=== PATIENT | female | born 1975 ===

== ENCOUNTER 2017-09-13 21:45 | Inpatient (IN) | payer MEDICAID, OTHER ==
[2017-09-13] MEDS ORDERED: Sodium Chloride 0.9% 1,000 ML IV STA (21:56)
[2017-09-13 21:58] VITALS: BMI 41.1
--- NOTE | 2017-09-13 22:08 | ED PDOC ---
Arrival/HPI - General Time Seen by Provider: 09/13/17 21:47 Historian: Patient - History of Present Illness Narrative History of Present Illness (Text): 09/13/17 22:00 42 y/o female, pmh including dm/anemia, nkda,seen in the [facility] about couple days ago as per patient, biba for nausea/vomiting/fatigue and tired with loose stool x 2 days with BP 84/43 on the ambulance but resolved in the ER. Pt. has not been ablt to tolerate any fluid/solid down for the past 2 days, very fatigue and unable to get up from the bed, admits vomiting and couple episodes of watery stool today, no recent traveling, stated that she has no chills or night sweat, no palpitation, no flank pain, no other medical or psychological complaints. Past Medical History - Provider Review Nursing Documentation Reviewed: Yes Family/Social History - Physician Review Nursing Documentation Reviewed: Yes Family/Social History: Unknown Family HX Allergies/Home Meds Allergies/Adverse Reactions: Allergies apple Allergy (Verified 09/13/17 23:09) REDNESS strawberries Allergy (Uncoded 09/13/17 21:53) RASH Home Medications: Home Meds Medication Instructions Recorded Confirmed Glipizide [Glucotrol] 10 mg PO BID 09/13/17 09/13/17 MetFORMIN [glucoPHAGE] 1,000 mg PO BID 09/13/17 09/13/17 Review of Systems - Review of Systems Systems not reviewed;Unavailable: Acuity of Condition Constitutional: Fatigue. absent: Fevers Eyes: absent: Vision Changes ENT: absent: Hearing Changes Respiratory: absent: SOB, Cough Cardiovascular: absent: Chest Pain Gastrointestinal: Abdominal Pain, Diarrhea, Nausea, Vomiting Musculoskeletal: absent: Arthralgias Skin: absent: Rash, Pruritis Psychiatric: absent: Anxiety, Depression Physical Exam Vital Signs Reviewed: Yes Vital Signs Temp Pulse Resp BP Pulse Ox 09/14/17 01:29 98 F 100 H 18 101/54 L 98 09/13/17 22:41 99.5 F 110 H 18 180/113 H 99 Temperature: Afebrile Blood Pressure: Hypertensive Pulse: Tachycardic Respiratory Rate: Normal Appearance: Positive for: Ill-Appearing, Unkept Pain Distress: None Mental Status: Positive for: Alert and Oriented X 3 - Systems Exam Head: Present: Atraumatic, Normocephalic Pupils: Present: PERRL Extroacular Muscles: Present: EOMI Conjunctiva: Present: Normal Mouth: Present: Moist Mucous Membranes Nose (Internal): Present: Normal Inspection, No Active Bleeding. No: Rhinorrhea Neck: Present: Normal Range of Motion Respiratory/Chest: Present: Clear to Auscultation, Good Air Exchange. No: Respiratory Distress, Accessory Muscle Use Cardiovascular: Present: Regular Rate and Rhythm, Normal S1, S2. No: Murmurs Abdomen: No: Tenderness, Distention, Peritoneal Signs, Rebound, Guarding Back: Present: Normal Inspection Upper Extremity: Present: Normal Inspection. No: Cyanosis, Edema Lower Extremity: Present: Normal Inspection. No: Edema Neurological: Present: GCS=15, CN II-XII Intact, Motor Func Grossly Intact, Memory Normal Skin: Present: Warm, Dry, Normal Color. No: Rashes Psychiatric: Present: Alert, Oriented x 3, Normal Insight, Normal Concentration Medical Decision Making ED Course and Treatment: 09/13/17 22:09 -labs/ua/vbg -ekg -chest xray -CT abdomen and pelvis -IVF/pepcid/zofran -observe and reassess -EKG: Sinus tachycardia @ 117 BPM, no ST elevation or depression, no T wave inversion, no previous comparison. -Chest xray -CT abdomen and pelvis -Labs show WBC 20 (IV vancomycin/zosyn/flagyl), BUN 49 (fluid ordered), Creatine 4.4, Mg 1.2 (MgSu 2gm IV ordered) -VBG PH 7.14, Bicarb 15.7, Lactate 10.4 09/13/17 22:43 -Code sepsis activated, 30cc/kg fluid, IV vancomcyin/zosyn/flagyl ordered. -DKA vs. Sepsis 09/13/17 23:55 -EKG: Sinus tachycardia @ 117 BPM, no ST elevation or depression, no T wave inversion, no previous comparison. -Chest xray -CT abdomen and pelvis -Labs show WBC 20 (IV vancomycin/zosyn/flagyl, 30ml/kg fluid), BUN 49 (fluid ordered), Creatine 4.4, Mg 1.2 (MgSu 2gm IV ordered) -VBG PH 7.14, Bicarb 15.7, Lactate 10.4 -IV drip ordered as well as this can be DKA from poor controlled DM with Serum glucose 400s without eating for 2 days. -I spoke to Dr. Mcduffie and vice president of software engineering Dr. Xie, discussed about the labs/ radiology results and treatments, agreed on the admission, and will come to see the patient now. They will follow up the pending CT and chest xray. -I discussed the case with dr. Elizabeth and he agreed on the labs/order/ radiology and treatment plan including admission. He will placed in the admission. - Critical Care Critical Care Minutes: 45 minutes Critical Care Time: Unstable Narrative Critical Care (Text): 09/14/17 00:30 IV fluid, IV insulin and IV Insulin drip, IV vancomycin/zosyn/flagyl, ICU consult and admission - Lab Interpretations Lab Results: 09/13/17 22:15 09/13/17 22:15 Lab Results 09/13/17 22:15: Procalcitonin > 200.00 H 09/13/17 22:15: pO2 48, VBG pH 7.14 L*, VBG pCO2 46.0, VBG HCO3 15.7 L, VBG Total CO2 17.1 L, VBG O2 Sat (Calc) 78.1 H, VBG Base Excess -13.1 L, VBG Potassium 3.4 L, Sodium 132.0, Chloride 95.0 L, Glucose 438 H*, Lactate 10.4 H* , FiO2 21.0, Venous Blood Potassium 3.4 L 09/13/17 22:15: WBC 20.1 H, RBC 4.18, Hgb 11.1 L, Hct 33.2 L, MCV 79.4 L, MCH 26.6, MCHC 33.4, RDW 16.4 H, Plt Count 165, MPV 12.1 H, Gran % 89.8 H, Lymph % ( Auto) 7.9 L, [place] % (Auto) 2.3, Eos % (Auto) 0.0 L, Baso % (Auto) 0.0, Gran # 18.05 H, Lymph # (Auto) 1.6, [place] # (Auto) 0.5, Eos # (Auto) 0.0, Baso # (Auto) 0.01, Neutrophils % (Manual) 80 H, Band Neutrophils % 9 H, Lymphocytes % (Manual ) 6 L, Monocytes % (Manual) 5, Large Platelets Present 09/13/17 22:15: Beta HCG, Quant < 2.39 09/13/17 22:15: Sodium 135, Chloride 93 L, Potassium 3.3 L, Carbon Dioxide 16 L , Anion Gap 29 H, BUN 49 H, Creatinine 4.4 H, Est GFR ( Amer) 13, Est GFR (Non-Af Amer) 11, Random Glucose 430 H*, Calcium 9.4, Magnesium 1.2 L, Total Bilirubin 0.7, AST 25, ALT 11, Alkaline Phosphatase 130 H, Total Protein 7.6, Albumin 3.8, Globulin 3.8, Albumin/Globulin Ratio 1.0 L, Lipase 26 09/13/17 22:00: Blood Type A POSITIVE, Antibody Screen Negative, BBK History Checked No verified bt - RAD Interpretation Radiology Orders: 09/13/17 21:56 CHEST PORTABLE [RAD] Stat 09/13/17 23:00 ABDOMEN & PELVIS [ABD & PELVIS W/O PO OR IV CONT] [CT] Stat Chest xray: ------ CT abdomen and pelvis: Compliance Professional: Radiologist - EKG Interpretation EKG Interpretation (Text): 09/13/17 22:10 -EKG: Sinus tachycardia @ 117 BPM, no ST elevation or depression, no T wave inversion, no previous comparison. Interpreted by ED Physician: Yes Type: 12 lead EKG Comparison: No previous EKG avail. - Medication Orders Current Medication Orders: Heparin Sodium (Porcine) (Heparin) 5,[address] [facility] PRN Reason: Protocol Last Admin: 09/14/17 09:24 Dose: 5,000 units Subcutaneous Administrations Document 09/14/17 09:24 HERBERT (Rec: 09/14/17 09:24 RAMOM [id number]) Injection Site MAR Injection Site Left Abdomen Charges for Administration # of Subcutaneous Administrations 1 Hydrocortisone Sodium Succinate (Solu-Cortef) [address] [facility] Last Admin: 09/14/17 11:10 Dose: 100 mg IVP Administration Document 09/14/17 11:10 RAMOM (Rec: 09/14/17 13:23 RAMOM [id number]) Charges for Administration # of IVP Administrations 1 Insulin Human Regular 100 (units/ Sodium Chloride) 100 mls @ 6 mls/hr IV .[id number] PRN; Protocol; 6 UNITS/HR PRN Reason: TITRATE PER MD ORDER Last Titration: 09/14/17 08:40 Dose: 2 units/hr, 2 mls/hr Titration Intervention Document 09/14/17 08:40 RAMOM (Rec: 09/14/17 08:40 RAMOM [id number]) Titration Intake Titration Intake 4 Cumulative Intake 14 Cumulative Intake (Rx) 14 Waste Amount 0 Container Volume 46 Titration Dosing Titration Dose 2 IV Rate 2 Intake/Decrease Increased Cumulative Dose 14 Metronidazole (Flagyl) 500 mg in 100 mls @ 100 mls/hr IVPB Q8 BOB PRN Reason: Protocol Last Admin: 09/14/17 13:19 Dose: 100 mls/hr eMAR Start Stop Document 09/14/17 13:19 RAMOM (Rec: 09/14/17 13:19 RAMOM [id number]) Intravenous Solution Start Date 09/14/17 Start Time 13:20 End Date 09/14/17 End time 14:20 Total Infusion Time 60 Acetaminophen (Ofirmev) 1,000 mg in 100 mls @ 400 mls/hr IVPB Q6H PRN PRN Reason: Fever Stop: 09/16/17 05:43 Last Admin: 09/14/17 14:37 Dose: 400 mls/hr eMAR Start Stop Document 09/14/17 14:37 RAMOM (Rec: 09/14/17 14:37 RAMOM [id number]) Intravenous Solution Start Date 09/14/17 Start Time 14:35 End Date 09/14/17 End time 14:50 Total Infusion Time 15 MAR Pain Assessment Document 09/14/17 14:37 RAMOM (Rec: 09/14/17 14:37 RAMOM [id number]) Pain Reassessment Is this a pain reassessment? No Sleep Is patient sleeping during reassessment? No Presence of Pain Presence of Pain No Potassium Chloride/Dextrose/Sod Cl (Potassium Chl 20 Meq In D5-1/2ns) 1,000 mls @ 150 mls/hr IV .Q6H40M BOB Last Admin: 09/14/17 07:07 Dose: 150 mls/hr eMAR Start Stop Document 09/14/17 07:07 B.P (Rec: 09/14/17 07:07 B.P TRAINPC-FIX) Intravenous Solution Start Date 09/14/17 Start Time 07:07 Vasopressin 20 units/ Sodium (Chloride) 101 mls @ 9.09 mls/hr IV .Q11H7M BOB; 0.03 U/MIN PRN Reason: Protocol Last Admin: 09/14/17 11:20 Dose: 9.09 mls/hr eMAR Start Stop Document 09/14/17 11:20 RAMOM (Rec: 09/14/17 11:21 RAMOM [id number]) Intravenous Solution Start Date 09/14/17 Start Time 11:20 End Date 09/14/17 End time 12:20 Total Infusion Time 60 MAR Blood Pressure Document 09/14/17 11:20 RAMOM (Rec: 09/14/17 11:21 RAMOM [id number]) Blood Pressure Blood Pressure (100/60-150/90) 72/0 NOREPINEPHRINE BIT/0.9 % NACL (Levophed 4 Mg/ 250 Ml Ns Premixed) 4 mg in 250 mls @ 15 mls/hr IV .[id number] PRN; Protocol; 4 MCG/MIN PRN Reason: TITRATE PER MD ORDER Last Admin: 09/14/17 13:55 Dose: 12 mcg/min, 45 mls/hr eMAR Start Stop Document 09/14/17 13:55 RAMOM (Rec: 09/14/17 13:59 RAMOM [id number]) Intravenous Solution Start Date 09/14/17 Start Time 13:50 Titration Intervention Document 09/14/17 13:55 RAMOM (Rec: 09/14/17 13:59 RAMOM [id number]) Titration Intake Cumulative Intake (Rx) 250 Waste Amount 0 Container Volume 250 Titration Dosing Titration Dose 12 IV Rate 45 Intake/Decrease Started/Running Cumulative Dose 4 Meropenem 500 mg/ Sodium (Chloride) 50 mls @ 100 mls/hr IVPB Q12 BOB PRN Reason: Protocol Stop: 09/23/17 22:01 Ondansetron HCl (Zofran Inj) 4 mg IVP Q4H PRN PRN Reason: Nausea/Vomiting Last Admin: 09/14/17 04:49 Dose: 4 mg IVP Administration Document 09/14/17 04:49 B.P (Rec: 09/14/17 04:49 B.P TRAINPC-FIX) Charges for Administration # of IVP Administrations 1 Pantoprazole Sodium (Protonix Inj) [address] [facility] Last Admin: 09/14/17 09:24 Dose: 40 mg IVP Administration Document 09/14/17 09:24 RAMOM (Rec: 09/14/17 09:24 RAMOM [id number]) Charges for Administration # of IVP Administrations 1 Vitamin A (Vitamin A & D Oint Ud Foilpak) 1 ea TOP Q2 PRN PRN Reason: Dry mouth Discontinued Medications Acetaminophen (Tylenol 325mg Tab) 650 mg PO ONCE ONE Stop: 09/14/17 03:22 Last Admin: 09/14/17 03:33 Dose: 650 mg [facility] Pain/Vitals Document 09/14/17 03:33 B.P (Rec: 09/14/17 03:33 B.P TRAINPC-FIX) Pain Reassessment Is This A Pain ReAssessment? No Vitals Temperature (97.6 F-99.6 F) 99.6 F Temperature Source Oral Re-Assess: MAR Pain/Vitals Document 09/14/17 04:33 B.P (Rec: 09/14/17 05:02 B.P TRAINPC-FIX) Pain Reassessment Is This A Pain ReAssessment? Yes Sleep Is patient sleeping during reassessment? Yes Famotidine (Pepcid) 20 mg IVP STAT STA Stop: 09/13/17 21:57 Last Admin: 09/13/17 22:51 Dose: 20 mg IVP Administration Document 09/13/17 22:51 LA (Rec: 09/13/17 22:51 [id number][facility] Charges for Administration # of IVP Administrations 1 Hydrocortisone Sodium Succinate (Solu-Cortef) 100 mg IVP Q8 BOB Sodium Chloride (Sodium Chloride 0.9%) 1,000 mls @ 999 mls/hr IV .Q1H1M STA Stop: 09/13/17 22:56 Last Admin: 09/13/17 22:52 Dose: 999 mls/hr eMAR Start Stop Document 09/13/17 22:52 LA (Rec: 09/13/17 22:52 [id number]) Intravenous Solution Start Date 09/13/17 Start Time 22:52 End Date 09/13/17 End time 23:53 Total Infusion Time 61 Lactated Ringer's 3,000 ml/ IV (SUPPLIES) 3,000 mls @ 6,531.72 mls/hr IV ONCE ONE PRN Reason: 60 ML/KG/HR Stop: 09/13/17 22:41 Last Admin: 09/14/17 00:06 Dose: 6,531.72 mls/hr eMAR Start Stop Document 09/14/17 00:06 LA (Rec: 09/14/17 00:07 [id number]) Intravenous Solution Start Date 09/14/17 Start Time 00:06 End Date 09/14/17 End time 00:34 Total Infusion Time 28 Metronidazole (Flagyl) 500 mg in 100 mls @ 100 mls/hr IVPB STAT STA PRN Reason: Protocol Stop: 09/13/17 23:42 Vancomycin HCl (Vancomycin 1gm) 1 gm in 250 mls @ 167 mls/hr IVPB STAT STA PRN Reason: Protocol Stop: 09/14/17 00:09 Piperacillin Sod/Tazobactam Sod (Zosyn 3.375 In Ns 100ml) 100 mls @ 200 mls/hr IVPB STAT STA PRN Reason: Protocol Stop: 09/13/17 23:09 Last Admin: 09/13/17 22:57 Dose: 200 mls/hr eMAR Start Stop Document 09/13/17 22:57 LA (Rec: 09/13/17 22:58 [place] [facility] [id number]) Intravenous Solution Start Date 09/13/17 Start Time 22:57 End Date 09/13/17 End time 23:27 Total Infusion Time 30 Magnesium Sulfate 2 gm/ Sodium (Chloride) 104 mls @ 102 mls/hr IVPB ONCE ONE Stop: 09/13/17 23:59 Last Admin: 09/14/17 00:09 Dose: 102 mls/hr eMAR Start Stop Document 09/14/17 00:09 LA (Rec: 09/14/17 00:10 [id number]) Intravenous Solution Start Date 09/14/17 Start Time 00:09 End Date 09/14/17 End time 01:10 Total Infusion Time 61 Potassium Chloride (Potassium Chloride 20 Meq/100 Ml) 20 meq in 100 mls @ 50 mls/hr IVPB ONCE ONE Stop: 09/14/17 01:58 Last Admin: 09/14/17 00:20 Dose: 50 mls/hr eMAR Start Stop Document 09/14/17 00:20 LA (Rec: 09/14/17 00:20 [id number]) Intravenous Solution Start Date 09/14/17 Start Time 00:20 End Date 09/14/17 End time 02:20 Total Infusion Time 120 Potassium Chloride 20 meq/ (Sodium Chloride) 1,010 mls @ 150 mls/hr IV .Q6H44M BOB Last Admin: 09/14/17 03:42 Dose: 150 mls/hr eMAR Start Stop Document 09/14/17 03:42 B.P (Rec: 09/14/17 03:43 B.P TRAINPC-FIX) Intravenous Solution Start Date 09/14/17 Start Time 03:43 Piperacillin Sod/Tazobactam Sod (Zosyn 3.375 In Ns 100ml) 100 mls @ 200 mls/hr IVPB Q6 BOB PRN Reason: Protocol Stop: 09/14/17 12:29 Last Admin: 09/14/17 05:33 Dose: 200 mls/hr eMAR Start Stop Document 09/14/17 05:33 B.P (Rec: 09/14/17 05:33 B.P TRAINPC-FIX) Intravenous Solution Start Date 09/14/17 Start Time 05:33 Vancomycin HCl (Vancomycin 1gm) 1 gm in 250 mls @ 167 mls/hr IVPB STAT STA PRN Reason: Protocol Stop: 09/14/17 04:17 Last Admin: 09/14/17 02:57 Dose: 167 mls/hr eMAR Start Stop Document 09/14/17 02:57 B.P (Rec: 09/14/17 02:57 B.P TRAINPC-FIX) Intravenous Solution Start Date 09/14/17 Start Time 02:57 Meropenem (Merrem Iv 1 Gm Premix) 50 mls @ 100 mls/hr IVPB Q12 BOB PRN Reason: Protocol Last Admin: 09/14/17 09:24 Dose: 100 mls/hr eMAR Start Stop Document 09/14/17 09:24 RAMOM (Rec: 09/14/17 09:25 RAMOM [id number]) Intravenous Solution Start Date 09/14/17 Start Time 09:25 End Date 09/14/17 End time 09:55 Total Infusion Time 30 Sodium Chloride (Sodium Chloride 0.9%) 1,000 mls @ 999 mls/hr IV .Q1H1M STA Stop: 09/14/17 09:36 Last Admin: 09/14/17 08:15 Dose: 999 mls/hr eMAR Start Stop Document 09/14/17 08:15 RAMOM (Rec: 09/14/17 08:47 RAMOM [id number]) Intravenous Solution Start Date 09/14/17 Start Time 08:15 End Date 09/14/17 End time 09:15 Total Infusion Time 60 Sodium Chloride (Sodium Chloride 0.9%) 1,000 mls @ 999 mls/hr IV .Q1H1M STA Stop: 09/14/17 09:38 Last Admin: 09/14/17 08:20 Dose: 999 mls/hr eMAR Start Stop Document 09/14/17 08:20 RAMOM (Rec: 09/14/17 08:48 RAMOM [id number]) Intravenous Solution Start Date 09/14/17 Start Time 08:20 End Date 09/14/17 End time 09:20 Total Infusion Time 60 Sodium Chloride (Sodium Chloride 0.9%) 1,000 mls @ 999 mls/hr IV .Q1H1M STA Stop: 09/14/17 09:38 Last Admin: 09/14/17 09:09 Dose: 999 mls/hr eMAR Start Stop Document 09/14/17 09:09 RAMOM (Rec: 09/14/17 09:10 RAMOM [id number]) Intravenous Solution Start Date 09/14/17 Start Time 09:15 End Date 09/14/17 End time 10:15 Total Infusion Time 60 Sodium Chloride (Sodium Chloride 0.9%) 1,000 mls @ 999 mls/hr IV .Q1H1M STA Stop: 09/14/17 09:39 Last Admin: 09/14/17 09:26 Dose: 999 mls/hr eMAR Start Stop Document 09/14/17 09:26 RAMOM (Rec: 09/14/17 09:26 RAMOM [id number]) Intravenous Solution Start Date 09/14/17 Start Time 09:15 End Date 09/14/17 End time 10:15 Total Infusion Time 60 Potassium Chloride (Potassium Chloride 10 Meq/100 Ml) 10 meq in 100 mls @ 50 mls/hr IVPB Q2H BOB Stop: 09/14/17 14:59 Last Admin: 09/14/17 13:21 Dose: 50 mls/hr eMAR Start Stop Document 09/14/17 13:21 RAMOM (Rec: 09/14/17 13:22 RAMOM [id number]) Intravenous Solution Start Date 09/14/17 Start Time 11:20 End Date 09/14/17 End time 12:20 Total Infusion Time 60 Lactated Ringer's (Lactated Ringer's) 1,000 mls @ 999 mls/hr IV .Q1H1M STA Stop: 09/14/17 11:13 Last Admin: 09/14/17 10:47 Dose: 999 mls/hr eMAR Start Stop Document 09/14/17 10:47 RAMOM (Rec: 09/14/17 10:48 RAMOM [id number]) Intravenous Solution Start Date 09/14/17 Start Time 10:15 End Date 09/14/17 End time 11:15 Total Infusion Time 60 Magnesium Sulfate 2 gm/ Sodium (Chloride) 104 mls @ 102 mls/hr IVPB ONCE ONE Stop: 09/14/17 11:30 Last Admin: 09/14/17 11:12 Dose: 102 mls/hr eMAR Start Stop Document 09/14/17 11:12 RAMOM (Rec: 09/14/17 11:13 RAMOM [id number]) Intravenous Solution Start Date 09/14/17 Start Time 11:15 End Date 09/14/17 End time 12:15 Total Infusion Time 60 Insulin Human Regular (Humulin R) 10 units IV STAT STA Stop: 09/13/17 22:41 Last Admin: 09/13/17 22:56 Dose: 10 units eMAR Start Stop Document 09/13/17 22:56 LA (Rec: 09/13/17 22:57 [place] [facility] [id number]) Intravenous Solution Start Date 09/13/17 Start Time 22:56 End Date 09/13/17 End time 22:56 Total Infusion Time 0 MAR Blood Glucose Document 09/13/17 22:56 AILEEN (Rec: 09/13/17 22:57 [id number]) Blood Glucose Finger Stick Blood Glucose (70-120) 430 Ondansetron HCl (Zofran Inj) 4 mg IVP STAT STA Stop: 09/13/17 21:57 Last Admin: 09/13/17 22:51 Dose: 4 mg IVP Administration Document 09/13/17 22:51 LA (Rec: 09/13/17 22:51 [id number]) Charges for Administration # of IVP Administrations 1 Potassium Chloride (Potassium Chloride Oral Soln) 40 meq PO STAT STA Stop: 09/14/17 08:51 Last Admin: 09/14/17 11:17 Dose: - PA / COMPUTER SUPPORT ANALYST / Resident Statement / has reviewed & agrees with the documentation as recorded. Disposition/Present on Arrival - Present on Arrival Any Indicators Present on Arrival: No History of DVT/PE: No History of Uncontrolled Diabetes: No Urinary Catheter: No History of Decub. Ulcer: No - Disposition Have Diagnosis and Disposition been Completed?: Yes Diagnosis: Fatigue, Renal failure, Dehydration, Sepsis, Hypomagnesemia, DKA (diabetic ketoacidoses), Transient hypotension Disposition: HOSPITALIZED Disposition Time: 22:10 Patient Plan: Admission, ICU Patient Problems: Current Active Problems Problem Status Onset Fatigue Acute Sepsis Acute Renal failure Acute Dehydration Acute Hypomagnesemia Acute DKA (diabetic ketoacidoses) Acute Condition: STABLE
[2017-09-13 22:28] LABS: WHITE BLOOD COUNT 20.1 10^3/ul (4.5-11.0)
[2017-09-13 22:29] LABS: BASO # 0.01 K/mm3 (0.0-2.0); GRAN # 18.05 (1.4-6.5); GRAN % 89.8 % (50.0-68.0); HEMOGLOBIN 11.1 g/dL (12.0-16.0); LYMPH # 1.6 (1.2-3.4); LYMPH % 7.9 % (22.0-35.0); MEAN CELL VOLUME 79.4 fl (80.0-105.0); MEAN CORPUSCULAR HEMOGLOBIN 26.6 pg (25.0-35.0); MEAN CORPUSCULAR HGB CONC 33.4 g/dl (31.0-37.0); MEAN PLATELET VOLUME 12.1 fl (7.0-11.0); MONO # 0.5 (0.1-0.6); MONO % 2.3 % (1.0-6.0); PLATELET COUNT 165 10^3/uL (120.0-450.0); RBC 4.18 10^6/uL (3.5-6.1); RED CELL DISTRIBUTION WIDTH 16.4 % (11.5-14.5)
[2017-09-13 22:33] LABS: VENOUS BLOOD GAS BASE EXCESS -13.1 mmol/L (0.0-2.0); VENOUS BLOOD GAS PO2 48 mm/Hg (30-55)
[2017-09-13 22:37] LABS: VENOUS BLOOD PH 7.14 (7.32-7.43)
[2017-09-13] MEDS ORDERED: Vancomycin 1gm in NS 250ml 1 GM/250 ML BAG IVPB STA (22:40)
[2017-09-13] MEDS ORDERED: Piperacillin/Tazobact 3.375 gm 100 ML IVPB STA (22:40)
[2017-09-13] MEDS ORDERED: Insulin Regular 1 UNITS/0.01 ML ML IV STA (22:40)
[2017-09-13] MEDS ORDERED: metroNIDAZOLE IV 500 mg/100 ml 500 MG/100 ML BAG IVPB STA (22:43)
[2017-09-13 22:51] LABS: ALBUMIN 3.8 g/dL (3.0-4.8); CALCIUM 9.4 mg/dL (8.4-10.5)
[2017-09-13] MEDS ORDERED: Magnesium Sulfate 2 GM in Sodium Chloride 0.9% 100 ML IVPB ONE (22:58)
[2017-09-13 23:05] LABS: BAND 9 % (0-2); LARGE PLATELETS PRESENT; LYMPHOCYTE 6 % (22.0-35.0); MONOCYTE 5 % (1.0-6.0); NEUTROPHIL 80 % (50.0-70.0)
[2017-09-13] MEDS ORDERED: Insulin Regular 100 UNITS in Sodium Chloride 0.9% 99 ML IV PRN (23:11)
--- NOTE | 2017-09-14 00:44 | CP.PCM.CON ---
Addendum entered and electronically signed by Nixon Garcia DO 09/14/17 09:17 : When referring to the CBC results from the morning of 09/14/17 at times 0450 and 0550 should be disregarded as lab error. Please refer to the CBC that resulted at 0610. Addendum entered and electronically signed by Nixon Garcia DO 09/14/17 01:18 : Patient with elevated creatinine to 4.4 with no reported history of CKD and no baseline for comparison. IVF are being administered and Nephrology was consulted. Original Note: <Nixon Garcia - Last Filed: 09/14/17 00:29> History of Present Illness - History of Present Illness History of Present Illness: ICU Consult Note: CC: DKA/Sepsis HPI: Ms. Cordero is 42 year old female with a past medical history significant for NIDDM2 presents with two days of nausea, vomiting, abdominal pain, fever and fatigue. Patient reports that two days ago she began to experience nausea and vomiting after eating at a local restaurant. Since that time she has been feeling significant fatigue and has been unable to tolerate PO intake. She endorses epigastric abdominal pain, 6/10, that is associated with the N/V. Patients mother took her blood pressure and BG today and these were, 75/40 and 350, respectively. She endorses that she was seen at [facility] for similar symptoms two weeks ago for similar symptoms and these resolved with supportive interventions. She reports that she sees Dr. Willis on [facility] for her primary care needs but that she sees him less frequently than is required for routine health maintenance. She also reports that she has seen an Report Analyst for her NIDDM2, which was diagnosed at age 30. She reports that she was on insulin at one time but is currently only taking PO medications for glycemic control. She denies headache, rhinorrhea, changes in her vision, chest pain, palpitations, leg swelling, SOB, cough, hemoptysis, diarrhea, constipation , dysuria, hematuria, skin changes, or any numbness/tingling/weakness of any extremity. PMH: NIDDM2 PSH: Denies Family History: Denies Social History: Denies any tobacco, alcohol, or illicit drug use; Lives with her father in [place]; Currently unemployed Allergies: Apples and strawberry's Home Medications: As per MAR Review of Systems - Review of Systems Review of Systems: As stated in HPI, otherwise negative Past Patient History - Infectious Disease Hx of Infectious Diseases: None - Tetanus Immunizations Tetanus Immunization: Unknown - Past Social History Smoking Status: Unknown If Ever Smoked - PSYCHIATRIC Hx Substance Use: (unk) - ANESTHESIA Hx Anesthesia: No Hx Anesthesia Reactions: No Hx Malignant Hyperthermia: No Meds Allergies/Adverse Reactions: Allergies Allergy/AdvReac Type Severity Reaction Status Date / Time apple Allergy REDNESS Verified 09/13/17 23:09 strawberries Allergy RASH Uncoded 09/13/17 21:53 - Medications Medications: Current Medications Heparin Sodium (Porcine) (Heparin) 5,000 units SC Q12 BOB PRN Reason: Protocol Insulin Human Regular 100 (units/ Sodium Chloride) 100 mls @ 6 mls/hr IV .[id number] PRN; Protocol; 6 UNITS/HR PRN Reason: TITRATE PER MD ORDER Last Admin: 09/14/17 00:07 Dose: 6 mls/hr Metronidazole (Flagyl) 500 mg in 100 mls @ 100 mls/hr IVPB Q8 BOB PRN Reason: Protocol Potassium Chloride (Potassium Chloride 20 Meq/100 Ml) 20 meq in 100 mls @ 50 mls/hr IVPB ONCE ONE Stop: 09/14/17 01:58 Last Admin: 09/14/17 00:20 Dose: 50 mls/hr Potassium Chloride 20 meq/ (Sodium Chloride) 1,010 mls @ 150 mls/hr IV .[id number] BOB Vancomycin HCl (Vancomycin 1gm) 1 gm in 250 mls @ 167 mls/hr IVPB DAILY BOB PRN Reason: Protocol Piperacillin Sod/Tazobactam Sod (Zosyn 3.375 In Ns 100ml) 100 mls @ 200 mls/hr IVPB Q6 BOB PRN Reason: Protocol Stop: 09/14/17 12:29 Ondansetron HCl (Zofran Inj) 4 mg IVP Q4H PRN PRN Reason: Nausea/Vomiting Physical Exam - Constitutional Appears: Toxic, In Acute Distress - Head Exam Head Exam: ATRAUMATIC, NORMOCEPHALIC - Eye Exam Eye Exam: EOMI, Normal appearance, PERRL Pupil Exam: NORMAL ACCOMODATION - ENT Exam ENT Exam: Mucous Membranes Dry - Neck Exam Neck exam: Positive for: Full Rom, Normal Inspection. Negative for: Lymphadenopathy, Meningismus, Tenderness, Thyromegaly - Respiratory Exam Respiratory Exam: Clear to Auscultation Bilateral, NORMAL BREATHING PATTERN. absent: Accessory Muscle Use, Chest Wall Tenderness, Decreased Breath Sounds, Prolonged Expiratory Phase, Rales, Rhonchi, Wheezes, Respiratory Distress, Stridor - Cardiovascular Exam Cardiovascular Exam: Tachycardia, REGULAR RHYTHM, +S1, +S2. absent: Bradycardia , Clicks, Diastolic murmur, Gallop, Irregular Rhythm, JVD, RRR, Rubs, +S4, Systolic Murmur - GI/Abdominal Exam GI & Abdominal Exam: Normal Bowel Sounds, Soft, Tenderness (Diffuse; More localized in epigastic region). absent: Bruit, Diminished Bowel Sounds, Distended, Firm, Guarding, Hernia, Hyperactive Bowel Sounds, Hypoactive Bowel Sounds, Mass, Organomegaly, Pulsatile Mass, Rebound, Rigid - Extremities Exam Extremities exam: Positive for: full ROM, normal capillary refill, normal inspection, pedal pulses present. Negative for: calf tenderness, joint swelling , pedal edema, tenderness - Back Exam Back exam: FULL ROM, NORMAL INSPECTION. absent: CVA tenderness (L), CVA tenderness (R), paraspinal tenderness, vertebral tenderness - Neurological Exam Neurological exam: Alert, Oriented x3 - Psychiatric Exam Psychiatric exam: Normal Affect, Normal Mood - Skin Skin Exam: Dry, Intact, Normal Color, Warm Results - Vital Signs Recent Vital Signs: Last Vital Signs Temp 99.5 F 09/13/17 22:41 Pulse 110 H 09/13/17 22:41 Resp 18 09/13/17 22:41 BP 180/113 H 09/13/17 22:41 Pulse Ox 99 09/13/17 22:41 - Labs Result Diagrams: 09/13/17 22:15 09/13/17 22:15 Labs: Laboratory Results - last 24 hr 09/14/17 00:02 POC Glucose (mg/dL) 376 H - EKG Data EKG Interpreted by: Other EKG shows normal: Sinus rhythm Rate: Tachycardia Assessment & Plan - Assessment and Plan (Free Text) Assessment: 42 year old female with a past medical history significant for NIDDM2 presents with two days of nausea, vomiting, abdominal pain, fever and fatigue. Patient had hyperglycemia to 430 and an anion gap of 26. She was also found to have a leukocytosis to 20.1, lactic acidosis of 10.4, and hypokalemia to 3.3. She will be admitted to the ICU for treatment and further evaluation of DKA and sepsis of unconfirmed etiology. Plan: 1. DKA -Serum glucose of 430 on arrival and anion gap acidosis with an anion gap of 26 -Insulin drip started at 6units/hr -Normal saline with 20meq of potassium at 150mls/hr -Q4H Serial BMP's -Zofran PRN for N/V -Home PO medications held -Strict I/O's, fall and aspiration precautions -Diabetes Education referral 2. Sepsis -Leukocytosis to 20.1 with lactic acidosis of 10.4 and tachycardia to 110 -CT Abdomen/Pelvis and Chest X-Ray pending -Started on IV Flagyl, Vancomycin (Renally dosed), and Zosyn -Sepsis protocol fluid bolus administered in ED -Procal, blood cultures, stool cultures and C. Diff serology pending -ID consulted, all recommendations appreciated GI Prophylaxis: Protonix DVT Prophylaxis: Heparin Diet: NPO Patient seen and assessed with attending, Dr. Mcduffie. Elisha PGY1 - Date & Time Date: 09/14/17 Time: 00:46 <Reta DENSON,Kings - Last Filed: 09/25/17 11:14> Results - Vital Signs Recent Vital Signs: Last Vital Signs Temp 98.6 F 09/22/17 06:00 Pulse 103 H 09/22/17 09:21 Resp 20 09/22/17 06:00 BP 138/78 09/22/17 09:21 Pulse Ox 97 09/22/17 06:00 - Labs Result Diagrams: 09/22/17 05:15 09/22/17 05:15 Attending/Attestation - Attestation I have personally seen and examined this patient.: Yes I have fully participated in the care of the patient.: Yes I have reviewed all pertinent clinical information: Yes
[2017-09-14] MEDS ORDERED: Vitamins A & D Oint UD Foilpak TOP PRN (01:37)
[2017-09-14 02:00] LABS: VENOUS BLOOD GAS BASE EXCESS -12.2 mmol/L (0.0-2.0); VENOUS BLOOD GAS PO2 55 mm/Hg (30-55)
[2017-09-14] MEDS ORDERED: Vancomycin 1gm in NS 250ml 1 GM/250 ML BAG IVPB STA (02:48)
--- NOTE | 2017-09-14 03:07 | CT ---
EXAM: CT Abdomen and Pelvis Without Intravenous Contrast EXAM DATE/TIME: 09/13/2017 11:00 PM CLINICAL HISTORY: The patient age is 42 years old and is female; Pain; Abdominal pain; Additional info: Abdominal pain/vomiting/diarrhea Facility exam id and description: Ct abdpelscon abd pelvis w/o po or iv cont TECHNIQUE: Axial computed tomography images of the abdomen and pelvis without intravenous contrast. All CT scans at this facility use one or more dose reduction techniques, viz.: automated exposure control; ma/kV adjustment per patient size (including targeted exams where dose is matched to indication; i.e. head); or iterative reconstruction technique. Coronal and sagittal reformatted images were created and reviewed. COMPARISON: No relevant prior studies available. FINDINGS: Lung bases: Interstitial and air space disease is identified at the bilateral lung bases. This may be infectious in etiology. ABDOMEN: Liver: There is hypodense fatty infiltration of the liver. Hepatomegaly. Gallbladder and bile ducts: Tiny gallstones are visualized. Pancreas: Normal contour. No ductal dilation. Spleen: There is a wedge-shaped area of hypodensity within the periphery of the spleen. Differential considerations include splenic infarct or laceration. A splenic mass cannot be excluded. There is mild splenomegaly. Adrenals: No mass. Kidneys and ureters: Gas is visualized within the left ureter and left renal collecting system. This may be iatrogenically although infectious etiology/emphysematous pyelonephritis is considered. There is mild left perinephric stranding. No obstructing stones. No hydronephrosis. Stomach and bowel: Additional stranding is seen within the retroperitoneum which extends into the left side of the pelvis. This is likely infectious or inflammatory. Some of the stranding is seen in the left pericolonic region of the descending colon, which can be associated with colitis. PELVIS: Appendix: No findings to suggest acute appendicitis. Bladder: No stones. Reproductive: Within the left ovary, there is a 1.8 x 1.6 cm hypodense probable cyst. ABDOMEN and PELVIS: Intraperitoneal space: No free air. Bones/joints: Hypertrophic degenerative changes are noted within the spine. Vasculature: No abdominal aortic aneurysm. Lymph nodes: There is retroperitoneal lymphadenopathy. One of the enlarged left periaortic lymph nodes measures 1.7 x 1.4 cm. IMPRESSION: 1. Gas is visualized within the left ureter and left renal collecting system. This may be iatrogenically, although infectious etiology/emphysematous pyelonephritis is considered. There is mild left perinephric stranding. 2. Additional stranding is seen within the retroperitoneum which extends into the left side of the pelvis. This is likely infectious or inflammatory. Some of the stranding is seen in the left pericolonic region of the descending colon, which can be associated with colitis. 3. There is hypodense fatty infiltration of the liver. Hepatomegaly. 4. There is a wedge-shaped area of hypodensity within the periphery of the spleen. Differential considerations include splenic infarct or laceration. A splenic mass cannot be excluded. There is mild splenomegaly. This can be further evaluated with a contrast CT abdomen/pelvis. 5. Within the left ovary, there is a 1.8 x 1.6 cm hypodense probable cyst. 6. There is retroperitoneal lymphadenopathy. 7. Cholelithiasis. 8. Interstitial and air space disease is identified at the bilateral lung bases. This may be infectious in etiology. 9. Additional CT findings described above.
[2017-09-14] MEDS: metroNIDAZOLE IV 500 mg/100 ml 500 MG/100 ML BAG IVPB SCH ×4 (04:19→21:44)
[2017-09-14 05:16] LABS: BASO # 0.01 K/mm3 (0.0-2.0); BASO % 0.8 % (0.0-3.0); GRAN # 0.99 (1.4-6.5); GRAN % 75.5 % (50.0-68.0); HEMOGLOBIN 9.7 g/dL (12.0-16.0); LYMPH # 0.3 (1.2-3.4); LYMPH % 22.9 % (22.0-35.0); MEAN CELL VOLUME 78.8 fl (80.0-105.0); MEAN CORPUSCULAR HEMOGLOBIN 26.4 pg (25.0-35.0); MEAN CORPUSCULAR HGB CONC 33.4 g/dl (31.0-37.0); MEAN PLATELET VOLUME 10.9 fl (7.0-11.0); MONO % 0.8 % (1.0-6.0); RBC 3.68 10^6/uL (3.5-6.1); RED CELL DISTRIBUTION WIDTH 16.6 % (11.5-14.5)
[2017-09-14 05:19] LABS: VENOUS BLOOD GAS BASE EXCESS -7.1 mmol/L (0.0-2.0); VENOUS BLOOD GAS PO2 35 mm/Hg (30-55); VENOUS BLOOD PH 7.28 (7.32-7.43)
[2017-09-14 05:33] LABS: WHITE BLOOD COUNT 1.3 10^3/ul (4.5-11.0)
[2017-09-14 05:41] LABS: URINE BILIRUBIN NEGATIVE (NEGATIVE); URINE BLOOD MODERATE (NEGATIVE); URINE GLUCOSE (UA) 100 mg/dL (NEGATIVE); URINE LEUKOCYTE ESTERASE NEGATIVE Leu/uL (NEGATIVE); URINE PROTEIN 100 mg/dL (<30 mg/dL); URINE UROBILINOGEN 0.2 E.U./dL (<1 E.U./dL)
[2017-09-14 05:43] LABS: CALCIUM 8.4 mg/dL (8.4-10.5)
[2017-09-14 05:52] LABS: URINE APPEARANCE SL CLOUDY (CLEAR); URINE COLOR YELLOW (YELLOW)
[2017-09-14] MEDS ORDERED: Piperacillin/Tazobact 3.375 gm 100 ML IVPB SCH (06:00)
[2017-09-14 06:02] LABS: GRAN # 1.65 (1.4-6.5); GRAN % 81.3 % (50.0-68.0); LYMPH # 0.3 (1.2-3.4); LYMPH % 14.8 % (22.0-35.0); MEAN CELL VOLUME 79.7 fl (80.0-105.0); MEAN CORPUSCULAR HEMOGLOBIN 26.2 pg (25.0-35.0); MEAN CORPUSCULAR HGB CONC 32.8 g/dl (31.0-37.0); MEAN PLATELET VOLUME 9.2 fl (7.0-11.0); MONO # 0.1 (0.1-0.6); MONO % 3.9 % (1.0-6.0); RBC 1.72 10^6/uL (3.5-6.1); RED CELL DISTRIBUTION WIDTH 16.8 % (11.5-14.5)
[2017-09-14 06:05] LABS: HEMOGLOBIN 4.5 g/dL (12.0-16.0)
[2017-09-14 06:06] LABS: PLATELET COUNT 31 10^3/uL (120.0-450.0)
[2017-09-14 06:20] LABS: BASO # 0.01 K/mm3 (0.0-2.0); BASO % 0.2 % (0.0-3.0); GRAN # 4.09 (1.4-6.5); GRAN % 89.1 % (50.0-68.0); LYMPH # 0.5 (1.2-3.4); LYMPH % 9.8 % (22.0-35.0); MEAN CELL VOLUME 78.8 fl (80.0-105.0); MEAN CORPUSCULAR HEMOGLOBIN 26.6 pg (25.0-35.0); MEAN CORPUSCULAR HGB CONC 33.8 g/dl (31.0-37.0); MEAN PLATELET VOLUME 11.1 fl (7.0-11.0); MONO % 0.9 % (1.0-6.0); RBC 3.87 10^6/uL (3.5-6.1); RED CELL DISTRIBUTION WIDTH 16.6 % (11.5-14.5); WHITE BLOOD COUNT 4.6 10^3/ul (4.5-11.0)
[2017-09-14 06:29] LABS: HEMOGLOBIN 10.3 g/dL (12.0-16.0)
[2017-09-14 06:34] LABS: IRON < 10 ug/dL (45-180); TOTAL IRON BINDING CAPACITY 217 ug/dL (265-497)
[2017-09-14 06:38] LABS: URINE EPITHELIAL CELLS 0 - 2 /hpf (0-5); URINE WBC 0 - 2 /hpf (0-6)
[2017-09-14 06:39] LABS: URINE AMORPHOUS SEDIMENT FEW
[2017-09-14] MEDS ORDERED: Potassium Ch 20mEq in D5-1/2NS 1,000 ML IV SCH (06:45)
--- NOTE | 2017-09-14 07:13 | CP.PCM.CON ---
<FidencioJacquelinePorsha - Last Filed: 09/14/17 12:53> History of Present Illness - History of Present Illness History of Present Illness: Nephrology Consult Note for Leonila Oglesby PGY2 Reason for consult: acute renal failure This is a 42yo female who came to ED for nausea/vomiting with abdominal pain and fever for 2 days. Patient is lethargic on examination. History was limited and obtained through chart review and speaking with hospital staff. Patient has not been feeling well for past 2 days. She was unable to tolerate PO intake. Her pain is epigastric and does not radiate. When she was at home her mom took her blood pressure and noted that she was hypotensive. Of note, patient was [place] [facility] [place] for similar symptoms. She reports having pain in her back when she lies flat and complains of nausea and fatigue with shortness of breath. She denies chest pain, numbness/tingling, dysuria, hematuria, fever or chills. In ED, patient was noted to have sepsis with dehydration and anion gap metabolic acidosis with acute kidney failure. Patient was place on Insulin drip , IV fluids, and empiric antibiotics. As per nursing staff, patient was also noted to have copious yellow/white vaginal discharge. Patient reports she has been with the same partner for 12yrs and they are monogamous. She did not notice the discharge before. Overnight patient also found to be retaining urine with 250cc in her bladder. Colón was placed. Past medical history: NIDDM Past surgical history: None Home meds: As per MAR Allergies: Apples and strawberries Social history: Denies EtOH, drug or tobacco use. Lives with . Family history: Mom: HTN, HLD, DM (alive) Dad: HTN, Cirrhosis, HLD () Patient also under Outpatient Nutrition Worker: Dr Peres PMD: Dr. Willis Review of Systems - Review of Systems All systems: reviewed and no additional remarkable complaints except Review of Systems: 12 point ROS reviewed as per HPI and is otherwise negative. Past Patient History - Infectious Disease Hx of Infectious Diseases: None - Tetanus Immunizations Tetanus Immunization: Unknown - Past Social History Smoking Status: Never Smoked - CARDIAC Hx Cardiac Disorders: No - PULMONARY Hx Respiratory Disorders: No - NEUROLOGICAL Hx Neurological Disorder: No - HEENT Hx HEENT Problems: No - RENAL Hx Chronic Kidney Disease: No - ENDOCRINE/METABOLIC Hx Endocrine Disorders: No - HEMATOLOGICAL/ONCOLOGICAL Hx Blood Disorders: Yes Hx Anemia: Yes - INTEGUMENTARY Hx Dermatological Problems: No - MUSCULOSKELETAL/RHEUMATOLOGICAL Hx Musculoskeletal Disorders: No Hx Falls: No - GASTROINTESTINAL Hx Gastrointestinal Disorders: No - GENITOURINARY/GYNECOLOGICAL Hx Genitourinary Disorders: No - PSYCHIATRIC Hx Psychophysiologic Disorder: No - SURGICAL HISTORY Hx Surgeries: No - ANESTHESIA Hx Anesthesia: No Hx Anesthesia Reactions: No Hx Malignant Hyperthermia: No Meds Allergies/Adverse Reactions: Allergies Allergy/AdvReac Type Severity Reaction Status Date / Time apple Allergy REDNESS Verified 09/13/17 23:09 strawberries Allergy RASH Uncoded 09/13/17 21:53 - Medications Medications: Current Medications Heparin Sodium (Porcine) (Heparin) 5,000 units SC Q12 BOB PRN Reason: Protocol Insulin Human Regular 100 (units/ Sodium Chloride) 100 mls @ 6 mls/hr IV .[id number] PRN; Protocol; 6 UNITS/HR PRN Reason: TITRATE PER MD ORDER Last Titration: 09/14/17 02:31 Dose: 3 units/hr, 3 mls/hr Metronidazole (Flagyl) 500 mg in 100 mls @ 100 mls/hr IVPB Q8 BOB PRN Reason: Protocol Last Admin: 09/14/17 05:35 Dose: Not Given Vancomycin HCl (Vancomycin 1gm) 1 gm in 250 mls @ 167 mls/hr IVPB 0600 BOB PRN Reason: Protocol Meropenem (Merrem Iv 1 Gm Premix) 50 mls @ 100 mls/hr IVPB Q12 BOB PRN Reason: Protocol Acetaminophen (Ofirmev) 1,000 mg in 100 mls @ 400 mls/hr IVPB Q6H PRN PRN Reason: Fever Stop: 09/16/17 05:43 Last Admin: 09/14/17 06:06 Dose: 400 mls/hr Potassium Chloride/Dextrose/Sod Cl (Potassium Chl 20 Meq In D5-1/2ns) 1,000 mls @ 150 mls/hr IV .[id number] BOB Last Admin: 09/14/17 07:07 Dose: 150 mls/hr Ondansetron HCl (Zofran Inj) 4 mg IVP Q4H PRN PRN Reason: Nausea/Vomiting Last Admin: 09/14/17 04:49 Dose: 4 mg Pantoprazole Sodium (Protonix Inj) 40 mg IVP DAILY BOB Vitamin A (Vitamin A & D Oint Ud Foilpak) 1 ea TOP Q2 PRN PRN Reason: Dry mouth Physical Exam - Constitutional Appears: Confused - Head Exam Head Exam: ATRAUMATIC, NORMAL INSPECTION, NORMOCEPHALIC - Eye Exam Eye Exam: Normal appearance, PERRL Pupil Exam: NORMAL ACCOMODATION - ENT Exam ENT Exam: Mucous Membranes Dry - Respiratory Exam Respiratory Exam: Clear to Auscultation Bilateral, NORMAL BREATHING PATTERN. absent: Rales, Rhonchi, Wheezes - Cardiovascular Exam Cardiovascular Exam: Tachycardia, REGULAR RHYTHM, +S1, +S2. absent: Gallop, Rubs, Systolic Murmur - GI/Abdominal Exam GI & Abdominal Exam: Normal Bowel Sounds, Soft, Tenderness (diffuse ). absent: Guarding, Mass, Rebound, Rigid - Extremities Exam Extremities exam: Positive for: normal inspection. Negative for: pedal edema - Back Exam Back exam: CVA tenderness (R) - Neurological Exam Neurological exam: CN II-XII Intact - Skin Skin Exam: Dry, Warm Results - Vital Signs Recent Vital Signs: Last Vital Signs Temp 101.1 F H 09/14/17 05:00 Pulse 126 H 09/14/17 06:39 Resp 34 H 09/14/17 06:39 BP 134/62 09/14/17 06:14 Pulse Ox 95 09/14/17 06:30 - Labs Result Diagrams: 09/14/17 10:04 09/14/17 12:10 Labs: Laboratory Results - last 24 hr 09/14/17 09/14/17 09/14/17 00:02 01:25 01:35 WBC RBC Hgb Hct MCV MCH MCHC RDW Plt Count MPV Gran % Lymph % (Auto) [place] % (Auto) Eos % (Auto) Baso % (Auto) Gran # Lymph # (Auto) [place] # (Auto) Eos # (Auto) Baso # (Auto) APTT pO2 55 VBG pH 7.20 L VBG pCO2 39.0 L VBG HCO3 15.2 L VBG Total CO2 16.4 L VBG O2 Sat (Calc) 91.9 H VBG Base Excess -12.2 L VBG Potassium 4.4 Sodium 130.0 L Chloride 101.0 Glucose 303 H Lactate 6.6 H* FiO2 21.0 Potassium Carbon Dioxide Anion Gap BUN Creatinine Est GFR ( Amer) Est GFR (Non-Af Amer) POC Glucose (mg/dL) 376 H Random Glucose Calcium Phosphorus Magnesium Iron TIBC % Saturation Venous Blood Potassium 4.4 Urine Color Urine Appearance Urine pH Ur Specific [place] Urine Protein Urine Glucose (UA) Urine Ketones Urine Blood Urine Nitrate Urine Bilirubin Urine Urobilinogen Ur Leukocyte Esterase Urine RBC Urine WBC Ur Epithelial Cells Amorphous Sediment Blood Type Confirm A POSITIVE 09/14/17 09/14/17 09/14/17 02:28 03:01 04:03 WBC RBC Hgb Hct MCV MCH MCHC RDW Plt Count MPV Gran % Lymph % (Auto) [place] % (Auto) Eos % (Auto) Baso % (Auto) Gran # Lymph # (Auto) [place] # (Auto) Eos # (Auto) Baso # (Auto) APTT pO2 VBG pH VBG pCO2 VBG HCO3 VBG Total CO2 VBG O2 Sat (Calc) VBG Base Excess VBG Potassium Sodium Chloride Glucose Lactate FiO2 Potassium Carbon Dioxide Anion Gap BUN Creatinine Est GFR ( Amer) Est GFR (Non-Af Amer) POC Glucose (mg/dL) 293 H 281 H 269 H Random Glucose Calcium Phosphorus Magnesium Iron TIBC % Saturation Venous Blood Potassium Urine Color Urine Appearance Urine pH Ur Specific [place] Urine Protein Urine Glucose (UA) Urine Ketones Urine Blood Urine Nitrate Urine Bilirubin Urine Urobilinogen Ur Leukocyte Esterase Urine RBC Urine WBC Ur Epithelial Cells Amorphous Sediment Blood Type Confirm 09/14/17 09/14/17 09/14/17 04:50 04:50 04:50 WBC 1.3 L* D RBC 3.68 Hgb 9.7 L Hct 29.0 L MCV 78.8 L MCH 26.4 MCHC 33.4 RDW 16.6 H Plt Count 84 L MPV 10.9 Gran % 75.5 H Lymph % (Auto) 22.9 [place] % (Auto) 0.8 L Eos % (Auto) 0.0 L Baso % (Auto) 0.8 Gran # 0.99 L Lymph # (Auto) 0.3 L [place] # (Auto) 0.0 L Eos # (Auto) 0.0 Baso # (Auto) 0.01 APTT 28.0 pO2 VBG pH VBG pCO2 VBG HCO3 VBG Total CO2 VBG O2 Sat (Calc) VBG Base Excess VBG Potassium Sodium 136 Chloride 100 Glucose Lactate FiO2 Potassium 4.2 Carbon Dioxide 18 L Anion Gap 22 H BUN 50 H Creatinine 3.4 H Est GFR ( Amer) 18 Est GFR (Non-Af Amer) 15 POC Glucose (mg/dL) Random Glucose 214 H Calcium 8.4 Phosphorus 4.5 Magnesium 1.7 Iron TIBC % Saturation Venous Blood Potassium Urine Color Urine Appearance Urine pH Ur Specific [place] Urine Protein Urine Glucose (UA) Urine Ketones Urine Blood Urine Nitrate Urine Bilirubin Urine Urobilinogen Ur Leukocyte Esterase Urine RBC Urine WBC Ur Epithelial Cells Amorphous Sediment Blood Type Confirm 09/14/17 09/14/17 09/14/17 04:50 04:50 05:00 WBC RBC Hgb Hct MCV MCH MCHC RDW Plt Count MPV Gran % Lymph % (Auto) [place] % (Auto) Eos % (Auto) Baso % (Auto) Gran # Lymph # (Auto) [place] # (Auto) Eos # (Auto) Baso # (Auto) APTT pO2 35 VBG pH 7.28 L VBG pCO2 41.0 VBG HCO3 19.3 L VBG Total CO2 20.6 L VBG O2 Sat (Calc) 67.2 H VBG Base Excess -7.1 L VBG Potassium 4.2 Sodium 133.0 Chloride 101.0 Glucose 225 H Lactate 5.4 H* FiO2 21.0 Potassium Carbon Dioxide Anion Gap BUN Creatinine Est GFR ( Amer) Est GFR (Non-Af Amer) POC Glucose (mg/dL) 211 H Random Glucose Calcium Phosphorus Magnesium Iron < 10 L TIBC 217 L % Saturation TNP Venous Blood Potassium 4.2 Urine Color Urine Appearance Urine pH Ur Specific [place] Urine Protein Urine Glucose (UA) Urine Ketones Urine Blood Urine Nitrate Urine Bilirubin Urine Urobilinogen Ur Leukocyte Esterase Urine RBC Urine WBC Ur Epithelial Cells Amorphous Sediment Blood Type Confirm 09/14/17 09/14/17 09/14/17 05:22 05:50 06:10 WBC 2.0 L* D 4.6 D RBC 1.72 L 3.87 Hgb 4.5 L* D 10.3 L D Hct 13.7 L* 30.5 L MCV 79.7 L 78.8 L MCH 26.2 26.6 MCHC 32.8 33.8 RDW 16.8 H 16.6 H Plt Count 31 L* 73 L MPV 9.2 11.1 H Gran % 81.3 H 89.1 H Lymph % (Auto) 14.8 L 9.8 L [place] % (Auto) 3.9 0.9 L Eos % (Auto) 0.0 L 0.0 L Baso % (Auto) 0.0 0.2 Gran # 1.65 4.09 Lymph # (Auto) 0.3 L 0.5 L [place] # (Auto) 0.1 0.0 L Eos # (Auto) 0.0 0.0 Baso # (Auto) 0.00 0.01 APTT pO2 VBG pH VBG pCO2 VBG HCO3 VBG Total CO2 VBG O2 Sat (Calc) VBG Base Excess VBG Potassium Sodium Chloride Glucose Lactate FiO2 Potassium Carbon Dioxide Anion Gap BUN Creatinine Est GFR ( Amer) Est GFR (Non-Af Amer) POC Glucose (mg/dL) Random Glucose Calcium Phosphorus Magnesium Iron TIBC % Saturation Venous Blood Potassium Urine Color Yellow Urine Appearance Sl cloudy Urine pH 6.0 Ur Specific [place] 1.025 Urine Protein 100 H Urine Glucose (UA) 100 H Urine Ketones Trace H Urine Blood Moderate H Urine Nitrate Negative Urine Bilirubin Negative Urine Urobilinogen 0.2 Ur Leukocyte Esterase Negative Urine RBC 1 - 3 Urine WBC 0 - 2 Ur Epithelial Cells 0 - 2 Amorphous Sediment Few Blood Type Confirm 09/14/17 06:29 WBC RBC Hgb Hct MCV MCH MCHC RDW Plt Count MPV Gran % Lymph % (Auto) [place] % (Auto) Eos % (Auto) Baso % (Auto) Gran # Lymph # (Auto) [place] # (Auto) Eos # (Auto) Baso # (Auto) APTT pO2 VBG pH VBG pCO2 VBG HCO3 VBG Total CO2 VBG O2 Sat (Calc) VBG Base Excess VBG Potassium Sodium Chloride Glucose Lactate FiO2 Potassium Carbon Dioxide Anion Gap BUN Creatinine Est GFR ( Amer) Est GFR (Non-Af Amer) POC Glucose (mg/dL) 167 H Random Glucose Calcium Phosphorus Magnesium Iron TIBC % Saturation Venous Blood Potassium Urine Color Urine Appearance Urine pH Ur Specific [place] Urine Protein Urine Glucose (UA) Urine Ketones Urine Blood Urine Nitrate Urine Bilirubin Urine Urobilinogen Ur Leukocyte Esterase Urine RBC Urine WBC Ur Epithelial Cells Amorphous Sediment Blood Type Confirm Assessment & Plan - Assessment and Plan (Free Text) Assessment: This is a 42yo female with past medical history of NIDDM who is admitted for 1. 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 Acute renal failure (multi-factorial cause) 3. DKA 4. Anion gap metabolic acidosis (secondary to DKA v. lactic acidosis) 5. Dehydration 6. Anemia 7. Thrombocytopenia Plan: Acute renal failure is multi-factorial. It can be secondary to dehydration, septic shock, acute emphysematous pyelonephritis as well as urinary retention. CT A/P seen and reviewed which showed R emphysematous pyelo. Continue antibiotic therapy and aggressive IV hydration. Continue colón catheter and monitor I&Os. We will check urine drug screen as well as urine studies. Creatinine is improving from 4.4 to 3.1. Reviewed old records and baseline is about 0.6. Do not recommend acute dialysis at this time. Patient may need hematology consult for anemia, thrombocytopenia and splenomegaly seen on CT. We will continue to monitor this patient closely. Case seen, discussed and reviewed with Dr. Marie. Leonila Nicolas PGY2 - Date & Time Date: 09/14/17 Time: 13:24 <Leo Marie S - Last Filed: 09/14/17 15:58> Meds - Medications Medications: Current Medications Heparin Sodium (Porcine) (Heparin) 5,000 units SC Q12 BOB PRN Reason: Protocol Last Admin: 09/14/17 09:24 Dose: 5,000 units Hydrocortisone Sodium Succinate (Solu-Cortef) 100 mg IVP Q8 [facility] Last Admin: 09/14/17 11:10 Dose: 100 mg Insulin Human Regular 100 (units/ Sodium Chloride) 100 mls @ 6 mls/hr IV .[id number] PRN; Protocol; 6 UNITS/HR PRN Reason: TITRATE PER MD ORDER Last Titration: 09/14/17 08:40 Dose: 2 units/hr, 2 mls/hr Metronidazole (Flagyl) 500 mg in 100 mls @ 100 mls/hr IVPB Q8 BOB PRN Reason: Protocol Last Admin: 09/14/17 13:19 Dose: 100 mls/hr Acetaminophen (Ofirmev) 1,000 mg in 100 mls @ 400 mls/hr IVPB Q6H PRN PRN Reason: Fever Stop: 09/16/17 05:43 Last Admin: 09/14/17 14:37 Dose: 400 mls/hr Potassium Chloride/Dextrose/Sod Cl (Potassium Chl 20 Meq In D5-1/2ns) 1,000 mls @ 150 mls/hr IV .Q6H40M BOB Last Admin: 09/14/17 07:07 Dose: 150 mls/hr Vasopressin 20 units/ Sodium (Chloride) 101 mls @ 9.09 mls/hr IV .[id number] BOB; 0.03 U/MIN PRN Reason: Protocol Last Admin: 09/14/17 11:20 Dose: 9.09 mls/hr NOREPINEPHRINE BIT/0.9 % NACL (Levophed 4 Mg/ 250 Ml Ns Premixed) 4 mg in 250 mls @ 15 mls/hr IV .[id number] PRN; Protocol; 4 MCG/MIN PRN Reason: TITRATE PER MD ORDER Last Admin: 09/14/17 13:55 Dose: 12 mcg/min, 45 mls/hr Meropenem 500 mg/ Sodium (Chloride) 50 mls @ 100 mls/hr IVPB Q12 BOB PRN Reason: Protocol Stop: 09/23/17 22:01 Ondansetron HCl (Zofran Inj) 4 mg IVP Q4H PRN PRN Reason: Nausea/Vomiting Last Admin: 09/14/17 04:49 Dose: 4 mg Pantoprazole Sodium (Protonix Inj) 40 mg IVP DAILY [facility] Last Admin: 09/14/17 09:24 Dose: 40 mg Vitamin A (Vitamin A & D Oint Ud Foilpak) 1 ea TOP Q2 PRN PRN Reason: Dry mouth Results - Vital Signs Recent Vital Signs: Last Vital Signs Temp 98.9 F 09/14/17 06:00 Pulse 126 H 09/14/17 06:39 Resp 34 H 09/14/17 06:39 BP 72/0 L 09/14/17 11:20 Pulse Ox 95 09/14/17 06:30 - Labs Result Diagrams: 09/14/17 10:04 09/14/17 12:10 Labs: Laboratory Results - last 24 hr 09/14/17 09/14/17 09/14/17 00:02 01:25 01:35 WBC RBC Hgb Hct MCV MCH MCHC RDW Plt Count MPV Gran % Lymph % (Auto) [place] % (Auto) Eos % (Auto) Baso % (Auto) Gran # Lymph # (Auto) [place] # (Auto) Eos # (Auto) Baso # (Auto) Differential Comment PT INR APTT pCO2 pO2 55 HCO3 ABG pH ABG Total CO2 ABG O2 Saturation ABG Base Excess ABG Potassium VBG pH 7.20 L VBG pCO2 39.0 L VBG HCO3 15.2 L VBG Total CO2 16.4 L VBG O2 Sat (Calc) 91.9 H VBG Base Excess -12.2 L VBG Potassium 4.4 Sodium 130.0 L Chloride 101.0 Glucose 303 H Lactate 6.6 H* FiO2 21.0 Potassium Carbon Dioxide Anion Gap BUN Creatinine Est GFR ( Amer) Est GFR (Non-Af Amer) POC Glucose (mg/dL) 376 H Random Glucose Hemoglobin A1c Calcium Phosphorus Magnesium Iron TIBC % Saturation Transferrin Ferritin Total Bilirubin AST ALT Alkaline Phosphatase Total Protein Albumin Globulin Albumin/Globulin Ratio Triglycerides Cholesterol LDL Cholesterol Direct HDL Cholesterol TSH 3rd Generation Arterial Blood Potassium Venous Blood Potassium 4.4 Urine Color Urine Appearance Urine pH Ur Specific [place] Urine Protein Urine Glucose (UA) Urine Ketones Urine Blood Urine Nitrate Urine Bilirubin Urine Urobilinogen Ur Leukocyte Esterase Urine RBC Urine WBC Ur Epithelial Cells Amorphous Sediment Urine Eosinophils Ur Random Creatinine U Random Total Protein Ur Random Sodium Urine HCG, Qual Salicylates Urine Opiates Screen Urine Methadone Screen Acetaminophen Ur Barbiturates Screen Ur Phencyclidine Scrn Ur Amphetamines Screen U Benzodiazepines Scrn U Oth Cocaine Metabols U Cannabinoids Screen Blood Type Confirm A POSITIVE 09/14/17 09/14/17 09/14/17 02:28 03:01 04:03 WBC RBC Hgb Hct MCV MCH MCHC RDW Plt Count MPV Gran % Lymph % (Auto) [place] % (Auto) Eos % (Auto) Baso % (Auto) Gran # Lymph # (Auto) [place] # (Auto) Eos # (Auto) Baso # (Auto) Differential Comment PT INR APTT pCO2 pO2 HCO3 ABG pH ABG Total CO2 ABG O2 Saturation ABG Base Excess ABG Potassium VBG pH VBG pCO2 VBG HCO3 VBG Total CO2 VBG O2 Sat (Calc) VBG Base Excess VBG Potassium Sodium Chloride Glucose Lactate FiO2 Potassium Carbon Dioxide Anion Gap BUN Creatinine Est GFR ( Amer) Est GFR (Non-Af Amer) POC Glucose (mg/dL) 293 H 281 H 269 H Random Glucose Hemoglobin A1c Calcium Phosphorus Magnesium Iron TIBC % Saturation Transferrin Ferritin Total Bilirubin AST ALT Alkaline Phosphatase Total Protein Albumin Globulin Albumin/Globulin Ratio Triglycerides Cholesterol LDL Cholesterol Direct HDL Cholesterol TSH 3rd Generation Arterial Blood Potassium Venous Blood Potassium Urine Color Urine Appearance Urine pH Ur Specific [place] Urine Protein Urine Glucose (UA) Urine Ketones Urine Blood Urine Nitrate Urine Bilirubin Urine Urobilinogen Ur Leukocyte Esterase Urine RBC Urine WBC Ur Epithelial Cells Amorphous Sediment Urine Eosinophils Ur Random Creatinine U Random Total Protein Ur Random Sodium Urine HCG, Qual Salicylates Urine Opiates Screen Urine Methadone Screen Acetaminophen Ur Barbiturates Screen Ur Phencyclidine Scrn Ur Amphetamines Screen U Benzodiazepines Scrn U Oth Cocaine Metabols U Cannabinoids Screen Blood Type Confirm 09/14/17 09/14/17 09/14/17 04:50 04:50 04:50 WBC 1.3 L* D RBC 3.68 Hgb 9.7 L Hct 29.0 L MCV 78.8 L MCH 26.4 MCHC 33.4 RDW 16.6 H Plt Count 84 L MPV 10.9 Gran % 75.5 H Lymph % (Auto) 22.9 [place] % (Auto) 0.8 L Eos % (Auto) 0.0 L Baso % (Auto) 0.8 Gran # 0.99 L Lymph # (Auto) 0.3 L [place] # (Auto) 0.0 L Eos # (Auto) 0.0 Baso # (Auto) 0.01 Differential Comment PT INR APTT 28.0 pCO2 pO2 HCO3 ABG pH ABG Total CO2 ABG O2 Saturation ABG Base Excess ABG Potassium VBG pH VBG pCO2 VBG HCO3 VBG Total CO2 VBG O2 Sat (Calc) VBG Base Excess VBG Potassium Sodium 136 Chloride 100 Glucose Lactate FiO2 Potassium 4.2 Carbon Dioxide 18 L Anion Gap 22 H BUN 50 H Creatinine 3.4 H Est GFR ( Amer) 18 Est GFR (Non-Af Amer) 15 POC Glucose (mg/dL) Random Glucose 214 H Hemoglobin A1c Calcium 8.4 Phosphorus 4.5 Magnesium 1.7 Iron TIBC % Saturation Transferrin Ferritin 239.0 Total Bilirubin AST ALT Alkaline Phosphatase Total Protein Albumin Globulin Albumin/Globulin Ratio Triglycerides Cholesterol LDL Cholesterol Direct HDL Cholesterol TSH 3rd Generation Arterial Blood Potassium Venous Blood Potassium Urine Color Urine Appearance Urine pH Ur Specific [place] Urine Protein Urine Glucose (UA) Urine Ketones Urine Blood Urine Nitrate Urine Bilirubin Urine Urobilinogen Ur Leukocyte Esterase Urine RBC Urine WBC Ur Epithelial Cells Amorphous Sediment Urine Eosinophils Ur Random Creatinine U Random Total Protein Ur Random Sodium Urine HCG, Qual Salicylates Urine Opiates Screen Urine Methadone Screen Acetaminophen Ur Barbiturates Screen Ur Phencyclidine Scrn Ur Amphetamines Screen U Benzodiazepines Scrn U Oth Cocaine Metabols U Cannabinoids Screen Blood Type Confirm 09/14/17 09/14/17 09/14/17 04:50 04:50 04:50 WBC RBC Hgb Hct MCV MCH MCHC RDW Plt Count MPV Gran % Lymph % (Auto) [place] % (Auto) Eos % (Auto) Baso % (Auto) Gran # Lymph # (Auto) [place] # (Auto) Eos # (Auto) Baso # (Auto) Differential Comment See pathology report PT INR APTT pCO2 pO2 35 HCO3 ABG pH ABG Total CO2 ABG O2 Saturation ABG Base Excess ABG Potassium VBG pH 7.28 L VBG pCO2 41.0 VBG HCO3 19.3 L VBG Total CO2 20.6 L VBG O2 Sat (Calc) 67.2 H VBG Base Excess -7.1 L VBG Potassium 4.2 Sodium 133.0 Chloride 101.0 Glucose 225 H Lactate 5.4 H* FiO2 21.0 Potassium Carbon Dioxide Anion Gap BUN Creatinine Est GFR ( Amer) Est GFR (Non-Af Amer) POC Glucose (mg/dL) Random Glucose Hemoglobin A1c Calcium Phosphorus Magnesium Iron < 10 L TIBC 217 L % Saturation TNP Transferrin Ferritin Total Bilirubin AST ALT Alkaline Phosphatase Total Protein Albumin Globulin Albumin/Globulin Ratio Triglycerides Cholesterol LDL Cholesterol Direct HDL Cholesterol TSH 3rd Generation Arterial Blood Potassium Venous Blood Potassium 4.2 Urine Color Urine Appearance Urine pH Ur Specific [place] Urine Protein Urine Glucose (UA) Urine Ketones Urine Blood Urine Nitrate Urine Bilirubin Urine Urobilinogen Ur Leukocyte Esterase Urine RBC Urine WBC Ur Epithelial Cells Amorphous Sediment Urine Eosinophils Ur Random Creatinine U Random Total Protein Ur Random Sodium Urine HCG, Qual Salicylates Urine Opiates Screen Urine Methadone Screen Acetaminophen Ur Barbiturates Screen Ur Phencyclidine Scrn Ur Amphetamines Screen U Benzodiazepines Scrn U Oth Cocaine Metabols U Cannabinoids Screen Blood Type Confirm 09/14/17 09/14/17 09/14/17 05:00 05:22 05:22 WBC RBC Hgb Hct MCV MCH MCHC RDW Plt Count MPV Gran % Lymph % (Auto) [place] % (Auto) Eos % (Auto) Baso % (Auto) Gran # Lymph # (Auto) [place] # (Auto) Eos # (Auto) Baso # (Auto) Differential Comment PT INR APTT pCO2 pO2 HCO3 ABG pH ABG Total CO2 ABG O2 Saturation ABG Base Excess ABG Potassium VBG pH VBG pCO2 VBG HCO3 VBG Total CO2 VBG O2 Sat (Calc) VBG Base Excess VBG Potassium Sodium Chloride Glucose Lactate FiO2 Potassium Carbon Dioxide Anion Gap BUN Creatinine Est GFR ( Amer) Est GFR (Non-Af Amer) POC Glucose (mg/dL) 211 H Random Glucose Hemoglobin A1c Calcium Phosphorus Magnesium Iron TIBC % Saturation Transferrin Ferritin Total Bilirubin AST ALT Alkaline Phosphatase Total Protein Albumin Globulin Albumin/Globulin Ratio Triglycerides Cholesterol LDL Cholesterol Direct HDL Cholesterol TSH 3rd Generation Arterial Blood Potassium Venous Blood Potassium Urine Color Yellow Urine Appearance Sl cloudy Urine pH 6.0 Ur Specific [place] 1.025 Urine Protein 100 H Urine Glucose (UA) 100 H Urine Ketones Trace H Urine Blood Moderate H Urine Nitrate Negative Urine Bilirubin Negative Urine Urobilinogen 0.2 Ur Leukocyte Esterase Negative Urine RBC 1 - 3 Urine WBC 0 - 2 Ur Epithelial Cells 0 - 2 Amorphous Sediment Few Urine Eosinophils Negative Ur Random Creatinine U Random Total Protein Ur Random Sodium Urine HCG, Qual Negative Salicylates Urine Opiates Screen Urine Methadone Screen Acetaminophen Ur Barbiturates Screen Ur Phencyclidine Scrn Ur Amphetamines Screen U Benzodiazepines Scrn U Oth Cocaine Metabols U Cannabinoids Screen Blood Type Confirm 09/14/17 09/14/17 09/14/17 05:50 06:10 06:29 WBC 2.0 L* D 4.6 D RBC 1.72 L 3.87 Hgb 4.5 L* D 10.3 L D Hct 13.7 L* 30.5 L MCV 79.7 L 78.8 L MCH 26.2 26.6 MCHC 32.8 33.8 RDW 16.8 H 16.6 H Plt Count 31 L* 73 L MPV 9.2 11.1 H Gran % 81.3 H 89.1 H Lymph % (Auto) 14.8 L 9.8 L [place] % (Auto) 3.9 0.9 L Eos % (Auto) 0.0 L 0.0 L Baso % (Auto) 0.0 0.2 Gran # 1.65 4.09 Lymph # (Auto) 0.3 L 0.5 L [place] # (Auto) 0.1 0.0 L Eos # (Auto) 0.0 0.0 Baso # (Auto) 0.00 0.01 Differential Comment PT INR APTT pCO2 pO2 HCO3 ABG pH ABG Total CO2 ABG O2 Saturation ABG Base Excess ABG Potassium VBG pH VBG pCO2 VBG HCO3 VBG Total CO2 VBG O2 Sat (Calc) VBG Base Excess VBG Potassium Sodium Chloride Glucose Lactate FiO2 Potassium Carbon Dioxide Anion Gap BUN Creatinine Est GFR ( Amer) Est GFR (Non-Af Amer) POC Glucose (mg/dL) 167 H Random Glucose Hemoglobin A1c Calcium Phosphorus Magnesium Iron TIBC % Saturation Transferrin Ferritin Total Bilirubin AST ALT Alkaline Phosphatase Total Protein Albumin Globulin Albumin/Globulin Ratio Triglycerides Cholesterol LDL Cholesterol Direct HDL Cholesterol TSH 3rd Generation Arterial Blood Potassium Venous Blood Potassium Urine Color Urine Appearance Urine pH Ur Specific [place] Urine Protein Urine Glucose (UA) Urine Ketones Urine Blood Urine Nitrate Urine Bilirubin Urine Urobilinogen Ur Leukocyte Esterase Urine RBC Urine WBC Ur Epithelial Cells Amorphous Sediment Urine Eosinophils Ur Random Creatinine U Random Total Protein Ur Random Sodium Urine HCG, Qual Salicylates Urine Opiates Screen Urine Methadone Screen Acetaminophen Ur Barbiturates Screen Ur Phencyclidine Scrn Ur Amphetamines Screen U Benzodiazepines Scrn U Oth Cocaine Metabols U Cannabinoids Screen Blood Type Confirm 09/14/17 09/14/17 09/14/17 07:00 07:00 07:00 WBC RBC Hgb Hct MCV MCH MCHC RDW Plt Count MPV Gran % Lymph % (Auto) [place] % (Auto) Eos % (Auto) Baso % (Auto) Gran # Lymph # (Auto) [place] # (Auto) Eos # (Auto) Baso # (Auto) Differential Comment PT INR APTT pCO2 pO2 HCO3 ABG pH ABG Total CO2 ABG O2 Saturation ABG Base Excess ABG Potassium VBG pH VBG pCO2 VBG HCO3 VBG Total CO2 VBG O2 Sat (Calc) VBG Base Excess VBG Potassium Sodium Chloride Glucose Lactate FiO2 Potassium Carbon Dioxide Anion Gap BUN Creatinine Est GFR ( Amer) Est GFR (Non-Af Amer) POC Glucose (mg/dL) Random Glucose Hemoglobin A1c 8.9 H Calcium Phosphorus Magnesium Iron TIBC % Saturation Transferrin 141.74 L Ferritin Total Bilirubin AST ALT Alkaline Phosphatase Total Protein Albumin Globulin Albumin/Globulin Ratio Triglycerides Cholesterol LDL Cholesterol Direct HDL Cholesterol TSH 3rd Generation Arterial Blood Potassium Venous Blood Potassium Urine Color Urine Appearance Urine pH Ur Specific [place] Urine Protein Urine Glucose (UA) Urine Ketones Urine Blood Urine Nitrate Urine Bilirubin Urine Urobilinogen Ur Leukocyte Esterase Urine RBC Urine WBC Ur Epithelial Cells Amorphous Sediment Urine Eosinophils Ur Random Creatinine U Random Total Protein Ur Random Sodium Urine HCG, Qual Salicylates < 1 L Urine Opiates Screen Urine Methadone Screen Acetaminophen < 10.0 L Ur Barbiturates Screen Ur Phencyclidine Scrn Ur Amphetamines Screen U Benzodiazepines Scrn U Oth Cocaine Metabols U Cannabinoids Screen Blood Type Confirm 09/14/17 09/14/17 09/14/17 07:00 07:00 07:09 WBC RBC Hgb Hct MCV MCH MCHC RDW Plt Count MPV Gran % Lymph % (Auto) [place] % (Auto) Eos % (Auto) Baso % (Auto) Gran # Lymph # (Auto) [place] # (Auto) Eos # (Auto) Baso # (Auto) Differential Comment PT INR APTT pCO2 pO2 HCO3 ABG pH ABG Total CO2 ABG O2 Saturation ABG Base Excess ABG Potassium VBG pH VBG pCO2 VBG HCO3 VBG Total CO2 VBG O2 Sat (Calc) VBG Base Excess VBG Potassium Sodium Chloride Glucose Lactate FiO2 Potassium Carbon Dioxide Anion Gap BUN Creatinine Est GFR ( Amer) Est GFR (Non-Af Amer) POC Glucose (mg/dL) 160 H Random Glucose Hemoglobin A1c Calcium Phosphorus Magnesium Iron TIBC % Saturation Transferrin Ferritin Total Bilirubin AST ALT Alkaline Phosphatase Total Protein Albumin Globulin Albumin/Globulin Ratio Triglycerides 166 H Cholesterol 99 L LDL Cholesterol Direct < 30 HDL Cholesterol 28 L TSH 3rd Generation 2.85 Arterial Blood Potassium Venous Blood Potassium Urine Color Urine Appearance Urine pH Ur Specific [place] Urine Protein Urine Glucose (UA) Urine Ketones Urine Blood Urine Nitrate Urine Bilirubin Urine Urobilinogen Ur Leukocyte Esterase Urine RBC Urine WBC Ur Epithelial Cells Amorphous Sediment Urine Eosinophils Ur Random Creatinine U Random Total Protein Ur Random Sodium Urine HCG, Qual Salicylates Urine Opiates Screen Urine Methadone Screen Acetaminophen Ur Barbiturates Screen Ur Phencyclidine Scrn Ur Amphetamines Screen U Benzodiazepines Scrn U Oth Cocaine Metabols U Cannabinoids Screen Blood Type Confirm 09/14/17 09/14/17 09/14/17 07:49 07:49 08:46 WBC RBC Hgb Hct MCV MCH MCHC RDW Plt Count MPV Gran % Lymph % (Auto) [place] % (Auto) Eos % (Auto) Baso % (Auto) Gran # Lymph # (Auto) [place] # (Auto) Eos # (Auto) Baso # (Auto) Differential Comment PT 16.4 H INR 1.42 H APTT pCO2 28 L pO2 70.0 L HCO3 15.5 L ABG pH 7.35 ABG Total CO2 16.4 L ABG O2 Saturation 96.4 ABG Base Excess -8.6 L ABG Potassium 2.8 L VBG pH VBG pCO2 VBG HCO3 VBG Total CO2 VBG O2 Sat (Calc) VBG Base Excess VBG Potassium Sodium 137 136.0 Chloride 103 108.0 H Glucose 171 H Lactate 4.0 H* FiO2 36.0 Potassium 3.5 L Carbon Dioxide 17 L Anion Gap 21 H BUN 52 H Creatinine 3.2 H Est GFR ( Amer) 19 Est GFR (Non-Af Amer) 16 POC Glucose (mg/dL) Random Glucose 168 H Hemoglobin A1c Calcium 7.9 L Phosphorus Magnesium Iron TIBC % Saturation Transferrin Ferritin Total Bilirubin AST ALT Alkaline Phosphatase Total Protein Albumin Globulin Albumin/Globulin Ratio Triglycerides Cholesterol LDL Cholesterol Direct HDL Cholesterol TSH 3rd Generation Arterial Blood Potassium 2.8 L Venous Blood Potassium Urine Color Urine Appearance Urine pH Ur Specific [place] Urine Protein Urine Glucose (UA) Urine Ketones Urine Blood Urine Nitrate Urine Bilirubin Urine Urobilinogen Ur Leukocyte Esterase Urine RBC Urine WBC Ur Epithelial Cells Amorphous Sediment Urine Eosinophils Ur Random Creatinine U Random Total Protein Ur Random Sodium Urine HCG, Qual Salicylates Urine Opiates Screen Urine Methadone Screen Acetaminophen Ur Barbiturates Screen Ur Phencyclidine Scrn Ur Amphetamines Screen U Benzodiazepines Scrn U Oth Cocaine Metabols U Cannabinoids Screen Blood Type Confirm 09/14/17 09/14/17 09/14/17 10:04 10:05 12:00 WBC 8.8 D RBC 3.06 L Hgb 8.1 L D Hct 24.0 L MCV 78.4 L MCH 26.5 MCHC 33.8 RDW 16.7 H Plt Count 66 L MPV 10.9 Gran % 90.8 H Lymph % (Auto) 7.9 L [place] % (Auto) 1.2 Eos % (Auto) 0.1 L Baso % (Auto) 0.0 Gran # 8.02 H Lymph # (Auto) 0.7 L [place] # (Auto) 0.1 Eos # (Auto) 0.0 Baso # (Auto) 0.00 Differential Comment PT INR APTT pCO2 pO2 HCO3 ABG pH ABG Total CO2 ABG O2 Saturation ABG Base Excess ABG Potassium VBG pH VBG pCO2 VBG HCO3 VBG Total CO2 VBG O2 Sat (Calc) VBG Base Excess VBG Potassium Sodium 136 Chloride 107 Glucose Lactate FiO2 Potassium 3.4 L Carbon Dioxide 17 L Anion Gap 15 BUN 46 H Creatinine 3.2 H Est GFR ( Amer) 19 Est GFR (Non-Af Amer) 16 POC Glucose (mg/dL) Random Glucose 163 H Hemoglobin A1c Calcium 6.8 L* Phosphorus 2.7 Magnesium 1.5 L Iron TIBC % Saturation Transferrin Ferritin Total Bilirubin 0.8 AST 49 H D ALT 34 Alkaline Phosphatase 133 H Total Protein 5.2 L Albumin 2.3 L Globulin 2.9 Albumin/Globulin Ratio 0.8 L Triglycerides Cholesterol LDL Cholesterol Direct HDL Cholesterol TSH 3rd Generation Arterial Blood Potassium Venous Blood Potassium Urine Color Urine Appearance Urine pH Ur Specific [place] Urine Protein Urine Glucose (UA) Urine Ketones Urine Blood Urine Nitrate Urine Bilirubin Urine Urobilinogen Ur Leukocyte Esterase Urine RBC Urine WBC Ur Epithelial Cells Amorphous Sediment Urine Eosinophils Ur Random Creatinine U Random Total Protein Ur Random Sodium 31 Urine HCG, Qual Salicylates Urine Opiates Screen Urine Methadone Screen Acetaminophen Ur Barbiturates Screen Ur Phencyclidine Scrn Ur Amphetamines Screen U Benzodiazepines Scrn U Oth Cocaine Metabols U Cannabinoids Screen Blood Type Confirm 09/14/17 09/14/17 09/14/17 12:00 12:00 12:10 WBC RBC Hgb Hct MCV MCH MCHC RDW Plt Count MPV Gran % Lymph % (Auto) [place] % (Auto) Eos % (Auto) Baso % (Auto) Gran # Lymph # (Auto) [place] # (Auto) Eos # (Auto) Baso # (Auto) Differential Comment PT INR APTT pCO2 pO2 HCO3 ABG pH ABG Total CO2 ABG O2 Saturation ABG Base Excess ABG Potassium VBG pH VBG pCO2 VBG HCO3 VBG Total CO2 VBG O2 Sat (Calc) VBG Base Excess VBG Potassium Sodium 137 Chloride 107 Glucose Lactate FiO2 Potassium 4.5 Carbon Dioxide 15 L Anion Gap 20 BUN 44 H Creatinine 3.1 H Est GFR ( Amer) 20 Est GFR (Non-Af Amer) 17 POC Glucose (mg/dL) Random Glucose 215 H Hemoglobin A1c Calcium 7.2 L Phosphorus Magnesium Iron TIBC % Saturation Transferrin Ferritin Total Bilirubin AST ALT Alkaline Phosphatase Total Protein Albumin Globulin Albumin/Globulin Ratio Triglycerides Cholesterol LDL Cholesterol Direct HDL Cholesterol TSH 3rd Generation Arterial Blood Potassium Venous Blood Potassium Urine Color Urine Appearance Urine pH Ur Specific [place] Urine Protein Urine Glucose (UA) Urine Ketones Urine Blood Urine Nitrate Urine Bilirubin Urine Urobilinogen Ur Leukocyte Esterase Urine RBC Urine WBC Ur Epithelial Cells Amorphous Sediment Urine Eosinophils Ur Random Creatinine 87 U Random Total Protein 152 Ur Random Sodium Urine HCG, Qual Salicylates Urine Opiates Screen Negative Urine Methadone Screen Negative Acetaminophen Ur Barbiturates Screen Negative Ur Phencyclidine Scrn Negative Ur Amphetamines Screen Negative U Benzodiazepines Scrn Negative U Oth Cocaine Metabols Negative U Cannabinoids Screen Negative Blood Type Confirm 09/14/17 09/14/17 12:10 13:55 WBC RBC Hgb Hct MCV MCH MCHC RDW Plt Count MPV Gran % Lymph % (Auto) [place] % (Auto) Eos % (Auto) Baso % (Auto) Gran # Lymph # (Auto) [place] # (Auto) Eos # (Auto) Baso # (Auto) Differential Comment PT INR APTT pCO2 24 L pO2 37 71.0 L HCO3 12.4 L ABG pH 7.32 L ABG Total CO2 13.1 L ABG O2 Saturation 96.5 ABG Base Excess -11.8 L ABG Potassium 4.4 VBG pH 7.19 L* VBG pCO2 38.0 L VBG HCO3 14.5 L VBG Total CO2 15.7 L VBG O2 Sat (Calc) 74.2 H VBG Base Excess -13.0 L VBG Potassium 4.4 Sodium 134.0 135.0 Chloride 109.0 H 110.0 H Glucose 242 H 231 H Lactate 4.9 H* 3.8 H FiO2 21.0 32.0 Potassium Carbon Dioxide Anion Gap BUN Creatinine Est GFR ( Amer) Est GFR (Non-Af Amer) POC Glucose (mg/dL) Random Glucose Hemoglobin A1c Calcium Phosphorus Magnesium Iron TIBC % Saturation Transferrin Ferritin Total Bilirubin AST ALT Alkaline Phosphatase Total Protein Albumin Globulin Albumin/Globulin Ratio Triglycerides Cholesterol LDL Cholesterol Direct HDL Cholesterol TSH 3rd Generation Arterial Blood Potassium 4.4 Venous Blood Potassium 4.4 Urine Color Urine Appearance Urine pH Ur Specific [place] Urine Protein Urine Glucose (UA) Urine Ketones Urine Blood Urine Nitrate Urine Bilirubin Urine Urobilinogen Ur Leukocyte Esterase Urine RBC Urine WBC Ur Epithelial Cells Amorphous Sediment Urine Eosinophils Ur Random Creatinine U Random Total Protein Ur Random Sodium Urine HCG, Qual Salicylates Urine Opiates Screen Urine Methadone Screen Acetaminophen Ur Barbiturates Screen Ur Phencyclidine Scrn Ur Amphetamines Screen U Benzodiazepines Scrn U Oth Cocaine Metabols U Cannabinoids Screen Blood Type Confirm Assessment & Plan - Assessment and Plan (Free Text) Plan: Pt seen and examined. I have reviewed the note of the medical educator and agree with it. I have discussed the assessment and plan with the resident. I have reviewed the patient's labs and medications. The pt's JOSE D is multifactorial. She is in DKA and is septic. Thrombocytopenia is most likely due to enlarged spleen but sepsis may also be a cause. Cr is improving and should continue to improve. Urine studies have been ordered. CT of abd has been reviewed. She is on IVF with K. Will follow K closely so as not to overcorrect.
[2017-09-14 07:22] LABS: HCG,QUALITATIVE URINE NEGATIVE (NEGATIVE)
[2017-09-14 08:04] LABS: INR 1.42 (0.93-1.08); PROTHROMBIN TIME 16.4 SECONDS (9.4-12.5)
[2017-09-14 08:15] LABS: CALCIUM 7.9 mg/dL (8.4-10.5)
--- NOTE | 2017-09-14 08:15 | RAD ---
HISTORY: medical clearance COMPARISON: No prior. FINDINGS: LUNGS: No active pulmonary disease. PLEURA: No significant pleural effusion identified, no pneumothorax apparent. CARDIOVASCULAR: Normal. OSSEOUS STRUCTURES: No significant abnormalities. VISUALIZED UPPER ABDOMEN: Normal. OTHER FINDINGS: None. IMPRESSION: No active disease.
[2017-09-14] MEDS ORDERED: Sodium Chloride 0.9% 1,000 ML IV STA ×4 (08:36→08:39)
[2017-09-14 08:49] LABS: ARTERIAL BLOOD GAS HCO3 15.5 mmol/L (21-28); ARTERIAL BLOOD GAS O2 SAT 96.4 % (95-98); ARTERIAL BLOOD GAS PCO2 28 mm/Hg (35-45); ARTERIAL BLOOD GAS PH 7.35 (7.35-7.45); ARTERIAL BLOOD GAS TCO2 16.4 mmol.L (22-28)
[2017-09-14] MEDS ORDERED: Potassium Chloride 20 mEq/15 ml LIQ UD PO STA (08:50)
--- NOTE | 2017-09-14 08:58 | CARD ---
APPROVED REPORT EKG Measurement Heart [id number] <Conclusion> Sinus tachycardia Otherwise normal ECG
[2017-09-14 09:16] LABS: HDL CHOLESTEROL 28 mg/dL (29-60)
--- NOTE | 2017-09-14 09:17 | CP.PCM.HP ---
<Nixon Garcia - Last Filed: 09/14/17 09:14> History of Present Illness - History of Present Illness History of Present Illness: CC: DKA/Sepsis HPI: Ms. Cordero is 42 year old female with a past medical history significant for NIDDM2 presents with two days of nausea, vomiting, abdominal pain, fever and fatigue. Patient reports that two days ago she began to experience nausea and vomiting after eating at a local restaurant. Since that time she has been feeling significant fatigue and has been unable to tolerate PO intake. She endorses epigastric abdominal pain, 6/10, that is associated with the N/V. Patients mother took her blood pressure and BG today and these were, 75/40 and 350, respectively. She endorses that she was seen at [facility] for similar symptoms two weeks ago for similar symptoms and these resolved with supportive interventions. She reports that she sees Dr. Willis on [facility] for her primary care needs but that she sees him less frequently than is required for routine health maintenance. She also reports that she has seen an [facility] for her NIDDM2, which was diagnosed at age 30. She reports that she was on insulin at one time but is currently only taking PO medications for glycemic control. She denies headache, rhinorrhea, changes in her vision, chest pain, palpitations, leg swelling, SOB, cough, hemoptysis, diarrhea, constipation , dysuria, hematuria, skin changes, or any numbness/tingling/weakness of any extremity. PMH: NIDDM2 PSH: Denies Family History: Denies Social History: Denies any tobacco, alcohol, or illicit drug use; Lives with her father in [place]; Currently unemployed Allergies: Apples and strawberry's Home Medications: As per MAR Present on Admission - Present on Admission Any Indicators Present on Admission: No Review of Systems - Review of Systems Review of Systems: As stated in HPI, otherwise negative Past Patient History - Infectious Disease Hx of Infectious Diseases: None - Tetanus Immunizations Tetanus Immunization: Unknown - Past Social History Smoking Status: Never Smoked - CARDIAC Hx Cardiac Disorders: No - PULMONARY Hx Respiratory Disorders: No - NEUROLOGICAL Hx Neurological Disorder: No - HEENT Hx HEENT Problems: No - RENAL Hx Chronic Kidney Disease: No - ENDOCRINE/METABOLIC Hx Endocrine Disorders: No - HEMATOLOGICAL/ONCOLOGICAL Hx Blood Disorders: Yes Hx Anemia: Yes - INTEGUMENTARY Hx Dermatological Problems: No - MUSCULOSKELETAL/RHEUMATOLOGICAL Hx Musculoskeletal Disorders: No Hx Falls: No - GASTROINTESTINAL Hx Gastrointestinal Disorders: No - GENITOURINARY/GYNECOLOGICAL Hx Genitourinary Disorders: No - PSYCHIATRIC Hx Psychophysiologic Disorder: No - SURGICAL HISTORY Hx Surgeries: No - ANESTHESIA Hx Anesthesia: No Hx Anesthesia Reactions: No Hx Malignant Hyperthermia: No Meds Allergies/Adverse Reactions: Allergies Allergy/AdvReac Type Severity Reaction Status Date / Time apple Allergy REDNESS Verified 09/13/17 23:09 strawberries Allergy RASH Uncoded 09/13/17 21:53 Physical Exam - Additional Findings Additional findings: - Constitutional Appears: Toxic, In Acute Distress - Head Exam Head Exam: ATRAUMATIC, NORMOCEPHALIC - Eye Exam Eye Exam: EOMI, Normal appearance, PERRL Pupil Exam: NORMAL ACCOMODATION - ENT Exam ENT Exam: Mucous Membranes Dry - Neck Exam Neck exam: Positive for: Full Rom, Normal Inspection. Negative for: Lymphadenopathy, Meningismus, Tenderness, Thyromegaly - Respiratory Exam Respiratory Exam: Clear to Auscultation Bilateral, NORMAL BREATHING PATTERN. absent: Accessory Muscle Use, Chest Wall Tenderness, Decreased Breath Sounds, Prolonged Expiratory Phase, Rales, Rhonchi, Wheezes, Respiratory Distress, Stridor - Cardiovascular Exam Cardiovascular Exam: Tachycardia, REGULAR RHYTHM, +S1, +S2. absent: Bradycardia , Clicks, Diastolic murmur, Gallop, Irregular Rhythm, JVD, RRR, Rubs, +S4, Systolic Murmur - GI/Abdominal Exam GI & Abdominal Exam: Normal Bowel Sounds, Soft, Tenderness (Diffuse; More localized in epigastic region). absent: Bruit, Diminished Bowel Sounds, Distended, Firm, Guarding, Hernia, Hyperactive Bowel Sounds, Hypoactive Bowel Sounds, Mass, Organomegaly, Pulsatile Mass, Rebound, Rigid - Extremities Exam Extremities exam: Positive for: full ROM, normal capillary refill, normal inspection, pedal pulses present. Negative for: calf tenderness, joint swelling , pedal edema, tenderness - Back Exam Back exam: FULL ROM, NORMAL INSPECTION. absent: CVA tenderness (L), CVA tenderness (R), paraspinal tenderness, vertebral tenderness - Neurological Exam Neurological exam: Alert, Oriented x3 - Psychiatric Exam Psychiatric exam: Normal Affect, Normal Mood - Skin Skin Exam: Dry, Intact, Normal Color, Warm Results - Vital Signs Recent Vital Signs: Last Vital Signs Temp 98.9 F 09/14/17 06:00 Pulse 126 H 09/14/17 06:39 Resp 34 H 09/14/17 06:39 BP 134/62 09/14/17 06:14 Pulse Ox 95 09/14/17 06:30 - Labs Result Diagrams: 09/14/17 06:10 09/14/17 07:49 Labs: Laboratory Results - last 24 hr 09/14/17 09/14/17 09/14/17 00:02 01:25 01:35 WBC RBC Hgb Hct MCV MCH MCHC RDW Plt Count MPV Gran % Lymph % (Auto) Shannon % (Auto) Eos % (Auto) Baso % (Auto) Gran # Lymph # (Auto) Shannon # (Auto) Eos # (Auto) Baso # (Auto) Differential Comment PT INR APTT pCO2 pO2 55 HCO3 ABG pH ABG Total CO2 ABG O2 Saturation ABG Base Excess ABG Potassium VBG pH 7.20 L VBG pCO2 39.0 L VBG HCO3 15.2 L VBG Total CO2 16.4 L VBG O2 Sat (Calc) 91.9 H VBG Base Excess -12.2 L VBG Potassium 4.4 Sodium 130.0 L Chloride 101.0 Glucose 303 H Lactate 6.6 H* FiO2 21.0 Potassium Carbon Dioxide Anion Gap BUN Creatinine Est GFR ( Amer) Est GFR (Non-Af Amer) POC Glucose (mg/dL) 376 H Random Glucose Calcium Phosphorus Magnesium Iron TIBC % Saturation Arterial Blood Potassium Venous Blood Potassium 4.4 Urine Color Urine Appearance Urine pH Ur Specific [place] [employer] Urine Protein Urine Glucose (UA) Urine Ketones Urine Blood Urine Nitrate Urine Bilirubin Urine Urobilinogen Ur Leukocyte Esterase Urine RBC Urine WBC Ur Epithelial Cells Amorphous Sediment Urine Eosinophils Urine HCG, Qual Blood Type Confirm A POSITIVE 09/14/17 09/14/17 09/14/17 02:28 03:01 04:03 WBC RBC Hgb Hct MCV MCH MCHC RDW Plt Count MPV Gran % Lymph % (Auto) Shannon % (Auto) Eos % (Auto) Baso % (Auto) Gran # Lymph # (Auto) Shannon # (Auto) Eos # (Auto) Baso # (Auto) Differential Comment PT INR APTT pCO2 pO2 HCO3 ABG pH ABG Total CO2 ABG O2 Saturation ABG Base Excess ABG Potassium VBG pH VBG pCO2 VBG HCO3 VBG Total CO2 VBG O2 Sat (Calc) VBG Base Excess VBG Potassium Sodium Chloride Glucose Lactate FiO2 Potassium Carbon Dioxide Anion Gap BUN Creatinine Est GFR ( Amer) Est GFR (Non-Af Amer) POC Glucose (mg/dL) 293 H 281 H 269 H Random Glucose Calcium Phosphorus Magnesium Iron TIBC % Saturation Arterial Blood Potassium Venous Blood Potassium Urine Color Urine Appearance Urine pH Ur Specific [place] [employer] Urine Protein Urine Glucose (UA) Urine Ketones Urine Blood Urine Nitrate Urine Bilirubin Urine Urobilinogen Ur Leukocyte Esterase Urine RBC Urine WBC Ur Epithelial Cells Amorphous Sediment Urine Eosinophils Urine HCG, Qual Blood Type Confirm 09/14/17 09/14/17 09/14/17 04:50 04:50 04:50 WBC 1.3 L* D RBC 3.68 Hgb 9.7 L Hct 29.0 L MCV 78.8 L MCH 26.4 MCHC 33.4 RDW 16.6 H Plt Count 84 L MPV 10.9 Gran % 75.5 H Lymph % (Auto) 22.9 Shannon % (Auto) 0.8 L Eos % (Auto) 0.0 L Baso % (Auto) 0.8 Gran # 0.99 L Lymph # (Auto) 0.3 L Shannon # (Auto) 0.0 L Eos # (Auto) 0.0 Baso # (Auto) 0.01 Differential Comment PT INR APTT 28.0 pCO2 pO2 HCO3 ABG pH ABG Total CO2 ABG O2 Saturation ABG Base Excess ABG Potassium VBG pH VBG pCO2 VBG HCO3 VBG Total CO2 VBG O2 Sat (Calc) VBG Base Excess VBG Potassium Sodium 136 Chloride 100 Glucose Lactate FiO2 Potassium 4.2 Carbon Dioxide 18 L Anion Gap 22 H BUN 50 H Creatinine 3.4 H Est GFR ( Amer) 18 Est GFR (Non-Af Amer) 15 POC Glucose (mg/dL) Random Glucose 214 H Calcium 8.4 Phosphorus 4.5 Magnesium 1.7 Iron TIBC % Saturation Arterial Blood Potassium Venous Blood Potassium Urine Color Urine Appearance Urine pH Ur Specific [place] [employer] Urine Protein Urine Glucose (UA) Urine Ketones Urine Blood Urine Nitrate Urine Bilirubin Urine Urobilinogen Ur Leukocyte Esterase Urine RBC Urine WBC Ur Epithelial Cells Amorphous Sediment Urine Eosinophils Urine HCG, Qual Blood Type Confirm 09/14/17 09/14/17 09/14/17 04:50 04:50 04:50 WBC RBC Hgb Hct MCV MCH MCHC RDW Plt Count MPV Gran % Lymph % (Auto) Shannon % (Auto) Eos % (Auto) Baso % (Auto) Gran # Lymph # (Auto) Shannon # (Auto) Eos # (Auto) Baso # (Auto) Differential Comment See pathology report PT INR APTT pCO2 pO2 35 HCO3 ABG pH ABG Total CO2 ABG O2 Saturation ABG Base Excess ABG Potassium VBG pH 7.28 L VBG pCO2 41.0 VBG HCO3 19.3 L VBG Total CO2 20.6 L VBG O2 Sat (Calc) 67.2 H VBG Base Excess -7.1 L VBG Potassium 4.2 Sodium 133.0 Chloride 101.0 Glucose 225 H Lactate 5.4 H* FiO2 21.0 Potassium Carbon Dioxide Anion Gap BUN Creatinine Est GFR ( Amer) Est GFR (Non-Af Amer) POC Glucose (mg/dL) Random Glucose Calcium Phosphorus Magnesium Iron < 10 L TIBC 217 L % Saturation TNP Arterial Blood Potassium Venous Blood Potassium 4.2 Urine Color Urine Appearance Urine pH Ur Specific [place] [employer] Urine Protein Urine Glucose (UA) Urine Ketones Urine Blood Urine Nitrate Urine Bilirubin Urine Urobilinogen Ur Leukocyte Esterase Urine RBC Urine WBC Ur Epithelial Cells Amorphous Sediment Urine Eosinophils Urine HCG, Qual Blood Type Confirm 09/14/17 09/14/17 09/14/17 05:00 05:22 05:22 WBC RBC Hgb Hct MCV MCH MCHC RDW Plt Count MPV Gran % Lymph % (Auto) Shannon % (Auto) Eos % (Auto) Baso % (Auto) Gran # Lymph # (Auto) Shannon # (Auto) Eos # (Auto) Baso # (Auto) Differential Comment PT INR APTT pCO2 pO2 HCO3 ABG pH ABG Total CO2 ABG O2 Saturation ABG Base Excess ABG Potassium VBG pH VBG pCO2 VBG HCO3 VBG Total CO2 VBG O2 Sat (Calc) VBG Base Excess VBG Potassium Sodium Chloride Glucose Lactate FiO2 Potassium Carbon Dioxide Anion Gap BUN Creatinine Est GFR ( Amer) Est GFR (Non-Af Amer) POC Glucose (mg/dL) 211 H Random Glucose Calcium Phosphorus Magnesium Iron TIBC % Saturation Arterial Blood Potassium Venous Blood Potassium Urine Color Yellow Urine Appearance Sl cloudy Urine pH 6.0 Ur Specific [place] [employer] 1.025 Urine Protein 100 H Urine Glucose (UA) 100 H Urine Ketones Trace H Urine Blood Moderate H Urine Nitrate Negative Urine Bilirubin Negative Urine Urobilinogen 0.2 Ur Leukocyte Esterase Negative Urine RBC 1 - 3 Urine WBC 0 - 2 Ur Epithelial Cells 0 - 2 Amorphous Sediment Few Urine Eosinophils Negative Urine HCG, Qual Negative Blood Type Confirm 09/14/17 09/14/17 09/14/17 05:50 06:10 06:29 WBC 2.0 L* D 4.6 D RBC 1.72 L 3.87 Hgb 4.5 L* D 10.3 L D Hct 13.7 L* 30.5 L MCV 79.7 L 78.8 L MCH 26.2 26.6 MCHC 32.8 33.8 RDW 16.8 H 16.6 H Plt Count 31 L* 73 L MPV 9.2 11.1 H Gran % 81.3 H 89.1 H Lymph % (Auto) 14.8 L 9.8 L Shannon % (Auto) 3.9 0.9 L Eos % (Auto) 0.0 L 0.0 L Baso % (Auto) 0.0 0.2 Gran # 1.65 4.09 Lymph # (Auto) 0.3 L 0.5 L Shannon # (Auto) 0.1 0.0 L Eos # (Auto) 0.0 0.0 Baso # (Auto) 0.00 0.01 Differential Comment PT INR APTT pCO2 pO2 HCO3 ABG pH ABG Total CO2 ABG O2 Saturation ABG Base Excess ABG Potassium VBG pH VBG pCO2 VBG HCO3 VBG Total CO2 VBG O2 Sat (Calc) VBG Base Excess VBG Potassium Sodium Chloride Glucose Lactate FiO2 Potassium Carbon Dioxide Anion Gap BUN Creatinine Est GFR ( Amer) Est GFR (Non-Af Amer) POC Glucose (mg/dL) 167 H Random Glucose Calcium Phosphorus Magnesium Iron TIBC % Saturation Arterial Blood Potassium Venous Blood Potassium Urine Color Urine Appearance Urine pH Ur Specific [place] [employer] Urine Protein Urine Glucose (UA) Urine Ketones Urine Blood Urine Nitrate Urine Bilirubin Urine Urobilinogen Ur Leukocyte Esterase Urine RBC Urine WBC Ur Epithelial Cells Amorphous Sediment Urine Eosinophils Urine HCG, Qual Blood Type Confirm 09/14/17 09/14/17 09/14/17 07:09 07:49 07:49 WBC RBC Hgb Hct MCV MCH MCHC RDW Plt Count MPV Gran % Lymph % (Auto) Shannon % (Auto) Eos % (Auto) Baso % (Auto) Gran # Lymph # (Auto) Shannon # (Auto) Eos # (Auto) Baso # (Auto) Differential Comment PT 16.4 H INR 1.42 H APTT pCO2 pO2 HCO3 ABG pH ABG Total CO2 ABG O2 Saturation ABG Base Excess ABG Potassium VBG pH VBG pCO2 VBG HCO3 VBG Total CO2 VBG O2 Sat (Calc) VBG Base Excess VBG Potassium Sodium 137 Chloride 103 Glucose Lactate FiO2 Potassium 3.5 L Carbon Dioxide 17 L Anion Gap 21 H BUN 52 H Creatinine 3.2 H Est GFR ( Amer) 19 Est GFR (Non-Af Amer) 16 POC Glucose (mg/dL) 160 H Random Glucose 168 H Calcium 7.9 L Phosphorus Magnesium Iron TIBC % Saturation Arterial Blood Potassium Venous Blood Potassium Urine Color Urine Appearance Urine pH Ur Specific [place] [employer] Urine Protein Urine Glucose (UA) Urine Ketones Urine Blood Urine Nitrate Urine Bilirubin Urine Urobilinogen Ur Leukocyte Esterase Urine RBC Urine WBC Ur Epithelial Cells Amorphous Sediment Urine Eosinophils Urine HCG, Qual Blood Type Confirm 09/14/17 08:46 WBC RBC Hgb Hct MCV MCH MCHC RDW Plt Count MPV Gran % Lymph % (Auto) Shannon % (Auto) Eos % (Auto) Baso % (Auto) Gran # Lymph # (Auto) Shannon # (Auto) Eos # (Auto) Baso # (Auto) Differential Comment PT INR APTT pCO2 28 L pO2 70.0 L HCO3 15.5 L ABG pH 7.35 ABG Total CO2 16.4 L ABG O2 Saturation 96.4 ABG Base Excess -8.6 L ABG Potassium 2.8 L VBG pH VBG pCO2 VBG HCO3 VBG Total CO2 VBG O2 Sat (Calc) VBG Base Excess VBG Potassium Sodium 136.0 Chloride 108.0 H Glucose 171 H Lactate 4.0 H* FiO2 36.0 Potassium Carbon Dioxide Anion Gap BUN Creatinine Est GFR ( Amer) Est GFR (Non-Af Amer) POC Glucose (mg/dL) Random Glucose Calcium Phosphorus Magnesium Iron TIBC % Saturation Arterial Blood Potassium 2.8 L Venous Blood Potassium Urine Color Urine Appearance Urine pH Ur Specific [place] [employer] Urine Protein Urine Glucose (UA) Urine Ketones Urine Blood Urine Nitrate Urine Bilirubin Urine Urobilinogen Ur Leukocyte Esterase Urine RBC Urine WBC Ur Epithelial Cells Amorphous Sediment Urine Eosinophils Urine HCG, Qual Blood Type Confirm Assessment & Plan - Assessment and Plan (Free Text) Assessment: 42 year old female with a past medical history significant for NIDDM2 presents with two days of nausea, vomiting, abdominal pain, fever and fatigue. Patient had hyperglycemia to 430 and an anion gap of 26. She was also found to have a leukocytosis to 20.1, lactic acidosis of 10.4, and hypokalemia to 3.3. She will be admitted to the ICU for treatment and further evaluation of DKA and sepsis of unconfirmed etiology. Plan: 1. DKA -Serum glucose of 430 on arrival and anion gap acidosis with an anion gap of 26 -Insulin drip started at 6units/hr -Normal saline with 20meq of potassium at 150mls/hr -Q4H Serial BMP's -Zofran PRN for N/V -Home PO medications held -Strict I/O's, fall and aspiration precautions -Diabetes Education referral 2. Sepsis -Leukocytosis to 20.1 with lactic acidosis of 10.4 and tachycardia to 110 -CT Abdomen/Pelvis and Chest X-Ray pending -Started on IV Flagyl, Vancomycin (Renally dosed), and Zosyn -Sepsis protocol fluid bolus administered in ED -Procal, blood cultures, stool cultures and C. Diff serology pending -ID consulted, all recommendations appreciated 3. Elevated Creatinine -Nephrology and Urology consulted, all recommendations appreciated -Workup for FeNA pending GI Prophylaxis: Protonix DVT Prophylaxis: Heparin Diet: NPO Patient seen and assessed with attending, Dr. Mcduffie. Elisha PGY1 - Date & Time Date: 09/14/17 Time: 09:16 <Reta DENSON,Kings - Last Filed: 09/25/17 11:14> Results - Vital Signs Recent Vital Signs: Last Vital Signs Temp 98.6 F 09/22/17 06:00 Pulse 103 H 09/22/17 09:21 Resp 20 09/22/17 06:00 BP 138/78 09/22/17 09:21 Pulse Ox 97 09/22/17 06:00 - Labs Result Diagrams: 09/22/17 05:15 09/22/17 05:15 Attending/Attestation - Attestation I have personally seen and examined this patient.: Yes I have fully participated in the care of the patient.: Yes I have reviewed all pertinent clinical information: Yes Notes (Text): -I agree with the above H&P completed by the resident physician with the following additions and/or changes: -The patient is a 42 year old woman with a history of NIDDM, who is being admitted to the ICU with, JOSE D, SIRS and DKA. She will be kept NPO and started on Insulin drip, aggressive IVFs and empiric IV antibiotics. Pacheco-cultures and procalcitonin as well as an ID consult have been placed.
[2017-09-14 09:20] LABS: ACETAMINOPHEN < 10.0 ug/ml (10.0-20.0); SALICYLATE < 1 mg/dL (2.0-20.0)
[2017-09-14] MEDS ORDERED: NOREPINEPHRINE BIT/0.9 % NACL 4 MG/250 ML BAG IV ONE (09:25)
[2017-09-14 09:30] LABS: LDL CHOLESTEROL < 30 mg/dL (0-129)
[2017-09-14] MEDS: NOREPINEPHRINE BIT/0.9 % NACL 4 MG/250 ML BAG IV PRN ×2 (09:30→13:55)
[2017-09-14] MEDS ORDERED: Meropenem IV 1 gm in NS 50 ML IVPB SCH (10:00)
--- NOTE | 2017-09-14 10:05 | CP.PCM.PN ---
Subjective - Date & Time of Evaluation Date of Evaluation: 09/14/17 Time of Evaluation: 08:00 - Subjective Subjective: Patienty hypotensive SBP 50-80s, this morning. Patiens IVC on ultrasound, 1.6cm, heart poorly visualized Given 4L NS bolus Started on vasopressor, levophed Femoral TLC placed ECHO ordered Stress dose steroids started On broad spectrum abx, Vanco, Merrem ID, Urology, Nephrology on consults Patient critical Full daily progress note to follow. Objective - Vital Signs/Intake and Output Vital Signs (last 24 hours): Temp Pulse Resp BP Pulse Ox 98.9 F 126 H 34 H 134/62 95 09/14/17 06:00 09/14/17 06:39 09/14/17 06:39 09/14/17 06:14 09/14/17 06:30 Intake and Output: 09/14/17 09/14/17 06:59 18:59 Intake Total 4510 4 Output Total 420 Balance 4090 4 - Medications Medications: Current Medications Heparin Sodium (Porcine) (Heparin) 5,000 units SC Q12 BOB PRN Reason: Protocol Last Admin: 09/14/17 09:24 Dose: 5,000 units Insulin Human Regular 100 (units/ Sodium Chloride) 100 mls @ 6 mls/hr IV .[id number] PRN; Protocol; 6 UNITS/HR PRN Reason: TITRATE PER MD ORDER Last Titration: 09/14/17 08:40 Dose: 2 units/hr, 2 mls/hr Metronidazole (Flagyl) 500 mg in 100 mls @ 100 mls/hr IVPB Q8 BOB PRN Reason: Protocol Last Admin: 09/14/17 05:35 Dose: Not Given Meropenem (Merrem Iv 1 Gm Premix) 50 mls @ 100 mls/hr IVPB Q12 BOB PRN Reason: Protocol Last Admin: 09/14/17 09:24 Dose: 100 mls/hr Acetaminophen (Ofirmev) 1,000 mg in 100 mls @ 400 mls/hr IVPB Q6H PRN PRN Reason: Fever Stop: 09/16/17 05:43 Last Admin: 09/14/17 06:06 Dose: 400 mls/hr Potassium Chloride/Dextrose/Sod Cl (Potassium Chl 20 Meq In D5-1/2ns) 1,000 mls @ 150 mls/hr IV .Q6H40M [facility] Last Admin: 09/14/17 07:07 Dose: 150 mls/hr Potassium Chloride (Potassium Chloride 10 Meq/100 Ml) 10 meq in 100 mls @ 50 mls/hr IVPB Q2H BOB Stop: 09/14/17 14:59 Last Admin: 09/14/17 09:12 Dose: 50 mls/hr Ondansetron HCl (Zofran Inj) 4 mg IVP Q4H PRN PRN Reason: Nausea/Vomiting Last Admin: 09/14/17 04:49 Dose: 4 mg Pantoprazole Sodium (Protonix Inj) 40 mg IVP DAILY [facility] Last Admin: 09/14/17 09:24 Dose: 40 mg Vitamin A (Vitamin A & D Oint Ud Foilpak) 1 ea TOP Q2 PRN PRN Reason: Dry mouth - Labs Labs: 09/14/17 06:10 09/14/17 07:49 PT 16.4 SECONDS (9.4-12.5) H 09/14/17 07:49 INR 1.42 (0.93-1.08) H 09/14/17 07:49 APTT 28.0 Seconds (25.1-36.5) 09/14/17 04:50
[2017-09-14 10:09] LABS: EOS % 0.1 % (1.5-5.0); GRAN # 8.02 (1.4-6.5); GRAN % 90.8 % (50.0-68.0); LYMPH # 0.7 (1.2-3.4); LYMPH % 7.9 % (22.0-35.0); MEAN CELL VOLUME 78.4 fl (80.0-105.0); MEAN CORPUSCULAR HEMOGLOBIN 26.5 pg (25.0-35.0); MEAN CORPUSCULAR HGB CONC 33.8 g/dl (31.0-37.0); MEAN PLATELET VOLUME 10.9 fl (7.0-11.0); MONO # 0.1 (0.1-0.6); MONO % 1.2 % (1.0-6.0); RBC 3.06 10^6/uL (3.5-6.1); RED CELL DISTRIBUTION WIDTH 16.7 % (11.5-14.5); WHITE BLOOD COUNT 8.8 10^3/ul (4.5-11.0)
[2017-09-14 10:12] LABS: HEMOGLOBIN 8.1 g/dL (12.0-16.0)
[2017-09-14] MEDS ORDERED: Lactated Ringer's 1,000 ML IV STA (10:13)
--- NOTE | 2017-09-14 10:16 | CP.CCUPN ---
<Indra Gilbert - Last Filed: 09/14/17 10:12> CCU Subjective - Physician Review Subjective (Free Text): ICU Progress Note Pt seen and examined at bedside. Pt reports feeling short of breath, nauseous, dizzy, and diaphoretic. Pt SBP 44 manually this AM. 2L NS bolus given, SBP improved to 92. However, shortly thereafter SBP decreased to 54. Patient was started on Levophed and given another 2L NS bolus. Central line was placed in left femoral vein (please see procedure note for more details). Repeat SBP was 66 after 4L of NS, while on levophed. Patient was started on phenylephrine and stress dose of solu-cortef. Subsequent vitals: BP was 80/40, HR 120's, RR 20-26 , O2 sat 97%. 1 L bolus of lactated ringers given. Patient reports feeling better. CCU Objective - Vital Signs / Intake & Output Vital Signs (Last 4 hours): Vital Signs Pulse Resp BP Pulse Ox 09/14/17 06:39 126 H 34 H 09/14/17 06:38 128 H 36 H 09/14/17 06:37 127 H 33 H 09/14/17 06:36 128 H 4 L 09/14/17 06:35 130 H 09/14/17 06:34 132 H 35 H 09/14/17 06:33 136 H 09/14/17 06:30 143 H 47 H 95 09/14/17 06:20 128 H 36 H 98 09/14/17 06:14 131 H 38 H 134/62 99 Intake and Output (Last 8hrs): Intake & Output 09/13/17 09/14/17 09/14/17 22:59 06:59 14:59 Intake Total 4510 4 Output Total 420 Balance 4090 4 Intake: IV 4510 4 0.9 KCL(20meq) 750 LR 3000 flagy 100 k rider 100 mag sul 100 vanco 250 zosyn 200 Output: Urine 420 Urethral (Kumar) 420 Other: Voiding Method Bedpan - Physical Exam Head: Positive for: Atraumatic, Normocephalic Pupils: Positive for: PERRL Extroacular Muscles: Positive for: EOMI Conjunctiva: Positive for: Normal Mouth: Positive for: Dry Nose (Internal): Positive for: Normal Inspection, No Active Bleeding. Negative for: Rhinorrhea Neck: Positive for: Normal Range of Motion Respiratory/Chest: Positive for: Clear to Auscultation. Negative for: Accessory Muscle Use, Wheezes, Rales, Rhonchi Cardiovascular: Positive for: Regular Rate and Rhythm, Normal S1, S2. Negative for: Murmurs, Rub, Gallop Abdomen: Negative for: Tenderness, Distention, Peritoneal Signs, Rebound, Guarding Back: Positive for: Normal Inspection Upper Extremity: Positive for: Normal Inspection. Negative for: Cyanosis, Edema Lower Extremity: Positive for: Normal Inspection. Negative for: Edema Neurological: Positive for: GCS=15, CN II-XII Intact, Motor Func Grossly Intact , Memory Normal Skin: Positive for: Diaphoretic, Cold, Pale, Other (poor skin turgor). Negative for: Rashes Psychiatric: Positive for: Alert, Oriented x 3, Normal Insight, Normal Concentration - Medications Active Medications: Active Medications Generic Name Dose Route Start Last Admin Trade Name Freq PRN Reason Stop Dose Admin Heparin Sodium (Porcine) 5,000 units 09/14/17 10:00 09/14/17 09:24 Heparin SC 5,000 units Q12 BOB Administration Protocol Hydrocortisone Sodium Succinate 100 mg 09/14/17 14:00 Solu-Cortef IVP Q8 BOB Insulin Human Regular 100 100 mls @ 6 mls/hr 09/13/17 23:11 09/14/17 08:40 units/ Sodium Chloride IV 2 units/hr .[id number] PRN 2 mls/hr TITRATE PER MD ORDER Titration Protocol 6 UNITS/HR Metronidazole 500 mg in 100 mls @ 100 mls/hr 09/14/17 03:00 09/14/17 05:35 Flagyl IVPB Not Given Q8 BOB Protocol Meropenem 50 mls @ 100 mls/hr 09/14/17 10:00 09/14/17 09:24 Merrem Iv 1 Gm Premix IVPB 100 mls/hr Q12 BOB Administration Protocol Acetaminophen 1,000 mg in 100 mls @ 400 mls/hr 09/14/17 05:42 09/14/17 06:06 Ofirmev IVPB 09/16/17 05:43 400 mls/hr Q6H PRN Administration Fever Potassium Chloride/Dextrose/Sod Cl 1,000 mls @ 150 mls/hr 09/14/17 06:45 07:07 Potassium Chl 20 Meq In D5-1/2ns IV 150 mls/hr .[id number] BOB Administration Potassium Chloride 10 meq in 100 mls @ 50 mls/hr 09/14/17 09:00 09/14/17 09: 12 Potassium Chloride 10 Meq/100 Ml IVPB 09/14/17 14:59 50 mls/hr Q2H BOB Administration Vasopressin 20 units/ Sodium 101 mls @ 9.09 mls/hr 09/14/17 10:15 Chloride IV .[id number] BOB Protocol 0.03 U/MIN Ondansetron HCl 4 mg 09/13/17 23:59 09/14/17 04:49 Zofran Inj IVP 4 mg Q4H PRN Administration Nausea/Vomiting Pantoprazole Sodium 40 mg 09/14/17 10:00 09/14/17 09:24 Protonix Inj IVP 40 mg DAILY BOB Administration Vitamin A 1 ea 09/14/17 01:37 Vitamin A & D Oint Ud Foilpak TOP Q2 PRN Dry mouth - Patient Studies Lab Studies: Lab Studies 09/14/17 09/14/17 09/14/17 Range/Units 10:04 08:46 07:49 WBC 8.8 D (4.5-11.0) 10^3/ul RBC 3.06 L (3.5-6.1) 10^6/uL Hgb 8.1 L D (12.0-16.0) g/dL Hct 24.0 L (36.0-48.0) % MCV 78.4 L (80.0-105.0) fl MCH 26.5 (25.0-35.0) pg MCHC 33.8 (31.0-37.0) g/dl RDW 16.7 H (11.5-14.5) % Plt Count 66 L (120.0-450.0) 10^3/uL MPV 10.9 (7.0-11.0) fl Gran % 90.8 H (50.0-68.0) % Lymph % (Auto) 7.9 L (22.0-35.0) % [place] % (Auto) 1.2 (1.0-6.0) % Eos % (Auto) 0.1 L (1.5-5.0) % Baso % (Auto) 0.0 (0.0-3.0) % Gran # 8.02 H (1.4-6.5) Lymph # (Auto) 0.7 L (1.2-3.4) [place] # (Auto) 0.1 (0.1-0.6) Eos # (Auto) 0.0 (0.0-0.7) Baso # (Auto) 0.00 (0.0-2.0) K/mm3 Differential Comment PT 16.4 H (9.4-12.5) SECONDS INR 1.42 H (0.93-1.08) APTT (25.1-36.5) Seconds pCO2 28 L (35-45) mm/Hg pO2 70.0 L (30-55) mm/Hg HCO3 15.5 L (21-28) mmol/L ABG pH 7.35 (7.35-7.45) ABG Total CO2 16.4 L (22-28) mmol.L ABG O2 Saturation 96.4 (95-98) % ABG Base Excess -8.6 L (-2.0-3.0) mmol/L ABG Potassium 2.8 L (3.6-5.2) mmol/L VBG pH (7.32-7.43) VBG pCO2 (40-60) VBG HCO3 (21-28) mmol/l VBG Total CO2 (22-28) mmol.L VBG O2 Sat (Calc) (40-65) % VBG Base Excess (0.0-2.0) mmol/L VBG Potassium (3.6-5.2) mmol/L Sodium 136.0 (132-148) mmol/L Chloride 108.0 H (98-107) mmol/L Glucose 171 H (65-105) mg/dl Lactate 4.0 H* (0.7-2.1) mmol/L FiO2 36.0 % Potassium (3.6-5.0) mmol/L Carbon Dioxide (21-33) mmol/L Anion Gap (10-20) BUN (7-21) mg/dL Creatinine (0.7-1.2) mg/dl Est GFR ( Amer) Est GFR (Non-Af Amer) POC Glucose (mg/dL) (65-110) mg/dL Random Glucose (70-110) mg/dL Calcium (8.4-10.5) mg/dL Phosphorus (2.5-4.5) mg/dL Magnesium (1.7-2.2) mg/dL Iron (45-180) ug/dL TIBC (265-497) ug/dL % Saturation Triglycerides (35-160) mg/dL Cholesterol (130-200) mg/dL LDL Cholesterol Direct (0-129) mg/dL HDL Cholesterol (29-60) mg/dL TSH 3rd Generation (0.46-4.68) mIU/mL Arterial Blood Potassium 2.8 L (3.6-5.2) mmol/L Venous Blood Potassium (3.6-5.2) mmol/L Urine Color (YELLOW) Urine Appearance (CLEAR) Urine pH (4.7-8.0) Ur Specific [place] (1.005-1.035) Urine Protein (<30 mg/dL) mg/dL Urine Glucose (UA) (NEGATIVE) mg/dL Urine Ketones (NEGATIVE) mg/dL Urine Blood (NEGATIVE) Urine Nitrate (NEGATIVE) Urine Bilirubin (NEGATIVE) Urine Urobilinogen (<1 E.U./dL) E.U./dL Ur Leukocyte Esterase (NEGATIVE) Juan/uL Urine RBC (0-2) /hpf Urine WBC (0-6) /hpf Ur Epithelial Cells (0-5) /hpf Amorphous Sediment Urine Eosinophils Urine HCG, Qual (NEGATIVE) Salicylates (2.0-20.0) mg/dL Acetaminophen (10.0-20.0) ug/ml Blood Type Confirm 09/14/17 09/14/17 09/14/17 Range/Units 07:49 07:09 07:00 WBC (4.5-11.0) 10^3/ul RBC (3.5-6.1) 10^6/uL Hgb (12.0-16.0) g/dL Hct (36.0-48.0) % MCV (80.0-105.0) fl MCH (25.0-35.0) pg MCHC (31.0-37.0) g/dl RDW (11.5-14.5) % Plt Count (120.0-450.0) 10^3/uL MPV (7.0-11.0) fl Gran % (50.0-68.0) % Lymph % (Auto) (22.0-35.0) % [place] % (Auto) (1.0-6.0) % Eos % (Auto) (1.5-5.0) % Baso % (Auto) (0.0-3.0) % Gran # (1.4-6.5) Lymph # (Auto) (1.2-3.4) [place] # (Auto) (0.1-0.6) Eos # (Auto) (0.0-0.7) Baso # (Auto) (0.0-2.0) K/mm3 Differential Comment PT (9.4-12.5) SECONDS INR (0.93-1.08) APTT (25.1-36.5) Seconds pCO2 (35-45) mm/Hg pO2 (30-55) mm/Hg HCO3 (21-28) mmol/L ABG pH (7.35-7.45) ABG Total CO2 (22-28) mmol.L ABG O2 Saturation (95-98) % ABG Base Excess (-2.0-3.0) mmol/L ABG Potassium (3.6-5.2) mmol/L VBG pH (7.32-7.43) VBG pCO2 (40-60) VBG HCO3 (21-28) mmol/l VBG Total CO2 (22-28) mmol.L VBG O2 Sat (Calc) (40-65) % VBG Base Excess (0.0-2.0) mmol/L VBG Potassium (3.6-5.2) mmol/L Sodium 137 (132-148) mmol/L Chloride 103 (98-107) mmol/L Glucose (65-105) mg/dl Lactate (0.7-2.1) mmol/L FiO2 % Potassium 3.5 L (3.6-5.0) mmol/L Carbon Dioxide 17 L (21-33) mmol/L Anion Gap 21 H (10-20) BUN 52 H (7-21) mg/dL Creatinine 3.2 H (0.7-1.2) mg/dl Est GFR ( Amer) 19 Est GFR (Non-Af Amer) 16 POC Glucose (mg/dL) 160 H (65-110) mg/dL Random Glucose 168 H (70-110) mg/dL Calcium 7.9 L (8.4-10.5) mg/dL Phosphorus (2.5-4.5) mg/dL Magnesium (1.7-2.2) mg/dL Iron (45-180) ug/dL TIBC (265-497) ug/dL % Saturation Triglycerides (35-160) mg/dL Cholesterol (130-200) mg/dL LDL Cholesterol Direct (0-129) mg/dL HDL Cholesterol (29-60) mg/dL TSH 3rd Generation 2.85 (0.46-4.68) mIU/mL Arterial Blood Potassium (3.6-5.2) mmol/L Venous Blood Potassium (3.6-5.2) mmol/L Urine Color (YELLOW) Urine Appearance (CLEAR) Urine pH (4.7-8.0) Ur Specific [place] (1.005-1.035) Urine Protein (<30 mg/dL) mg/dL Urine Glucose (UA) (NEGATIVE) mg/dL Urine Ketones (NEGATIVE) mg/dL Urine Blood (NEGATIVE) Urine Nitrate (NEGATIVE) Urine Bilirubin (NEGATIVE) Urine Urobilinogen (<1 E.U./dL) E.U./dL Ur Leukocyte Esterase (NEGATIVE) Juan/uL Urine RBC (0-2) /hpf Urine WBC (0-6) /hpf Ur Epithelial Cells (0-5) /hpf Amorphous Sediment Urine Eosinophils Urine HCG, Qual (NEGATIVE) Salicylates (2.0-20.0) mg/dL Acetaminophen (10.0-20.0) ug/ml Blood Type Confirm 09/14/17 09/14/17 09/14/17 Range/Units 07:00 07:00 06:29 WBC (4.5-11.0) 10^3/ul RBC (3.5-6.1) 10^6/uL Hgb (12.0-16.0) g/dL Hct (36.0-48.0) % MCV (80.0-105.0) fl MCH (25.0-35.0) pg MCHC (31.0-37.0) g/dl RDW (11.5-14.5) % Plt Count (120.0-450.0) 10^3/uL MPV (7.0-11.0) fl Gran % (50.0-68.0) % Lymph % (Auto) (22.0-35.0) % [place] % (Auto) (1.0-6.0) % Eos % (Auto) (1.5-5.0) % Baso % (Auto) (0.0-3.0) % Gran # (1.4-6.5) Lymph # (Auto) (1.2-3.4) [place] # (Auto) (0.1-0.6) Eos # (Auto) (0.0-0.7) Baso # (Auto) (0.0-2.0) K/mm3 Differential Comment PT (9.4-12.5) SECONDS INR (0.93-1.08) APTT (25.1-36.5) Seconds pCO2 (35-45) mm/Hg pO2 (30-55) mm/Hg HCO3 (21-28) mmol/L ABG pH (7.35-7.45) ABG Total CO2 (22-28) mmol.L ABG O2 Saturation (95-98) % ABG Base Excess (-2.0-3.0) mmol/L ABG Potassium (3.6-5.2) mmol/L VBG pH (7.32-7.43) VBG pCO2 (40-60) VBG HCO3 (21-28) mmol/l VBG Total CO2 (22-28) mmol.L VBG O2 Sat (Calc) (40-65) % VBG Base Excess (0.0-2.0) mmol/L VBG Potassium (3.6-5.2) mmol/L Sodium (132-148) mmol/L Chloride (98-107) mmol/L Glucose (65-105) mg/dl Lactate (0.7-2.1) mmol/L FiO2 % Potassium (3.6-5.0) mmol/L Carbon Dioxide (21-33) mmol/L Anion Gap (10-20) BUN (7-21) mg/dL Creatinine (0.7-1.2) mg/dl Est GFR ( Amer) Est GFR (Non-Af Amer) POC Glucose (mg/dL) 167 H (65-110) mg/dL Random Glucose (70-110) mg/dL Calcium (8.4-10.5) mg/dL Phosphorus (2.5-4.5) mg/dL Magnesium (1.7-2.2) mg/dL Iron (45-180) ug/dL TIBC (265-497) ug/dL % Saturation Triglycerides 166 H (35-160) mg/dL Cholesterol 99 L (130-200) mg/dL LDL Cholesterol Direct < 30 (0-129) mg/dL HDL Cholesterol 28 L (29-60) mg/dL TSH 3rd Generation (0.46-4.68) mIU/mL Arterial Blood Potassium (3.6-5.2) mmol/L Venous Blood Potassium (3.6-5.2) mmol/L Urine Color (YELLOW) Urine Appearance (CLEAR) Urine pH (4.7-8.0) Ur Specific [place] (1.005-1.035) Urine Protein (<30 mg/dL) mg/dL Urine Glucose (UA) (NEGATIVE) mg/dL Urine Ketones (NEGATIVE) mg/dL Urine Blood (NEGATIVE) Urine Nitrate (NEGATIVE) Urine Bilirubin (NEGATIVE) Urine Urobilinogen (<1 E.U./dL) E.U./dL Ur Leukocyte Esterase (NEGATIVE) Juan/uL Urine RBC (0-2) /hpf Urine WBC (0-6) /hpf Ur Epithelial Cells (0-5) /hpf Amorphous Sediment Urine Eosinophils Urine HCG, Qual (NEGATIVE) Salicylates < 1 L (2.0-20.0) mg/dL Acetaminophen < 10.0 L (10.0-20.0) ug/ml Blood Type Confirm 09/14/17 09/14/17 09/14/17 Range/Units 06:10 05:50 05:22 WBC 4.6 D 2.0 L* D (4.5-11.0) 10^3/ul RBC 3.87 1.72 L (3.5-6.1) 10^6/uL Hgb 10.3 L D 4.5 L* D (12.0-16.0) g/dL Hct 30.5 L 13.7 L* (36.0-48.0) % MCV 78.8 L 79.7 L (80.0-105.0) fl MCH 26.6 26.2 (25.0-35.0) pg MCHC 33.8 32.8 (31.0-37.0) g/dl RDW 16.6 H 16.8 H (11.5-14.5) % Plt Count 73 L 31 L* (120.0-450.0) 10^3/uL MPV 11.1 H 9.2 (7.0-11.0) fl Gran % 89.1 H 81.3 H (50.0-68.0) % Lymph % (Auto) 9.8 L 14.8 L (22.0-35.0) % [place] % (Auto) 0.9 L 3.9 (1.0-6.0) % Eos % (Auto) 0.0 L 0.0 L (1.5-5.0) % Baso % (Auto) 0.2 0.0 (0.0-3.0) % Gran # 4.09 1.65 (1.4-6.5) Lymph # (Auto) 0.5 L 0.3 L (1.2-3.4) [place] # (Auto) 0.0 L 0.1 (0.1-0.6) Eos # (Auto) 0.0 0.0 (0.0-0.7) Baso # (Auto) 0.01 0.00 (0.0-2.0) K/mm3 Differential Comment PT (9.4-12.5) SECONDS INR (0.93-1.08) APTT (25.1-36.5) Seconds pCO2 (35-45) mm/Hg pO2 (30-55) mm/Hg HCO3 (21-28) mmol/L ABG pH (7.35-7.45) ABG Total CO2 (22-28) mmol.L ABG O2 Saturation (95-98) % ABG Base Excess (-2.0-3.0) mmol/L ABG Potassium (3.6-5.2) mmol/L VBG pH (7.32-7.43) VBG pCO2 (40-60) VBG HCO3 (21-28) mmol/l VBG Total CO2 (22-28) mmol.L VBG O2 Sat (Calc) (40-65) % VBG Base Excess (0.0-2.0) mmol/L VBG Potassium (3.6-5.2) mmol/L Sodium (132-148) mmol/L Chloride (98-107) mmol/L Glucose (65-105) mg/dl Lactate (0.7-2.1) mmol/L FiO2 % Potassium (3.6-5.0) mmol/L Carbon Dioxide (21-33) mmol/L Anion Gap (10-20) BUN (7-21) mg/dL Creatinine (0.7-1.2) mg/dl Est GFR ( Amer) Est GFR (Non-Af Amer) POC Glucose (mg/dL) (65-110) mg/dL Random Glucose (70-110) mg/dL Calcium (8.4-10.5) mg/dL Phosphorus (2.5-4.5) mg/dL Magnesium (1.7-2.2) mg/dL Iron (45-180) ug/dL TIBC (265-497) ug/dL % Saturation Triglycerides (35-160) mg/dL Cholesterol (130-200) mg/dL LDL Cholesterol Direct (0-129) mg/dL HDL Cholesterol (29-60) mg/dL TSH 3rd Generation (0.46-4.68) mIU/mL Arterial Blood Potassium (3.6-5.2) mmol/L Venous Blood Potassium (3.6-5.2) mmol/L Urine Color (YELLOW) Urine Appearance (CLEAR) Urine pH (4.7-8.0) Ur Specific [place] (1.005-1.035) Urine Protein (<30 mg/dL) mg/dL Urine Glucose (UA) (NEGATIVE) mg/dL Urine Ketones (NEGATIVE) mg/dL Urine Blood (NEGATIVE) Urine Nitrate (NEGATIVE) Urine Bilirubin (NEGATIVE) Urine Urobilinogen (<1 E.U./dL) E.U./dL Ur Leukocyte Esterase (NEGATIVE) Juan/uL Urine RBC (0-2) /hpf Urine WBC (0-6) /hpf Ur Epithelial Cells (0-5) /hpf Amorphous Sediment Urine Eosinophils Negative Urine HCG, Qual (NEGATIVE) Salicylates (2.0-20.0) mg/dL Acetaminophen (10.0-20.0) ug/ml Blood Type Confirm 09/14/17 09/14/17 09/14/17 Range/Units 05:22 05:00 04:50 WBC (4.5-11.0) 10^3/ul RBC (3.5-6.1) 10^6/uL Hgb (12.0-16.0) g/dL Hct (36.0-48.0) % MCV (80.0-105.0) fl MCH (25.0-35.0) pg MCHC (31.0-37.0) g/dl RDW (11.5-14.5) % Plt Count (120.0-450.0) 10^3/uL MPV (7.0-11.0) fl Gran % (50.0-68.0) % Lymph % (Auto) (22.0-35.0) % [place] % (Auto) (1.0-6.0) % Eos % (Auto) (1.5-5.0) % Baso % (Auto) (0.0-3.0) % Gran # (1.4-6.5) Lymph # (Auto) (1.2-3.4) [place] # (Auto) (0.1-0.6) Eos # (Auto) (0.0-0.7) Baso # (Auto) (0.0-2.0) K/mm3 Differential Comment PT (9.4-12.5) SECONDS INR (0.93-1.08) APTT (25.1-36.5) Seconds pCO2 (35-45) mm/Hg pO2 (30-55) mm/Hg HCO3 (21-28) mmol/L ABG pH (7.35-7.45) ABG Total CO2 (22-28) mmol.L ABG O2 Saturation (95-98) % ABG Base Excess (-2.0-3.0) mmol/L ABG Potassium (3.6-5.2) mmol/L VBG pH (7.32-7.43) VBG pCO2 (40-60) VBG HCO3 (21-28) mmol/l VBG Total CO2 (22-28) mmol.L VBG O2 Sat (Calc) (40-65) % VBG Base Excess (0.0-2.0) mmol/L VBG Potassium (3.6-5.2) mmol/L Sodium (132-148) mmol/L Chloride (98-107) mmol/L Glucose (65-105) mg/dl Lactate (0.7-2.1) mmol/L FiO2 % Potassium (3.6-5.0) mmol/L Carbon Dioxide (21-33) mmol/L Anion Gap (10-20) BUN (7-21) mg/dL Creatinine (0.7-1.2) mg/dl Est GFR ( Amer) Est GFR (Non-Af Amer) POC Glucose (mg/dL) 211 H (65-110) mg/dL Random Glucose (70-110) mg/dL Calcium (8.4-10.5) mg/dL Phosphorus (2.5-4.5) mg/dL Magnesium (1.7-2.2) mg/dL Iron < 10 L (45-180) ug/dL TIBC 217 L (265-497) ug/dL % Saturation TNP Triglycerides (35-160) mg/dL Cholesterol (130-200) mg/dL LDL Cholesterol Direct (0-129) mg/dL HDL Cholesterol (29-60) mg/dL TSH 3rd Generation (0.46-4.68) mIU/mL Arterial Blood Potassium (3.6-5.2) mmol/L Venous Blood Potassium (3.6-5.2) mmol/L Urine Color Yellow (YELLOW) Urine Appearance Sl cloudy (CLEAR) Urine pH 6.0 (4.7-8.0) Ur Specific [place] 1.025 (1.005-1.035) Urine Protein 100 H (<30 mg/dL) mg/dL Urine Glucose (UA) 100 H (NEGATIVE) mg/dL Urine Ketones Trace H (NEGATIVE) mg/dL Urine Blood Moderate H (NEGATIVE) Urine Nitrate Negative (NEGATIVE) Urine Bilirubin Negative (NEGATIVE) Urine Urobilinogen 0.2 (<1 E.U./dL) E.U./dL Ur Leukocyte Esterase Negative (NEGATIVE) Juan/uL Urine RBC 1 - 3 (0-2) /hpf Urine WBC 0 - 2 (0-6) /hpf Ur Epithelial Cells 0 - 2 (0-5) /hpf Amorphous Sediment Few Urine Eosinophils Urine HCG, Qual Negative (NEGATIVE) Salicylates (2.0-20.0) mg/dL Acetaminophen (10.0-20.0) ug/ml Blood Type Confirm 09/14/17 09/14/17 09/14/17 Range/Units 04:50 04:50 04:50 WBC (4.5-11.0) 10^3/ul RBC (3.5-6.1) 10^6/uL Hgb (12.0-16.0) g/dL Hct (36.0-48.0) % MCV (80.0-105.0) fl MCH (25.0-35.0) pg MCHC (31.0-37.0) g/dl RDW (11.5-14.5) % Plt Count (120.0-450.0) 10^3/uL MPV (7.0-11.0) fl Gran % (50.0-68.0) % Lymph % (Auto) (22.0-35.0) % [place] % (Auto) (1.0-6.0) % Eos % (Auto) (1.5-5.0) % Baso % (Auto) (0.0-3.0) % Gran # (1.4-6.5) Lymph # (Auto) (1.2-3.4) [place] # (Auto) (0.1-0.6) Eos # (Auto) (0.0-0.7) Baso # (Auto) (0.0-2.0) K/mm3 Differential Comment See pathology report PT (9.4-12.5) SECONDS INR (0.93-1.08) APTT 28.0 (25.1-36.5) Seconds pCO2 (35-45) mm/Hg pO2 35 (30-55) mm/Hg HCO3 (21-28) mmol/L ABG pH (7.35-7.45) ABG Total CO2 (22-28) mmol.L ABG O2 Saturation (95-98) % ABG Base Excess (-2.0-3.0) mmol/L ABG Potassium (3.6-5.2) mmol/L VBG pH 7.28 L (7.32-7.43) VBG pCO2 41.0 (40-60) VBG HCO3 19.3 L (21-28) mmol/l VBG Total CO2 20.6 L (22-28) mmol.L VBG O2 Sat (Calc) 67.2 H (40-65) % VBG Base Excess -7.1 L (0.0-2.0) mmol/L VBG Potassium 4.2 (3.6-5.2) mmol/L Sodium 133.0 (132-148) mmol/L Chloride 101.0 (98-107) mmol/L Glucose 225 H (65-105) mg/dl Lactate 5.4 H* (0.7-2.1) mmol/L FiO2 21.0 % Potassium (3.6-5.0) mmol/L Carbon Dioxide (21-33) mmol/L Anion Gap (10-20) BUN (7-21) mg/dL Creatinine (0.7-1.2) mg/dl Est GFR ( Amer) Est GFR (Non-Af Amer) POC Glucose (mg/dL) (65-110) mg/dL Random Glucose (70-110) mg/dL Calcium (8.4-10.5) mg/dL Phosphorus (2.5-4.5) mg/dL Magnesium (1.7-2.2) mg/dL Iron (45-180) ug/dL TIBC (265-497) ug/dL % Saturation Triglycerides (35-160) mg/dL Cholesterol (130-200) mg/dL LDL Cholesterol Direct (0-129) mg/dL HDL Cholesterol (29-60) mg/dL TSH 3rd Generation (0.46-4.68) mIU/mL Arterial Blood Potassium (3.6-5.2) mmol/L Venous Blood Potassium 4.2 (3.6-5.2) mmol/L Urine Color (YELLOW) Urine Appearance (CLEAR) Urine pH (4.7-8.0) Ur Specific [place] (1.005-1.035) Urine Protein (<30 mg/dL) mg/dL Urine Glucose (UA) (NEGATIVE) mg/dL Urine Ketones (NEGATIVE) mg/dL Urine Blood (NEGATIVE) Urine Nitrate (NEGATIVE) Urine Bilirubin (NEGATIVE) Urine Urobilinogen (<1 E.U./dL) E.U./dL Ur Leukocyte Esterase (NEGATIVE) Juan/uL Urine RBC (0-2) /hpf Urine WBC (0-6) /hpf Ur Epithelial Cells (0-5) /hpf Amorphous Sediment Urine Eosinophils Urine HCG, Qual (NEGATIVE) Salicylates (2.0-20.0) mg/dL Acetaminophen (10.0-20.0) ug/ml Blood Type Confirm 09/14/17 09/14/17 09/14/17 Range/Units 04:50 04:50 04:03 WBC 1.3 L* D (4.5-11.0) 10^3/ul RBC 3.68 (3.5-6.1) 10^6/uL Hgb 9.7 L (12.0-16.0) g/dL Hct 29.0 L (36.0-48.0) % MCV 78.8 L (80.0-105.0) fl MCH 26.4 (25.0-35.0) pg MCHC 33.4 (31.0-37.0) g/dl RDW 16.6 H (11.5-14.5) % Plt Count 84 L (120.0-450.0) 10^3/uL MPV 10.9 (7.0-11.0) fl Gran % 75.5 H (50.0-68.0) % Lymph % (Auto) 22.9 (22.0-35.0) % [place] % (Auto) 0.8 L (1.0-6.0) % Eos % (Auto) 0.0 L (1.5-5.0) % Baso % (Auto) 0.8 (0.0-3.0) % Gran # 0.99 L (1.4-6.5) Lymph # (Auto) 0.3 L (1.2-3.4) [place] # (Auto) 0.0 L (0.1-0.6) Eos # (Auto) 0.0 (0.0-0.7) Baso # (Auto) 0.01 (0.0-2.0) K/mm3 Differential Comment PT (9.4-12.5) SECONDS INR (0.93-1.08) APTT (25.1-36.5) Seconds pCO2 (35-45) mm/Hg pO2 (30-55) mm/Hg HCO3 (21-28) mmol/L ABG pH (7.35-7.45) ABG Total CO2 (22-28) mmol.L ABG O2 Saturation (95-98) % ABG Base Excess (-2.0-3.0) mmol/L ABG Potassium (3.6-5.2) mmol/L VBG pH (7.32-7.43) VBG pCO2 (40-60) VBG HCO3 (21-28) mmol/l VBG Total CO2 (22-28) mmol.L VBG O2 Sat (Calc) (40-65) % VBG Base Excess (0.0-2.0) mmol/L VBG Potassium (3.6-5.2) mmol/L Sodium 136 (132-148) mmol/L Chloride 100 (98-107) mmol/L Glucose (65-105) mg/dl Lactate (0.7-2.1) mmol/L FiO2 % Potassium 4.2 (3.6-5.0) mmol/L Carbon Dioxide 18 L (21-33) mmol/L Anion Gap 22 H (10-20) BUN 50 H (7-21) mg/dL Creatinine 3.4 H (0.7-1.2) mg/dl Est GFR ( Amer) 18 Est GFR (Non-Af Amer) 15 POC Glucose (mg/dL) 269 H (65-110) mg/dL Random Glucose 214 H (70-110) mg/dL Calcium 8.4 (8.4-10.5) mg/dL Phosphorus 4.5 (2.5-4.5) mg/dL Magnesium 1.7 (1.7-2.2) mg/dL Iron (45-180) ug/dL TIBC (265-497) ug/dL % Saturation Triglycerides (35-160) mg/dL Cholesterol (130-200) mg/dL LDL Cholesterol Direct (0-129) mg/dL HDL Cholesterol (29-60) mg/dL TSH 3rd Generation (0.46-4.68) mIU/mL Arterial Blood Potassium (3.6-5.2) mmol/L Venous Blood Potassium (3.6-5.2) mmol/L Urine Color (YELLOW) Urine Appearance (CLEAR) Urine pH (4.7-8.0) Ur Specific [place] (1.005-1.035) Urine Protein (<30 mg/dL) mg/dL Urine Glucose (UA) (NEGATIVE) mg/dL Urine Ketones (NEGATIVE) mg/dL Urine Blood (NEGATIVE) Urine Nitrate (NEGATIVE) Urine Bilirubin (NEGATIVE) Urine Urobilinogen (<1 E.U./dL) E.U./dL Ur Leukocyte Esterase (NEGATIVE) Juan/uL Urine RBC (0-2) /hpf Urine WBC (0-6) /hpf Ur Epithelial Cells (0-5) /hpf Amorphous Sediment Urine Eosinophils Urine HCG, Qual (NEGATIVE) Salicylates (2.0-20.0) mg/dL Acetaminophen (10.0-20.0) ug/ml Blood Type Confirm 09/14/17 09/14/17 09/14/17 Range/Units 03:01 02:28 01:35 WBC (4.5-11.0) 10^3/ul RBC (3.5-6.1) 10^6/uL Hgb (12.0-16.0) g/dL Hct (36.0-48.0) % MCV (80.0-105.0) fl MCH (25.0-35.0) pg MCHC (31.0-37.0) g/dl RDW (11.5-14.5) % Plt Count (120.0-450.0) 10^3/uL MPV (7.0-11.0) fl Gran % (50.0-68.0) % Lymph % (Auto) (22.0-35.0) % [place] % (Auto) (1.0-6.0) % Eos % (Auto) (1.5-5.0) % Baso % (Auto) (0.0-3.0) % Gran # (1.4-6.5) Lymph # (Auto) (1.2-3.4) [place] # (Auto) (0.1-0.6) Eos # (Auto) (0.0-0.7) Baso # (Auto) (0.0-2.0) K/mm3 Differential Comment PT (9.4-12.5) SECONDS INR (0.93-1.08) APTT (25.1-36.5) Seconds pCO2 (35-45) mm/Hg pO2 (30-55) mm/Hg HCO3 (21-28) mmol/L ABG pH (7.35-7.45) ABG Total CO2 (22-28) mmol.L ABG O2 Saturation (95-98) % ABG Base Excess (-2.0-3.0) mmol/L ABG Potassium (3.6-5.2) mmol/L VBG pH (7.32-7.43) VBG pCO2 (40-60) VBG HCO3 (21-28) mmol/l VBG Total CO2 (22-28) mmol.L VBG O2 Sat (Calc) (40-65) % VBG Base Excess (0.0-2.0) mmol/L VBG Potassium (3.6-5.2) mmol/L Sodium (132-148) mmol/L Chloride (98-107) mmol/L Glucose (65-105) mg/dl Lactate (0.7-2.1) mmol/L FiO2 % Potassium (3.6-5.0) mmol/L Carbon Dioxide (21-33) mmol/L Anion Gap (10-20) BUN (7-21) mg/dL Creatinine (0.7-1.2) mg/dl Est GFR ( Amer) Est GFR (Non-Af Amer) POC Glucose (mg/dL) 281 H 293 H (65-110) mg/dL Random Glucose (70-110) mg/dL Calcium (8.4-10.5) mg/dL Phosphorus (2.5-4.5) mg/dL Magnesium (1.7-2.2) mg/dL Iron (45-180) ug/dL TIBC (265-497) ug/dL % Saturation Triglycerides (35-160) mg/dL Cholesterol (130-200) mg/dL LDL Cholesterol Direct (0-129) mg/dL HDL Cholesterol (29-60) mg/dL TSH 3rd Generation (0.46-4.68) mIU/mL Arterial Blood Potassium (3.6-5.2) mmol/L Venous Blood Potassium (3.6-5.2) mmol/L Urine Color (YELLOW) Urine Appearance (CLEAR) Urine pH (4.7-8.0) Ur Specific [place] (1.005-1.035) Urine Protein (<30 mg/dL) mg/dL Urine Glucose (UA) (NEGATIVE) mg/dL Urine Ketones (NEGATIVE) mg/dL Urine Blood (NEGATIVE) Urine Nitrate (NEGATIVE) Urine Bilirubin (NEGATIVE) Urine Urobilinogen (<1 E.U./dL) E.U./dL Ur Leukocyte Esterase (NEGATIVE) Juan/uL Urine RBC (0-2) /hpf Urine WBC (0-6) /hpf Ur Epithelial Cells (0-5) /hpf Amorphous Sediment Urine Eosinophils Urine HCG, Qual (NEGATIVE) Salicylates (2.0-20.0) mg/dL Acetaminophen (10.0-20.0) ug/ml Blood Type Confirm A POSITIVE 09/14/17 09/14/17 Range/Units 01:25 00:02 WBC (4.5-11.0) 10^3/ul RBC (3.5-6.1) 10^6/uL Hgb (12.0-16.0) g/dL Hct (36.0-48.0) % MCV (80.0-105.0) fl MCH (25.0-35.0) pg MCHC (31.0-37.0) g/dl RDW (11.5-14.5) % Plt Count (120.0-450.0) 10^3/uL MPV (7.0-11.0) fl Gran % (50.0-68.0) % Lymph % (Auto) (22.0-35.0) % [place] % (Auto) (1.0-6.0) % Eos % (Auto) (1.5-5.0) % Baso % (Auto) (0.0-3.0) % Gran # (1.4-6.5) Lymph # (Auto) (1.2-3.4) [place] # (Auto) (0.1-0.6) Eos # (Auto) (0.0-0.7) Baso # (Auto) (0.0-2.0) K/mm3 Differential Comment PT (9.4-12.5) SECONDS INR (0.93-1.08) APTT (25.1-36.5) Seconds pCO2 (35-45) mm/Hg pO2 55 (30-55) mm/Hg HCO3 (21-28) mmol/L ABG pH (7.35-7.45) ABG Total CO2 (22-28) mmol.L ABG O2 Saturation (95-98) % ABG Base Excess (-2.0-3.0) mmol/L ABG Potassium (3.6-5.2) mmol/L VBG pH 7.20 L (7.32-7.43) VBG pCO2 39.0 L (40-60) VBG HCO3 15.2 L (21-28) mmol/l VBG Total CO2 16.4 L (22-28) mmol.L VBG O2 Sat (Calc) 91.9 H (40-65) % VBG Base Excess -12.2 L (0.0-2.0) mmol/L VBG Potassium 4.4 (3.6-5.2) mmol/L Sodium 130.0 L (132-148) mmol/L Chloride 101.0 (98-107) mmol/L Glucose 303 H (65-105) mg/dl Lactate 6.6 H* (0.7-2.1) mmol/L FiO2 21.0 % Potassium (3.6-5.0) mmol/L Carbon Dioxide (21-33) mmol/L Anion Gap (10-20) BUN (7-21) mg/dL Creatinine (0.7-1.2) mg/dl Est GFR ( Amer) Est GFR (Non-Af Amer) POC Glucose (mg/dL) 376 H (65-110) mg/dL Random Glucose (70-110) mg/dL Calcium (8.4-10.5) mg/dL Phosphorus (2.5-4.5) mg/dL Magnesium (1.7-2.2) mg/dL Iron (45-180) ug/dL TIBC (265-497) ug/dL % Saturation Triglycerides (35-160) mg/dL Cholesterol (130-200) mg/dL LDL Cholesterol Direct (0-129) mg/dL HDL Cholesterol (29-60) mg/dL TSH 3rd Generation (0.46-4.68) mIU/mL Arterial Blood Potassium (3.6-5.2) mmol/L Venous Blood Potassium 4.4 (3.6-5.2) mmol/L Urine Color (YELLOW) Urine Appearance (CLEAR) Urine pH (4.7-8.0) Ur Specific [place] (1.005-1.035) Urine Protein (<30 mg/dL) mg/dL Urine Glucose (UA) (NEGATIVE) mg/dL Urine Ketones (NEGATIVE) mg/dL Urine Blood (NEGATIVE) Urine Nitrate (NEGATIVE) Urine Bilirubin (NEGATIVE) Urine Urobilinogen (<1 E.U./dL) E.U./dL Ur Leukocyte Esterase (NEGATIVE) Juan/uL Urine RBC (0-2) /hpf Urine WBC (0-6) /hpf Ur Epithelial Cells (0-5) /hpf Amorphous Sediment Urine Eosinophils Urine HCG, Qual (NEGATIVE) Salicylates (2.0-20.0) mg/dL Acetaminophen (10.0-20.0) ug/ml Blood Type Confirm Laboratory Results - last 24 hr 09/14/17 09/14/17 09/14/17 00:02 01:25 01:35 WBC RBC Hgb Hct MCV MCH MCHC RDW Plt Count MPV Gran % Lymph % (Auto) [place] % (Auto) Eos % (Auto) Baso % (Auto) Gran # Lymph # (Auto) [place] # (Auto) Eos # (Auto) Baso # (Auto) Differential Comment PT INR APTT pCO2 pO2 55 HCO3 ABG pH ABG Total CO2 ABG O2 Saturation ABG Base Excess ABG Potassium VBG pH 7.20 L VBG pCO2 39.0 L VBG HCO3 15.2 L VBG Total CO2 16.4 L VBG O2 Sat (Calc) 91.9 H VBG Base Excess -12.2 L VBG Potassium 4.4 Sodium 130.0 L Chloride 101.0 Glucose 303 H Lactate 6.6 H* FiO2 21.0 Potassium Carbon Dioxide Anion Gap BUN Creatinine Est GFR ( Amer) Est GFR (Non-Af Amer) POC Glucose (mg/dL) 376 H Random Glucose Calcium Phosphorus Magnesium Iron TIBC % Saturation Triglycerides Cholesterol LDL Cholesterol Direct HDL Cholesterol TSH 3rd Generation Arterial Blood Potassium Venous Blood Potassium 4.4 Urine Color Urine Appearance Urine pH Ur Specific [place] Urine Protein Urine Glucose (UA) Urine Ketones Urine Blood Urine Nitrate Urine Bilirubin Urine Urobilinogen Ur Leukocyte Esterase Urine RBC Urine WBC Ur Epithelial Cells Amorphous Sediment Urine Eosinophils Urine HCG, Qual Salicylates Acetaminophen Blood Type Confirm A POSITIVE 09/14/17 09/14/17 09/14/17 02:28 03:01 04:03 WBC RBC Hgb Hct MCV MCH MCHC RDW Plt Count MPV Gran % Lymph % (Auto) [place] % (Auto) Eos % (Auto) Baso % (Auto) Gran # Lymph # (Auto) [place] # (Auto) Eos # (Auto) Baso # (Auto) Differential Comment PT INR APTT pCO2 pO2 HCO3 ABG pH ABG Total CO2 ABG O2 Saturation ABG Base Excess ABG Potassium VBG pH VBG pCO2 VBG HCO3 VBG Total CO2 VBG O2 Sat (Calc) VBG Base Excess VBG Potassium Sodium Chloride Glucose Lactate FiO2 Potassium Carbon Dioxide Anion Gap BUN Creatinine Est GFR ( Amer) Est GFR (Non-Af Amer) POC Glucose (mg/dL) 293 H 281 H 269 H Random Glucose Calcium Phosphorus Magnesium Iron TIBC % Saturation Triglycerides Cholesterol LDL Cholesterol Direct HDL Cholesterol TSH 3rd Generation Arterial Blood Potassium Venous Blood Potassium Urine Color Urine Appearance Urine pH Ur Specific [place] Urine Protein Urine Glucose (UA) Urine Ketones Urine Blood Urine Nitrate Urine Bilirubin Urine Urobilinogen Ur Leukocyte Esterase Urine RBC Urine WBC Ur Epithelial Cells Amorphous Sediment Urine Eosinophils Urine HCG, Qual Salicylates Acetaminophen Blood Type Confirm 09/14/17 09/14/17 09/14/17 04:50 04:50 04:50 WBC 1.3 L* D RBC 3.68 Hgb 9.7 L Hct 29.0 L MCV 78.8 L MCH 26.4 MCHC 33.4 RDW 16.6 H Plt Count 84 L MPV 10.9 Gran % 75.5 H Lymph % (Auto) 22.9 [place] % (Auto) 0.8 L Eos % (Auto) 0.0 L Baso % (Auto) 0.8 Gran # 0.99 L Lymph # (Auto) 0.3 L [place] # (Auto) 0.0 L Eos # (Auto) 0.0 Baso # (Auto) 0.01 Differential Comment PT INR APTT 28.0 pCO2 pO2 HCO3 ABG pH ABG Total CO2 ABG O2 Saturation ABG Base Excess ABG Potassium VBG pH VBG pCO2 VBG HCO3 VBG Total CO2 VBG O2 Sat (Calc) VBG Base Excess VBG Potassium Sodium 136 Chloride 100 Glucose Lactate FiO2 Potassium 4.2 Carbon Dioxide 18 L Anion Gap 22 H BUN 50 H Creatinine 3.4 H Est GFR ( Amer) 18 Est GFR (Non-Af Amer) 15 POC Glucose (mg/dL) Random Glucose 214 H Calcium 8.4 Phosphorus 4.5 Magnesium 1.7 Iron TIBC % Saturation Triglycerides Cholesterol LDL Cholesterol Direct HDL Cholesterol TSH 3rd Generation Arterial Blood Potassium Venous Blood Potassium Urine Color Urine Appearance Urine pH Ur Specific [place] Urine Protein Urine Glucose (UA) Urine Ketones Urine Blood Urine Nitrate Urine Bilirubin Urine Urobilinogen Ur Leukocyte Esterase Urine RBC Urine WBC Ur Epithelial Cells Amorphous Sediment Urine Eosinophils Urine HCG, Qual Salicylates Acetaminophen Blood Type Confirm 09/14/17 09/14/17 09/14/17 04:50 04:50 04:50 WBC RBC Hgb Hct MCV MCH MCHC RDW Plt Count MPV Gran % Lymph % (Auto) [place] % (Auto) Eos % (Auto) Baso % (Auto) Gran # Lymph # (Auto) [place] # (Auto) Eos # (Auto) Baso # (Auto) Differential Comment See pathology report PT INR APTT pCO2 pO2 35 HCO3 ABG pH ABG Total CO2 ABG O2 Saturation ABG Base Excess ABG Potassium VBG pH 7.28 L VBG pCO2 41.0 VBG HCO3 19.3 L VBG Total CO2 20.6 L VBG O2 Sat (Calc) 67.2 H VBG Base Excess -7.1 L VBG Potassium 4.2 Sodium 133.0 Chloride 101.0 Glucose 225 H Lactate 5.4 H* FiO2 21.0 Potassium Carbon Dioxide Anion Gap BUN Creatinine Est GFR ( Amer) Est GFR (Non-Af Amer) POC Glucose (mg/dL) Random Glucose Calcium Phosphorus Magnesium Iron < 10 L TIBC 217 L % Saturation TNP Triglycerides Cholesterol LDL Cholesterol Direct HDL Cholesterol TSH 3rd Generation Arterial Blood Potassium Venous Blood Potassium 4.2 Urine Color Urine Appearance Urine pH Ur Specific [place] Urine Protein Urine Glucose (UA) Urine Ketones Urine Blood Urine Nitrate Urine Bilirubin Urine Urobilinogen Ur Leukocyte Esterase Urine RBC Urine WBC Ur Epithelial Cells Amorphous Sediment Urine Eosinophils Urine HCG, Qual Salicylates Acetaminophen Blood Type Confirm 09/14/17 09/14/17 09/14/17 05:00 05:22 05:22 WBC RBC Hgb Hct MCV MCH MCHC RDW Plt Count MPV Gran % Lymph % (Auto) [place] % (Auto) Eos % (Auto) Baso % (Auto) Gran # Lymph # (Auto) [place] # (Auto) Eos # (Auto) Baso # (Auto) Differential Comment PT INR APTT pCO2 pO2 HCO3 ABG pH ABG Total CO2 ABG O2 Saturation ABG Base Excess ABG Potassium VBG pH VBG pCO2 VBG HCO3 VBG Total CO2 VBG O2 Sat (Calc) VBG Base Excess VBG Potassium Sodium Chloride Glucose Lactate FiO2 Potassium Carbon Dioxide Anion Gap BUN Creatinine Est GFR ( Amer) Est GFR (Non-Af Amer) POC Glucose (mg/dL) 211 H Random Glucose Calcium Phosphorus Magnesium Iron TIBC % Saturation Triglycerides Cholesterol LDL Cholesterol Direct HDL Cholesterol TSH 3rd Generation Arterial Blood Potassium Venous Blood Potassium Urine Color Yellow Urine Appearance Sl cloudy Urine pH 6.0 Ur Specific [place] 1.025 Urine Protein 100 H Urine Glucose (UA) 100 H Urine Ketones Trace H Urine Blood Moderate H Urine Nitrate Negative Urine Bilirubin Negative Urine Urobilinogen 0.2 Ur Leukocyte Esterase Negative Urine RBC 1 - 3 Urine WBC 0 - 2 Ur Epithelial Cells 0 - 2 Amorphous Sediment Few Urine Eosinophils Negative Urine HCG, Qual Negative Salicylates Acetaminophen Blood Type Confirm 09/14/17 09/14/17 09/14/17 05:50 06:10 06:29 WBC 2.0 L* D 4.6 D RBC 1.72 L 3.87 Hgb 4.5 L* D 10.3 L D Hct 13.7 L* 30.5 L MCV 79.7 L 78.8 L MCH 26.2 26.6 MCHC 32.8 33.8 RDW 16.8 H 16.6 H Plt Count 31 L* 73 L MPV 9.2 11.1 H Gran % 81.3 H 89.1 H Lymph % (Auto) 14.8 L 9.8 L [place] % (Auto) 3.9 0.9 L Eos % (Auto) 0.0 L 0.0 L Baso % (Auto) 0.0 0.2 Gran # 1.65 4.09 Lymph # (Auto) 0.3 L 0.5 L [place] # (Auto) 0.1 0.0 L Eos # (Auto) 0.0 0.0 Baso # (Auto) 0.00 0.01 Differential Comment PT INR APTT pCO2 pO2 HCO3 ABG pH ABG Total CO2 ABG O2 Saturation ABG Base Excess ABG Potassium VBG pH VBG pCO2 VBG HCO3 VBG Total CO2 VBG O2 Sat (Calc) VBG Base Excess VBG Potassium Sodium Chloride Glucose Lactate FiO2 Potassium Carbon Dioxide Anion Gap BUN Creatinine Est GFR ( Amer) Est GFR (Non-Af Amer) POC Glucose (mg/dL) 167 H Random Glucose Calcium Phosphorus Magnesium Iron TIBC % Saturation Triglycerides Cholesterol LDL Cholesterol Direct HDL Cholesterol TSH 3rd Generation Arterial Blood Potassium Venous Blood Potassium Urine Color Urine Appearance Urine pH Ur Specific [place] Urine Protein Urine Glucose (UA) Urine Ketones Urine Blood Urine Nitrate Urine Bilirubin Urine Urobilinogen Ur Leukocyte Esterase Urine RBC Urine WBC Ur Epithelial Cells Amorphous Sediment Urine Eosinophils Urine HCG, Qual Salicylates Acetaminophen Blood Type Confirm 09/14/17 09/14/17 09/14/17 07:00 07:00 07:00 WBC RBC Hgb Hct MCV MCH MCHC RDW Plt Count MPV Gran % Lymph % (Auto) [place] % (Auto) Eos % (Auto) Baso % (Auto) Gran # Lymph # (Auto) [place] # (Auto) Eos # (Auto) Baso # (Auto) Differential Comment PT INR APTT pCO2 pO2 HCO3 ABG pH ABG Total CO2 ABG O2 Saturation ABG Base Excess ABG Potassium VBG pH VBG pCO2 VBG HCO3 VBG Total CO2 VBG O2 Sat (Calc) VBG Base Excess VBG Potassium Sodium Chloride Glucose Lactate FiO2 Potassium Carbon Dioxide Anion Gap BUN Creatinine Est GFR ( Amer) Est GFR (Non-Af Amer) POC Glucose (mg/dL) Random Glucose Calcium Phosphorus Magnesium Iron TIBC % Saturation Triglycerides 166 H Cholesterol 99 L LDL Cholesterol Direct < 30 HDL Cholesterol 28 L TSH 3rd Generation 2.85 Arterial Blood Potassium Venous Blood Potassium Urine Color Urine Appearance Urine pH Ur Specific [place] Urine Protein Urine Glucose (UA) Urine Ketones Urine Blood Urine Nitrate Urine Bilirubin Urine Urobilinogen Ur Leukocyte Esterase Urine RBC Urine WBC Ur Epithelial Cells Amorphous Sediment Urine Eosinophils Urine HCG, Qual Salicylates < 1 L Acetaminophen < 10.0 L Blood Type Confirm 09/14/17 09/14/17 09/14/17 07:09 07:49 07:49 WBC RBC Hgb Hct MCV MCH MCHC RDW Plt Count MPV Gran % Lymph % (Auto) [place] % (Auto) Eos % (Auto) Baso % (Auto) Gran # Lymph # (Auto) [place] # (Auto) Eos # (Auto) Baso # (Auto) Differential Comment PT 16.4 H INR 1.42 H APTT pCO2 pO2 HCO3 ABG pH ABG Total CO2 ABG O2 Saturation ABG Base Excess ABG Potassium VBG pH VBG pCO2 VBG HCO3 VBG Total CO2 VBG O2 Sat (Calc) VBG Base Excess VBG Potassium Sodium 137 Chloride 103 Glucose Lactate FiO2 Potassium 3.5 L Carbon Dioxide 17 L Anion Gap 21 H BUN 52 H Creatinine 3.2 H Est GFR ( Amer) 19 Est GFR (Non-Af Amer) 16 POC Glucose (mg/dL) 160 H Random Glucose 168 H Calcium 7.9 L Phosphorus Magnesium Iron TIBC % Saturation Triglycerides Cholesterol LDL Cholesterol Direct HDL Cholesterol TSH 3rd Generation Arterial Blood Potassium Venous Blood Potassium Urine Color Urine Appearance Urine pH Ur Specific [place] Urine Protein Urine Glucose (UA) Urine Ketones Urine Blood Urine Nitrate Urine Bilirubin Urine Urobilinogen Ur Leukocyte Esterase Urine RBC Urine WBC Ur Epithelial Cells Amorphous Sediment Urine Eosinophils Urine HCG, Qual Salicylates Acetaminophen Blood Type Confirm 09/14/17 09/14/17 08:46 10:04 WBC 8.8 D RBC 3.06 L Hgb 8.1 L D Hct 24.0 L MCV 78.4 L MCH 26.5 MCHC 33.8 RDW 16.7 H Plt Count 66 L MPV 10.9 Gran % 90.8 H Lymph % (Auto) 7.9 L [place] % (Auto) 1.2 Eos % (Auto) 0.1 L Baso % (Auto) 0.0 Gran # 8.02 H Lymph # (Auto) 0.7 L [place] # (Auto) 0.1 Eos # (Auto) 0.0 Baso # (Auto) 0.00 Differential Comment PT INR APTT pCO2 28 L pO2 70.0 L HCO3 15.5 L ABG pH 7.35 ABG Total CO2 16.4 L ABG O2 Saturation 96.4 ABG Base Excess -8.6 L ABG Potassium 2.8 L VBG pH VBG pCO2 VBG HCO3 VBG Total CO2 VBG O2 Sat (Calc) VBG Base Excess VBG Potassium Sodium 136.0 Chloride 108.0 H Glucose 171 H Lactate 4.0 H* FiO2 36.0 Potassium Carbon Dioxide Anion Gap BUN Creatinine Est GFR ( Amer) Est GFR (Non-Af Amer) POC Glucose (mg/dL) Random Glucose Calcium Phosphorus Magnesium Iron TIBC % Saturation Triglycerides Cholesterol LDL Cholesterol Direct HDL Cholesterol TSH 3rd Generation Arterial Blood Potassium 2.8 L Venous Blood Potassium Urine Color Urine Appearance Urine pH Ur Specific [place] Urine Protein Urine Glucose (UA) Urine Ketones Urine Blood Urine Nitrate Urine Bilirubin Urine Urobilinogen Ur Leukocyte Esterase Urine RBC Urine WBC Ur Epithelial Cells Amorphous Sediment Urine Eosinophils Urine HCG, Qual Salicylates Acetaminophen Blood Type Confirm Fingerstick Blood Sugar Results: 379 Critical Care Progress Note - Nutrition Nutrition: Nutrition Category Date Time Status NPO Diet [DIET] Diets 09/13/17 Dinner Ordered Assessment/Plan - Assessment and Plan (Free Text) Assessment: 42 year old female with a past medical history significant for NIDDM2 presents with two days of nausea, vomiting, abdominal pain, fever and fatigue. Patient was found to be hyperglycemic and high anion gap 2/2 lactic acidosis. Patient was started on insulin drip due to concerns for DKA and admitted to the ICU. However, patient was more likely to be in septic shock . Patient became hypotensive this AM and was not responsive to fluids. Central line was placed in the left femoral vein and patient was started on pressors. Plan: Neuro: - AAOx3 - Maintain normothermia - Aspiration and Fall precautions CV: - EKG showed sinus tachycardia - 3L LR given in ED, 4L NS and 1L LR bolus given today - TLC placed in left femoral vein - Cont Levophed, Vasopressin, and Phenylephrine - Echo and lipid panel ordered - Maintain MAP > 65 Pulm: - CXR showed probable small left pleural effusion, no infiltrate - Maintain O2 > 90% - O2 via NC prn GI: - NPO - Protonix for GI PPx Renal: - CT abd/pelv showed gas in left ureter and left collecting system possibly due emphasematous pyelonephritis, splenic infarct vs laceration, colitis, lymphadenopathy, and ovarian cyst - Hypokalemic, repleted with KCl riders and D5W1/2NS with KCl - Hypomagnesmic, repleted - Corrected calcium 8.2 - Strict I's and O's - Monitor electrolytes - Maintain normovolemia - Nephro consulted - Urology consulted Endo: - Solu-cortef 100 mg Q8H - Anion gap closed - Insulin gtt - Accuchecks - BMP Q4H - Cont D5W 1/2NS - HgbA1c and TSH ordered - Maintain euglycemia Heme: - Microcytic anemia - Iron studies pending - Heparin for DVT PPx ID: - Leukocytosis on admission, WNL now - Lactate on admission 10.4, most recent 4 - UA negative for UTI, follow up culture - PM ABG shock panel ordered - Panculture and c. diff ordered - Heterophile Ab ordered - Cont Flagyl and Merrem, one dose of vanco given in ED - Procal ordered - ID consulted Pt seen and discussed in detail with Dr. Gay. David Gilbert, PGY1 <Kameron Gay - Last Filed: 09/14/17 12:34> CCU Objective - Vital Signs / Intake & Output Vital Signs (Last 4 hours): Vital Signs BP 09/14/17 11:20 72/0 L Intake and Output (Last 8hrs): Intake & Output 09/13/17 09/14/17 09/14/17 22:59 06:59 14:59 Intake Total 4510 176 Output Total 420 Balance 4090 176 Intake: IV 4510 176 0.9 KCL(20meq) 750 LR 3000 flagy 100 k rider 100 mag sul 100 vanco 250 zosyn 200 Output: Urine 420 Urethral (Kumar) 420 Other: Voiding Method Bedpan - Medications Active Medications: Active Medications Generic Name Dose Route Start Last Admin Trade Name Freq PRN Reason Stop Dose Admin Heparin Sodium (Porcine) 5,000 units 09/14/17 10:00 09/14/17 09:24 Heparin SC 5,000 units Q12 BOB Administration Protocol Hydrocortisone Sodium Succinate 100 mg 09/14/17 10:14 Solu-Cortef IVP Q8 BOB Insulin Human Regular 100 100 mls @ 6 mls/hr 09/13/17 23:11 09/14/17 08:40 units/ Sodium Chloride IV 2 units/hr .[id number] PRN 2 mls/hr TITRATE PER MD ORDER Titration Protocol 6 UNITS/HR Metronidazole 500 mg in 100 mls @ 100 mls/hr 09/14/17 03:00 09/14/17 05:35 Flagyl IVPB Not Given Q8 BOB Protocol Meropenem 50 mls @ 100 mls/hr 09/14/17 10:00 09/14/17 09:24 Merrem Iv 1 Gm Premix IVPB 100 mls/hr Q12 BOB Administration Protocol Acetaminophen 1,000 mg in 100 mls @ 400 mls/hr 09/14/17 05:42 09/14/17 06:06 Ofirmev IVPB 09/16/17 05:43 400 mls/hr Q6H PRN Administration Fever Potassium Chloride/Dextrose/Sod Cl 1,000 mls @ 150 mls/hr 09/14/17 06:45 07:07 Potassium Chl 20 Meq In D5-1/2ns IV 150 mls/hr .[id number] BOB Administration Potassium Chloride 10 meq in 100 mls @ 50 mls/hr 09/14/17 09:00 09/14/17 10: 57 Potassium Chloride 10 Meq/100 Ml IVPB 09/14/17 14:59 50 mls/hr Q2H BOB Administration Vasopressin 20 units/ Sodium 101 mls @ 9.09 mls/hr 09/14/17 10:15 09/14/17 11 :20 Chloride IV 9.09 mls/hr .[id number] BOB Administration Protocol 0.03 U/MIN NOREPINEPHRINE BIT/0.9 % NACL 4 mg in 250 mls @ 15 mls/hr 09/14/17 10:22 12:04 Levophed 4 Mg/ 250 Ml Ns Premixed IV 15 mcg/min .[id number] PRN 56.25 mls/hr TITRATE PER MD ORDER Titration Protocol 4 MCG/MIN Ondansetron HCl 4 mg 09/13/17 23:59 09/14/17 04:49 Zofran Inj IVP 4 mg Q4H PRN Administration Nausea/Vomiting Pantoprazole Sodium 40 mg 09/14/17 10:00 09/14/17 09:24 Protonix Inj IVP 40 mg DAILY BOB Administration Vitamin A 1 ea 09/14/17 01:37 Vitamin A & D Oint Ud Foilpak TOP Q2 PRN Dry mouth - Patient Studies Lab Studies: Lab Studies 09/14/17 09/14/17 09/14/17 Range/Units 12:10 10:05 10:04 WBC 8.8 D (4.5-11.0) 10^3/ul RBC 3.06 L (3.5-6.1) 10^6/uL Hgb 8.1 L D (12.0-16.0) g/dL Hct 24.0 L (36.0-48.0) % MCV 78.4 L (80.0-105.0) fl MCH 26.5 (25.0-35.0) pg MCHC 33.8 (31.0-37.0) g/dl RDW 16.7 H (11.5-14.5) % Plt Count 66 L (120.0-450.0) 10^3/uL MPV 10.9 (7.0-11.0) fl Gran % 90.8 H (50.0-68.0) % Lymph % (Auto) 7.9 L (22.0-35.0) % [place] % (Auto) 1.2 (1.0-6.0) % Eos % (Auto) 0.1 L (1.5-5.0) % Baso % (Auto) 0.0 (0.0-3.0) % Gran # 8.02 H (1.4-6.5) Lymph # (Auto) 0.7 L (1.2-3.4) [place] # (Auto) 0.1 (0.1-0.6) Eos # (Auto) 0.0 (0.0-0.7) Baso # (Auto) 0.00 (0.0-2.0) K/mm3 Differential Comment PT (9.4-12.5) SECONDS INR (0.93-1.08) APTT (25.1-36.5) Seconds pCO2 (35-45) mm/Hg pO2 37 (30-55) mm/Hg HCO3 (21-28) mmol/L ABG pH (7.35-7.45) ABG Total CO2 (22-28) mmol.L ABG O2 Saturation (95-98) % ABG Base Excess (-2.0-3.0) mmol/L ABG Potassium (3.6-5.2) mmol/L VBG pH 7.19 L* (7.32-7.43) VBG pCO2 38.0 L (40-60) VBG HCO3 14.5 L (21-28) mmol/l VBG Total CO2 15.7 L (22-28) mmol.L VBG O2 Sat (Calc) 74.2 H (40-65) % VBG Base Excess -13.0 L (0.0-2.0) mmol/L VBG Potassium 4.4 (3.6-5.2) mmol/L Sodium 134.0 136 (132-148) mmol/L Chloride 109.0 H 107 (98-107) mmol/L Glucose 242 H (65-105) mg/dl Lactate 4.9 H* (0.7-2.1) mmol/L FiO2 21.0 % Potassium 3.4 L (3.6-5.0) mmol/L Carbon Dioxide 17 L (21-33) mmol/L Anion Gap 15 (10-20) BUN 46 H (7-21) mg/dL Creatinine 3.2 H (0.7-1.2) mg/dl Est GFR ( Amer) 19 Est GFR (Non-Af Amer) 16 POC Glucose (mg/dL) (65-110) mg/dL Random Glucose 163 H (70-110) mg/dL Calcium 6.8 L* (8.4-10.5) mg/dL Phosphorus 2.7 (2.5-4.5) mg/dL Magnesium 1.5 L (1.7-2.2) mg/dL Iron (45-180) ug/dL TIBC (265-497) ug/dL % Saturation Transferrin (206-381) mg/dL Total Bilirubin 0.8 (0.2-1.3) mg/dL AST 49 H D (14-36) U/L ALT 34 (7-56) U/L Alkaline Phosphatase 133 H (38-126) U/L Total Protein 5.2 L (5.8-8.3) g/dL Albumin 2.3 L (3.0-4.8) g/dL Globulin 2.9 gm/dL Albumin/Globulin Ratio 0.8 L (1.1-1.8) Triglycerides (35-160) mg/dL Cholesterol (130-200) mg/dL LDL Cholesterol Direct (0-129) mg/dL HDL Cholesterol (29-60) mg/dL TSH 3rd Generation (0.46-4.68) mIU/mL Arterial Blood Potassium (3.6-5.2) mmol/L Venous Blood Potassium 4.4 (3.6-5.2) mmol/L Urine Color (YELLOW) Urine Appearance (CLEAR) Urine pH (4.7-8.0) Ur Specific [place] (1.005-1.035) Urine Protein (<30 mg/dL) mg/dL Urine Glucose (UA) (NEGATIVE) mg/dL Urine Ketones (NEGATIVE) mg/dL Urine Blood (NEGATIVE) Urine Nitrate (NEGATIVE) Urine Bilirubin (NEGATIVE) Urine Urobilinogen (<1 E.U./dL) E.U./dL Ur Leukocyte Esterase (NEGATIVE) Juan/uL Urine RBC (0-2) /hpf Urine WBC (0-6) /hpf Ur Epithelial Cells (0-5) /hpf Amorphous Sediment Urine Eosinophils Urine HCG, Qual (NEGATIVE) Salicylates (2.0-20.0) mg/dL Acetaminophen (10.0-20.0) ug/ml Blood Type Confirm 09/14/17 09/14/17 09/14/17 Range/Units 08:46 07:49 07:49 WBC (4.5-11.0) 10^3/ul RBC (3.5-6.1) 10^6/uL Hgb (12.0-16.0) g/dL Hct (36.0-48.0) % MCV (80.0-105.0) fl MCH (25.0-35.0) pg MCHC (31.0-37.0) g/dl RDW (11.5-14.5) % Plt Count (120.0-450.0) 10^3/uL MPV (7.0-11.0) fl Gran % (50.0-68.0) % Lymph % (Auto) (22.0-35.0) % [place] % (Auto) (1.0-6.0) % Eos % (Auto) (1.5-5.0) % Baso % (Auto) (0.0-3.0) % Gran # (1.4-6.5) Lymph # (Auto) (1.2-3.4) [place] # (Auto) (0.1-0.6) Eos # (Auto) (0.0-0.7) Baso # (Auto) (0.0-2.0) K/mm3 Differential Comment PT 16.4 H (9.4-12.5) SECONDS INR 1.42 H (0.93-1.08) APTT (25.1-36.5) Seconds pCO2 28 L (35-45) mm/Hg pO2 70.0 L (30-55) mm/Hg HCO3 15.5 L (21-28) mmol/L ABG pH 7.35 (7.35-7.45) ABG Total CO2 16.4 L (22-28) mmol.L ABG O2 Saturation 96.4 (95-98) % ABG Base Excess -8.6 L (-2.0-3.0) mmol/L ABG Potassium 2.8 L (3.6-5.2) mmol/L VBG pH (7.32-7.43) VBG pCO2 (40-60) VBG HCO3 (21-28) mmol/l VBG Total CO2 (22-28) mmol.L VBG O2 Sat (Calc) (40-65) % VBG Base Excess (0.0-2.0) mmol/L VBG Potassium (3.6-5.2) mmol/L Sodium 136.0 137 (132-148) mmol/L Chloride 108.0 H 103 (98-107) mmol/L Glucose 171 H (65-105) mg/dl Lactate 4.0 H* (0.7-2.1) mmol/L FiO2 36.0 % Potassium 3.5 L (3.6-5.0) mmol/L Carbon Dioxide 17 L (21-33) mmol/L Anion Gap 21 H (10-20) BUN 52 H (7-21) mg/dL Creatinine 3.2 H (0.7-1.2) mg/dl Est GFR ( Amer) 19 Est GFR (Non-Af Amer) 16 POC Glucose (mg/dL) (65-110) mg/dL Random Glucose 168 H (70-110) mg/dL Calcium 7.9 L (8.4-10.5) mg/dL Phosphorus (2.5-4.5) mg/dL Magnesium (1.7-2.2) mg/dL Iron (45-180) ug/dL TIBC (265-497) ug/dL % Saturation Transferrin (206-381) mg/dL Total Bilirubin (0.2-1.3) mg/dL AST (14-36) U/L ALT (7-56) U/L Alkaline Phosphatase (38-126) U/L Total Protein (5.8-8.3) g/dL Albumin (3.0-4.8) g/dL Globulin gm/dL Albumin/Globulin Ratio (1.1-1.8) Triglycerides (35-160) mg/dL Cholesterol (130-200) mg/dL LDL Cholesterol Direct (0-129) mg/dL HDL Cholesterol (29-60) mg/dL TSH 3rd Generation (0.46-4.68) mIU/mL Arterial Blood Potassium 2.8 L (3.6-5.2) mmol/L Venous Blood Potassium (3.6-5.2) mmol/L Urine Color (YELLOW) Urine Appearance (CLEAR) Urine pH (4.7-8.0) Ur Specific [place] (1.005-1.035) Urine Protein (<30 mg/dL) mg/dL Urine Glucose (UA) (NEGATIVE) mg/dL Urine Ketones (NEGATIVE) mg/dL Urine Blood (NEGATIVE) Urine Nitrate (NEGATIVE) Urine Bilirubin (NEGATIVE) Urine Urobilinogen (<1 E.U./dL) E.U./dL Ur Leukocyte Esterase (NEGATIVE) Juan/uL Urine RBC (0-2) /hpf Urine WBC (0-6) /hpf Ur Epithelial Cells (0-5) /hpf Amorphous Sediment Urine Eosinophils Urine HCG, Qual (NEGATIVE) Salicylates (2.0-20.0) mg/dL Acetaminophen (10.0-20.0) ug/ml Blood Type Confirm 09/14/17 09/14/17 09/14/17 Range/Units 07:09 07:00 07:00 WBC (4.5-11.0) 10^3/ul RBC (3.5-6.1) 10^6/uL Hgb (12.0-16.0) g/dL Hct (36.0-48.0) % MCV (80.0-105.0) fl MCH (25.0-35.0) pg MCHC (31.0-37.0) g/dl RDW (11.5-14.5) % Plt Count (120.0-450.0) 10^3/uL MPV (7.0-11.0) fl Gran % (50.0-68.0) % Lymph % (Auto) (22.0-35.0) % [place] % (Auto) (1.0-6.0) % Eos % (Auto) (1.5-5.0) % Baso % (Auto) (0.0-3.0) % Gran # (1.4-6.5) Lymph # (Auto) (1.2-3.4) [place] # (Auto) (0.1-0.6) Eos # (Auto) (0.0-0.7) Baso # (Auto) (0.0-2.0) K/mm3 Differential Comment PT (9.4-12.5) SECONDS INR (0.93-1.08) APTT (25.1-36.5) Seconds pCO2 (35-45) mm/Hg pO2 (30-55) mm/Hg HCO3 (21-28) mmol/L ABG pH (7.35-7.45) ABG Total CO2 (22-28) mmol.L ABG O2 Saturation (95-98) % ABG Base Excess (-2.0-3.0) mmol/L ABG Potassium (3.6-5.2) mmol/L VBG pH (7.32-7.43) VBG pCO2 (40-60) VBG HCO3 (21-28) mmol/l VBG Total CO2 (22-28) mmol.L VBG O2 Sat (Calc) (40-65) % VBG Base Excess (0.0-2.0) mmol/L VBG Potassium (3.6-5.2) mmol/L Sodium (132-148) mmol/L Chloride (98-107) mmol/L Glucose (65-105) mg/dl Lactate (0.7-2.1) mmol/L FiO2 % Potassium (3.6-5.0) mmol/L Carbon Dioxide (21-33) mmol/L Anion Gap (10-20) BUN (7-21) mg/dL Creatinine (0.7-1.2) mg/dl Est GFR ( Amer) Est GFR (Non-Af Amer) POC Glucose (mg/dL) 160 H (65-110) mg/dL Random Glucose (70-110) mg/dL Calcium (8.4-10.5) mg/dL Phosphorus (2.5-4.5) mg/dL Magnesium (1.7-2.2) mg/dL Iron (45-180) ug/dL TIBC (265-497) ug/dL % Saturation Transferrin (206-381) mg/dL Total Bilirubin (0.2-1.3) mg/dL AST (14-36) U/L ALT (7-56) U/L Alkaline Phosphatase (38-126) U/L Total Protein (5.8-8.3) g/dL Albumin (3.0-4.8) g/dL Globulin gm/dL Albumin/Globulin Ratio (1.1-1.8) Triglycerides 166 H (35-160) mg/dL Cholesterol 99 L (130-200) mg/dL LDL Cholesterol Direct < 30 (0-129) mg/dL HDL Cholesterol 28 L (29-60) mg/dL TSH 3rd Generation 2.85 (0.46-4.68) mIU/mL Arterial Blood Potassium (3.6-5.2) mmol/L Venous Blood Potassium (3.6-5.2) mmol/L Urine Color (YELLOW) Urine Appearance (CLEAR) Urine pH (4.7-8.0) Ur Specific [place] (1.005-1.035) Urine Protein (<30 mg/dL) mg/dL Urine Glucose (UA) (NEGATIVE) mg/dL Urine Ketones (NEGATIVE) mg/dL Urine Blood (NEGATIVE) Urine Nitrate (NEGATIVE) Urine Bilirubin (NEGATIVE) Urine Urobilinogen (<1 E.U./dL) E.U./dL Ur Leukocyte Esterase (NEGATIVE) Juan/uL Urine RBC (0-2) /hpf Urine WBC (0-6) /hpf Ur Epithelial Cells (0-5) /hpf Amorphous Sediment Urine Eosinophils Urine HCG, Qual (NEGATIVE) Salicylates (2.0-20.0) mg/dL Acetaminophen (10.0-20.0) ug/ml Blood Type Confirm 09/14/17 09/14/17 09/14/17 Range/Units 07:00 07:00 06:29 WBC (4.5-11.0) 10^3/ul RBC (3.5-6.1) 10^6/uL Hgb (12.0-16.0) g/dL Hct (36.0-48.0) % MCV (80.0-105.0) fl MCH (25.0-35.0) pg MCHC (31.0-37.0) g/dl RDW (11.5-14.5) % Plt Count (120.0-450.0) 10^3/uL MPV (7.0-11.0) fl Gran % (50.0-68.0) % Lymph % (Auto) (22.0-35.0) % [place] % (Auto) (1.0-6.0) % Eos % (Auto) (1.5-5.0) % Baso % (Auto) (0.0-3.0) % Gran # (1.4-6.5) Lymph # (Auto) (1.2-3.4) [place] # (Auto) (0.1-0.6) Eos # (Auto) (0.0-0.7) Baso # (Auto) (0.0-2.0) K/mm3 Differential Comment PT (9.4-12.5) SECONDS INR (0.93-1.08) APTT (25.1-36.5) Seconds pCO2 (35-45) mm/Hg pO2 (30-55) mm/Hg HCO3 (21-28) mmol/L ABG pH (7.35-7.45) ABG Total CO2 (22-28) mmol.L ABG O2 Saturation (95-98) % ABG Base Excess (-2.0-3.0) mmol/L ABG Potassium (3.6-5.2) mmol/L VBG pH (7.32-7.43) VBG pCO2 (40-60) VBG HCO3 (21-28) mmol/l VBG Total CO2 (22-28) mmol.L VBG O2 Sat (Calc) (40-65) % VBG Base Excess (0.0-2.0) mmol/L VBG Potassium (3.6-5.2) mmol/L Sodium (132-148) mmol/L Chloride (98-107) mmol/L Glucose (65-105) mg/dl Lactate (0.7-2.1) mmol/L FiO2 % Potassium (3.6-5.0) mmol/L Carbon Dioxide (21-33) mmol/L Anion Gap (10-20) BUN (7-21) mg/dL Creatinine (0.7-1.2) mg/dl Est GFR ( Amer) Est GFR (Non-Af Amer) POC Glucose (mg/dL) 167 H (65-110) mg/dL Random Glucose (70-110) mg/dL Calcium (8.4-10.5) mg/dL Phosphorus (2.5-4.5) mg/dL Magnesium (1.7-2.2) mg/dL Iron (45-180) ug/dL TIBC (265-497) ug/dL % Saturation Transferrin 141.74 L (206-381) mg/dL Total Bilirubin (0.2-1.3) mg/dL AST (14-36) U/L ALT (7-56) U/L Alkaline Phosphatase (38-126) U/L Total Protein (5.8-8.3) g/dL Albumin (3.0-4.8) g/dL Globulin gm/dL Albumin/Globulin Ratio (1.1-1.8) Triglycerides (35-160) mg/dL Cholesterol (130-200) mg/dL LDL Cholesterol Direct (0-129) mg/dL HDL Cholesterol (29-60) mg/dL TSH 3rd Generation (0.46-4.68) mIU/mL Arterial Blood Potassium (3.6-5.2) mmol/L Venous Blood Potassium (3.6-5.2) mmol/L Urine Color (YELLOW) Urine Appearance (CLEAR) Urine pH (4.7-8.0) Ur Specific [place] (1.005-1.035) Urine Protein (<30 mg/dL) mg/dL Urine Glucose (UA) (NEGATIVE) mg/dL Urine Ketones (NEGATIVE) mg/dL Urine Blood (NEGATIVE) Urine Nitrate (NEGATIVE) Urine Bilirubin (NEGATIVE) Urine Urobilinogen (<1 E.U./dL) E.U./dL Ur Leukocyte Esterase (NEGATIVE) Juan/uL Urine RBC (0-2) /hpf Urine WBC (0-6) /hpf Ur Epithelial Cells (0-5) /hpf Amorphous Sediment Urine Eosinophils Urine HCG, Qual (NEGATIVE) Salicylates < 1 L (2.0-20.0) mg/dL Acetaminophen < 10.0 L (10.0-20.0) ug/ml Blood Type Confirm 09/14/17 09/14/17 09/14/17 Range/Units 06:10 05:50 05:22 WBC 4.6 D 2.0 L* D (4.5-11.0) 10^3/ul RBC 3.87 1.72 L (3.5-6.1) 10^6/uL Hgb 10.3 L D 4.5 L* D (12.0-16.0) g/dL Hct 30.5 L 13.7 L* (36.0-48.0) % MCV 78.8 L 79.7 L (80.0-105.0) fl MCH 26.6 26.2 (25.0-35.0) pg MCHC 33.8 32.8 (31.0-37.0) g/dl RDW 16.6 H 16.8 H (11.5-14.5) % Plt Count 73 L 31 L* (120.0-450.0) 10^3/uL MPV 11.1 H 9.2 (7.0-11.0) fl Gran % 89.1 H 81.3 H (50.0-68.0) % Lymph % (Auto) 9.8 L 14.8 L (22.0-35.0) % [place] % (Auto) 0.9 L 3.9 (1.0-6.0) % Eos % (Auto) 0.0 L 0.0 L (1.5-5.0) % Baso % (Auto) 0.2 0.0 (0.0-3.0) % Gran # 4.09 1.65 (1.4-6.5) Lymph # (Auto) 0.5 L 0.3 L (1.2-3.4) [place] # (Auto) 0.0 L 0.1 (0.1-0.6) Eos # (Auto) 0.0 0.0 (0.0-0.7) Baso # (Auto) 0.01 0.00 (0.0-2.0) K/mm3 Differential Comment PT (9.4-12.5) SECONDS INR (0.93-1.08) APTT (25.1-36.5) Seconds pCO2 (35-45) mm/Hg pO2 (30-55) mm/Hg HCO3 (21-28) mmol/L ABG pH (7.35-7.45) ABG Total CO2 (22-28) mmol.L ABG O2 Saturation (95-98) % ABG Base Excess (-2.0-3.0) mmol/L ABG Potassium (3.6-5.2) mmol/L VBG pH (7.32-7.43) VBG pCO2 (40-60) VBG HCO3 (21-28) mmol/l VBG Total CO2 (22-28) mmol.L VBG O2 Sat (Calc) (40-65) % VBG Base Excess (0.0-2.0) mmol/L VBG Potassium (3.6-5.2) mmol/L Sodium (132-148) mmol/L Chloride (98-107) mmol/L Glucose (65-105) mg/dl Lactate (0.7-2.1) mmol/L FiO2 % Potassium (3.6-5.0) mmol/L Carbon Dioxide (21-33) mmol/L Anion Gap (10-20) BUN (7-21) mg/dL Creatinine (0.7-1.2) mg/dl Est GFR ( Amer) Est GFR (Non-Af Amer) POC Glucose (mg/dL) (65-110) mg/dL Random Glucose (70-110) mg/dL Calcium (8.4-10.5) mg/dL Phosphorus (2.5-4.5) mg/dL Magnesium (1.7-2.2) mg/dL Iron (45-180) ug/dL TIBC (265-497) ug/dL % Saturation Transferrin (206-381) mg/dL Total Bilirubin (0.2-1.3) mg/dL AST (14-36) U/L ALT (7-56) U/L Alkaline Phosphatase (38-126) U/L Total Protein (5.8-8.3) g/dL Albumin (3.0-4.8) g/dL Globulin gm/dL Albumin/Globulin Ratio (1.1-1.8) Triglycerides (35-160) mg/dL Cholesterol (130-200) mg/dL LDL Cholesterol Direct (0-129) mg/dL HDL Cholesterol (29-60) mg/dL TSH 3rd Generation (0.46-4.68) mIU/mL Arterial Blood Potassium (3.6-5.2) mmol/L Venous Blood Potassium (3.6-5.2) mmol/L Urine Color (YELLOW) Urine Appearance (CLEAR) Urine pH (4.7-8.0) Ur Specific [place] (1.005-1.035) Urine Protein (<30 mg/dL) mg/dL Urine Glucose (UA) (NEGATIVE) mg/dL Urine Ketones (NEGATIVE) mg/dL Urine Blood (NEGATIVE) Urine Nitrate (NEGATIVE) Urine Bilirubin (NEGATIVE) Urine Urobilinogen (<1 E.U./dL) E.U./dL Ur Leukocyte Esterase (NEGATIVE) Juan/uL Urine RBC (0-2) /hpf Urine WBC (0-6) /hpf Ur Epithelial Cells (0-5) /hpf Amorphous Sediment Urine Eosinophils Negative Urine HCG, Qual (NEGATIVE) Salicylates (2.0-20.0) mg/dL Acetaminophen (10.0-20.0) ug/ml Blood Type Confirm 09/14/17 09/14/17 09/14/17 Range/Units 05:22 05:00 04:50 WBC (4.5-11.0) 10^3/ul RBC (3.5-6.1) 10^6/uL Hgb (12.0-16.0) g/dL Hct (36.0-48.0) % MCV (80.0-105.0) fl MCH (25.0-35.0) pg MCHC (31.0-37.0) g/dl RDW (11.5-14.5) % Plt Count (120.0-450.0) 10^3/uL MPV (7.0-11.0) fl Gran % (50.0-68.0) % Lymph % (Auto) (22.0-35.0) % [place] % (Auto) (1.0-6.0) % Eos % (Auto) (1.5-5.0) % Baso % (Auto) (0.0-3.0) % Gran # (1.4-6.5) Lymph # (Auto) (1.2-3.4) [place] # (Auto) (0.1-0.6) Eos # (Auto) (0.0-0.7) Baso # (Auto) (0.0-2.0) K/mm3 Differential Comment PT (9.4-12.5) SECONDS INR (0.93-1.08) APTT (25.1-36.5) Seconds pCO2 (35-45) mm/Hg pO2 (30-55) mm/Hg HCO3 (21-28) mmol/L ABG pH (7.35-7.45) ABG Total CO2 (22-28) mmol.L ABG O2 Saturation (95-98) % ABG Base Excess (-2.0-3.0) mmol/L ABG Potassium (3.6-5.2) mmol/L VBG pH (7.32-7.43) VBG pCO2 (40-60) VBG HCO3 (21-28) mmol/l VBG Total CO2 (22-28) mmol.L VBG O2 Sat (Calc) (40-65) % VBG Base Excess (0.0-2.0) mmol/L VBG Potassium (3.6-5.2) mmol/L Sodium (132-148) mmol/L Chloride (98-107) mmol/L Glucose (65-105) mg/dl Lactate (0.7-2.1) mmol/L FiO2 % Potassium (3.6-5.0) mmol/L Carbon Dioxide (21-33) mmol/L Anion Gap (10-20) BUN (7-21) mg/dL Creatinine (0.7-1.2) mg/dl Est GFR ( Amer) Est GFR (Non-Af Amer) POC Glucose (mg/dL) 211 H (65-110) mg/dL Random Glucose (70-110) mg/dL Calcium (8.4-10.5) mg/dL Phosphorus (2.5-4.5) mg/dL Magnesium (1.7-2.2) mg/dL Iron < 10 L (45-180) ug/dL TIBC 217 L (265-497) ug/dL % Saturation TNP Transferrin (206-381) mg/dL Total Bilirubin (0.2-1.3) mg/dL AST (14-36) U/L ALT (7-56) U/L Alkaline Phosphatase (38-126) U/L Total Protein (5.8-8.3) g/dL Albumin (3.0-4.8) g/dL Globulin gm/dL Albumin/Globulin Ratio (1.1-1.8) Triglycerides (35-160) mg/dL Cholesterol (130-200) mg/dL LDL Cholesterol Direct (0-129) mg/dL HDL Cholesterol (29-60) mg/dL TSH 3rd Generation (0.46-4.68) mIU/mL Arterial Blood Potassium (3.6-5.2) mmol/L Venous Blood Potassium (3.6-5.2) mmol/L Urine Color Yellow (YELLOW) Urine Appearance Sl cloudy (CLEAR) Urine pH 6.0 (4.7-8.0) Ur Specific [place] 1.025 (1.005-1.035) Urine Protein 100 H (<30 mg/dL) mg/dL Urine Glucose (UA) 100 H (NEGATIVE) mg/dL Urine Ketones Trace H (NEGATIVE) mg/dL Urine Blood Moderate H (NEGATIVE) Urine Nitrate Negative (NEGATIVE) Urine Bilirubin Negative (NEGATIVE) Urine Urobilinogen 0.2 (<1 E.U./dL) E.U./dL Ur Leukocyte Esterase Negative (NEGATIVE) Juan/uL Urine RBC 1 - 3 (0-2) /hpf Urine WBC 0 - 2 (0-6) /hpf Ur Epithelial Cells 0 - 2 (0-5) /hpf Amorphous Sediment Few Urine Eosinophils Urine HCG, Qual Negative (NEGATIVE) Salicylates (2.0-20.0) mg/dL Acetaminophen (10.0-20.0) ug/ml Blood Type Confirm 09/14/17 09/14/17 09/14/17 Range/Units 04:50 04:50 04:50 WBC (4.5-11.0) 10^3/ul RBC (3.5-6.1) 10^6/uL Hgb (12.0-16.0) g/dL Hct (36.0-48.0) % MCV (80.0-105.0) fl MCH (25.0-35.0) pg MCHC (31.0-37.0) g/dl RDW (11.5-14.5) % Plt Count (120.0-450.0) 10^3/uL MPV (7.0-11.0) fl Gran % (50.0-68.0) % Lymph % (Auto) (22.0-35.0) % [place] % (Auto) (1.0-6.0) % Eos % (Auto) (1.5-5.0) % Baso % (Auto) (0.0-3.0) % Gran # (1.4-6.5) Lymph # (Auto) (1.2-3.4) [place] # (Auto) (0.1-0.6) Eos # (Auto) (0.0-0.7) Baso # (Auto) (0.0-2.0) K/mm3 Differential Comment See pathology report PT (9.4-12.5) SECONDS INR (0.93-1.08) APTT 28.0 (25.1-36.5) Seconds pCO2 (35-45) mm/Hg pO2 35 (30-55) mm/Hg HCO3 (21-28) mmol/L ABG pH (7.35-7.45) ABG Total CO2 (22-28) mmol.L ABG O2 Saturation (95-98) % ABG Base Excess (-2.0-3.0) mmol/L ABG Potassium (3.6-5.2) mmol/L VBG pH 7.28 L (7.32-7.43) VBG pCO2 41.0 (40-60) VBG HCO3 19.3 L (21-28) mmol/l VBG Total CO2 20.6 L (22-28) mmol.L VBG O2 Sat (Calc) 67.2 H (40-65) % VBG Base Excess -7.1 L (0.0-2.0) mmol/L VBG Potassium 4.2 (3.6-5.2) mmol/L Sodium 133.0 (132-148) mmol/L Chloride 101.0 (98-107) mmol/L Glucose 225 H (65-105) mg/dl Lactate 5.4 H* (0.7-2.1) mmol/L FiO2 21.0 % Potassium (3.6-5.0) mmol/L Carbon Dioxide (21-33) mmol/L Anion Gap (10-20) BUN (7-21) mg/dL Creatinine (0.7-1.2) mg/dl Est GFR ( Amer) Est GFR (Non-Af Amer) POC Glucose (mg/dL) (65-110) mg/dL Random Glucose (70-110) mg/dL Calcium (8.4-10.5) mg/dL Phosphorus (2.5-4.5) mg/dL Magnesium (1.7-2.2) mg/dL Iron (45-180) ug/dL TIBC (265-497) ug/dL % Saturation Transferrin (206-381) mg/dL Total Bilirubin (0.2-1.3) mg/dL AST (14-36) U/L ALT (7-56) U/L Alkaline Phosphatase (38-126) U/L Total Protein (5.8-8.3) g/dL Albumin (3.0-4.8) g/dL Globulin gm/dL Albumin/Globulin Ratio (1.1-1.8) Triglycerides (35-160) mg/dL Cholesterol (130-200) mg/dL LDL Cholesterol Direct (0-129) mg/dL HDL Cholesterol (29-60) mg/dL TSH 3rd Generation (0.46-4.68) mIU/mL Arterial Blood Potassium (3.6-5.2) mmol/L Venous Blood Potassium 4.2 (3.6-5.2) mmol/L Urine Color (YELLOW) Urine Appearance (CLEAR) Urine pH (4.7-8.0) Ur Specific [place] (1.005-1.035) Urine Protein (<30 mg/dL) mg/dL Urine Glucose (UA) (NEGATIVE) mg/dL Urine Ketones (NEGATIVE) mg/dL Urine Blood (NEGATIVE) Urine Nitrate (NEGATIVE) Urine Bilirubin (NEGATIVE) Urine Urobilinogen (<1 E.U./dL) E.U./dL Ur Leukocyte Esterase (NEGATIVE) Juan/uL Urine RBC (0-2) /hpf Urine WBC (0-6) /hpf Ur Epithelial Cells (0-5) /hpf Amorphous Sediment Urine Eosinophils Urine HCG, Qual (NEGATIVE) Salicylates (2.0-20.0) mg/dL Acetaminophen (10.0-20.0) ug/ml Blood Type Confirm 09/14/17 09/14/17 09/14/17 Range/Units 04:50 04:50 04:03 WBC 1.3 L* D (4.5-11.0) 10^3/ul RBC 3.68 (3.5-6.1) 10^6/uL Hgb 9.7 L (12.0-16.0) g/dL Hct 29.0 L (36.0-48.0) % MCV 78.8 L (80.0-105.0) fl MCH 26.4 (25.0-35.0) pg MCHC 33.4 (31.0-37.0) g/dl RDW 16.6 H (11.5-14.5) % Plt Count 84 L (120.0-450.0) 10^3/uL MPV 10.9 (7.0-11.0) fl Gran % 75.5 H (50.0-68.0) % Lymph % (Auto) 22.9 (22.0-35.0) % [place] % (Auto) 0.8 L (1.0-6.0) % Eos % (Auto) 0.0 L (1.5-5.0) % Baso % (Auto) 0.8 (0.0-3.0) % Gran # 0.99 L (1.4-6.5) Lymph # (Auto) 0.3 L (1.2-3.4) [place] # (Auto) 0.0 L (0.1-0.6) Eos # (Auto) 0.0 (0.0-0.7) Baso # (Auto) 0.01 (0.0-2.0) K/mm3 Differential Comment PT (9.4-12.5) SECONDS INR (0.93-1.08) APTT (25.1-36.5) Seconds pCO2 (35-45) mm/Hg pO2 (30-55) mm/Hg HCO3 (21-28) mmol/L ABG pH (7.35-7.45) ABG Total CO2 (22-28) mmol.L ABG O2 Saturation (95-98) % ABG Base Excess (-2.0-3.0) mmol/L ABG Potassium (3.6-5.2) mmol/L VBG pH (7.32-7.43) VBG pCO2 (40-60) VBG HCO3 (21-28) mmol/l VBG Total CO2 (22-28) mmol.L VBG O2 Sat (Calc) (40-65) % VBG Base Excess (0.0-2.0) mmol/L VBG Potassium (3.6-5.2) mmol/L Sodium 136 (132-148) mmol/L Chloride 100 (98-107) mmol/L Glucose (65-105) mg/dl Lactate (0.7-2.1) mmol/L FiO2 % Potassium 4.2 (3.6-5.0) mmol/L Carbon Dioxide 18 L (21-33) mmol/L Anion Gap 22 H (10-20) BUN 50 H (7-21) mg/dL Creatinine 3.4 H (0.7-1.2) mg/dl Est GFR ( Amer) 18 Est GFR (Non-Af Amer) 15 POC Glucose (mg/dL) 269 H (65-110) mg/dL Random Glucose 214 H (70-110) mg/dL Calcium 8.4 (8.4-10.5) mg/dL Phosphorus 4.5 (2.5-4.5) mg/dL Magnesium 1.7 (1.7-2.2) mg/dL Iron (45-180) ug/dL TIBC (265-497) ug/dL % Saturation Transferrin (206-381) mg/dL Total Bilirubin (0.2-1.3) mg/dL AST (14-36) U/L ALT (7-56) U/L Alkaline Phosphatase (38-126) U/L Total Protein (5.8-8.3) g/dL Albumin (3.0-4.8) g/dL Globulin gm/dL Albumin/Globulin Ratio (1.1-1.8) Triglycerides (35-160) mg/dL Cholesterol (130-200) mg/dL LDL Cholesterol Direct (0-129) mg/dL HDL Cholesterol (29-60) mg/dL TSH 3rd Generation (0.46-4.68) mIU/mL Arterial Blood Potassium (3.6-5.2) mmol/L Venous Blood Potassium (3.6-5.2) mmol/L Urine Color (YELLOW) Urine Appearance (CLEAR) Urine pH (4.7-8.0) Ur Specific [place] (1.005-1.035) Urine Protein (<30 mg/dL) mg/dL Urine Glucose (UA) (NEGATIVE) mg/dL Urine Ketones (NEGATIVE) mg/dL Urine Blood (NEGATIVE) Urine Nitrate (NEGATIVE) Urine Bilirubin (NEGATIVE) Urine Urobilinogen (<1 E.U./dL) E.U./dL Ur Leukocyte Esterase (NEGATIVE) Juan/uL Urine RBC (0-2) /hpf Urine WBC (0-6) /hpf Ur Epithelial Cells (0-5) /hpf Amorphous Sediment Urine Eosinophils Urine HCG, Qual (NEGATIVE) Salicylates (2.0-20.0) mg/dL Acetaminophen (10.0-20.0) ug/ml Blood Type Confirm 05/24/18 05/24/18 05/24/18 Range/Units 03:01 02:28 01:35 WBC (4.5-11.0) 10^3/ul RBC (3.5-6.1) 10^6/uL Hgb (12.0-16.0) g/dL Hct (36.0-48.0) % MCV (80.0-105.0) fl MCH (25.0-35.0) pg MCHC (31.0-37.0) g/dl RDW (11.5-14.5) % Plt Count (120.0-450.0) 10^3/uL MPV (7.0-11.0) fl Gran % (50.0-68.0) % Lymph % (Auto) (22.0-35.0) % [place] % (Auto) (1.0-6.0) % Eos % (Auto) (1.5-5.0) % Baso % (Auto) (0.0-3.0) % Gran # (1.4-6.5) Lymph # (Auto) (1.2-3.4) [place] # (Auto) (0.1-0.6) Eos # (Auto) (0.0-0.7) Baso # (Auto) (0.0-2.0) K/mm3 Differential Comment PT (9.4-12.5) SECONDS INR (0.93-1.08) APTT (25.1-36.5) Seconds pCO2 (35-45) mm/Hg pO2 (30-55) mm/Hg HCO3 (21-28) mmol/L ABG pH (7.35-7.45) ABG Total CO2 (22-28) mmol.L ABG O2 Saturation (95-98) % ABG Base Excess (-2.0-3.0) mmol/L ABG Potassium (3.6-5.2) mmol/L VBG pH (7.32-7.43) VBG pCO2 (40-60) VBG HCO3 (21-28) mmol/l VBG Total CO2 (22-28) mmol.L VBG O2 Sat (Calc) (40-65) % VBG Base Excess (0.0-2.0) mmol/L VBG Potassium (3.6-5.2) mmol/L Sodium (132-148) mmol/L Chloride (98-107) mmol/L Glucose (65-105) mg/dl Lactate (0.7-2.1) mmol/L FiO2 % Potassium (3.6-5.0) mmol/L Carbon Dioxide (21-33) mmol/L Anion Gap (10-20) BUN (7-21) mg/dL Creatinine (0.7-1.2) mg/dl Est GFR ( Amer) Est GFR (Non-Af Amer) POC Glucose (mg/dL) 281 H 293 H (65-110) mg/dL Random Glucose (70-110) mg/dL Calcium (8.4-10.5) mg/dL Phosphorus (2.5-4.5) mg/dL Magnesium (1.7-2.2) mg/dL Iron (45-180) ug/dL TIBC (265-497) ug/dL % Saturation Transferrin (206-381) mg/dL Total Bilirubin (0.2-1.3) mg/dL AST (14-36) U/L ALT (7-56) U/L Alkaline Phosphatase (38-126) U/L Total Protein (5.8-8.3) g/dL Albumin (3.0-4.8) g/dL Globulin gm/dL Albumin/Globulin Ratio (1.1-1.8) Triglycerides (35-160) mg/dL Cholesterol (130-200) mg/dL LDL Cholesterol Direct (0-129) mg/dL HDL Cholesterol (29-60) mg/dL TSH 3rd Generation (0.46-4.68) mIU/mL Arterial Blood Potassium (3.6-5.2) mmol/L Venous Blood Potassium (3.6-5.2) mmol/L Urine Color (YELLOW) Urine Appearance (CLEAR) Urine pH (4.7-8.0) Ur Specific [place] (1.005-1.035) Urine Protein (<30 mg/dL) mg/dL Urine Glucose (UA) (NEGATIVE) mg/dL Urine Ketones (NEGATIVE) mg/dL Urine Blood (NEGATIVE) Urine Nitrate (NEGATIVE) Urine Bilirubin (NEGATIVE) Urine Urobilinogen (<1 E.U./dL) E.U./dL Ur Leukocyte Esterase (NEGATIVE) Juan/uL Urine RBC (0-2) /hpf Urine WBC (0-6) /hpf Ur Epithelial Cells (0-5) /hpf Amorphous Sediment Urine Eosinophils Urine HCG, Qual (NEGATIVE) Salicylates (2.0-20.0) mg/dL Acetaminophen (10.0-20.0) ug/ml Blood Type Confirm A POSITIVE 09/14/17 09/14/17 Range/Units 01:25 00:02 WBC (4.5-11.0) 10^3/ul RBC (3.5-6.1) 10^6/uL Hgb (12.0-16.0) g/dL Hct (36.0-48.0) % MCV (80.0-105.0) fl MCH (25.0-35.0) pg MCHC (31.0-37.0) g/dl RDW (11.5-14.5) % Plt Count (120.0-450.0) 10^3/uL MPV (7.0-11.0) fl Gran % (50.0-68.0) % Lymph % (Auto) (22.0-35.0) % [place] % (Auto) (1.0-6.0) % Eos % (Auto) (1.5-5.0) % Baso % (Auto) (0.0-3.0) % Gran # (1.4-6.5) Lymph # (Auto) (1.2-3.4) [place] # (Auto) (0.1-0.6) Eos # (Auto) (0.0-0.7) Baso # (Auto) (0.0-2.0) K/mm3 Differential Comment PT (9.4-12.5) SECONDS INR (0.93-1.08) APTT (25.1-36.5) Seconds pCO2 (35-45) mm/Hg pO2 55 (30-55) mm/Hg HCO3 (21-28) mmol/L ABG pH (7.35-7.45) ABG Total CO2 (22-28) mmol.L ABG O2 Saturation (95-98) % ABG Base Excess (-2.0-3.0) mmol/L ABG Potassium (3.6-5.2) mmol/L VBG pH 7.20 L (7.32-7.43) VBG pCO2 39.0 L (40-60) VBG HCO3 15.2 L (21-28) mmol/l VBG Total CO2 16.4 L (22-28) mmol.L VBG O2 Sat (Calc) 91.9 H (40-65) % VBG Base Excess -12.2 L (0.0-2.0) mmol/L VBG Potassium 4.4 (3.6-5.2) mmol/L Sodium 130.0 L (132-148) mmol/L Chloride 101.0 (98-107) mmol/L Glucose 303 H (65-105) mg/dl Lactate 6.6 H* (0.7-2.1) mmol/L FiO2 21.0 % Potassium (3.6-5.0) mmol/L Carbon Dioxide (21-33) mmol/L Anion Gap (10-20) BUN (7-21) mg/dL Creatinine (0.7-1.2) mg/dl Est GFR ( Amer) Est GFR (Non-Af Amer) POC Glucose (mg/dL) 376 H (65-110) mg/dL Random Glucose (70-110) mg/dL Calcium (8.4-10.5) mg/dL Phosphorus (2.5-4.5) mg/dL Magnesium (1.7-2.2) mg/dL Iron (45-180) ug/dL TIBC (265-497) ug/dL % Saturation Transferrin (206-381) mg/dL Total Bilirubin (0.2-1.3) mg/dL AST (14-36) U/L ALT (7-56) U/L Alkaline Phosphatase (38-126) U/L Total Protein (5.8-8.3) g/dL Albumin (3.0-4.8) g/dL Globulin gm/dL Albumin/Globulin Ratio (1.1-1.8) Triglycerides (35-160) mg/dL Cholesterol (130-200) mg/dL LDL Cholesterol Direct (0-129) mg/dL HDL Cholesterol (29-60) mg/dL TSH 3rd Generation (0.46-4.68) mIU/mL Arterial Blood Potassium (3.6-5.2) mmol/L Venous Blood Potassium 4.4 (3.6-5.2) mmol/L Urine Color (YELLOW) Urine Appearance (CLEAR) Urine pH (4.7-8.0) Ur Specific [place] (1.005-1.035) Urine Protein (<30 mg/dL) mg/dL Urine Glucose (UA) (NEGATIVE) mg/dL Urine Ketones (NEGATIVE) mg/dL Urine Blood (NEGATIVE) Urine Nitrate (NEGATIVE) Urine Bilirubin (NEGATIVE) Urine Urobilinogen (<1 E.U./dL) E.U./dL Ur Leukocyte Esterase (NEGATIVE) Juan/uL Urine RBC (0-2) /hpf Urine WBC (0-6) /hpf Ur Epithelial Cells (0-5) /hpf Amorphous Sediment Urine Eosinophils Urine HCG, Qual (NEGATIVE) Salicylates (2.0-20.0) mg/dL Acetaminophen (10.0-20.0) ug/ml Blood Type Confirm Laboratory Results - last 24 hr 09/14/17 09/14/17 09/14/17 00:02 01:25 01:35 WBC RBC Hgb Hct MCV MCH MCHC RDW Plt Count MPV Gran % Lymph % (Auto) [place] % (Auto) Eos % (Auto) Baso % (Auto) Gran # Lymph # (Auto) [place] # (Auto) Eos # (Auto) Baso # (Auto) Differential Comment PT INR APTT pCO2 pO2 55 HCO3 ABG pH ABG Total CO2 ABG O2 Saturation ABG Base Excess ABG Potassium VBG pH 7.20 L VBG pCO2 39.0 L VBG HCO3 15.2 L VBG Total CO2 16.4 L VBG O2 Sat (Calc) 91.9 H VBG Base Excess -12.2 L VBG Potassium 4.4 Sodium 130.0 L Chloride 101.0 Glucose 303 H Lactate 6.6 H* FiO2 21.0 Potassium Carbon Dioxide Anion Gap BUN Creatinine Est GFR ( Amer) Est GFR (Non-Af Amer) POC Glucose (mg/dL) 376 H Random Glucose Calcium Phosphorus Magnesium Iron TIBC % Saturation Transferrin Total Bilirubin AST ALT Alkaline Phosphatase Total Protein Albumin Globulin Albumin/Globulin Ratio Triglycerides Cholesterol LDL Cholesterol Direct HDL Cholesterol TSH 3rd Generation Arterial Blood Potassium Venous Blood Potassium 4.4 Urine Color Urine Appearance Urine pH Ur Specific [place] Urine Protein Urine Glucose (UA) Urine Ketones Urine Blood Urine Nitrate Urine Bilirubin Urine Urobilinogen Ur Leukocyte Esterase Urine RBC Urine WBC Ur Epithelial Cells Amorphous Sediment Urine Eosinophils Urine HCG, Qual Salicylates Acetaminophen Blood Type Confirm A POSITIVE 09/14/17 09/14/17 09/14/17 02:28 03:01 04:03 WBC RBC Hgb Hct MCV MCH MCHC RDW Plt Count MPV Gran % Lymph % (Auto) [place] % (Auto) Eos % (Auto) Baso % (Auto) Gran # Lymph # (Auto) [place] # (Auto) Eos # (Auto) Baso # (Auto) Differential Comment PT INR APTT pCO2 pO2 HCO3 ABG pH ABG Total CO2 ABG O2 Saturation ABG Base Excess ABG Potassium VBG pH VBG pCO2 VBG HCO3 VBG Total CO2 VBG O2 Sat (Calc) VBG Base Excess VBG Potassium Sodium Chloride Glucose Lactate FiO2 Potassium Carbon Dioxide Anion Gap BUN Creatinine Est GFR ( Amer) Est GFR (Non-Af Amer) POC Glucose (mg/dL) 293 H 281 H 269 H Random Glucose Calcium Phosphorus Magnesium Iron TIBC % Saturation Transferrin Total Bilirubin AST ALT Alkaline Phosphatase Total Protein Albumin Globulin Albumin/Globulin Ratio Triglycerides Cholesterol LDL Cholesterol Direct HDL Cholesterol TSH 3rd Generation Arterial Blood Potassium Venous Blood Potassium Urine Color Urine Appearance Urine pH Ur Specific [place] Urine Protein Urine Glucose (UA) Urine Ketones Urine Blood Urine Nitrate Urine Bilirubin Urine Urobilinogen Ur Leukocyte Esterase Urine RBC Urine WBC Ur Epithelial Cells Amorphous Sediment Urine Eosinophils Urine HCG, Qual Salicylates Acetaminophen Blood Type Confirm 09/14/17 09/14/17 09/14/17 04:50 04:50 04:50 WBC 1.3 L* D RBC 3.68 Hgb 9.7 L Hct 29.0 L MCV 78.8 L MCH 26.4 MCHC 33.4 RDW 16.6 H Plt Count 84 L MPV 10.9 Gran % 75.5 H Lymph % (Auto) 22.9 [place] % (Auto) 0.8 L Eos % (Auto) 0.0 L Baso % (Auto) 0.8 Gran # 0.99 L Lymph # (Auto) 0.3 L [place] # (Auto) 0.0 L Eos # (Auto) 0.0 Baso # (Auto) 0.01 Differential Comment PT INR APTT 28.0 pCO2 pO2 HCO3 ABG pH ABG Total CO2 ABG O2 Saturation ABG Base Excess ABG Potassium VBG pH VBG pCO2 VBG HCO3 VBG Total CO2 VBG O2 Sat (Calc) VBG Base Excess VBG Potassium Sodium 136 Chloride 100 Glucose Lactate FiO2 Potassium 4.2 Carbon Dioxide 18 L Anion Gap 22 H BUN 50 H Creatinine 3.4 H Est GFR ( Amer) 18 Est GFR (Non-Af Amer) 15 POC Glucose (mg/dL) Random Glucose 214 H Calcium 8.4 Phosphorus 4.5 Magnesium 1.7 Iron TIBC % Saturation Transferrin Total Bilirubin AST ALT Alkaline Phosphatase Total Protein Albumin Globulin Albumin/Globulin Ratio Triglycerides Cholesterol LDL Cholesterol Direct HDL Cholesterol TSH 3rd Generation Arterial Blood Potassium Venous Blood Potassium Urine Color Urine Appearance Urine pH Ur Specific [place] Urine Protein Urine Glucose (UA) Urine Ketones Urine Blood Urine Nitrate Urine Bilirubin Urine Urobilinogen Ur Leukocyte Esterase Urine RBC Urine WBC Ur Epithelial Cells Amorphous Sediment Urine Eosinophils Urine HCG, Qual Salicylates Acetaminophen Blood Type Confirm 09/14/17 09/14/17 09/14/17 04:50 04:50 04:50 WBC RBC Hgb Hct MCV MCH MCHC RDW Plt Count MPV Gran % Lymph % (Auto) [place] % (Auto) Eos % (Auto) Baso % (Auto) Gran # Lymph # (Auto) [place] # (Auto) Eos # (Auto) Baso # (Auto) Differential Comment See pathology report PT INR APTT pCO2 pO2 35 HCO3 ABG pH ABG Total CO2 ABG O2 Saturation ABG Base Excess ABG Potassium VBG pH 7.28 L VBG pCO2 41.0 VBG HCO3 19.3 L VBG Total CO2 20.6 L VBG O2 Sat (Calc) 67.2 H VBG Base Excess -7.1 L VBG Potassium 4.2 Sodium 133.0 Chloride 101.0 Glucose 225 H Lactate 5.4 H* FiO2 21.0 Potassium Carbon Dioxide Anion Gap BUN Creatinine Est GFR ( Amer) Est GFR (Non-Af Amer) POC Glucose (mg/dL) Random Glucose Calcium Phosphorus Magnesium Iron < 10 L TIBC 217 L % Saturation TNP Transferrin Total Bilirubin AST ALT Alkaline Phosphatase Total Protein Albumin Globulin Albumin/Globulin Ratio Triglycerides Cholesterol LDL Cholesterol Direct HDL Cholesterol TSH 3rd Generation Arterial Blood Potassium Venous Blood Potassium 4.2 Urine Color Urine Appearance Urine pH Ur Specific [place] Urine Protein Urine Glucose (UA) Urine Ketones Urine Blood Urine Nitrate Urine Bilirubin Urine Urobilinogen Ur Leukocyte Esterase Urine RBC Urine WBC Ur Epithelial Cells Amorphous Sediment Urine Eosinophils Urine HCG, Qual Salicylates Acetaminophen Blood Type Confirm 09/14/17 09/14/17 09/14/17 05:00 05:22 05:22 WBC RBC Hgb Hct MCV MCH MCHC RDW Plt Count MPV Gran % Lymph % (Auto) [place] % (Auto) Eos % (Auto) Baso % (Auto) Gran # Lymph # (Auto) [place] # (Auto) Eos # (Auto) Baso # (Auto) Differential Comment PT INR APTT pCO2 pO2 HCO3 ABG pH ABG Total CO2 ABG O2 Saturation ABG Base Excess ABG Potassium VBG pH VBG pCO2 VBG HCO3 VBG Total CO2 VBG O2 Sat (Calc) VBG Base Excess VBG Potassium Sodium Chloride Glucose Lactate FiO2 Potassium Carbon Dioxide Anion Gap BUN Creatinine Est GFR ( Amer) Est GFR (Non-Af Amer) POC Glucose (mg/dL) 211 H Random Glucose Calcium Phosphorus Magnesium Iron TIBC % Saturation Transferrin Total Bilirubin AST ALT Alkaline Phosphatase Total Protein Albumin Globulin Albumin/Globulin Ratio Triglycerides Cholesterol LDL Cholesterol Direct HDL Cholesterol TSH 3rd Generation Arterial Blood Potassium Venous Blood Potassium Urine Color Yellow Urine Appearance Sl cloudy Urine pH 6.0 Ur Specific [place] 1.025 Urine Protein 100 H Urine Glucose (UA) 100 H Urine Ketones Trace H Urine Blood Moderate H Urine Nitrate Negative Urine Bilirubin Negative Urine Urobilinogen 0.2 Ur Leukocyte Esterase Negative Urine RBC 1 - 3 Urine WBC 0 - 2 Ur Epithelial Cells 0 - 2 Amorphous Sediment Few Urine Eosinophils Negative Urine HCG, Qual Negative Salicylates Acetaminophen Blood Type Confirm 09/14/17 09/14/17 09/14/17 05:50 06:10 06:29 WBC 2.0 L* D 4.6 D RBC 1.72 L 3.87 Hgb 4.5 L* D 10.3 L D Hct 13.7 L* 30.5 L MCV 79.7 L 78.8 L MCH 26.2 26.6 MCHC 32.8 33.8 RDW 16.8 H 16.6 H Plt Count 31 L* 73 L MPV 9.2 11.1 H Gran % 81.3 H 89.1 H Lymph % (Auto) 14.8 L 9.8 L [place] % (Auto) 3.9 0.9 L Eos % (Auto) 0.0 L 0.0 L Baso % (Auto) 0.0 0.2 Gran # 1.65 4.09 Lymph # (Auto) 0.3 L 0.5 L [place] # (Auto) 0.1 0.0 L Eos # (Auto) 0.0 0.0 Baso # (Auto) 0.00 0.01 Differential Comment PT INR APTT pCO2 pO2 HCO3 ABG pH ABG Total CO2 ABG O2 Saturation ABG Base Excess ABG Potassium VBG pH VBG pCO2 VBG HCO3 VBG Total CO2 VBG O2 Sat (Calc) VBG Base Excess VBG Potassium Sodium Chloride Glucose Lactate FiO2 Potassium Carbon Dioxide Anion Gap BUN Creatinine Est GFR ( Amer) Est GFR (Non-Af Amer) POC Glucose (mg/dL) 167 H Random Glucose Calcium Phosphorus Magnesium Iron TIBC % Saturation Transferrin Total Bilirubin AST ALT Alkaline Phosphatase Total Protein Albumin Globulin Albumin/Globulin Ratio Triglycerides Cholesterol LDL Cholesterol Direct HDL Cholesterol TSH 3rd Generation Arterial Blood Potassium Venous Blood Potassium Urine Color Urine Appearance Urine pH Ur Specific [place] Urine Protein Urine Glucose (UA) Urine Ketones Urine Blood Urine Nitrate Urine Bilirubin Urine Urobilinogen Ur Leukocyte Esterase Urine RBC Urine WBC Ur Epithelial Cells Amorphous Sediment Urine Eosinophils Urine HCG, Qual Salicylates Acetaminophen Blood Type Confirm 09/14/17 09/14/17 09/14/17 07:00 07:00 07:00 WBC RBC Hgb Hct MCV MCH MCHC RDW Plt Count MPV Gran % Lymph % (Auto) [place] % (Auto) Eos % (Auto) Baso % (Auto) Gran # Lymph # (Auto) [place] # (Auto) Eos # (Auto) Baso # (Auto) Differential Comment PT INR APTT pCO2 pO2 HCO3 ABG pH ABG Total CO2 ABG O2 Saturation ABG Base Excess ABG Potassium VBG pH VBG pCO2 VBG HCO3 VBG Total CO2 VBG O2 Sat (Calc) VBG Base Excess VBG Potassium Sodium Chloride Glucose Lactate FiO2 Potassium Carbon Dioxide Anion Gap BUN Creatinine Est GFR ( Amer) Est GFR (Non-Af Amer) POC Glucose (mg/dL) Random Glucose Calcium Phosphorus Magnesium Iron TIBC % Saturation Transferrin 141.74 L Total Bilirubin AST ALT Alkaline Phosphatase Total Protein Albumin Globulin Albumin/Globulin Ratio Triglycerides 166 H Cholesterol 99 L LDL Cholesterol Direct < 30 HDL Cholesterol 28 L TSH 3rd Generation Arterial Blood Potassium Venous Blood Potassium Urine Color Urine Appearance Urine pH Ur Specific [place] Urine Protein Urine Glucose (UA) Urine Ketones Urine Blood Urine Nitrate Urine Bilirubin Urine Urobilinogen Ur Leukocyte Esterase Urine RBC Urine WBC Ur Epithelial Cells Amorphous Sediment Urine Eosinophils Urine HCG, Qual Salicylates < 1 L Acetaminophen < 10.0 L Blood Type Confirm 09/14/17 09/14/17 09/14/17 07:00 07:09 07:49 WBC RBC Hgb Hct MCV MCH MCHC RDW Plt Count MPV Gran % Lymph % (Auto) [place] % (Auto) Eos % (Auto) Baso % (Auto) Gran # Lymph # (Auto) [place] # (Auto) Eos # (Auto) Baso # (Auto) Differential Comment PT INR APTT pCO2 pO2 HCO3 ABG pH ABG Total CO2 ABG O2 Saturation ABG Base Excess ABG Potassium VBG pH VBG pCO2 VBG HCO3 VBG Total CO2 VBG O2 Sat (Calc) VBG Base Excess VBG Potassium Sodium 137 Chloride 103 Glucose Lactate FiO2 Potassium 3.5 L Carbon Dioxide 17 L Anion Gap 21 H BUN 52 H Creatinine 3.2 H Est GFR ( Amer) 19 Est GFR (Non-Af Amer) 16 POC Glucose (mg/dL) 160 H Random Glucose 168 H Calcium 7.9 L Phosphorus Magnesium Iron TIBC % Saturation Transferrin Total Bilirubin AST ALT Alkaline Phosphatase Total Protein Albumin Globulin Albumin/Globulin Ratio Triglycerides Cholesterol LDL Cholesterol Direct HDL Cholesterol TSH 3rd Generation 2.85 Arterial Blood Potassium Venous Blood Potassium Urine Color Urine Appearance Urine pH Ur Specific [place] Urine Protein Urine Glucose (UA) Urine Ketones Urine Blood Urine Nitrate Urine Bilirubin Urine Urobilinogen Ur Leukocyte Esterase Urine RBC Urine WBC Ur Epithelial Cells Amorphous Sediment Urine Eosinophils Urine HCG, Qual Salicylates Acetaminophen Blood Type Confirm 09/14/17 09/14/17 09/14/17 07:49 08:46 10:04 WBC 8.8 D RBC 3.06 L Hgb 8.1 L D Hct 24.0 L MCV 78.4 L MCH 26.5 MCHC 33.8 RDW 16.7 H Plt Count 66 L MPV 10.9 Gran % 90.8 H Lymph % (Auto) 7.9 L [place] % (Auto) 1.2 Eos % (Auto) 0.1 L Baso % (Auto) 0.0 Gran # 8.02 H Lymph # (Auto) 0.7 L [place] # (Auto) 0.1 Eos # (Auto) 0.0 Baso # (Auto) 0.00 Differential Comment PT 16.4 H INR 1.42 H APTT pCO2 28 L pO2 70.0 L HCO3 15.5 L ABG pH 7.35 ABG Total CO2 16.4 L ABG O2 Saturation 96.4 ABG Base Excess -8.6 L ABG Potassium 2.8 L VBG pH VBG pCO2 VBG HCO3 VBG Total CO2 VBG O2 Sat (Calc) VBG Base Excess VBG Potassium Sodium 136.0 Chloride 108.0 H Glucose 171 H Lactate 4.0 H* FiO2 36.0 Potassium Carbon Dioxide Anion Gap BUN Creatinine Est GFR ( Amer) Est GFR (Non-Af Amer) POC Glucose (mg/dL) Random Glucose Calcium Phosphorus Magnesium Iron TIBC % Saturation Transferrin Total Bilirubin AST ALT Alkaline Phosphatase Total Protein Albumin Globulin Albumin/Globulin Ratio Triglycerides Cholesterol LDL Cholesterol Direct HDL Cholesterol TSH 3rd Generation Arterial Blood Potassium 2.8 L Venous Blood Potassium Urine Color Urine Appearance Urine pH Ur Specific [place] Urine Protein Urine Glucose (UA) Urine Ketones Urine Blood Urine Nitrate Urine Bilirubin Urine Urobilinogen Ur Leukocyte Esterase Urine RBC Urine WBC Ur Epithelial Cells Amorphous Sediment Urine Eosinophils Urine HCG, Qual Salicylates Acetaminophen Blood Type Confirm 09/14/17 09/14/17 10:05 12:10 WBC RBC Hgb Hct MCV MCH MCHC RDW Plt Count MPV Gran % Lymph % (Auto) [place] % (Auto) Eos % (Auto) Baso % (Auto) Gran # Lymph # (Auto) [place] # (Auto) Eos # (Auto) Baso # (Auto) Differential Comment PT INR APTT pCO2 pO2 37 HCO3 ABG pH ABG Total CO2 ABG O2 Saturation ABG Base Excess ABG Potassium VBG pH 7.19 L* VBG pCO2 38.0 L VBG HCO3 14.5 L VBG Total CO2 15.7 L VBG O2 Sat (Calc) 74.2 H VBG Base Excess -13.0 L VBG Potassium 4.4 Sodium 136 134.0 Chloride 107 109.0 H Glucose 242 H Lactate 4.9 H* FiO2 21.0 Potassium 3.4 L Carbon Dioxide 17 L Anion Gap 15 BUN 46 H Creatinine 3.2 H Est GFR ( Amer) 19 Est GFR (Non-Af Amer) 16 POC Glucose (mg/dL) Random Glucose 163 H Calcium 6.8 L* Phosphorus 2.7 Magnesium 1.5 L Iron TIBC % Saturation Transferrin Total Bilirubin 0.8 AST 49 H D ALT 34 Alkaline Phosphatase 133 H Total Protein 5.2 L Albumin 2.3 L Globulin 2.9 Albumin/Globulin Ratio 0.8 L Triglycerides Cholesterol LDL Cholesterol Direct HDL Cholesterol TSH 3rd Generation Arterial Blood Potassium Venous Blood Potassium 4.4 Urine Color Urine Appearance Urine pH Ur Specific [place] Urine Protein Urine Glucose (UA) Urine Ketones Urine Blood Urine Nitrate Urine Bilirubin Urine Urobilinogen Ur Leukocyte Esterase Urine RBC Urine WBC Ur Epithelial Cells Amorphous Sediment Urine Eosinophils Urine HCG, Qual Salicylates Acetaminophen Blood Type Confirm Critical Care Progress Note - Nutrition Nutrition: Nutrition Category Date Time Status NPO Diet [DIET] Diets 09/13/17 Dinner Ordered Assessment/Plan - Assessment and Plan (Free Text) Plan: Patient seen and examined on rounds agree with note with following additions/ exceptions: Patient is 42yo female with PMHX of morbid obesity, DM, presented with mild DKA , septic shock likely 2/2 pyelonephritis. THis morning patient had hypotensive episode, SBP 50-60s, bolused 4L NS, subsequent SBP imrpoved to 80-90s. Bedside ECHO IVC 1.6cm prior to IVF, normal EF. Patent had TLC placed, and was started on pressers, stress dose steroids given, on broad spectrum antibiotics, ID, Renal, Urology consulted. Currently on Levo, Vaso, Stress dose steroids SBP 150-160, will titrate press accordingly to goal MAP of 65. CT Abd Pelvis reviewed. On Insulin drip. Septic Shock Pyelonephritis Dehydration Acute Renal Failure Lactic Acidosis DKA DM Obesity Recommend: - supp o2 as needed - duonebs PRN - panculture, UCx, BCx follow up, Procal - broad spectrum abx, renally dosed, Vanco, Merrem, Flagyl - follow up ID - Vasopressor support, Levo, Vasopressin, Solucortef 100mg TID - check Lipid Panel, TSH, HgbA1C - ECHO read - ID, nephro, Urology follow up - monitor HH - Q6hr BMP - insulin drip - NPO - IVF - GI ppx - DVT ppx, HSQ - Monitor in MICU Critical care time 60 minutes
--- NOTE | 2017-09-14 10:26 | RAD ---
HISTORY: shortness of breath, hypotensive COMPARISON: 09/14/2017 at 1:56 a.m. FINDINGS: LUNGS: No active pulmonary disease. PLEURA: Probable small left pleural effusion. Hazy opacity of left fernanda thorax with blunting of costophrenic angle. Possibly artifactual. No right pleural effusion. No pneumothorax. CARDIOVASCULAR: Normal. OSSEOUS STRUCTURES: No significant abnormalities. VISUALIZED UPPER ABDOMEN: Normal. OTHER FINDINGS: None. IMPRESSION: Probable small left pleural effusion. No infiltrate.
--- NOTE | 2017-09-14 10:26 | PCM.PROC ---
Procedures Attestation:: I certify that I have explained the specified Operation(s) or Procedure(s), risks, benefits and reasonable alternatives to the Patient and/or other person responsible. The opportunity was given to ask questions and all questions answered - Central Line Placement Left Femoral Triple Lumen Catheter Aseptic technique was employed throughout the procedure: Hand Hygiene done prior to procedure, Full sterile barriers (mask, hair cover, sterile gown, sterile gloves), Full body sterile drape, Chloraprep Antiseptic: 2 minute prep for Femoral CVP Time Out Performed: Yes Pt. Placed on Pulse Ox Monitor: Yes Central Line Prep: Chlorhexidine-Alcohol Combination Local Anesthesia Used: Lidocaine 1% Amount of Anesthesia Used (mls): 5 Ultrasound Used for Placement: Yes Central Line Lumen Inserted: triple Central Line Length: 20 cm Post Procedure: Sutured in Place, Good Blood Return, All Ports Aspirated, Flushed, Capped, Sterile Dressing Applied Secured by: Suture Post procedure dressing: Chlorhexidine disc (Biopatch) Post Procedure X-Ray: No Patient Tolerated Procedure: Well, No Complications Immediate Complications: None Additional Comments: Ultrasound guided TLC placed in left femoral vein. Supervised by attending physician, Dr. Deidra MD and senior resident, Dr. Rouse, PGY2.
[2017-09-14 10:27] LABS: ALB/GLOB RATIO 0.8 (1.1-1.8); ALBUMIN 2.3 g/dL (3.0-4.8); CALCIUM 6.8 mg/dL (8.4-10.5)
[2017-09-14] MEDS ORDERED: Magnesium Sulfate 2 GM in Sodium Chloride 0.9% 100 ML IVPB ONE (10:29)
[2017-09-14 12:21] LABS: VENOUS BLOOD GAS PO2 37 mm/Hg (30-55); VENOUS BLOOD PH 7.19 (7.32-7.43)
[2017-09-14 12:48] LABS: CALCIUM 7.2 mg/dL (8.4-10.5)
[2017-09-14 13:09] LABS: TOTAL PROTEIN,RANDOM URINE 152 mg/L
[2017-09-14 13:14] LABS: BARBITURATES, UR NEGATIVE (NEGATIVE); BENZODIAZEPINES, UR NEGATIVE (NEGATIVE); OPIATES, UR NEGATIVE (NEGATIVE)
[2017-09-14 13:23] LABS: PHENCYCLIDINE, UR NEGATIVE (NEGATIVE)
[2017-09-14 14:05] LABS: ARTERIAL BLOOD GAS HCO3 12.4 mmol/L (21-28); ARTERIAL BLOOD GAS O2 SAT 96.5 % (95-98); ARTERIAL BLOOD GAS PCO2 24 mm/Hg (35-45); ARTERIAL BLOOD GAS PH 7.32 (7.35-7.45); ARTERIAL BLOOD GAS TCO2 13.1 mmol.L (22-28)
--- NOTE | 2017-09-14 15:33 | CARD ---
APPROVED REPORT EXAM: Two-dimensional and M-mode echocardiogram with Doppler and color Doppler. INDICATION SOB/SEPSIS/HYPOTENSION 2D DIMENSIONS Left Atrium (2D)3.9 (1.6-4.0cm)IVSd1.1 (0.7-1.1cm) LVDd3.7 (3.9-5.9cm)PWd1.1 (0.7-1.1cm) LVDs2.4 (2.5-4.0cm)FS (%) 34.4 % LVEF (%)64.3 (>50%) M-Mode DIMENSIONS Aortic Root3.40 (2.2-3.7cm)Aortic Cusp Exc.2.00 (1.5-2.0cm) Aortic Valve AoV Peak Tujxpnfp442.0cm/Fiona Peak GR.22mmHg Mitral Valve MV E Dagpoqqj82.7cm/sMV A Bwbpoepw65.6cm/sE/A ratio1.4 TDI Lateral E' Peak V17.30cm/sMedial E' Peak V11.40cm/sE/Lateral E'5.6 E/Medial E'8.6 Pulmonary Valve PV Peak Vdszdzhw54.9cm/sPV Peak Grad.3mmHg Tricuspid Valve TR Peak Oxocafvy940hw/sRAP [id number] Peak Gr.32mmHg [id number] LEFT VENTRICLE The left ventricle is normal size. There is normal left ventricular wall thickness. The left ventricular function is normal.EF-65% There is normal LV segmental wall motion. The left ventricular diastolic function is normal. No left ventricle thrombus noted on this study. There is no ventricular septal defect visualized. There is no left ventricular aneurysm. There is no mass noted in the left ventricle. RIGHT VENTRICLE The right ventricle is normal size. There is normal right ventricular wall thickness. The right ventricular systolic function is normal. ATRIA The left atrium size is normal. The right atrium size is normal. The interatrial septum is intact with no evidence for an atrial septal defect. AORTIC VALVE The aortic valve is thickened but opens well. No aortic regurgitation is present. There is no aortic valvular stenosis. There is no aortic valvular vegetation. MITRAL VALVE The mitral valve is thickened but opens well. Mitral regurgitation is trace. There is no mitral valve stenosis. There is no evidence of mitral valve prolapse. TRICUSPID VALVE The tricuspid valve leaflets are thickened , but open well. There is mild tricuspid regurgitation.RVSP-42 mmof hg. There is no tricuspid valve stenosis. There is no tricuspid valve prolapse or vegetation. PULMONIC VALVE The pulmonic valve is not well visualized. GREAT VESSELS The aortic root is normal in size. The ascending aorta is normal in size. The pulmonary artery is normal. The IVC is normal in size and collapses >50% with inspiration. PERICARDIAL EFFUSION There is no pleural effusion. There is no pericardial effusion. <Conclusion> Normal chamber Size. EF-65% Mitral regurgitation is trace. There is mild tricuspid regurgitation.RVSP-42 mmof hg. The IVC is normal in size and collapses >50% with inspiration. There is no pericardial effusion.
[2017-09-14 16:01] LABS: CALCIUM 7.2 mg/dL (8.4-10.5)
[2017-09-14] MEDS ORDERED: Insulin Lispro (humaLOG) MEDIUM Coverage SC SCH (16:30)
[2017-09-14] MEDS: Lactated Ringer's 1,000 ML IV SCH (16:33)
[2017-09-14] MEDS: Pantoprazole 40mg/100mL NS 40 MG/100 ML BAG IVPB SCH ×2 (17:05→22:00)
[2017-09-14 17:11] LABS: HEMOGLOBIN 8.9 g/dL (12.0-16.0); MEAN CELL VOLUME 78.9 fl (80.0-105.0); MEAN CORPUSCULAR HEMOGLOBIN 26.4 pg (25.0-35.0); MEAN CORPUSCULAR HGB CONC 33.5 g/dl (31.0-37.0); MEAN PLATELET VOLUME 11.3 fl (7.0-11.0); RBC 3.37 10^6/uL (3.5-6.1); WHITE BLOOD COUNT 10.7 10^3/ul (4.5-11.0)
[2017-09-14] MEDS: Insulin Lispro (humaLOG) MEDIUM Coverage SC SCH (18:05)
[2017-09-14 21:07] LABS: BASO # 0.02 K/mm3 (0.0-2.0); BASO % 0.1 % (0.0-3.0); EOS % 0.1 % (1.5-5.0); GRAN # 12.76 (1.4-6.5); GRAN % 89.6 % (50.0-68.0); HEMOGLOBIN 8.7 g/dL (12.0-16.0); LYMPH # 1.2 (1.2-3.4); LYMPH % 8.4 % (22.0-35.0); MEAN CORPUSCULAR HEMOGLOBIN 26.5 pg (25.0-35.0); MEAN CORPUSCULAR HGB CONC 33.6 g/dl (31.0-37.0); MEAN PLATELET VOLUME 11.7 fl (7.0-11.0); MONO # 0.3 (0.1-0.6); MONO % 1.8 % (1.0-6.0); RBC 3.28 10^6/uL (3.5-6.1); RED CELL DISTRIBUTION WIDTH 17.1 % (11.5-14.5); WHITE BLOOD COUNT 14.2 10^3/ul (4.5-11.0)
[2017-09-14 21:17] LABS: CALCIUM 7.3 mg/dL (8.4-10.5)
[2017-09-14] MEDS: Meropenem 500 MG in Sodium Chloride 0.9% 50 ML IVPB SCH (21:58)
--- NOTE | 2017-09-14 22:44 | CON ---
DATE: 09/14/2017 LOCATION: The patient is seen in the ICU in bed 124. CHIEF COMPLAINT: Fever x1 day duration. HISTORY OF PRESENT ILLNESS: This is a 42-year-old female with morbid obesity, BMI of 41, alcohol abuse, substance abuse, anemia, diabetes mellitus who is also admitted. The patient was seen in [facility] few days ago for nausea and admitted for vomiting and loose bowel movements and was found to have low blood pressure pressed on pressors, had a CAT scan, which shows gangrenous pyelonephritis and infectious disease consultation requested. REVIEW OF SYSTEMS: Reveals the patient has fevers and chills and hypertensive and weakness, nausea and vomiting. PAST MEDICAL HISTORY: Significant for diabetes mellitus, morbid obesity, BMI of 41 and alcohol and substance abuse, anemia. PAST SURGICAL HISTORY: Noncontributory. MEDICATIONS: The patient's medications at home include Glucotrol and Glucophage. PHYSICAL EXAMINATION: VITAL SIGNS: The patient has temperature of 101, pulse rate of 110, respiratory rate of 23, blood pressure was down to 80 systolic. HEENT: Examination of HEENT is unremarkable. NECK: Supple. LUNGS: Have decreased breath sounds. HEART: Normal S1, S2. ABDOMEN: Examination is soft, nontender. The patient does have a femoral line that was displaced today. LABORATORY DATA: Laboratory examination reveals the patient has white count of 20,000, hemoglobin 11, platelets of 165 and coagulation is noted and the chemistries reveals a BUN of 52, creatinine of 3.2. Urinalysis is noted and microbiology is pending. CAT scan report of the abdomen and pelvis shows gas in the left ureter and left renal collecting system and emphysematous pyelonephritis. 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 We will check on the blood cultures, urine cultures, Methicillin-resistant Staphylococcus aureus screen and procalcitonin has been ordered and the patient started on Flagyl and meropenem. We will adjust the meropenem due to renal failure x 500 mg IV every 12 pending initial workup results. The patient already received a dose of vancomycin and we will order an HIV test because of her age. I will make further recommendations upon the availability of gonzalez cultures for this patient whose septic shock has a femoral line due to excess in her obesity. We will encourage to discontinue the femoral line as early as 24-hours once the patient is stabilized. Brandan Morejon MD
[2017-09-14 23:42] LABS: ARTERIAL BLOOD GAS HCO3 11.9 mmol/L (21-28); ARTERIAL BLOOD GAS O2 SAT 80.6 % (95-98); ARTERIAL BLOOD GAS PCO2 23 mm/Hg (35-45); ARTERIAL BLOOD GAS PH 7.32 (7.35-7.45); ARTERIAL BLOOD GAS TCO2 12.6 mmol.L (22-28)
[2017-09-15] MEDS: Lactated Ringer's 1,000 ML IV SCH (00:30)
[2017-09-15 01:37] LABS: ARTERIAL BLOOD GAS HCO3 12.4 mmol/L (21-28); ARTERIAL BLOOD GAS O2 SAT 99.7 % (95-98); ARTERIAL BLOOD GAS PCO2 27 mm/Hg (35-45); ARTERIAL BLOOD GAS PH 7.27 (7.35-7.45); ARTERIAL BLOOD GAS TCO2 13.2 mmol.L (22-28)
[2017-09-15] MEDS ORDERED: Sodium Bicarbonate (8.4%) 50 Meq Syringe IVP ONE (01:49)
[2017-09-15] MEDS: Pantoprazole 40mg/100mL NS 40 MG/100 ML BAG IVPB SCH ×4 (03:00→23:52)
[2017-09-15 05:50] LABS: BASO # 0.01 K/mm3 (0.0-2.0); BASO % 0.1 % (0.0-3.0); GRAN # 11.28 (1.4-6.5); GRAN % 88.1 % (50.0-68.0); HEMOGLOBIN 8.4 g/dL (12.0-16.0); LYMPH # 1.4 (1.2-3.4); LYMPH % 10.5 % (22.0-35.0); MEAN CELL VOLUME 79.1 fl (80.0-105.0); MEAN CORPUSCULAR HEMOGLOBIN 26.6 pg (25.0-35.0); MEAN CORPUSCULAR HGB CONC 33.6 g/dl (31.0-37.0); MONO # 0.2 (0.1-0.6); MONO % 1.3 % (1.0-6.0); PLATELET COUNT 63 10^3/uL (120.0-450.0); RBC 3.16 10^6/uL (3.5-6.1); RED CELL DISTRIBUTION WIDTH 17.4 % (11.5-14.5); WHITE BLOOD COUNT 12.8 10^3/ul (4.5-11.0)
[2017-09-15] MEDS ORDERED: Vancomycin 1gm in NS 250ml 1 GM/250 ML BAG IVPB SCH (06:00)
--- NOTE | 2017-09-15 06:07 | CP.PCM.PN ---
<Porsha Nicolas - Last Filed: 09/15/17 08:00> Subjective - Date & Time of Evaluation Date of Evaluation: 09/15/17 Time of Evaluation: 07:11 - Subjective Subjective: Nephrology Progress Note for Leonila Oglesby PGY2 Patient seen and examined at bedside. Overnight patient became hypoxic and was placed on venti-mask. This morning she is off of pressors, but lethargic on examination. She reports having shortness of breath, but keeps falling asleep during interview. ROS could not be obtained. Patient was found to have melena yesterday. Objective - Vital Signs/Intake and Output Vital Signs (last 24 hours): Temp Pulse Resp BP Pulse Ox 98.2 F 119 H 29 H 105/84 98 09/15/17 00:00 09/15/17 04:00 09/15/17 04:00 09/15/17 04:00 09/15/17 04:00 Intake and Output: 09/14/17 09/15/17 18:59 06:59 Intake Total 366 38 Balance 366 38 - Medications Medications: Current Medications Heparin Sodium (Porcine) (Heparin) 5,000 units SC Q12 BOB PRN Reason: Protocol Last Admin: 09/14/17 21:44 Dose: 5,000 units Hydrocortisone Sodium Succinate (Solu-Cortef) 100 mg IVP Q8 BOB Last Admin: 09/15/17 05:10 Dose: 100 mg Acetaminophen (Ofirmev) 1,000 mg in 100 mls @ 400 mls/hr IVPB Q6H PRN PRN Reason: Fever Stop: 09/16/17 05:43 Last Admin: 09/14/17 14:37 Dose: 400 mls/hr Vasopressin 20 units/ Sodium (Chloride) 101 mls @ 9.09 mls/hr IV .Q11H7M BOB; 0.03 U/MIN PRN Reason: Protocol Last Admin: 09/14/17 21:20 Dose: 9.09 mls/hr NOREPINEPHRINE BIT/0.9 % NACL (Levophed 4 Mg/ 250 Ml Ns Premixed) 4 mg in 250 mls @ 15 mls/hr IV .[id number] PRN; Protocol; 4 MCG/MIN PRN Reason: TITRATE PER MD ORDER Last Titration: 09/15/17 00:00 Dose: 2 mcg/min, 7.5 mls/hr Meropenem 500 mg/ Sodium (Chloride) 50 mls @ 100 mls/hr IVPB Q12 BOB PRN Reason: Protocol Stop: 09/23/17 22:01 Last Admin: 09/14/17 21:58 Dose: 100 mls/hr Lactated Ringer's (Lactated Ringer's) 1,000 mls @ 125 mls/hr IV .Q8H [facility] Last Admin: 09/15/17 00:30 Dose: 125 mls/hr Pantoprazole Sodium (Protonix 40mg Ivpb) 40 mg in 100 mls @ 20 mls/hr IVPB .Q5H [facility] Last Admin: 09/15/17 03:00 Dose: 20 mls/hr Insulin Human Lispro (Humalog Med) 0 units SC Q6H BOB PRN Reason: Protocol Last Admin: 09/15/17 00:00 Dose: Not Given Ondansetron HCl (Zofran Inj) 4 mg IVP Q4H PRN PRN Reason: Nausea/Vomiting Last Admin: 09/14/17 16:13 Dose: 4 mg Vitamin A (Vitamin A & D Oint Ud Foilpak) 1 ea TOP Q2 PRN PRN Reason: Dry mouth - Labs Labs: 09/15/17 05:30 09/14/17 21:00 PT 16.4 SECONDS (9.4-12.5) H 09/14/17 07:49 INR 1.42 (0.93-1.08) H 09/14/17 07:49 APTT 28.0 Seconds (25.1-36.5) 09/14/17 04:50 - Constitutional Appears: Confused - Head Exam Head Exam: ATRAUMATIC, NORMAL INSPECTION, NORMOCEPHALIC - Eye Exam Eye Exam: Normal appearance, PERRL Pupil Exam: NORMAL ACCOMODATION, PERRL - Neck Exam Neck Exam: Full ROM, Normal Inspection - Respiratory Exam Respiratory Exam: Clear to Ausculation Bilateral, NORMAL BREATHING PATTERN. absent: Rales, Rhonchi, Wheezes - Cardiovascular Exam Cardiovascular Exam: Tachycardia, REGULAR RHYTHM, +S1, +S2. absent: Gallop, Rubs, Murmur - GI/Abdominal Exam GI & Abdominal Exam: Soft, Normal Bowel Sounds. absent: Tenderness, Mass, Rebound - Extremities Exam Extremities Exam: Normal Inspection. absent: Calf Tenderness, Pedal Edema - Neurological Exam Neurological Exam: Altered, CN II-XII Intact - Skin Skin Exam: Dry, Warm Assessment and Plan - Assessment and Plan (Free Text) Assessment: This is a 42yo female with past medical history of NIDDM who is admitted for 1. 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 Acute renal failure (multi-factorial cause) 3. GI bleed 4. DKA (improved) 5. Anion gap metabolic acidosis (secondary to DKA v. lactic acidosis) 6. Dehydration 7. Anemia 8. Thrombocytopenia Plan: Patient is on IV antibiotics. Cr is stable at this time. Urine studies showed pre-renal etiology, but renal failure multi-factorial due to septic shock with bacteremia and R granulomatous pyelonephritis. IR and Urology did not recommend drainage at this time. Continue to monitor I&O as well as BMP closely. Anion gap is improving. Do not recommend acute dialysis. Continue aggressive IV hydration with sodium bicarb. Patient is on protonix drip. Recommend to d/c heparin due to active GI bleed as well as anemia and thrombocytopenia. We will monitor this patient closely. Case seen, discussed and reviewed with Dr. Marie. Leonila Nicolas PGY2 <Leo Marie S - Last Filed: 09/15/17 08:34> Objective - Vital Signs/Intake and Output Vital Signs (last 24 hours): Temp Pulse Resp BP Pulse Ox 98.2 F 116 H 32 H 112/74 94 L 09/15/17 00:00 09/15/17 06:02 09/15/17 06:02 09/15/17 06:02 09/15/17 06:02 Intake and Output: 09/15/17 09/15/17 06:59 18:59 Intake Total 2073 Output Total 350 Balance 1723 - Medications Medications: Current Medications Hydrocortisone Sodium Succinate (Solu-Cortef) 100 mg IVP Q8 BOB Last Admin: 09/15/17 05:10 Dose: 100 mg Acetaminophen (Ofirmev) 1,000 mg in 100 mls @ 400 mls/hr IVPB Q6H PRN PRN Reason: Fever Stop: 09/16/17 05:43 Last Admin: 09/14/17 14:37 Dose: 400 mls/hr Vasopressin 20 units/ Sodium (Chloride) 101 mls @ 9.09 mls/hr IV .Q11H7M BOB; 0.03 U/MIN PRN Reason: Protocol Last Admin: 09/14/17 21:20 Dose: 9.09 mls/hr NOREPINEPHRINE BIT/0.9 % NACL (Levophed 4 Mg/ 250 Ml Ns Premixed) 4 mg in 250 mls @ 15 mls/hr IV .[id number] PRN; Protocol; 4 MCG/MIN PRN Reason: TITRATE PER MD ORDER Last Titration: 09/15/17 00:00 Dose: 2 mcg/min, 7.5 mls/hr Meropenem 500 mg/ Sodium (Chloride) 50 mls @ 100 mls/hr IVPB Q12 BOB PRN Reason: Protocol Stop: 09/23/17 22:01 Last Admin: 09/14/17 21:58 Dose: 100 mls/hr Lactated Ringer's (Lactated Ringer's) 1,000 mls @ 125 mls/hr IV .Q8H BOB Last Admin: 09/15/17 00:30 Dose: 125 mls/hr Pantoprazole Sodium (Protonix 40mg Ivpb) 40 mg in 100 mls @ 20 mls/hr IVPB .Q5H BOB Last Admin: 09/15/17 03:00 Dose: 20 mls/hr Insulin Human Regular 100 (units/ Sodium Chloride) 100 mls @ 2 mls/hr IV .Q24H PRN; Protocol; 2 UNITS/HR PRN Reason: TITRATE PER MD ORDER Sodium Bicarbonate 150 meq/ (Dextrose) 1,150 mls @ 125 mls/hr IV .Q9H12M BOB Insulin Human Lispro (Humalog Med) 0 units SC Q6H BOB PRN Reason: Protocol Last Admin: 09/15/17 06:32 Dose: 7 units Ondansetron HCl (Zofran Inj) 4 mg IVP Q4H PRN PRN Reason: Nausea/Vomiting Last Admin: 09/14/17 16:13 Dose: 4 mg Vitamin A (Vitamin A & D Oint Ud Foilpak) 1 ea TOP Q2 PRN PRN Reason: Dry mouth - Labs Labs: 09/15/17 05:30 09/15/17 06:56 PT 16.4 SECONDS (9.4-12.5) H 09/14/17 07:49 INR 1.42 (0.93-1.08) H 09/14/17 07:49 APTT 29.0 Seconds (25.1-36.5) 09/15/17 05:30 Assessment and Plan - Assessment and Plan (Free Text) Plan: Pt seen and examined. Agree with above note of chief medical physicist. Labs and medications reviewed. Will add HCO3 drip. JOSE D is improving with improving urine output. BCx positive with gram neg rods. Spoke to Dr Major, no intervention planned. ABG reviewed. Unlikely that this is TTP-HUS. Will need to continue with hydration. Correction: The pyelonephritis is on the left side.
[2017-09-15 06:15] LABS: ARTERIAL BLOOD GAS HCO3 15.3 mmol/L (21-28); ARTERIAL BLOOD GAS O2 SAT 99.3 % (95-98); ARTERIAL BLOOD GAS PCO2 27 mm/Hg (35-45); ARTERIAL BLOOD GAS PH 7.36 (7.35-7.45); ARTERIAL BLOOD GAS TCO2 16.1 mmol.L (22-28)
[2017-09-15] MEDS: Insulin Lispro (humaLOG) MEDIUM Coverage SC SCH ×2 (06:32)
[2017-09-15 07:22] LABS: ALB/GLOB RATIO 0.8 (1.1-1.8); ALBUMIN 2.7 g/dL (3.0-4.8); CALCIUM 7.3 mg/dL (8.4-10.5)
--- NOTE | 2017-09-15 07:49 | PCM.URO ---
Urology Progress Note - Objective Lab Studies: Reviewed (gu plans : antibiotics, icu management , \ no gu procedures at this time full note to be dictated thanks for gu consult) Lab Results Last 24 Hours: Laboratory Results - last 24 hr 09/14/17 09/14/17 09/14/17 04:50 05:22 07:00 WBC RBC Hgb Hct MCV MCH MCHC RDW Plt Count MPV Gran % Lymph % (Auto) Rice % (Auto) Eos % (Auto) Baso % (Auto) Gran # Lymph # (Auto) Rice # (Auto) Eos # (Auto) Baso # (Auto) PT INR APTT pCO2 pO2 HCO3 ABG pH ABG Total CO2 ABG O2 Saturation ABG Base Excess ABG Potassium VBG pH VBG pCO2 VBG HCO3 VBG Total CO2 VBG O2 Sat (Calc) VBG Base Excess VBG Potassium Glucose Lactate FiO2 Sodium Potassium Chloride Carbon Dioxide Anion Gap BUN Creatinine Est GFR ( Amer) Est GFR (Non-Af Amer) POC Glucose (mg/dL) Random Glucose Hemoglobin A1c Lactic Acid Calcium Phosphorus Magnesium Transferrin 141.74 L Ferritin 239.0 Total Bilirubin AST ALT Alkaline Phosphatase Total Protein Albumin Globulin Albumin/Globulin Ratio Triglycerides Cholesterol LDL Cholesterol Direct HDL Cholesterol TSH 3rd Generation Arterial Blood Potassium Venous Blood Potassium Urine Eosinophils Negative Ur Random Creatinine U Random Total Protein Ur Random Sodium Stool Occult Blood Salicylates Urine Opiates Screen Urine Methadone Screen Acetaminophen Ur Barbiturates Screen Ur Phencyclidine Scrn Ur Amphetamines Screen U Benzodiazepines Scrn U Oth Cocaine Metabols U Cannabinoids Screen 09/14/17 09/14/17 09/14/17 07:00 07:00 07:00 WBC RBC Hgb Hct MCV MCH MCHC RDW Plt Count MPV Gran % Lymph % (Auto) Rice % (Auto) Eos % (Auto) Baso % (Auto) Gran # Lymph # (Auto) Rice # (Auto) Eos # (Auto) Baso # (Auto) PT INR APTT pCO2 pO2 HCO3 ABG pH ABG Total CO2 ABG O2 Saturation ABG Base Excess ABG Potassium VBG pH VBG pCO2 VBG HCO3 VBG Total CO2 VBG O2 Sat (Calc) VBG Base Excess VBG Potassium Glucose Lactate FiO2 Sodium Potassium Chloride Carbon Dioxide Anion Gap BUN Creatinine Est GFR ( Amer) Est GFR (Non-Af Amer) POC Glucose (mg/dL) Random Glucose Hemoglobin A1c 8.9 H Lactic Acid Calcium Phosphorus Magnesium Transferrin Ferritin Total Bilirubin AST ALT Alkaline Phosphatase Total Protein Albumin Globulin Albumin/Globulin Ratio Triglycerides 166 H Cholesterol 99 L LDL Cholesterol Direct < 30 HDL Cholesterol 28 L TSH 3rd Generation Arterial Blood Potassium Venous Blood Potassium Urine Eosinophils Ur Random Creatinine U Random Total Protein Ur Random Sodium Stool Occult Blood Salicylates < 1 L Urine Opiates Screen Urine Methadone Screen Acetaminophen < 10.0 L Ur Barbiturates Screen Ur Phencyclidine Scrn Ur Amphetamines Screen U Benzodiazepines Scrn U Oth Cocaine Metabols U Cannabinoids Screen 09/14/17 09/14/17 09/14/17 07:00 07:49 07:49 WBC RBC Hgb Hct MCV MCH MCHC RDW Plt Count MPV Gran % Lymph % (Auto) Rice % (Auto) Eos % (Auto) Baso % (Auto) Gran # Lymph # (Auto) Rice # (Auto) Eos # (Auto) Baso # (Auto) PT 16.4 H INR 1.42 H APTT pCO2 pO2 HCO3 ABG pH ABG Total CO2 ABG O2 Saturation ABG Base Excess ABG Potassium VBG pH VBG pCO2 VBG HCO3 VBG Total CO2 VBG O2 Sat (Calc) VBG Base Excess VBG Potassium Glucose Lactate FiO2 Sodium 137 Potassium 3.5 L Chloride 103 Carbon Dioxide 17 L Anion Gap 21 H BUN 52 H Creatinine 3.2 H Est GFR ( Amer) 19 Est GFR (Non-Af Amer) 16 POC Glucose (mg/dL) Random Glucose 168 H Hemoglobin A1c Lactic Acid Calcium 7.9 L Phosphorus Magnesium Transferrin Ferritin Total Bilirubin AST ALT Alkaline Phosphatase Total Protein Albumin Globulin Albumin/Globulin Ratio Triglycerides Cholesterol LDL Cholesterol Direct HDL Cholesterol TSH 3rd Generation 2.85 Arterial Blood Potassium Venous Blood Potassium Urine Eosinophils Ur Random Creatinine U Random Total Protein Ur Random Sodium Stool Occult Blood Salicylates Urine Opiates Screen Urine Methadone Screen Acetaminophen Ur Barbiturates Screen Ur Phencyclidine Scrn Ur Amphetamines Screen U Benzodiazepines Scrn U Oth Cocaine Metabols U Cannabinoids Screen 09/14/17 09/14/17 09/14/17 08:02 08:46 08:53 WBC RBC Hgb Hct MCV MCH MCHC RDW Plt Count MPV Gran % Lymph % (Auto) Rice % (Auto) Eos % (Auto) Baso % (Auto) Gran # Lymph # (Auto) Rice # (Auto) Eos # (Auto) Baso # (Auto) PT INR APTT pCO2 28 L pO2 70.0 L HCO3 15.5 L ABG pH 7.35 ABG Total CO2 16.4 L ABG O2 Saturation 96.4 ABG Base Excess -8.6 L ABG Potassium 2.8 L VBG pH VBG pCO2 VBG HCO3 VBG Total CO2 VBG O2 Sat (Calc) VBG Base Excess VBG Potassium Glucose 171 H Lactate 4.0 H* FiO2 36.0 Sodium 136.0 Potassium Chloride 108.0 H Carbon Dioxide Anion Gap BUN Creatinine Est GFR ( Amer) Est GFR (Non-Af Amer) POC Glucose (mg/dL) 190 H 185 H Random Glucose Hemoglobin A1c Lactic Acid Calcium Phosphorus Magnesium Transferrin Ferritin Total Bilirubin AST ALT Alkaline Phosphatase Total Protein Albumin Globulin Albumin/Globulin Ratio Triglycerides Cholesterol LDL Cholesterol Direct HDL Cholesterol TSH 3rd Generation Arterial Blood Potassium 2.8 L Venous Blood Potassium Urine Eosinophils Ur Random Creatinine U Random Total Protein Ur Random Sodium Stool Occult Blood Salicylates Urine Opiates Screen Urine Methadone Screen Acetaminophen Ur Barbiturates Screen Ur Phencyclidine Scrn Ur Amphetamines Screen U Benzodiazepines Scrn U Oth Cocaine Metabols U Cannabinoids Screen 09/14/17 09/14/17 09/14/17 09:58 10:04 10:05 WBC 8.8 D RBC 3.06 L Hgb 8.1 L D Hct 24.0 L MCV 78.4 L MCH 26.5 MCHC 33.8 RDW 16.7 H Plt Count 66 L MPV 10.9 Gran % 90.8 H Lymph % (Auto) 7.9 L Rice % (Auto) 1.2 Eos % (Auto) 0.1 L Baso % (Auto) 0.0 Gran # 8.02 H Lymph # (Auto) 0.7 L Rice # (Auto) 0.1 Eos # (Auto) 0.0 Baso # (Auto) 0.00 PT INR APTT pCO2 pO2 HCO3 ABG pH ABG Total CO2 ABG O2 Saturation ABG Base Excess ABG Potassium VBG pH VBG pCO2 VBG HCO3 VBG Total CO2 VBG O2 Sat (Calc) VBG Base Excess VBG Potassium Glucose Lactate FiO2 Sodium 136 Potassium 3.4 L Chloride 107 Carbon Dioxide 17 L Anion Gap 15 BUN 46 H Creatinine 3.2 H Est GFR ( Amer) 19 Est GFR (Non-Af Amer) 16 POC Glucose (mg/dL) 185 H Random Glucose 163 H Hemoglobin A1c Lactic Acid Calcium 6.8 L* Phosphorus 2.7 Magnesium 1.5 L Transferrin Ferritin Total Bilirubin 0.8 AST 49 H D ALT 34 Alkaline Phosphatase 133 H Total Protein 5.2 L Albumin 2.3 L Globulin 2.9 Albumin/Globulin Ratio 0.8 L Triglycerides Cholesterol LDL Cholesterol Direct HDL Cholesterol TSH 3rd Generation Arterial Blood Potassium Venous Blood Potassium Urine Eosinophils Ur Random Creatinine U Random Total Protein Ur Random Sodium Stool Occult Blood Salicylates Urine Opiates Screen Urine Methadone Screen Acetaminophen Ur Barbiturates Screen Ur Phencyclidine Scrn Ur Amphetamines Screen U Benzodiazepines Scrn U Oth Cocaine Metabols U Cannabinoids Screen 09/14/17 09/14/17 09/14/17 10:55 12:00 12:00 WBC RBC Hgb Hct MCV MCH MCHC RDW Plt Count MPV Gran % Lymph % (Auto) Rice % (Auto) Eos % (Auto) Baso % (Auto) Gran # Lymph # (Auto) Rice # (Auto) Eos # (Auto) Baso # (Auto) PT INR APTT pCO2 pO2 HCO3 ABG pH ABG Total CO2 ABG O2 Saturation ABG Base Excess ABG Potassium VBG pH VBG pCO2 VBG HCO3 VBG Total CO2 VBG O2 Sat (Calc) VBG Base Excess VBG Potassium Glucose Lactate FiO2 Sodium Potassium Chloride Carbon Dioxide Anion Gap BUN Creatinine Est GFR ( Amer) Est GFR (Non-Af Amer) POC Glucose (mg/dL) 194 H Random Glucose Hemoglobin A1c Lactic Acid Calcium Phosphorus Magnesium Transferrin Ferritin Total Bilirubin AST ALT Alkaline Phosphatase Total Protein Albumin Globulin Albumin/Globulin Ratio Triglycerides Cholesterol LDL Cholesterol Direct HDL Cholesterol TSH 3rd Generation Arterial Blood Potassium Venous Blood Potassium Urine Eosinophils Ur Random Creatinine U Random Total Protein 152 Ur Random Sodium 31 Stool Occult Blood Salicylates Urine Opiates Screen Negative Urine Methadone Screen Negative Acetaminophen Ur Barbiturates Screen Negative Ur Phencyclidine Scrn Negative Ur Amphetamines Screen Negative U Benzodiazepines Scrn Negative U Oth Cocaine Metabols Negative U Cannabinoids Screen Negative 09/14/17 09/14/17 09/14/17 12:00 12:05 12:10 WBC RBC Hgb Hct MCV MCH MCHC RDW Plt Count MPV Gran % Lymph % (Auto) Rice % (Auto) Eos % (Auto) Baso % (Auto) Gran # Lymph # (Auto) Rice # (Auto) Eos # (Auto) Baso # (Auto) PT INR APTT pCO2 pO2 HCO3 ABG pH ABG Total CO2 ABG O2 Saturation ABG Base Excess ABG Potassium VBG pH VBG pCO2 VBG HCO3 VBG Total CO2 VBG O2 Sat (Calc) VBG Base Excess VBG Potassium Glucose Lactate FiO2 Sodium 137 Potassium 4.5 Chloride 107 Carbon Dioxide 15 L Anion Gap 20 BUN 44 H Creatinine 3.1 H Est GFR ( Amer) 20 Est GFR (Non-Af Amer) 17 POC Glucose (mg/dL) 195 H Random Glucose 215 H Hemoglobin A1c Lactic Acid Calcium 7.2 L Phosphorus Magnesium Transferrin Ferritin Total Bilirubin AST ALT Alkaline Phosphatase Total Protein Albumin Globulin Albumin/Globulin Ratio Triglycerides Cholesterol LDL Cholesterol Direct HDL Cholesterol TSH 3rd Generation Arterial Blood Potassium Venous Blood Potassium Urine Eosinophils Ur Random Creatinine 87 U Random Total Protein Ur Random Sodium Stool Occult Blood Salicylates Urine Opiates Screen Urine Methadone Screen Acetaminophen Ur Barbiturates Screen Ur Phencyclidine Scrn Ur Amphetamines Screen U Benzodiazepines Scrn U Oth Cocaine Metabols U Cannabinoids Screen 09/14/17 09/14/17 09/14/17 12:10 12:51 13:48 WBC RBC Hgb Hct MCV MCH MCHC RDW Plt Count MPV Gran % Lymph % (Auto) Rice % (Auto) Eos % (Auto) Baso % (Auto) Gran # Lymph # (Auto) Rice # (Auto) Eos # (Auto) Baso # (Auto) PT INR APTT pCO2 pO2 37 HCO3 ABG pH ABG Total CO2 ABG O2 Saturation ABG Base Excess ABG Potassium VBG pH 7.19 L* VBG pCO2 38.0 L VBG HCO3 14.5 L VBG Total CO2 15.7 L VBG O2 Sat (Calc) 74.2 H VBG Base Excess -13.0 L VBG Potassium 4.4 Glucose 242 H Lactate 4.9 H* FiO2 21.0 Sodium 134.0 Potassium Chloride 109.0 H Carbon Dioxide Anion Gap BUN Creatinine Est GFR ( Amer) Est GFR (Non-Af Amer) POC Glucose (mg/dL) 203 H 224 H Random Glucose Hemoglobin A1c Lactic Acid Calcium Phosphorus Magnesium Transferrin Ferritin Total Bilirubin AST ALT Alkaline Phosphatase Total Protein Albumin Globulin Albumin/Globulin Ratio Triglycerides Cholesterol LDL Cholesterol Direct HDL Cholesterol TSH 3rd Generation Arterial Blood Potassium Venous Blood Potassium 4.4 Urine Eosinophils Ur Random Creatinine U Random Total Protein Ur Random Sodium Stool Occult Blood Salicylates Urine Opiates Screen Urine Methadone Screen Acetaminophen Ur Barbiturates Screen Ur Phencyclidine Scrn Ur Amphetamines Screen U Benzodiazepines Scrn U Oth Cocaine Metabols U Cannabinoids Screen 09/14/17 09/14/17 09/14/17 13:55 14:54 15:36 WBC RBC Hgb Hct MCV MCH MCHC RDW Plt Count MPV Gran % Lymph % (Auto) Rice % (Auto) Eos % (Auto) Baso % (Auto) Gran # Lymph # (Auto) Rice # (Auto) Eos # (Auto) Baso # (Auto) PT INR APTT pCO2 24 L pO2 71.0 L HCO3 12.4 L ABG pH 7.32 L ABG Total CO2 13.1 L ABG O2 Saturation 96.5 ABG Base Excess -11.8 L ABG Potassium 4.4 VBG pH VBG pCO2 VBG HCO3 VBG Total CO2 VBG O2 Sat (Calc) VBG Base Excess VBG Potassium Glucose 231 H Lactate 3.8 H FiO2 32.0 Sodium 135.0 138 Potassium 5.0 Chloride 110.0 H 108 H Carbon Dioxide 15 L Anion Gap 20 BUN 47 H Creatinine 2.9 H Est GFR ( Amer) 22 Est GFR (Non-Af Amer) 18 POC Glucose (mg/dL) 231 H Random Glucose 232 H Hemoglobin A1c Lactic Acid Calcium 7.2 L Phosphorus Magnesium Transferrin Ferritin Total Bilirubin AST ALT Alkaline Phosphatase Total Protein Albumin Globulin Albumin/Globulin Ratio Triglycerides Cholesterol LDL Cholesterol Direct HDL Cholesterol TSH 3rd Generation Arterial Blood Potassium 4.4 Venous Blood Potassium Urine Eosinophils Ur Random Creatinine U Random Total Protein Ur Random Sodium Stool Occult Blood Salicylates Urine Opiates Screen Urine Methadone Screen Acetaminophen Ur Barbiturates Screen Ur Phencyclidine Scrn Ur Amphetamines Screen U Benzodiazepines Scrn U Oth Cocaine Metabols U Cannabinoids Screen 09/14/17 09/14/17 09/14/17 15:54 16:27 17:00 WBC 10.7 D RBC 3.37 L Hgb 8.9 L Hct 26.6 L MCV 78.9 L MCH 26.4 MCHC 33.5 RDW 17.0 H Plt Count 75 L MPV 11.3 H Gran % Lymph % (Auto) Rice % (Auto) Eos % (Auto) Baso % (Auto) Gran # Lymph # (Auto) Rice # (Auto) Eos # (Auto) Baso # (Auto) PT INR APTT pCO2 pO2 HCO3 ABG pH ABG Total CO2 ABG O2 Saturation ABG Base Excess ABG Potassium VBG pH VBG pCO2 VBG HCO3 VBG Total CO2 VBG O2 Sat (Calc) VBG Base Excess VBG Potassium Glucose Lactate FiO2 Sodium Potassium Chloride Carbon Dioxide Anion Gap BUN Creatinine Est GFR ( Amer) Est GFR (Non-Af Amer) POC Glucose (mg/dL) 231 H Random Glucose Hemoglobin A1c Lactic Acid Calcium Phosphorus Magnesium Transferrin Ferritin Total Bilirubin AST ALT Alkaline Phosphatase Total Protein Albumin Globulin Albumin/Globulin Ratio Triglycerides Cholesterol LDL Cholesterol Direct HDL Cholesterol TSH 3rd Generation Arterial Blood Potassium Venous Blood Potassium Urine Eosinophils Ur Random Creatinine U Random Total Protein Ur Random Sodium Stool Occult Blood Positive H Salicylates Urine Opiates Screen Urine Methadone Screen Acetaminophen Ur Barbiturates Screen Ur Phencyclidine Scrn Ur Amphetamines Screen U Benzodiazepines Scrn U Oth Cocaine Metabols U Cannabinoids Screen 09/14/17 09/14/17 09/14/17 17:46 21:00 21:00 WBC 14.2 H D RBC 3.28 L Hgb 8.7 L Hct 25.9 L MCV 79.0 L MCH 26.5 MCHC 33.6 RDW 17.1 H Plt Count 75 L MPV 11.7 H Gran % 89.6 H Lymph % (Auto) 8.4 L Rice % (Auto) 1.8 Eos % (Auto) 0.1 L Baso % (Auto) 0.1 Gran # 12.76 H Lymph # (Auto) 1.2 Rice # (Auto) 0.3 Eos # (Auto) 0.0 Baso # (Auto) 0.02 PT INR APTT pCO2 pO2 HCO3 ABG pH ABG Total CO2 ABG O2 Saturation ABG Base Excess ABG Potassium VBG pH VBG pCO2 VBG HCO3 VBG Total CO2 VBG O2 Sat (Calc) VBG Base Excess VBG Potassium Glucose Lactate FiO2 Sodium 138 Potassium 4.9 Chloride 107 Carbon Dioxide 14 L Anion Gap 22 H BUN 47 H Creatinine 3.0 H Est GFR ( Amer) 21 Est GFR (Non-Af Amer) 17 POC Glucose (mg/dL) 251 H Random Glucose 235 H Hemoglobin A1c Lactic Acid Calcium 7.3 L Phosphorus Magnesium Transferrin Ferritin Total Bilirubin AST ALT Alkaline Phosphatase Total Protein Albumin Globulin Albumin/Globulin Ratio Triglycerides Cholesterol LDL Cholesterol Direct HDL Cholesterol TSH 3rd Generation Arterial Blood Potassium Venous Blood Potassium Urine Eosinophils Ur Random Creatinine U Random Total Protein Ur Random Sodium Stool Occult Blood Salicylates Urine Opiates Screen Urine Methadone Screen Acetaminophen Ur Barbiturates Screen Ur Phencyclidine Scrn Ur Amphetamines Screen U Benzodiazepines Scrn U Oth Cocaine Metabols U Cannabinoids Screen 09/14/17 09/15/17 09/15/17 23:28 01:30 05:30 WBC 12.8 H RBC 3.16 L Hgb 8.4 L Hct 25.0 L MCV 79.1 L MCH 26.6 MCHC 33.6 RDW 17.4 H Plt Count 63 L MPV Gran % 88.1 H Lymph % (Auto) 10.5 L Rice % (Auto) 1.3 Eos % (Auto) 0.0 L Baso % (Auto) 0.1 Gran # 11.28 H Lymph # (Auto) 1.4 Rice # (Auto) 0.2 Eos # (Auto) 0.0 Baso # (Auto) 0.01 PT INR APTT pCO2 23 L 27 L pO2 37.0 L* 121.0 H HCO3 11.9 L 12.4 L ABG pH 7.32 L 7.27 L ABG Total CO2 12.6 L 13.2 L ABG O2 Saturation 80.6 L 99.7 H ABG Base Excess -12.2 L -12.9 L ABG Potassium 4.9 4.5 VBG pH VBG pCO2 VBG HCO3 VBG Total CO2 VBG O2 Sat (Calc) VBG Base Excess VBG Potassium Glucose 279 H 276 H Lactate 4.4 H* 2.8 H FiO2 21.0 50.0 Sodium 135.0 139.0 Potassium Chloride 113.0 H 115.0 H Carbon Dioxide Anion Gap BUN Creatinine Est GFR ( Amer) Est GFR (Non-Af Amer) POC Glucose (mg/dL) Random Glucose Hemoglobin A1c Lactic Acid Calcium Phosphorus Magnesium Transferrin Ferritin Total Bilirubin AST ALT Alkaline Phosphatase Total Protein Albumin Globulin Albumin/Globulin Ratio Triglycerides Cholesterol LDL Cholesterol Direct HDL Cholesterol TSH 3rd Generation Arterial Blood Potassium 4.9 4.5 Venous Blood Potassium Urine Eosinophils Ur Random Creatinine U Random Total Protein Ur Random Sodium Stool Occult Blood Salicylates Urine Opiates Screen Urine Methadone Screen Acetaminophen Ur Barbiturates Screen Ur Phencyclidine Scrn Ur Amphetamines Screen U Benzodiazepines Scrn U Oth Cocaine Metabols U Cannabinoids Screen 09/15/17 09/15/17 09/15/17 05:30 05:30 05:30 WBC RBC Hgb Hct MCV MCH MCHC RDW Plt Count MPV Gran % Lymph % (Auto) Rice % (Auto) Eos % (Auto) Baso % (Auto) Gran # Lymph # (Auto) Rice # (Auto) Eos # (Auto) Baso # (Auto) PT INR APTT 29.0 pCO2 pO2 HCO3 ABG pH ABG Total CO2 ABG O2 Saturation ABG Base Excess ABG Potassium VBG pH VBG pCO2 VBG HCO3 VBG Total CO2 VBG O2 Sat (Calc) VBG Base Excess VBG Potassium Glucose Lactate FiO2 Sodium Potassium Chloride Carbon Dioxide Anion Gap BUN Creatinine Est GFR ( Amer) Est GFR (Non-Af Amer) POC Glucose (mg/dL) Random Glucose Hemoglobin A1c Lactic Acid 3.3 H Calcium Phosphorus 4.9 H Magnesium 2.3 H Transferrin Ferritin Total Bilirubin AST ALT Alkaline Phosphatase Total Protein Albumin Globulin Albumin/Globulin Ratio Triglycerides Cholesterol LDL Cholesterol Direct HDL Cholesterol TSH 3rd Generation Arterial Blood Potassium Venous Blood Potassium Urine Eosinophils Ur Random Creatinine U Random Total Protein Ur Random Sodium Stool Occult Blood Salicylates Urine Opiates Screen Urine Methadone Screen Acetaminophen Ur Barbiturates Screen Ur Phencyclidine Scrn Ur Amphetamines Screen U Benzodiazepines Scrn U Oth Cocaine Metabols U Cannabinoids Screen 09/15/17 09/15/17 09/15/17 06:00 06:29 06:56 WBC RBC Hgb Hct MCV MCH MCHC RDW Plt Count MPV Gran % Lymph % (Auto) Rice % (Auto) Eos % (Auto) Baso % (Auto) Gran # Lymph # (Auto) Rice # (Auto) Eos # (Auto) Baso # (Auto) PT INR APTT pCO2 27 L pO2 131.0 H HCO3 15.3 L ABG pH 7.36 ABG Total CO2 16.1 L ABG O2 Saturation 99.3 H ABG Base Excess -8.6 L ABG Potassium 4.6 VBG pH VBG pCO2 VBG HCO3 VBG Total CO2 VBG O2 Sat (Calc) VBG Base Excess VBG Potassium Glucose 323 H Lactate 2.2 H FiO2 50.0 Sodium 137.0 141 Potassium 5.0 Chloride 112.0 H 108 H Carbon Dioxide 16 L Anion Gap 21 H BUN 52 H Creatinine 3.0 H Est GFR ( Amer) 21 Est GFR (Non-Af Amer) 17 POC Glucose (mg/dL) 306 H Random Glucose 296 H Hemoglobin A1c Lactic Acid Calcium 7.3 L Phosphorus Magnesium Transferrin Ferritin Total Bilirubin 1.0 AST 44 H ALT 41 Alkaline Phosphatase 133 H Total Protein 6.0 Albumin 2.7 L Globulin 3.3 Albumin/Globulin Ratio 0.8 L Triglycerides Cholesterol LDL Cholesterol Direct HDL Cholesterol TSH 3rd Generation Arterial Blood Potassium 4.6 Venous Blood Potassium Urine Eosinophils Ur Random Creatinine U Random Total Protein Ur Random Sodium Stool Occult Blood Salicylates Urine Opiates Screen Urine Methadone Screen Acetaminophen Ur Barbiturates Screen Ur Phencyclidine Scrn Ur Amphetamines Screen U Benzodiazepines Scrn U Oth Cocaine Metabols U Cannabinoids Screen Intake & Output: Intake & Output 09/14/17 09/15/17 09/15/17 18:59 06:59 18:59 Intake Total 366 2072 Output Total 350 Balance 366 1723 Weight 240 lb Intake: IV 366 3 Left Femoral 2034 Output: Urine 350 Urethral (Kumar) 350 Other: Voiding Method Indwelling Catheter Vital Signs: Vital Signs - 24 hr 09/14/17 09/14/17 09/14/17 10:00 11:20 11:49 Temperature Pulse Rate 122 H 130 H Respiratory 40 H Rate Blood Pressure 72/0 L O2 Sat by Pulse 95 Oximetry 09/14/17 09/14/17 09/14/17 12:00 12:01 12:30 Temperature Pulse Rate 129 H 124 H 131 H Respiratory 40 H 28 H 35 H Rate Blood Pressure 161/108 H O2 Sat by Pulse 95 95 Oximetry 09/14/17 09/14/17 09/14/17 12:44 13:00 13:01 Temperature Pulse Rate 126 H 126 H 127 H Respiratory 41 H 41 H Rate Blood Pressure 139/89 69/27 L O2 Sat by Pulse 96 97 Oximetry 09/14/17 09/14/17 09/14/17 13:17 13:30 13:51 Temperature Pulse Rate 129 H 126 H 125 H Respiratory 43 H 39 H 44 H Rate Blood Pressure 128/91 H 145/78 O2 Sat by Pulse 96 96 96 Oximetry 09/14/17 09/14/17 09/14/17 14:00 14:02 14:16 Temperature Pulse Rate 123 H 127 H 124 H Respiratory 32 H 24 45 H Rate Blood Pressure 176/85 H 141/104 H O2 Sat by Pulse 97 96 97 Oximetry 09/14/17 09/14/17 09/14/17 14:30 14:38 14:45 Temperature Pulse Rate 128 H 126 H 128 H Respiratory 33 H 43 H 28 H Rate Blood Pressure 171/93 H 161/109 H O2 Sat by Pulse 97 97 80 L Oximetry 09/14/17 09/14/17 09/14/17 15:00 15:01 15:16 Temperature Pulse Rate 130 H 131 H 133 H Respiratory 39 H 49 H Rate Blood Pressure 170/95 H 176/102 H O2 Sat by Pulse 80 L 98 96 Oximetry 09/14/17 09/14/17 09/14/17 15:30 15:31 16:00 Temperature Pulse Rate 135 H 134 H 139 H Respiratory 45 H 33 H Rate Blood Pressure 134/82 O2 Sat by Pulse 99 99 96 Oximetry 09/14/17 09/14/17 09/14/17 16:23 16:30 16:46 Temperature 102.9 F H 102.9 F H Pulse Rate 138 H 140 H 142 H Respiratory 44 H 42 H 44 H Rate Blood Pressure 156/77 H 150/87 O2 Sat by Pulse 95 88 L 96 Oximetry 09/14/17 09/14/17 09/14/17 17:00 17:30 17:59 Temperature 102.7 F H Pulse Rate 144 H 147 H 138 H Respiratory 54 H 43 H Rate Blood Pressure 131/74 O2 Sat by Pulse 92 L 86 L 85 L Oximetry 09/14/17 09/14/17 09/14/17 18:00 18:16 18:30 Temperature Pulse Rate 135 H 133 H 132 H Respiratory 44 H 44 H 41 H Rate Blood Pressure 123/69 O2 Sat by Pulse 95 96 96 Oximetry 09/14/17 09/14/17 09/14/17 19:00 19:17 19:30 Temperature Pulse Rate 134 H 137 H 133 H Respiratory 41 H Rate Blood Pressure 109/70 O2 Sat by Pulse 94 L 92 L Oximetry 09/14/17 09/14/17 09/14/17 20:00 20:02 20:30 Temperature Pulse Rate 127 H 127 H 140 H Respiratory 39 H 36 H 28 H Rate Blood Pressure 115/88 108/67 O2 Sat by Pulse 95 96 96 Oximetry 09/14/17 09/14/17 09/14/17 21:00 21:20 21:30 Temperature Pulse Rate 132 H 133 H Respiratory 41 H Rate Blood Pressure 124/69 114/82 114/82 O2 Sat by Pulse 95 97 Oximetry 09/14/17 09/14/17 09/14/17 22:00 22:02 22:30 Temperature Pulse Rate 127 H 126 H 129 H Respiratory 37 H 35 H 38 H Rate Blood Pressure 110/91 H 138/103 H O2 Sat by Pulse 98 99 99 Oximetry 09/14/17 09/14/17 09/14/17 22:49 23:00 23:02 Temperature Pulse Rate 125 H 145 H 143 H Respiratory 32 H 70 H 41 H Rate Blood Pressure 85/40 L 149/72 O2 Sat by Pulse 96 90 L 92 L Oximetry 09/14/17 09/14/17 09/15/17 23:30 23:34 00:00 Temperature 98.2 F Pulse Rate 148 H 142 H 142 H Respiratory 6 L 70 H Rate Blood Pressure 141/83 136/84 O2 Sat by Pulse 91 L 79 L Oximetry 09/15/17 09/15/17 09/15/17 00:26 00:30 01:00 Temperature Pulse Rate 135 H 138 H 132 H Respiratory 40 H 31 H 27 H Rate Blood Pressure 101/79 O2 Sat by Pulse 97 76 L 98 Oximetry 09/15/17 09/15/17 09/15/17 01:14 01:30 02:00 Temperature Pulse Rate 128 H 127 H 130 H Respiratory 29 H 29 H 43 H Rate Blood Pressure 114/71 126/68 O2 Sat by Pulse 97 99 98 Oximetry 09/15/17 09/15/17 09/15/17 02:02 02:30 03:00 Temperature Pulse Rate 125 H 119 H 125 H Respiratory 27 H 29 H 24 Rate Blood Pressure 106/70 63/28 L O2 Sat by Pulse 98 89 L 90 L Oximetry 09/15/17 09/15/17 09/15/17 03:30 03:31 04:00 Temperature Pulse Rate 123 H 124 H 119 H Respiratory 38 H 40 H 29 H Rate Blood Pressure 116/75 105/84 O2 Sat by Pulse 95 94 L 98 Oximetry 09/15/17 09/15/17 09/15/17 04:30 05:00 05:30 Temperature Pulse Rate 125 H 116 H 122 H Respiratory 39 H 27 H 37 H Rate Blood Pressure 119/78 121/77 115/84 O2 Sat by Pulse 88 L 96 97 Oximetry 09/15/17 09/15/17 06:00 06:02 Temperature Pulse Rate 118 H 116 H Respiratory 44 H 32 H Rate Blood Pressure 112/74 O2 Sat by Pulse 84 L 94 L Oximetry
[2017-09-15] MEDS: Insulin Regular 100 UNITS in Sodium Chloride 0.9% 99 ML IV PRN ×2 (08:44→20:00)
[2017-09-15] MEDS: Sodium Bicarbonate 8.4% 150 MEQ in Dextrose 5% In Water 1,000 ML IV SCH ×2 (08:44→18:23)
--- NOTE | 2017-09-15 08:55 | RAD ---
HISTORY: md order COMPARISON: 09/14/2017 FINDINGS: LUNGS: No active pulmonary disease. PLEURA: No significant pleural effusion identified, no pneumothorax apparent. CARDIOVASCULAR: Mild cardiomegaly and mild vascular congestion OSSEOUS STRUCTURES: No significant abnormalities. VISUALIZED UPPER ABDOMEN: Normal. OTHER FINDINGS: None. IMPRESSION: Mild cardiomegaly and mild vascular congestion
--- NOTE | 2017-09-15 09:02 | RAD ---
HISTORY: short of breath, desating COMPARISON: 09/15/2017 FINDINGS: LUNGS: No active pulmonary disease. PLEURA: No significant pleural effusion identified, no pneumothorax apparent. CARDIOVASCULAR: Mild cardiomegaly. Mild vascular congestion OSSEOUS STRUCTURES: No significant abnormalities. VISUALIZED UPPER ABDOMEN: Normal. OTHER FINDINGS: None. IMPRESSION: Mild cardiomegaly and mild vascular congestion
--- NOTE | 2017-09-15 09:11 | RAD ---
HISTORY: r/o stones COMPARISON: No prior. FINDINGS: BOWEL: Normal. No obstruction. No free air. BONES: Normal. OTHER FINDINGS: Left femoral catheter. IMPRESSION: No visible stones
[2017-09-15] MEDS: Meropenem 500 MG in Sodium Chloride 0.9% 50 ML IVPB SCH ×2 (09:46→22:18)
--- NOTE | 2017-09-15 09:48 | CP.CCUPN ---
<Indra Gilbert - Last Filed: 09/15/17 09:32> CCU Subjective - Physician Review Subjective (Free Text): ICU Progress Note Pt seen and examined at bedside. Overnight patient became hypoxic with pO2 of 37 on ABG and an elevated lactate. Patient was placed on venti mask with subsequent improvement of pO2 and lactate. Today, patient complains of shortness of breath and appears to be lethargic. However, she is answering questions appropriately and is AAOx3. Pt denies CP, n/v/d, abdominal pain, chills, WISDOM, or dizziness. CCU Objective - Vital Signs / Intake & Output Vital Signs (Last 4 hours): Vital Signs Pulse Resp BP Pulse Ox 09/15/17 06:02 116 H 32 H 112/74 94 L 09/15/17 06:00 118 H 44 H 84 L Intake and Output (Last 8hrs): Intake & Output 09/14/17 09/15/17 09/15/17 22:59 06:59 14:59 Intake Total 112 2073 Output Total 350 Balance 112 1723 Intake: IV 112 3 Left Femoral 2034 Output: Urine 350 Urethral (Kumar) 350 Other: Voiding Method Indwelling Catheter - Physical Exam Head: Positive for: Atraumatic, Normocephalic Pupils: Positive for: PERRL Extroacular Muscles: Positive for: EOMI Conjunctiva: Positive for: Normal Mouth: Positive for: Moist Mucous Membranes Nose (Internal): Positive for: Normal Inspection, No Active Bleeding. Negative for: Rhinorrhea Neck: Positive for: Normal Range of Motion Respiratory/Chest: Positive for: Clear to Auscultation, Decreased Breath Sounds. Negative for: Respiratory Distress, Accessory Muscle Use, Wheezes, Rales, Rhonchi Cardiovascular: Positive for: Normal S1, S2, Tachycardic. Negative for: Murmurs , Irregular Rhythm, Rub, Gallop Abdomen: Negative for: Tenderness, Distention, Peritoneal Signs, Rebound, Guarding Back: Positive for: Normal Inspection Upper Extremity: Positive for: Normal Inspection. Negative for: Cyanosis, Edema Lower Extremity: Positive for: Normal Inspection. Negative for: Edema Neurological: Positive for: GCS=15, CN II-XII Intact, Motor Func Grossly Intact , Memory Normal Skin: Positive for: Warm, Dry, Normal Color. Negative for: Rashes Psychiatric: Positive for: Alert, Oriented x 3, Normal Insight, Normal Concentration - Medications Active Medications: Active Medications Generic Name Dose Route Start Last Admin Trade Name Freq PRN Reason Stop Dose Admin Hydrocortisone Sodium Succinate 50 mg 09/15/17 09:14 Solu-Cortef IVP Q8 BOB Acetaminophen 1,000 mg in 100 mls @ 400 mls/hr 09/14/17 05:42 09/14/17 14:37 Ofirmev IVPB 09/16/17 05:43 400 mls/hr Q6H PRN Administration Fever Meropenem 500 mg/ Sodium 50 mls @ 100 mls/hr 09/14/17 22:00 09/14/17 21:58 Chloride IVPB 09/23/17 22:01 100 mls/hr Q12 BOB Administration Protocol Insulin Human Regular 100 100 mls @ 2 mls/hr 09/15/17 07:16 09/15/17 08:44 units/ Sodium Chloride IV 6 units/hr .Q24H PRN 6 mls/hr TITRATE PER MD ORDER Administration Protocol 2 UNITS/HR Sodium Bicarbonate 150 meq/ 1,150 mls @ 125 mls/hr 09/15/17 07:45 09/15/17 08 :44 Dextrose IV 125 mls/hr .Q9H12M BOB Administration Pantoprazole Sodium 40 mg in 100 mls @ 20 mls/hr 09/15/17 08:30 09/15/17 08: 48 Protonix 40mg Ivpb IVPB 20 mls/hr .Q5H BOB Administration Insulin Human Lispro 0 units 09/14/17 18:00 09/15/17 06:32 Humalog Med SC 7 units Q6H BOB Administration Protocol Ondansetron HCl 4 mg 09/13/17 23:59 09/14/17 16:13 Zofran Inj IVP 4 mg Q4H PRN Administration Nausea/Vomiting Vitamin A 1 ea 09/14/17 01:37 Vitamin A & D Oint Ud Foilpak TOP Q2 PRN Dry mouth - Patient Studies Lab Studies: Lab Studies 09/15/17 09/15/17 09/15/17 Range/Units 09:29 08:03 06:56 WBC (4.5-11.0) 10^3/ul RBC (3.5-6.1) 10^6/uL Hgb (12.0-16.0) g/dL Hct (36.0-48.0) % MCV (80.0-105.0) fl MCH (25.0-35.0) pg MCHC (31.0-37.0) g/dl RDW (11.5-14.5) % Plt Count (120.0-450.0) 10^3/uL MPV (7.0-11.0) fl Gran % (50.0-68.0) % Lymph % (Auto) (22.0-35.0) % Grainger % (Auto) (1.0-6.0) % Eos % (Auto) (1.5-5.0) % Baso % (Auto) (0.0-3.0) % Gran # (1.4-6.5) Lymph # (Auto) (1.2-3.4) Grainger # (Auto) (0.1-0.6) Eos # (Auto) (0.0-0.7) Baso # (Auto) (0.0-2.0) K/mm3 APTT (25.1-36.5) Seconds pCO2 (35-45) mm/Hg pO2 (30-55) mm/Hg HCO3 (21-28) mmol/L ABG pH (7.35-7.45) ABG Total CO2 (22-28) mmol.L ABG O2 Saturation (95-98) % ABG Base Excess (-2.0-3.0) mmol/L ABG Potassium (3.6-5.2) mmol/L VBG pH (7.32-7.43) VBG pCO2 (40-60) VBG HCO3 (21-28) mmol/l VBG Total CO2 (22-28) mmol.L VBG O2 Sat (Calc) (40-65) % VBG Base Excess (0.0-2.0) mmol/L VBG Potassium (3.6-5.2) mmol/L Glucose (65-105) mg/dl Lactate (0.7-2.1) mmol/L FiO2 % Sodium 141 (132-148) mmol/L Potassium 5.0 (3.6-5.0) mmol/L Chloride 108 H (98-107) mmol/L Carbon Dioxide 16 L (21-33) mmol/L Anion Gap 21 H (10-20) BUN 52 H (7-21) mg/dL Creatinine 3.0 H (0.7-1.2) mg/dl Est GFR ( Amer) 21 Est GFR (Non-Af Amer) 17 POC Glucose (mg/dL) 271 H 272 H (65-110) mg/dL Random Glucose 296 H (70-110) mg/dL Hemoglobin A1c (4.2-6.5) % Lactic Acid (0.7-2.1) mmol/L Calcium 7.3 L (8.4-10.5) mg/dL Phosphorus (2.5-4.5) mg/dL Magnesium (1.7-2.2) mg/dL Transferrin (206-381) mg/dL Ferritin ng/mL Total Bilirubin 1.0 (0.2-1.3) mg/dL AST 44 H (14-36) U/L ALT 41 (7-56) U/L Alkaline Phosphatase 133 H (38-126) U/L Total Protein 6.0 (5.8-8.3) g/dL Albumin 2.7 L (3.0-4.8) g/dL Globulin 3.3 gm/dL Albumin/Globulin Ratio 0.8 L (1.1-1.8) TSH 3rd Generation (0.46-4.68) mIU/mL Arterial Blood Potassium (3.6-5.2) mmol/L Venous Blood Potassium (3.6-5.2) mmol/L Ur Random Creatinine mg/dL U Random Total Protein mg/L Ur Random Sodium meq/L Stool Occult Blood (NEGATIVE) Urine Opiates Screen (NEGATIVE) Urine Methadone Screen (NEGATIVE) Ur Barbiturates Screen (NEGATIVE) Ur Phencyclidine Scrn (NEGATIVE) Ur Amphetamines Screen (NEGATIVE) U Benzodiazepines Scrn (NEGATIVE) U Oth Cocaine Metabols (NEGATIVE) U Cannabinoids Screen (NEGATIVE) HIV 1&2 Ag/Ab, 4th Gen (Nonreactive) 09/15/17 09/15/17 09/15/17 Range/Units 06:29 06:00 05:30 WBC (4.5-11.0) 10^3/ul RBC (3.5-6.1) 10^6/uL Hgb (12.0-16.0) g/dL Hct (36.0-48.0) % MCV (80.0-105.0) fl MCH (25.0-35.0) pg MCHC (31.0-37.0) g/dl RDW (11.5-14.5) % Plt Count (120.0-450.0) 10^3/uL MPV (7.0-11.0) fl Gran % (50.0-68.0) % Lymph % (Auto) (22.0-35.0) % Grainger % (Auto) (1.0-6.0) % Eos % (Auto) (1.5-5.0) % Baso % (Auto) (0.0-3.0) % Gran # (1.4-6.5) Lymph # (Auto) (1.2-3.4) Grainger # (Auto) (0.1-0.6) Eos # (Auto) (0.0-0.7) Baso # (Auto) (0.0-2.0) K/mm3 APTT (25.1-36.5) Seconds pCO2 27 L (35-45) mm/Hg pO2 131.0 H (30-55) mm/Hg HCO3 15.3 L (21-28) mmol/L ABG pH 7.36 (7.35-7.45) ABG Total CO2 16.1 L (22-28) mmol.L ABG O2 Saturation 99.3 H (95-98) % ABG Base Excess -8.6 L (-2.0-3.0) mmol/L ABG Potassium 4.6 (3.6-5.2) mmol/L VBG pH (7.32-7.43) VBG pCO2 (40-60) VBG HCO3 (21-28) mmol/l VBG Total CO2 (22-28) mmol.L VBG O2 Sat (Calc) (40-65) % VBG Base Excess (0.0-2.0) mmol/L VBG Potassium (3.6-5.2) mmol/L Glucose 323 H (65-105) mg/dl Lactate 2.2 H (0.7-2.1) mmol/L FiO2 50.0 % Sodium 137.0 (132-148) mmol/L Potassium (3.6-5.0) mmol/L Chloride 112.0 H (98-107) mmol/L Carbon Dioxide (21-33) mmol/L Anion Gap (10-20) BUN (7-21) mg/dL Creatinine (0.7-1.2) mg/dl Est GFR ( Amer) Est GFR (Non-Af Amer) POC Glucose (mg/dL) 306 H (65-110) mg/dL Random Glucose (70-110) mg/dL Hemoglobin A1c (4.2-6.5) % Lactic Acid 3.3 H (0.7-2.1) mmol/L Calcium (8.4-10.5) mg/dL Phosphorus (2.5-4.5) mg/dL Magnesium (1.7-2.2) mg/dL Transferrin (206-381) mg/dL Ferritin ng/mL Total Bilirubin (0.2-1.3) mg/dL AST (14-36) U/L ALT (7-56) U/L Alkaline Phosphatase (38-126) U/L Total Protein (5.8-8.3) g/dL Albumin (3.0-4.8) g/dL Globulin gm/dL Albumin/Globulin Ratio (1.1-1.8) TSH 3rd Generation (0.46-4.68) mIU/mL Arterial Blood Potassium 4.6 (3.6-5.2) mmol/L Venous Blood Potassium (3.6-5.2) mmol/L Ur Random Creatinine mg/dL U Random Total Protein mg/L Ur Random Sodium meq/L Stool Occult Blood (NEGATIVE) Urine Opiates Screen (NEGATIVE) Urine Methadone Screen (NEGATIVE) Ur Barbiturates Screen (NEGATIVE) Ur Phencyclidine Scrn (NEGATIVE) Ur Amphetamines Screen (NEGATIVE) U Benzodiazepines Scrn (NEGATIVE) U Oth Cocaine Metabols (NEGATIVE) U Cannabinoids Screen (NEGATIVE) HIV 1&2 Ag/Ab, 4th Gen (Nonreactive) 09/15/17 09/15/17 09/15/17 Range/Units 05:30 05:30 05:30 WBC 12.8 H (4.5-11.0) 10^3/ul RBC 3.16 L (3.5-6.1) 10^6/uL Hgb 8.4 L (12.0-16.0) g/dL Hct 25.0 L (36.0-48.0) % MCV 79.1 L (80.0-105.0) fl MCH 26.6 (25.0-35.0) pg MCHC 33.6 (31.0-37.0) g/dl RDW 17.4 H (11.5-14.5) % Plt Count 63 L (120.0-450.0) 10^3/uL MPV (7.0-11.0) fl Gran % 88.1 H (50.0-68.0) % Lymph % (Auto) 10.5 L (22.0-35.0) % Grainger % (Auto) 1.3 (1.0-6.0) % Eos % (Auto) 0.0 L (1.5-5.0) % Baso % (Auto) 0.1 (0.0-3.0) % Gran # 11.28 H (1.4-6.5) Lymph # (Auto) 1.4 (1.2-3.4) Grainger # (Auto) 0.2 (0.1-0.6) Eos # (Auto) 0.0 (0.0-0.7) Baso # (Auto) 0.01 (0.0-2.0) K/mm3 APTT 29.0 (25.1-36.5) Seconds pCO2 (35-45) mm/Hg pO2 (30-55) mm/Hg HCO3 (21-28) mmol/L ABG pH (7.35-7.45) ABG Total CO2 (22-28) mmol.L ABG O2 Saturation (95-98) % ABG Base Excess (-2.0-3.0) mmol/L ABG Potassium (3.6-5.2) mmol/L VBG pH (7.32-7.43) VBG pCO2 (40-60) VBG HCO3 (21-28) mmol/l VBG Total CO2 (22-28) mmol.L VBG O2 Sat (Calc) (40-65) % VBG Base Excess (0.0-2.0) mmol/L VBG Potassium (3.6-5.2) mmol/L Glucose (65-105) mg/dl Lactate (0.7-2.1) mmol/L FiO2 % Sodium (132-148) mmol/L Potassium (3.6-5.0) mmol/L Chloride (98-107) mmol/L Carbon Dioxide (21-33) mmol/L Anion Gap (10-20) BUN (7-21) mg/dL Creatinine (0.7-1.2) mg/dl Est GFR ( Amer) Est GFR (Non-Af Amer) POC Glucose (mg/dL) (65-110) mg/dL Random Glucose (70-110) mg/dL Hemoglobin A1c (4.2-6.5) % Lactic Acid (0.7-2.1) mmol/L Calcium (8.4-10.5) mg/dL Phosphorus 4.9 H (2.5-4.5) mg/dL Magnesium 2.3 H (1.7-2.2) mg/dL Transferrin (206-381) mg/dL Ferritin ng/mL Total Bilirubin (0.2-1.3) mg/dL AST (14-36) U/L ALT (7-56) U/L Alkaline Phosphatase (38-126) U/L Total Protein (5.8-8.3) g/dL Albumin (3.0-4.8) g/dL Globulin gm/dL Albumin/Globulin Ratio (1.1-1.8) TSH 3rd Generation (0.46-4.68) mIU/mL Arterial Blood Potassium (3.6-5.2) mmol/L Venous Blood Potassium (3.6-5.2) mmol/L Ur Random Creatinine mg/dL U Random Total Protein mg/L Ur Random Sodium meq/L Stool Occult Blood (NEGATIVE) Urine Opiates Screen (NEGATIVE) Urine Methadone Screen (NEGATIVE) Ur Barbiturates Screen (NEGATIVE) Ur Phencyclidine Scrn (NEGATIVE) Ur Amphetamines Screen (NEGATIVE) U Benzodiazepines Scrn (NEGATIVE) U Oth Cocaine Metabols (NEGATIVE) U Cannabinoids Screen (NEGATIVE) HIV 1&2 Ag/Ab, 4th Gen (Nonreactive) 09/15/17 09/14/17 09/14/17 Range/Units 01:30 23:28 21:00 WBC 14.2 H D (4.5-11.0) 10^3/ul RBC 3.28 L (3.5-6.1) 10^6/uL Hgb 8.7 L (12.0-16.0) g/dL Hct 25.9 L (36.0-48.0) % MCV 79.0 L (80.0-105.0) fl MCH 26.5 (25.0-35.0) pg MCHC 33.6 (31.0-37.0) g/dl RDW 17.1 H (11.5-14.5) % Plt Count 75 L (120.0-450.0) 10^3/uL MPV 11.7 H (7.0-11.0) fl Gran % 89.6 H (50.0-68.0) % Lymph % (Auto) 8.4 L (22.0-35.0) % Grainger % (Auto) 1.8 (1.0-6.0) % Eos % (Auto) 0.1 L (1.5-5.0) % Baso % (Auto) 0.1 (0.0-3.0) % Gran # 12.76 H (1.4-6.5) Lymph # (Auto) 1.2 (1.2-3.4) Grainger # (Auto) 0.3 (0.1-0.6) Eos # (Auto) 0.0 (0.0-0.7) Baso # (Auto) 0.02 (0.0-2.0) K/mm3 APTT (25.1-36.5) Seconds pCO2 27 L 23 L (35-45) mm/Hg pO2 121.0 H 37.0 L* (30-55) mm/Hg HCO3 12.4 L 11.9 L (21-28) mmol/L ABG pH 7.27 L 7.32 L (7.35-7.45) ABG Total CO2 13.2 L 12.6 L (22-28) mmol.L ABG O2 Saturation 99.7 H 80.6 L (95-98) % ABG Base Excess -12.9 L -12.2 L (-2.0-3.0) mmol/L ABG Potassium 4.5 4.9 (3.6-5.2) mmol/L VBG pH (7.32-7.43) VBG pCO2 (40-60) VBG HCO3 (21-28) mmol/l VBG Total CO2 (22-28) mmol.L VBG O2 Sat (Calc) (40-65) % VBG Base Excess (0.0-2.0) mmol/L VBG Potassium (3.6-5.2) mmol/L Glucose 276 H 279 H (65-105) mg/dl Lactate 2.8 H 4.4 H* (0.7-2.1) mmol/L FiO2 50.0 21.0 % Sodium 139.0 135.0 (132-148) mmol/L Potassium (3.6-5.0) mmol/L Chloride 115.0 H 113.0 H (98-107) mmol/L Carbon Dioxide (21-33) mmol/L Anion Gap (10-20) BUN (7-21) mg/dL Creatinine (0.7-1.2) mg/dl Est GFR ( Amer) Est GFR (Non-Af Amer) POC Glucose (mg/dL) (65-110) mg/dL Random Glucose (70-110) mg/dL Hemoglobin A1c (4.2-6.5) % Lactic Acid (0.7-2.1) mmol/L Calcium (8.4-10.5) mg/dL Phosphorus (2.5-4.5) mg/dL Magnesium (1.7-2.2) mg/dL Transferrin (206-381) mg/dL Ferritin ng/mL Total Bilirubin (0.2-1.3) mg/dL AST (14-36) U/L ALT (7-56) U/L Alkaline Phosphatase (38-126) U/L Total Protein (5.8-8.3) g/dL Albumin (3.0-4.8) g/dL Globulin gm/dL Albumin/Globulin Ratio (1.1-1.8) TSH 3rd Generation (0.46-4.68) mIU/mL Arterial Blood Potassium 4.5 4.9 (3.6-5.2) mmol/L Venous Blood Potassium (3.6-5.2) mmol/L Ur Random Creatinine mg/dL U Random Total Protein mg/L Ur Random Sodium meq/L Stool Occult Blood (NEGATIVE) Urine Opiates Screen (NEGATIVE) Urine Methadone Screen (NEGATIVE) Ur Barbiturates Screen (NEGATIVE) Ur Phencyclidine Scrn (NEGATIVE) Ur Amphetamines Screen (NEGATIVE) U Benzodiazepines Scrn (NEGATIVE) U Oth Cocaine Metabols (NEGATIVE) U Cannabinoids Screen (NEGATIVE) HIV 1&2 Ag/Ab, 4th Gen (Nonreactive) 09/14/17 09/14/17 09/14/17 Range/Units 21:00 17:46 17:00 WBC 10.7 D (4.5-11.0) 10^3/ul RBC 3.37 L (3.5-6.1) 10^6/uL Hgb 8.9 L (12.0-16.0) g/dL Hct 26.6 L (36.0-48.0) % MCV 78.9 L (80.0-105.0) fl MCH 26.4 (25.0-35.0) pg MCHC 33.5 (31.0-37.0) g/dl RDW 17.0 H (11.5-14.5) % Plt Count 75 L (120.0-450.0) 10^3/uL MPV 11.3 H (7.0-11.0) fl Gran % (50.0-68.0) % Lymph % (Auto) (22.0-35.0) % Grainger % (Auto) (1.0-6.0) % Eos % (Auto) (1.5-5.0) % Baso % (Auto) (0.0-3.0) % Gran # (1.4-6.5) Lymph # (Auto) (1.2-3.4) Grainger # (Auto) (0.1-0.6) Eos # (Auto) (0.0-0.7) Baso # (Auto) (0.0-2.0) K/mm3 APTT (25.1-36.5) Seconds pCO2 (35-45) mm/Hg pO2 (30-55) mm/Hg HCO3 (21-28) mmol/L ABG pH (7.35-7.45) ABG Total CO2 (22-28) mmol.L ABG O2 Saturation (95-98) % ABG Base Excess (-2.0-3.0) mmol/L ABG Potassium (3.6-5.2) mmol/L VBG pH (7.32-7.43) VBG pCO2 (40-60) VBG HCO3 (21-28) mmol/l VBG Total CO2 (22-28) mmol.L VBG O2 Sat (Calc) (40-65) % VBG Base Excess (0.0-2.0) mmol/L VBG Potassium (3.6-5.2) mmol/L Glucose (65-105) mg/dl Lactate (0.7-2.1) mmol/L FiO2 % Sodium 138 (132-148) mmol/L Potassium 4.9 (3.6-5.0) mmol/L Chloride 107 (98-107) mmol/L Carbon Dioxide 14 L (21-33) mmol/L Anion Gap 22 H (10-20) BUN 47 H (7-21) mg/dL Creatinine 3.0 H (0.7-1.2) mg/dl Est GFR ( Amer) 21 Est GFR (Non-Af Amer) 17 POC Glucose (mg/dL) 251 H (65-110) mg/dL Random Glucose 235 H (70-110) mg/dL Hemoglobin A1c (4.2-6.5) % Lactic Acid (0.7-2.1) mmol/L Calcium 7.3 L (8.4-10.5) mg/dL Phosphorus (2.5-4.5) mg/dL Magnesium (1.7-2.2) mg/dL Transferrin (206-381) mg/dL Ferritin ng/mL Total Bilirubin (0.2-1.3) mg/dL AST (14-36) U/L ALT (7-56) U/L Alkaline Phosphatase (38-126) U/L Total Protein (5.8-8.3) g/dL Albumin (3.0-4.8) g/dL Globulin gm/dL Albumin/Globulin Ratio (1.1-1.8) TSH 3rd Generation (0.46-4.68) mIU/mL Arterial Blood Potassium (3.6-5.2) mmol/L Venous Blood Potassium (3.6-5.2) mmol/L Ur Random Creatinine mg/dL U Random Total Protein mg/L Ur Random Sodium meq/L Stool Occult Blood (NEGATIVE) Urine Opiates Screen (NEGATIVE) Urine Methadone Screen (NEGATIVE) Ur Barbiturates Screen (NEGATIVE) Ur Phencyclidine Scrn (NEGATIVE) Ur Amphetamines Screen (NEGATIVE) U Benzodiazepines Scrn (NEGATIVE) U Oth Cocaine Metabols (NEGATIVE) U Cannabinoids Screen (NEGATIVE) HIV 1&2 Ag/Ab, 4th Gen (Nonreactive) 09/14/17 09/14/17 09/14/17 Range/Units 16:27 15:54 15:36 WBC (4.5-11.0) 10^3/ul RBC (3.5-6.1) 10^6/uL Hgb (12.0-16.0) g/dL Hct (36.0-48.0) % MCV (80.0-105.0) fl MCH (25.0-35.0) pg MCHC (31.0-37.0) g/dl RDW (11.5-14.5) % Plt Count (120.0-450.0) 10^3/uL MPV (7.0-11.0) fl Gran % (50.0-68.0) % Lymph % (Auto) (22.0-35.0) % Grainger % (Auto) (1.0-6.0) % Eos % (Auto) (1.5-5.0) % Baso % (Auto) (0.0-3.0) % Gran # (1.4-6.5) Lymph # (Auto) (1.2-3.4) Grainger # (Auto) (0.1-0.6) Eos # (Auto) (0.0-0.7) Baso # (Auto) (0.0-2.0) K/mm3 APTT (25.1-36.5) Seconds pCO2 (35-45) mm/Hg pO2 (30-55) mm/Hg HCO3 (21-28) mmol/L ABG pH (7.35-7.45) ABG Total CO2 (22-28) mmol.L ABG O2 Saturation (95-98) % ABG Base Excess (-2.0-3.0) mmol/L ABG Potassium (3.6-5.2) mmol/L VBG pH (7.32-7.43) VBG pCO2 (40-60) VBG HCO3 (21-28) mmol/l VBG Total CO2 (22-28) mmol.L VBG O2 Sat (Calc) (40-65) % VBG Base Excess (0.0-2.0) mmol/L VBG Potassium (3.6-5.2) mmol/L Glucose (65-105) mg/dl Lactate (0.7-2.1) mmol/L FiO2 % Sodium (132-148) mmol/L Potassium (3.6-5.0) mmol/L Chloride (98-107) mmol/L Carbon Dioxide (21-33) mmol/L Anion Gap (10-20) BUN (7-21) mg/dL Creatinine (0.7-1.2) mg/dl Est GFR ( Amer) Est GFR (Non-Af Amer) POC Glucose (mg/dL) 231 H (65-110) mg/dL Random Glucose (70-110) mg/dL Hemoglobin A1c (4.2-6.5) % Lactic Acid (0.7-2.1) mmol/L Calcium (8.4-10.5) mg/dL Phosphorus (2.5-4.5) mg/dL Magnesium (1.7-2.2) mg/dL Transferrin (206-381) mg/dL Ferritin ng/mL Total Bilirubin (0.2-1.3) mg/dL AST (14-36) U/L ALT (7-56) U/L Alkaline Phosphatase (38-126) U/L Total Protein (5.8-8.3) g/dL Albumin (3.0-4.8) g/dL Globulin gm/dL Albumin/Globulin Ratio (1.1-1.8) TSH 3rd Generation (0.46-4.68) mIU/mL Arterial Blood Potassium (3.6-5.2) mmol/L Venous Blood Potassium (3.6-5.2) mmol/L Ur Random Creatinine mg/dL U Random Total Protein mg/L Ur Random Sodium meq/L Stool Occult Blood Positive H (NEGATIVE) Urine Opiates Screen (NEGATIVE) Urine Methadone Screen (NEGATIVE) Ur Barbiturates Screen (NEGATIVE) Ur Phencyclidine Scrn (NEGATIVE) Ur Amphetamines Screen (NEGATIVE) U Benzodiazepines Scrn (NEGATIVE) U Oth Cocaine Metabols (NEGATIVE) U Cannabinoids Screen (NEGATIVE) HIV 1&2 Ag/Ab, 4th Gen Nonreactive (Nonreactive) 05/24/18 05/24/18 05/24/18 Range/Units 15:36 14:54 13:55 WBC (4.5-11.0) 10^3/ul RBC (3.5-6.1) 10^6/uL Hgb (12.0-16.0) g/dL Hct (36.0-48.0) % MCV (80.0-105.0) fl MCH (25.0-35.0) pg MCHC (31.0-37.0) g/dl RDW (11.5-14.5) % Plt Count (120.0-450.0) 10^3/uL MPV (7.0-11.0) fl Gran % (50.0-68.0) % Lymph % (Auto) (22.0-35.0) % Grainger % (Auto) (1.0-6.0) % Eos % (Auto) (1.5-5.0) % Baso % (Auto) (0.0-3.0) % Gran # (1.4-6.5) Lymph # (Auto) (1.2-3.4) Grainger # (Auto) (0.1-0.6) Eos # (Auto) (0.0-0.7) Baso # (Auto) (0.0-2.0) K/mm3 APTT (25.1-36.5) Seconds pCO2 24 L (35-45) mm/Hg pO2 71.0 L (30-55) mm/Hg HCO3 12.4 L (21-28) mmol/L ABG pH 7.32 L (7.35-7.45) ABG Total CO2 13.1 L (22-28) mmol.L ABG O2 Saturation 96.5 (95-98) % ABG Base Excess -11.8 L (-2.0-3.0) mmol/L ABG Potassium 4.4 (3.6-5.2) mmol/L VBG pH (7.32-7.43) VBG pCO2 (40-60) VBG HCO3 (21-28) mmol/l VBG Total CO2 (22-28) mmol.L VBG O2 Sat (Calc) (40-65) % VBG Base Excess (0.0-2.0) mmol/L VBG Potassium (3.6-5.2) mmol/L Glucose 231 H (65-105) mg/dl Lactate 3.8 H (0.7-2.1) mmol/L FiO2 32.0 % Sodium 138 135.0 (132-148) mmol/L Potassium 5.0 (3.6-5.0) mmol/L Chloride 108 H 110.0 H (98-107) mmol/L Carbon Dioxide 15 L (21-33) mmol/L Anion Gap 20 (10-20) BUN 47 H (7-21) mg/dL Creatinine 2.9 H (0.7-1.2) mg/dl Est GFR ( Amer) 22 Est GFR (Non-Af Amer) 18 POC Glucose (mg/dL) 231 H (65-110) mg/dL Random Glucose 232 H (70-110) mg/dL Hemoglobin A1c (4.2-6.5) % Lactic Acid (0.7-2.1) mmol/L Calcium 7.2 L (8.4-10.5) mg/dL Phosphorus (2.5-4.5) mg/dL Magnesium (1.7-2.2) mg/dL Transferrin (206-381) mg/dL Ferritin ng/mL Total Bilirubin (0.2-1.3) mg/dL AST (14-36) U/L ALT (7-56) U/L Alkaline Phosphatase (38-126) U/L Total Protein (5.8-8.3) g/dL Albumin (3.0-4.8) g/dL Globulin gm/dL Albumin/Globulin Ratio (1.1-1.8) TSH 3rd Generation (0.46-4.68) mIU/mL Arterial Blood Potassium 4.4 (3.6-5.2) mmol/L Venous Blood Potassium (3.6-5.2) mmol/L Ur Random Creatinine mg/dL U Random Total Protein mg/L Ur Random Sodium meq/L Stool Occult Blood (NEGATIVE) Urine Opiates Screen (NEGATIVE) Urine Methadone Screen (NEGATIVE) Ur Barbiturates Screen (NEGATIVE) Ur Phencyclidine Scrn (NEGATIVE) Ur Amphetamines Screen (NEGATIVE) U Benzodiazepines Scrn (NEGATIVE) U Oth Cocaine Metabols (NEGATIVE) U Cannabinoids Screen (NEGATIVE) HIV 1&2 Ag/Ab, 4th Gen (Nonreactive) 09/14/17 09/14/17 09/14/17 Range/Units 13:48 12:51 12:10 WBC (4.5-11.0) 10^3/ul RBC (3.5-6.1) 10^6/uL Hgb (12.0-16.0) g/dL Hct (36.0-48.0) % MCV (80.0-105.0) fl MCH (25.0-35.0) pg MCHC (31.0-37.0) g/dl RDW (11.5-14.5) % Plt Count (120.0-450.0) 10^3/uL MPV (7.0-11.0) fl Gran % (50.0-68.0) % Lymph % (Auto) (22.0-35.0) % Grainger % (Auto) (1.0-6.0) % Eos % (Auto) (1.5-5.0) % Baso % (Auto) (0.0-3.0) % Gran # (1.4-6.5) Lymph # (Auto) (1.2-3.4) Grainger # (Auto) (0.1-0.6) Eos # (Auto) (0.0-0.7) Baso # (Auto) (0.0-2.0) K/mm3 APTT (25.1-36.5) Seconds pCO2 (35-45) mm/Hg pO2 37 (30-55) mm/Hg HCO3 (21-28) mmol/L ABG pH (7.35-7.45) ABG Total CO2 (22-28) mmol.L ABG O2 Saturation (95-98) % ABG Base Excess (-2.0-3.0) mmol/L ABG Potassium (3.6-5.2) mmol/L VBG pH 7.19 L* (7.32-7.43) VBG pCO2 38.0 L (40-60) VBG HCO3 14.5 L (21-28) mmol/l VBG Total CO2 15.7 L (22-28) mmol.L VBG O2 Sat (Calc) 74.2 H (40-65) % VBG Base Excess -13.0 L (0.0-2.0) mmol/L VBG Potassium 4.4 (3.6-5.2) mmol/L Glucose 242 H (65-105) mg/dl Lactate 4.9 H* (0.7-2.1) mmol/L FiO2 21.0 % Sodium 134.0 (132-148) mmol/L Potassium (3.6-5.0) mmol/L Chloride 109.0 H (98-107) mmol/L Carbon Dioxide (21-33) mmol/L Anion Gap (10-20) BUN (7-21) mg/dL Creatinine (0.7-1.2) mg/dl Est GFR ( Amer) Est GFR (Non-Af Amer) POC Glucose (mg/dL) 224 H 203 H (65-110) mg/dL Random Glucose (70-110) mg/dL Hemoglobin A1c (4.2-6.5) % Lactic Acid (0.7-2.1) mmol/L Calcium (8.4-10.5) mg/dL Phosphorus (2.5-4.5) mg/dL Magnesium (1.7-2.2) mg/dL Transferrin (206-381) mg/dL Ferritin ng/mL Total Bilirubin (0.2-1.3) mg/dL AST (14-36) U/L ALT (7-56) U/L Alkaline Phosphatase (38-126) U/L Total Protein (5.8-8.3) g/dL Albumin (3.0-4.8) g/dL Globulin gm/dL Albumin/Globulin Ratio (1.1-1.8) TSH 3rd Generation (0.46-4.68) mIU/mL Arterial Blood Potassium (3.6-5.2) mmol/L Venous Blood Potassium 4.4 (3.6-5.2) mmol/L Ur Random Creatinine mg/dL U Random Total Protein mg/L Ur Random Sodium meq/L Stool Occult Blood (NEGATIVE) Urine Opiates Screen (NEGATIVE) Urine Methadone Screen (NEGATIVE) Ur Barbiturates Screen (NEGATIVE) Ur Phencyclidine Scrn (NEGATIVE) Ur Amphetamines Screen (NEGATIVE) U Benzodiazepines Scrn (NEGATIVE) U Oth Cocaine Metabols (NEGATIVE) U Cannabinoids Screen (NEGATIVE) HIV 1&2 Ag/Ab, 4th Gen (Nonreactive) 09/14/17 09/14/17 09/14/17 Range/Units 12:10 12:05 12:00 WBC (4.5-11.0) 10^3/ul RBC (3.5-6.1) 10^6/uL Hgb (12.0-16.0) g/dL Hct (36.0-48.0) % MCV (80.0-105.0) fl MCH (25.0-35.0) pg MCHC (31.0-37.0) g/dl RDW (11.5-14.5) % Plt Count (120.0-450.0) 10^3/uL MPV (7.0-11.0) fl Gran % (50.0-68.0) % Lymph % (Auto) (22.0-35.0) % Grainger % (Auto) (1.0-6.0) % Eos % (Auto) (1.5-5.0) % Baso % (Auto) (0.0-3.0) % Gran # (1.4-6.5) Lymph # (Auto) (1.2-3.4) Grainger # (Auto) (0.1-0.6) Eos # (Auto) (0.0-0.7) Baso # (Auto) (0.0-2.0) K/mm3 APTT (25.1-36.5) Seconds pCO2 (35-45) mm/Hg pO2 (30-55) mm/Hg HCO3 (21-28) mmol/L ABG pH (7.35-7.45) ABG Total CO2 (22-28) mmol.L ABG O2 Saturation (95-98) % ABG Base Excess (-2.0-3.0) mmol/L ABG Potassium (3.6-5.2) mmol/L VBG pH (7.32-7.43) VBG pCO2 (40-60) VBG HCO3 (21-28) mmol/l VBG Total CO2 (22-28) mmol.L VBG O2 Sat (Calc) (40-65) % VBG Base Excess (0.0-2.0) mmol/L VBG Potassium (3.6-5.2) mmol/L Glucose (65-105) mg/dl Lactate (0.7-2.1) mmol/L FiO2 % Sodium 137 (132-148) mmol/L Potassium 4.5 (3.6-5.0) mmol/L Chloride 107 (98-107) mmol/L Carbon Dioxide 15 L (21-33) mmol/L Anion Gap 20 (10-20) BUN 44 H (7-21) mg/dL Creatinine 3.1 H (0.7-1.2) mg/dl Est GFR ( Amer) 20 Est GFR (Non-Af Amer) 17 POC Glucose (mg/dL) 195 H (65-110) mg/dL Random Glucose 215 H (70-110) mg/dL Hemoglobin A1c (4.2-6.5) % Lactic Acid (0.7-2.1) mmol/L Calcium 7.2 L (8.4-10.5) mg/dL Phosphorus (2.5-4.5) mg/dL Magnesium (1.7-2.2) mg/dL Transferrin (206-381) mg/dL Ferritin ng/mL Total Bilirubin (0.2-1.3) mg/dL AST (14-36) U/L ALT (7-56) U/L Alkaline Phosphatase (38-126) U/L Total Protein (5.8-8.3) g/dL Albumin (3.0-4.8) g/dL Globulin gm/dL Albumin/Globulin Ratio (1.1-1.8) TSH 3rd Generation (0.46-4.68) mIU/mL Arterial Blood Potassium (3.6-5.2) mmol/L Venous Blood Potassium (3.6-5.2) mmol/L Ur Random Creatinine 87 mg/dL U Random Total Protein mg/L Ur Random Sodium meq/L Stool Occult Blood (NEGATIVE) Urine Opiates Screen (NEGATIVE) Urine Methadone Screen (NEGATIVE) Ur Barbiturates Screen (NEGATIVE) Ur Phencyclidine Scrn (NEGATIVE) Ur Amphetamines Screen (NEGATIVE) U Benzodiazepines Scrn (NEGATIVE) U Oth Cocaine Metabols (NEGATIVE) U Cannabinoids Screen (NEGATIVE) HIV 1&2 Ag/Ab, 4th Gen (Nonreactive) 09/14/17 09/14/17 09/14/17 Range/Units 12:00 12:00 10:55 WBC (4.5-11.0) 10^3/ul RBC (3.5-6.1) 10^6/uL Hgb (12.0-16.0) g/dL Hct (36.0-48.0) % MCV (80.0-105.0) fl MCH (25.0-35.0) pg MCHC (31.0-37.0) g/dl RDW (11.5-14.5) % Plt Count (120.0-450.0) 10^3/uL MPV (7.0-11.0) fl Gran % (50.0-68.0) % Lymph % (Auto) (22.0-35.0) % Grainger % (Auto) (1.0-6.0) % Eos % (Auto) (1.5-5.0) % Baso % (Auto) (0.0-3.0) % Gran # (1.4-6.5) Lymph # (Auto) (1.2-3.4) Grainger # (Auto) (0.1-0.6) Eos # (Auto) (0.0-0.7) Baso # (Auto) (0.0-2.0) K/mm3 APTT (25.1-36.5) Seconds pCO2 (35-45) mm/Hg pO2 (30-55) mm/Hg HCO3 (21-28) mmol/L ABG pH (7.35-7.45) ABG Total CO2 (22-28) mmol.L ABG O2 Saturation (95-98) % ABG Base Excess (-2.0-3.0) mmol/L ABG Potassium (3.6-5.2) mmol/L VBG pH (7.32-7.43) VBG pCO2 (40-60) VBG HCO3 (21-28) mmol/l VBG Total CO2 (22-28) mmol.L VBG O2 Sat (Calc) (40-65) % VBG Base Excess (0.0-2.0) mmol/L VBG Potassium (3.6-5.2) mmol/L Glucose (65-105) mg/dl Lactate (0.7-2.1) mmol/L FiO2 % Sodium (132-148) mmol/L Potassium (3.6-5.0) mmol/L Chloride (98-107) mmol/L Carbon Dioxide (21-33) mmol/L Anion Gap (10-20) BUN (7-21) mg/dL Creatinine (0.7-1.2) mg/dl Est GFR ( Amer) Est GFR (Non-Af Amer) POC Glucose (mg/dL) 194 H (65-110) mg/dL Random Glucose (70-110) mg/dL Hemoglobin A1c (4.2-6.5) % Lactic Acid (0.7-2.1) mmol/L Calcium (8.4-10.5) mg/dL Phosphorus (2.5-4.5) mg/dL Magnesium (1.7-2.2) mg/dL Transferrin (206-381) mg/dL Ferritin ng/mL Total Bilirubin (0.2-1.3) mg/dL AST (14-36) U/L ALT (7-56) U/L Alkaline Phosphatase (38-126) U/L Total Protein (5.8-8.3) g/dL Albumin (3.0-4.8) g/dL Globulin gm/dL Albumin/Globulin Ratio (1.1-1.8) TSH 3rd Generation (0.46-4.68) mIU/mL Arterial Blood Potassium (3.6-5.2) mmol/L Venous Blood Potassium (3.6-5.2) mmol/L Ur Random Creatinine mg/dL U Random Total Protein 152 mg/L Ur Random Sodium 31 meq/L Stool Occult Blood (NEGATIVE) Urine Opiates Screen Negative (NEGATIVE) Urine Methadone Screen Negative (NEGATIVE) Ur Barbiturates Screen Negative (NEGATIVE) Ur Phencyclidine Scrn Negative (NEGATIVE) Ur Amphetamines Screen Negative (NEGATIVE) U Benzodiazepines Scrn Negative (NEGATIVE) U Oth Cocaine Metabols Negative (NEGATIVE) U Cannabinoids Screen Negative (NEGATIVE) HIV 1&2 Ag/Ab, 4th Gen (Nonreactive) 09/14/17 09/14/17 09/14/17 Range/Units 10:05 10:04 09:58 WBC 8.8 D (4.5-11.0) 10^3/ul RBC 3.06 L (3.5-6.1) 10^6/uL Hgb 8.1 L D (12.0-16.0) g/dL Hct 24.0 L (36.0-48.0) % MCV 78.4 L (80.0-105.0) fl MCH 26.5 (25.0-35.0) pg MCHC 33.8 (31.0-37.0) g/dl RDW 16.7 H (11.5-14.5) % Plt Count 66 L (120.0-450.0) 10^3/uL MPV 10.9 (7.0-11.0) fl Gran % 90.8 H (50.0-68.0) % Lymph % (Auto) 7.9 L (22.0-35.0) % Grainger % (Auto) 1.2 (1.0-6.0) % Eos % (Auto) 0.1 L (1.5-5.0) % Baso % (Auto) 0.0 (0.0-3.0) % Gran # 8.02 H (1.4-6.5) Lymph # (Auto) 0.7 L (1.2-3.4) Grainger # (Auto) 0.1 (0.1-0.6) Eos # (Auto) 0.0 (0.0-0.7) Baso # (Auto) 0.00 (0.0-2.0) K/mm3 APTT (25.1-36.5) Seconds pCO2 (35-45) mm/Hg pO2 (30-55) mm/Hg HCO3 (21-28) mmol/L ABG pH (7.35-7.45) ABG Total CO2 (22-28) mmol.L ABG O2 Saturation (95-98) % ABG Base Excess (-2.0-3.0) mmol/L ABG Potassium (3.6-5.2) mmol/L VBG pH (7.32-7.43) VBG pCO2 (40-60) VBG HCO3 (21-28) mmol/l VBG Total CO2 (22-28) mmol.L VBG O2 Sat (Calc) (40-65) % VBG Base Excess (0.0-2.0) mmol/L VBG Potassium (3.6-5.2) mmol/L Glucose (65-105) mg/dl Lactate (0.7-2.1) mmol/L FiO2 % Sodium 136 (132-148) mmol/L Potassium 3.4 L (3.6-5.0) mmol/L Chloride 107 (98-107) mmol/L Carbon Dioxide 17 L (21-33) mmol/L Anion Gap 15 (10-20) BUN 46 H (7-21) mg/dL Creatinine 3.2 H (0.7-1.2) mg/dl Est GFR ( Amer) 19 Est GFR (Non-Af Amer) 16 POC Glucose (mg/dL) 185 H (65-110) mg/dL Random Glucose 163 H (70-110) mg/dL Hemoglobin A1c (4.2-6.5) % Lactic Acid (0.7-2.1) mmol/L Calcium 6.8 L* (8.4-10.5) mg/dL Phosphorus 2.7 (2.5-4.5) mg/dL Magnesium 1.5 L (1.7-2.2) mg/dL Transferrin (206-381) mg/dL Ferritin ng/mL Total Bilirubin 0.8 (0.2-1.3) mg/dL AST 49 H D (14-36) U/L ALT 34 (7-56) U/L Alkaline Phosphatase 133 H (38-126) U/L Total Protein 5.2 L (5.8-8.3) g/dL Albumin 2.3 L (3.0-4.8) g/dL Globulin 2.9 gm/dL Albumin/Globulin Ratio 0.8 L (1.1-1.8) TSH 3rd Generation (0.46-4.68) mIU/mL Arterial Blood Potassium (3.6-5.2) mmol/L Venous Blood Potassium (3.6-5.2) mmol/L Ur Random Creatinine mg/dL U Random Total Protein mg/L Ur Random Sodium meq/L Stool Occult Blood (NEGATIVE) Urine Opiates Screen (NEGATIVE) Urine Methadone Screen (NEGATIVE) Ur Barbiturates Screen (NEGATIVE) Ur Phencyclidine Scrn (NEGATIVE) Ur Amphetamines Screen (NEGATIVE) U Benzodiazepines Scrn (NEGATIVE) U Oth Cocaine Metabols (NEGATIVE) U Cannabinoids Screen (NEGATIVE) HIV 1&2 Ag/Ab, 4th Gen (Nonreactive) 09/14/17 09/14/17 09/14/17 Range/Units 08:53 08:02 07:00 WBC (4.5-11.0) 10^3/ul RBC (3.5-6.1) 10^6/uL Hgb (12.0-16.0) g/dL Hct (36.0-48.0) % MCV (80.0-105.0) fl MCH (25.0-35.0) pg MCHC (31.0-37.0) g/dl RDW (11.5-14.5) % Plt Count (120.0-450.0) 10^3/uL MPV (7.0-11.0) fl Gran % (50.0-68.0) % Lymph % (Auto) (22.0-35.0) % Grainger % (Auto) (1.0-6.0) % Eos % (Auto) (1.5-5.0) % Baso % (Auto) (0.0-3.0) % Gran # (1.4-6.5) Lymph # (Auto) (1.2-3.4) Grainger # (Auto) (0.1-0.6) Eos # (Auto) (0.0-0.7) Baso # (Auto) (0.0-2.0) K/mm3 APTT (25.1-36.5) Seconds pCO2 (35-45) mm/Hg pO2 (30-55) mm/Hg HCO3 (21-28) mmol/L ABG pH (7.35-7.45) ABG Total CO2 (22-28) mmol.L ABG O2 Saturation (95-98) % ABG Base Excess (-2.0-3.0) mmol/L ABG Potassium (3.6-5.2) mmol/L VBG pH (7.32-7.43) VBG pCO2 (40-60) VBG HCO3 (21-28) mmol/l VBG Total CO2 (22-28) mmol.L VBG O2 Sat (Calc) (40-65) % VBG Base Excess (0.0-2.0) mmol/L VBG Potassium (3.6-5.2) mmol/L Glucose (65-105) mg/dl Lactate (0.7-2.1) mmol/L FiO2 % Sodium (132-148) mmol/L Potassium (3.6-5.0) mmol/L Chloride (98-107) mmol/L Carbon Dioxide (21-33) mmol/L Anion Gap (10-20) BUN (7-21) mg/dL Creatinine (0.7-1.2) mg/dl Est GFR ( Amer) Est GFR (Non-Af Amer) POC Glucose (mg/dL) 185 H 190 H (65-110) mg/dL Random Glucose (70-110) mg/dL Hemoglobin A1c (4.2-6.5) % Lactic Acid (0.7-2.1) mmol/L Calcium (8.4-10.5) mg/dL Phosphorus (2.5-4.5) mg/dL Magnesium (1.7-2.2) mg/dL Transferrin (206-381) mg/dL Ferritin ng/mL Total Bilirubin (0.2-1.3) mg/dL AST (14-36) U/L ALT (7-56) U/L Alkaline Phosphatase (38-126) U/L Total Protein (5.8-8.3) g/dL Albumin (3.0-4.8) g/dL Globulin gm/dL Albumin/Globulin Ratio (1.1-1.8) TSH 3rd Generation 2.85 (0.46-4.68) mIU/mL Arterial Blood Potassium (3.6-5.2) mmol/L Venous Blood Potassium (3.6-5.2) mmol/L Ur Random Creatinine mg/dL U Random Total Protein mg/L Ur Random Sodium meq/L Stool Occult Blood (NEGATIVE) Urine Opiates Screen (NEGATIVE) Urine Methadone Screen (NEGATIVE) Ur Barbiturates Screen (NEGATIVE) Ur Phencyclidine Scrn (NEGATIVE) Ur Amphetamines Screen (NEGATIVE) U Benzodiazepines Scrn (NEGATIVE) U Oth Cocaine Metabols (NEGATIVE) U Cannabinoids Screen (NEGATIVE) HIV 1&2 Ag/Ab, 4th Gen (Nonreactive) 09/14/17 09/14/17 09/14/17 Range/Units 07:00 07:00 04:50 WBC (4.5-11.0) 10^3/ul RBC (3.5-6.1) 10^6/uL Hgb (12.0-16.0) g/dL Hct (36.0-48.0) % MCV (80.0-105.0) fl MCH (25.0-35.0) pg MCHC (31.0-37.0) g/dl RDW (11.5-14.5) % Plt Count (120.0-450.0) 10^3/uL MPV (7.0-11.0) fl Gran % (50.0-68.0) % Lymph % (Auto) (22.0-35.0) % Grainger % (Auto) (1.0-6.0) % Eos % (Auto) (1.5-5.0) % Baso % (Auto) (0.0-3.0) % Gran # (1.4-6.5) Lymph # (Auto) (1.2-3.4) Grainger # (Auto) (0.1-0.6) Eos # (Auto) (0.0-0.7) Baso # (Auto) (0.0-2.0) K/mm3 APTT (25.1-36.5) Seconds pCO2 (35-45) mm/Hg pO2 (30-55) mm/Hg HCO3 (21-28) mmol/L ABG pH (7.35-7.45) ABG Total CO2 (22-28) mmol.L ABG O2 Saturation (95-98) % ABG Base Excess (-2.0-3.0) mmol/L ABG Potassium (3.6-5.2) mmol/L VBG pH (7.32-7.43) VBG pCO2 (40-60) VBG HCO3 (21-28) mmol/l VBG Total CO2 (22-28) mmol.L VBG O2 Sat (Calc) (40-65) % VBG Base Excess (0.0-2.0) mmol/L VBG Potassium (3.6-5.2) mmol/L Glucose (65-105) mg/dl Lactate (0.7-2.1) mmol/L FiO2 % Sodium (132-148) mmol/L Potassium (3.6-5.0) mmol/L Chloride (98-107) mmol/L Carbon Dioxide (21-33) mmol/L Anion Gap (10-20) BUN (7-21) mg/dL Creatinine (0.7-1.2) mg/dl Est GFR ( Amer) Est GFR (Non-Af Amer) POC Glucose (mg/dL) (65-110) mg/dL Random Glucose (70-110) mg/dL Hemoglobin A1c 8.9 H (4.2-6.5) % Lactic Acid (0.7-2.1) mmol/L Calcium (8.4-10.5) mg/dL Phosphorus (2.5-4.5) mg/dL Magnesium (1.7-2.2) mg/dL Transferrin 141.74 L (206-381) mg/dL Ferritin 239.0 ng/mL Total Bilirubin (0.2-1.3) mg/dL AST (14-36) U/L ALT (7-56) U/L Alkaline Phosphatase (38-126) U/L Total Protein (5.8-8.3) g/dL Albumin (3.0-4.8) g/dL Globulin gm/dL Albumin/Globulin Ratio (1.1-1.8) TSH 3rd Generation (0.46-4.68) mIU/mL Arterial Blood Potassium (3.6-5.2) mmol/L Venous Blood Potassium (3.6-5.2) mmol/L Ur Random Creatinine mg/dL U Random Total Protein mg/L Ur Random Sodium meq/L Stool Occult Blood (NEGATIVE) Urine Opiates Screen (NEGATIVE) Urine Methadone Screen (NEGATIVE) Ur Barbiturates Screen (NEGATIVE) Ur Phencyclidine Scrn (NEGATIVE) Ur Amphetamines Screen (NEGATIVE) U Benzodiazepines Scrn (NEGATIVE) U Oth Cocaine Metabols (NEGATIVE) U Cannabinoids Screen (NEGATIVE) HIV 1&2 Ag/Ab, 4th Gen (Nonreactive) Laboratory Results - last 24 hr 09/14/17 09/14/17 09/14/17 04:50 07:00 07:00 WBC RBC Hgb Hct MCV MCH MCHC RDW Plt Count MPV Gran % Lymph % (Auto) Grainger % (Auto) Eos % (Auto) Baso % (Auto) Gran # Lymph # (Auto) Grainger # (Auto) Eos # (Auto) Baso # (Auto) APTT pCO2 pO2 HCO3 ABG pH ABG Total CO2 ABG O2 Saturation ABG Base Excess ABG Potassium VBG pH VBG pCO2 VBG HCO3 VBG Total CO2 VBG O2 Sat (Calc) VBG Base Excess VBG Potassium Glucose Lactate FiO2 Sodium Potassium Chloride Carbon Dioxide Anion Gap BUN Creatinine Est GFR ( Amer) Est GFR (Non-Af Amer) POC Glucose (mg/dL) Random Glucose Hemoglobin A1c 8.9 H Lactic Acid Calcium Phosphorus Magnesium Transferrin 141.74 L Ferritin 239.0 Total Bilirubin AST ALT Alkaline Phosphatase Total Protein Albumin Globulin Albumin/Globulin Ratio TSH 3rd Generation Arterial Blood Potassium Venous Blood Potassium Ur Random Creatinine U Random Total Protein Ur Random Sodium Stool Occult Blood Urine Opiates Screen Urine Methadone Screen Ur Barbiturates Screen Ur Phencyclidine Scrn Ur Amphetamines Screen U Benzodiazepines Scrn U Oth Cocaine Metabols U Cannabinoids Screen HIV 1&2 Ag/Ab, 4th Gen 09/14/17 09/14/17 09/14/17 07:00 08:02 08:53 WBC RBC Hgb Hct MCV MCH MCHC RDW Plt Count MPV Gran % Lymph % (Auto) Grainger % (Auto) Eos % (Auto) Baso % (Auto) Gran # Lymph # (Auto) Grainger # (Auto) Eos # (Auto) Baso # (Auto) APTT pCO2 pO2 HCO3 ABG pH ABG Total CO2 ABG O2 Saturation ABG Base Excess ABG Potassium VBG pH VBG pCO2 VBG HCO3 VBG Total CO2 VBG O2 Sat (Calc) VBG Base Excess VBG Potassium Glucose Lactate FiO2 Sodium Potassium Chloride Carbon Dioxide Anion Gap BUN Creatinine Est GFR ( Amer) Est GFR (Non-Af Amer) POC Glucose (mg/dL) 190 H 185 H Random Glucose Hemoglobin A1c Lactic Acid Calcium Phosphorus Magnesium Transferrin Ferritin Total Bilirubin AST ALT Alkaline Phosphatase Total Protein Albumin Globulin Albumin/Globulin Ratio TSH 3rd Generation 2.85 Arterial Blood Potassium Venous Blood Potassium Ur Random Creatinine U Random Total Protein Ur Random Sodium Stool Occult Blood Urine Opiates Screen Urine Methadone Screen Ur Barbiturates Screen Ur Phencyclidine Scrn Ur Amphetamines Screen U Benzodiazepines Scrn U Oth Cocaine Metabols U Cannabinoids Screen HIV 1&2 Ag/Ab, 4th Gen 09/14/17 09/14/17 09/14/17 09:58 10:04 10:05 WBC 8.8 D RBC 3.06 L Hgb 8.1 L D Hct 24.0 L MCV 78.4 L MCH 26.5 MCHC 33.8 RDW 16.7 H Plt Count 66 L MPV 10.9 Gran % 90.8 H Lymph % (Auto) 7.9 L Grainger % (Auto) 1.2 Eos % (Auto) 0.1 L Baso % (Auto) 0.0 Gran # 8.02 H Lymph # (Auto) 0.7 L Grainger # (Auto) 0.1 Eos # (Auto) 0.0 Baso # (Auto) 0.00 APTT pCO2 pO2 HCO3 ABG pH ABG Total CO2 ABG O2 Saturation ABG Base Excess ABG Potassium VBG pH VBG pCO2 VBG HCO3 VBG Total CO2 VBG O2 Sat (Calc) VBG Base Excess VBG Potassium Glucose Lactate FiO2 Sodium 136 Potassium 3.4 L Chloride 107 Carbon Dioxide 17 L Anion Gap 15 BUN 46 H Creatinine 3.2 H Est GFR ( Amer) 19 Est GFR (Non-Af Amer) 16 POC Glucose (mg/dL) 185 H Random Glucose 163 H Hemoglobin A1c Lactic Acid Calcium 6.8 L* Phosphorus 2.7 Magnesium 1.5 L Transferrin Ferritin Total Bilirubin 0.8 AST 49 H D ALT 34 Alkaline Phosphatase 133 H Total Protein 5.2 L Albumin 2.3 L Globulin 2.9 Albumin/Globulin Ratio 0.8 L TSH 3rd Generation Arterial Blood Potassium Venous Blood Potassium Ur Random Creatinine U Random Total Protein Ur Random Sodium Stool Occult Blood Urine Opiates Screen Urine Methadone Screen Ur Barbiturates Screen Ur Phencyclidine Scrn Ur Amphetamines Screen U Benzodiazepines Scrn U Oth Cocaine Metabols U Cannabinoids Screen HIV 1&2 Ag/Ab, 4th Gen 09/14/17 09/14/17 09/14/17 10:55 12:00 12:00 WBC RBC Hgb Hct MCV MCH MCHC RDW Plt Count MPV Gran % Lymph % (Auto) Grainger % (Auto) Eos % (Auto) Baso % (Auto) Gran # Lymph # (Auto) Grainger # (Auto) Eos # (Auto) Baso # (Auto) APTT pCO2 pO2 HCO3 ABG pH ABG Total CO2 ABG O2 Saturation ABG Base Excess ABG Potassium VBG pH VBG pCO2 VBG HCO3 VBG Total CO2 VBG O2 Sat (Calc) VBG Base Excess VBG Potassium Glucose Lactate FiO2 Sodium Potassium Chloride Carbon Dioxide Anion Gap BUN Creatinine Est GFR ( Amer) Est GFR (Non-Af Amer) POC Glucose (mg/dL) 194 H Random Glucose Hemoglobin A1c Lactic Acid Calcium Phosphorus Magnesium Transferrin Ferritin Total Bilirubin AST ALT Alkaline Phosphatase Total Protein Albumin Globulin Albumin/Globulin Ratio TSH 3rd Generation Arterial Blood Potassium Venous Blood Potassium Ur Random Creatinine U Random Total Protein 152 Ur Random Sodium 31 Stool Occult Blood Urine Opiates Screen Negative Urine Methadone Screen Negative Ur Barbiturates Screen Negative Ur Phencyclidine Scrn Negative Ur Amphetamines Screen Negative U Benzodiazepines Scrn Negative U Oth Cocaine Metabols Negative U Cannabinoids Screen Negative HIV 1&2 Ag/Ab, 4th Gen 09/14/17 09/14/17 09/14/17 12:00 12:05 12:10 WBC RBC Hgb Hct MCV MCH MCHC RDW Plt Count MPV Gran % Lymph % (Auto) Grainger % (Auto) Eos % (Auto) Baso % (Auto) Gran # Lymph # (Auto) Grainger # (Auto) Eos # (Auto) Baso # (Auto) APTT pCO2 pO2 HCO3 ABG pH ABG Total CO2 ABG O2 Saturation ABG Base Excess ABG Potassium VBG pH VBG pCO2 VBG HCO3 VBG Total CO2 VBG O2 Sat (Calc) VBG Base Excess VBG Potassium Glucose Lactate FiO2 Sodium 137 Potassium 4.5 Chloride 107 Carbon Dioxide 15 L Anion Gap 20 BUN 44 H Creatinine 3.1 H Est GFR ( Amer) 20 Est GFR (Non-Af Amer) 17 POC Glucose (mg/dL) 195 H Random Glucose 215 H Hemoglobin A1c Lactic Acid Calcium 7.2 L Phosphorus Magnesium Transferrin Ferritin Total Bilirubin AST ALT Alkaline Phosphatase Total Protein Albumin Globulin Albumin/Globulin Ratio TSH 3rd Generation Arterial Blood Potassium Venous Blood Potassium Ur Random Creatinine 87 U Random Total Protein Ur Random Sodium Stool Occult Blood Urine Opiates Screen Urine Methadone Screen Ur Barbiturates Screen Ur Phencyclidine Scrn Ur Amphetamines Screen U Benzodiazepines Scrn U Oth Cocaine Metabols U Cannabinoids Screen HIV 1&2 Ag/Ab, 4th Gen 09/14/17 09/14/17 09/14/17 12:10 12:51 13:48 WBC RBC Hgb Hct MCV MCH MCHC RDW Plt Count MPV Gran % Lymph % (Auto) Grainger % (Auto) Eos % (Auto) Baso % (Auto) Gran # Lymph # (Auto) Grainger # (Auto) Eos # (Auto) Baso # (Auto) APTT pCO2 pO2 37 HCO3 ABG pH ABG Total CO2 ABG O2 Saturation ABG Base Excess ABG Potassium VBG pH 7.19 L* VBG pCO2 38.0 L VBG HCO3 14.5 L VBG Total CO2 15.7 L VBG O2 Sat (Calc) 74.2 H VBG Base Excess -13.0 L VBG Potassium 4.4 Glucose 242 H Lactate 4.9 H* FiO2 21.0 Sodium 134.0 Potassium Chloride 109.0 H Carbon Dioxide Anion Gap BUN Creatinine Est GFR ( Amer) Est GFR (Non-Af Amer) POC Glucose (mg/dL) 203 H 224 H Random Glucose Hemoglobin A1c Lactic Acid Calcium Phosphorus Magnesium Transferrin Ferritin Total Bilirubin AST ALT Alkaline Phosphatase Total Protein Albumin Globulin Albumin/Globulin Ratio TSH 3rd Generation Arterial Blood Potassium Venous Blood Potassium 4.4 Ur Random Creatinine U Random Total Protein Ur Random Sodium Stool Occult Blood Urine Opiates Screen Urine Methadone Screen Ur Barbiturates Screen Ur Phencyclidine Scrn Ur Amphetamines Screen U Benzodiazepines Scrn U Oth Cocaine Metabols U Cannabinoids Screen HIV 1&2 Ag/Ab, 4th Gen 09/14/17 09/14/17 09/14/17 13:55 14:54 15:36 WBC RBC Hgb Hct MCV MCH MCHC RDW Plt Count MPV Gran % Lymph % (Auto) Grainger % (Auto) Eos % (Auto) Baso % (Auto) Gran # Lymph # (Auto) Grainger # (Auto) Eos # (Auto) Baso # (Auto) APTT pCO2 24 L pO2 71.0 L HCO3 12.4 L ABG pH 7.32 L ABG Total CO2 13.1 L ABG O2 Saturation 96.5 ABG Base Excess -11.8 L ABG Potassium 4.4 VBG pH VBG pCO2 VBG HCO3 VBG Total CO2 VBG O2 Sat (Calc) VBG Base Excess VBG Potassium Glucose 231 H Lactate 3.8 H FiO2 32.0 Sodium 135.0 138 Potassium 5.0 Chloride 110.0 H 108 H Carbon Dioxide 15 L Anion Gap 20 BUN 47 H Creatinine 2.9 H Est GFR ( Amer) 22 Est GFR (Non-Af Amer) 18 POC Glucose (mg/dL) 231 H Random Glucose 232 H Hemoglobin A1c Lactic Acid Calcium 7.2 L Phosphorus Magnesium Transferrin Ferritin Total Bilirubin AST ALT Alkaline Phosphatase Total Protein Albumin Globulin Albumin/Globulin Ratio TSH 3rd Generation Arterial Blood Potassium 4.4 Venous Blood Potassium Ur Random Creatinine U Random Total Protein Ur Random Sodium Stool Occult Blood Urine Opiates Screen Urine Methadone Screen Ur Barbiturates Screen Ur Phencyclidine Scrn Ur Amphetamines Screen U Benzodiazepines Scrn U Oth Cocaine Metabols U Cannabinoids Screen HIV 1&2 Ag/Ab, 4th Gen 09/14/17 09/14/17 09/14/17 15:36 15:54 16:27 WBC RBC Hgb Hct MCV MCH MCHC RDW Plt Count MPV Gran % Lymph % (Auto) Grainger % (Auto) Eos % (Auto) Baso % (Auto) Gran # Lymph # (Auto) Grainger # (Auto) Eos # (Auto) Baso # (Auto) APTT pCO2 pO2 HCO3 ABG pH ABG Total CO2 ABG O2 Saturation ABG Base Excess ABG Potassium VBG pH VBG pCO2 VBG HCO3 VBG Total CO2 VBG O2 Sat (Calc) VBG Base Excess VBG Potassium Glucose Lactate FiO2 Sodium Potassium Chloride Carbon Dioxide Anion Gap BUN Creatinine Est GFR ( Amer) Est GFR (Non-Af Amer) POC Glucose (mg/dL) 231 H Random Glucose Hemoglobin A1c Lactic Acid Calcium Phosphorus Magnesium Transferrin Ferritin Total Bilirubin AST ALT Alkaline Phosphatase Total Protein Albumin Globulin Albumin/Globulin Ratio TSH 3rd Generation Arterial Blood Potassium Venous Blood Potassium Ur Random Creatinine U Random Total Protein Ur Random Sodium Stool Occult Blood Positive H Urine Opiates Screen Urine Methadone Screen Ur Barbiturates Screen Ur Phencyclidine Scrn Ur Amphetamines Screen U Benzodiazepines Scrn U Oth Cocaine Metabols U Cannabinoids Screen HIV 1&2 Ag/Ab, 4th Gen Nonreactive 09/14/17 09/14/17 09/14/17 17:00 17:46 21:00 WBC 10.7 D RBC 3.37 L Hgb 8.9 L Hct 26.6 L MCV 78.9 L MCH 26.4 MCHC 33.5 RDW 17.0 H Plt Count 75 L MPV 11.3 H Gran % Lymph % (Auto) Grainger % (Auto) Eos % (Auto) Baso % (Auto) Gran # Lymph # (Auto) Grainger # (Auto) Eos # (Auto) Baso # (Auto) APTT pCO2 pO2 HCO3 ABG pH ABG Total CO2 ABG O2 Saturation ABG Base Excess ABG Potassium VBG pH VBG pCO2 VBG HCO3 VBG Total CO2 VBG O2 Sat (Calc) VBG Base Excess VBG Potassium Glucose Lactate FiO2 Sodium 138 Potassium 4.9 Chloride 107 Carbon Dioxide 14 L Anion Gap 22 H BUN 47 H Creatinine 3.0 H Est GFR ( Amer) 21 Est GFR (Non-Af Amer) 17 POC Glucose (mg/dL) 251 H Random Glucose 235 H Hemoglobin A1c Lactic Acid Calcium 7.3 L Phosphorus Magnesium Transferrin Ferritin Total Bilirubin AST ALT Alkaline Phosphatase Total Protein Albumin Globulin Albumin/Globulin Ratio TSH 3rd Generation Arterial Blood Potassium Venous Blood Potassium Ur Random Creatinine U Random Total Protein Ur Random Sodium Stool Occult Blood Urine Opiates Screen Urine Methadone Screen Ur Barbiturates Screen Ur Phencyclidine Scrn Ur Amphetamines Screen U Benzodiazepines Scrn U Oth Cocaine Metabols U Cannabinoids Screen HIV 1&2 Ag/Ab, 4th Gen 09/14/17 09/14/17 09/15/17 21:00 23:28 01:30 WBC 14.2 H D RBC 3.28 L Hgb 8.7 L Hct 25.9 L MCV 79.0 L MCH 26.5 MCHC 33.6 RDW 17.1 H Plt Count 75 L MPV 11.7 H Gran % 89.6 H Lymph % (Auto) 8.4 L Grainger % (Auto) 1.8 Eos % (Auto) 0.1 L Baso % (Auto) 0.1 Gran # 12.76 H Lymph # (Auto) 1.2 Grainger # (Auto) 0.3 Eos # (Auto) 0.0 Baso # (Auto) 0.02 APTT pCO2 23 L 27 L pO2 37.0 L* 121.0 H HCO3 11.9 L 12.4 L ABG pH 7.32 L 7.27 L ABG Total CO2 12.6 L 13.2 L ABG O2 Saturation 80.6 L 99.7 H ABG Base Excess -12.2 L -12.9 L ABG Potassium 4.9 4.5 VBG pH VBG pCO2 VBG HCO3 VBG Total CO2 VBG O2 Sat (Calc) VBG Base Excess VBG Potassium Glucose 279 H 276 H Lactate 4.4 H* 2.8 H FiO2 21.0 50.0 Sodium 135.0 139.0 Potassium Chloride 113.0 H 115.0 H Carbon Dioxide Anion Gap BUN Creatinine Est GFR ( Amer) Est GFR (Non-Af Amer) POC Glucose (mg/dL) Random Glucose Hemoglobin A1c Lactic Acid Calcium Phosphorus Magnesium Transferrin Ferritin Total Bilirubin AST ALT Alkaline Phosphatase Total Protein Albumin Globulin Albumin/Globulin Ratio TSH 3rd Generation Arterial Blood Potassium 4.9 4.5 Venous Blood Potassium Ur Random Creatinine U Random Total Protein Ur Random Sodium Stool Occult Blood Urine Opiates Screen Urine Methadone Screen Ur Barbiturates Screen Ur Phencyclidine Scrn Ur Amphetamines Screen U Benzodiazepines Scrn U Oth Cocaine Metabols U Cannabinoids Screen HIV 1&2 Ag/Ab, 4th Gen 09/15/17 09/15/17 09/15/17 05:30 05:30 05:30 WBC 12.8 H RBC 3.16 L Hgb 8.4 L Hct 25.0 L MCV 79.1 L MCH 26.6 MCHC 33.6 RDW 17.4 H Plt Count 63 L MPV Gran % 88.1 H Lymph % (Auto) 10.5 L Grainger % (Auto) 1.3 Eos % (Auto) 0.0 L Baso % (Auto) 0.1 Gran # 11.28 H Lymph # (Auto) 1.4 Grainger # (Auto) 0.2 Eos # (Auto) 0.0 Baso # (Auto) 0.01 APTT 29.0 pCO2 pO2 HCO3 ABG pH ABG Total CO2 ABG O2 Saturation ABG Base Excess ABG Potassium VBG pH VBG pCO2 VBG HCO3 VBG Total CO2 VBG O2 Sat (Calc) VBG Base Excess VBG Potassium Glucose Lactate FiO2 Sodium Potassium Chloride Carbon Dioxide Anion Gap BUN Creatinine Est GFR ( Amer) Est GFR (Non-Af Amer) POC Glucose (mg/dL) Random Glucose Hemoglobin A1c Lactic Acid Calcium Phosphorus 4.9 H Magnesium 2.3 H Transferrin Ferritin Total Bilirubin AST ALT Alkaline Phosphatase Total Protein Albumin Globulin Albumin/Globulin Ratio TSH 3rd Generation Arterial Blood Potassium Venous Blood Potassium Ur Random Creatinine U Random Total Protein Ur Random Sodium Stool Occult Blood Urine Opiates Screen Urine Methadone Screen Ur Barbiturates Screen Ur Phencyclidine Scrn Ur Amphetamines Screen U Benzodiazepines Scrn U Oth Cocaine Metabols U Cannabinoids Screen HIV 1&2 Ag/Ab, 4th Gen 09/15/17 09/15/17 09/15/17 05:30 06:00 06:29 WBC RBC Hgb Hct MCV MCH MCHC RDW Plt Count MPV Gran % Lymph % (Auto) Grainger % (Auto) Eos % (Auto) Baso % (Auto) Gran # Lymph # (Auto) Grainger # (Auto) Eos # (Auto) Baso # (Auto) APTT pCO2 27 L pO2 131.0 H HCO3 15.3 L ABG pH 7.36 ABG Total CO2 16.1 L ABG O2 Saturation 99.3 H ABG Base Excess -8.6 L ABG Potassium 4.6 VBG pH VBG pCO2 VBG HCO3 VBG Total CO2 VBG O2 Sat (Calc) VBG Base Excess VBG Potassium Glucose 323 H Lactate 2.2 H FiO2 50.0 Sodium 137.0 Potassium Chloride 112.0 H Carbon Dioxide Anion Gap BUN Creatinine Est GFR ( Amer) Est GFR (Non-Af Amer) POC Glucose (mg/dL) 306 H Random Glucose Hemoglobin A1c Lactic Acid 3.3 H Calcium Phosphorus Magnesium Transferrin Ferritin Total Bilirubin AST ALT Alkaline Phosphatase Total Protein Albumin Globulin Albumin/Globulin Ratio TSH 3rd Generation Arterial Blood Potassium 4.6 Venous Blood Potassium Ur Random Creatinine U Random Total Protein Ur Random Sodium Stool Occult Blood Urine Opiates Screen Urine Methadone Screen Ur Barbiturates Screen Ur Phencyclidine Scrn Ur Amphetamines Screen U Benzodiazepines Scrn U Oth Cocaine Metabols U Cannabinoids Screen HIV 1&2 Ag/Ab, 4th Gen 09/15/17 09/15/17 09/15/17 06:56 08:03 09:29 WBC RBC Hgb Hct MCV MCH MCHC RDW Plt Count MPV Gran % Lymph % (Auto) Grainger % (Auto) Eos % (Auto) Baso % (Auto) Gran # Lymph # (Auto) Grainger # (Auto) Eos # (Auto) Baso # (Auto) APTT pCO2 pO2 HCO3 ABG pH ABG Total CO2 ABG O2 Saturation ABG Base Excess ABG Potassium VBG pH VBG pCO2 VBG HCO3 VBG Total CO2 VBG O2 Sat (Calc) VBG Base Excess VBG Potassium Glucose Lactate FiO2 Sodium 141 Potassium 5.0 Chloride 108 H Carbon Dioxide 16 L Anion Gap 21 H BUN 52 H Creatinine 3.0 H Est GFR ( Amer) 21 Est GFR (Non-Af Amer) 17 POC Glucose (mg/dL) 272 H 271 H Random Glucose 296 H Hemoglobin A1c Lactic Acid Calcium 7.3 L Phosphorus Magnesium Transferrin Ferritin Total Bilirubin 1.0 AST 44 H ALT 41 Alkaline Phosphatase 133 H Total Protein 6.0 Albumin 2.7 L Globulin 3.3 Albumin/Globulin Ratio 0.8 L TSH 3rd Generation Arterial Blood Potassium Venous Blood Potassium Ur Random Creatinine U Random Total Protein Ur Random Sodium Stool Occult Blood Urine Opiates Screen Urine Methadone Screen Ur Barbiturates Screen Ur Phencyclidine Scrn Ur Amphetamines Screen U Benzodiazepines Scrn U Oth Cocaine Metabols U Cannabinoids Screen HIV 1&2 Ag/Ab, 4th Gen Fingerstick Blood Sugar Results: 272 Critical Care Progress Note - Nutrition Nutrition: Nutrition Category Date Time Status NPO Diet [DIET] Diets 09/13/17 Dinner Ordered Assessment/Plan - Assessment and Plan (Free Text) Assessment: 42 year old female with a past medical history significant for NIDDM2 presents with two days of nausea, vomiting, abdominal pain, fever and fatigue. Patient was found to be hyperglycemic and high anion gap 2/2 lactic acidosis. Patient was started on insulin drip due to concerns for DKA and admitted to the ICU. However, patient was more likely to be in septic shock 2/2 emphasematous pyelonephritis. Patient was on pressors, now off. Patient hypoxic overnight started on venti mask with improvement in pO2 and lactate. Percutaneous drainage of emphasematous pyelonephritis was discussed with IR and urology, who recommended medical management at this time. Plan: Neuro: - AAOx3 - Maintain normothermia - Aspiration and Fall precautions CV: - EKG showed sinus tachycardia - TLC placed in left femoral vein - Midline ordered, will remove TLC after placement - Off pressors - Echo and lipid panel ordered - Maintain MAP > 65 Pulm: - CXR showed probable small left pleural effusion, no infiltrate - Repeat CXR showed cardiomegaly and mild vascular congestion - Maintain O2 > 90% - O2 via NC; venti mask prn GI: - Stool occult positive for blood - NPO - Protonix gtt - GI consulted Renal: - CT abd/pelv showed gas in left ureter and left collecting system possibly due emphasematous pyelonephritis, splenic infarct vs laceration, colitis, lymphadenopathy, and ovarian cyst - KUB showed no evidence of stone - FeNa 0.8% - D5W with Bicarb 150 meq - Strict I's and O's - Monitor electrolytes - Maintain normovolemia - Nephro consulted - Urology consulted - no surgical intervention at this time Endo: - Solu-cortef decreased to 50 mg Q8H - Anion gap 17 - Insulin gtt - Accuchecks - HgbA1c 8.9% - TSH ordered WNL - Maintain euglycemia Heme: - Microcytic anemia - SCDs for DVT PPx ID: - Leukocytosis likely 2/2 steroids - Lactic acidosis downtrending - UA negative for UTI - Urine culture and blood cultures show gram negative rods - HIV negative - Panculture and c. diff ordered - Heterophile Ab ordered - Cont Merrem - Procal > 200 - ID consulted Pt seen and discussed in detail with Dr. Gay. David Gilbert, PGY1 <Kameron Gay - Last Filed: 09/15/17 10:32> CCU Objective - Vital Signs / Intake & Output Intake and Output (Last 8hrs): Intake & Output 09/14/17 09/15/17 09/15/17 22:59 06:59 14:59 Intake Total 112 2072 Output Total 350 Balance 112 3 Intake: IV 112 2072 Left Femoral 2034 Output: Urine 350 Urethral (Kumar) 350 Other: Voiding Method Indwelling Catheter - Medications Active Medications: Active Medications Generic Name Dose Route Start Last Admin Trade Name Freq PRN Reason Stop Dose Admin Hydrocortisone Sodium Succinate 50 mg 09/15/17 09:14 Solu-Cortef IVP Q8 BOB Acetaminophen 1,000 mg in 100 mls @ 400 mls/hr 09/14/17 05:42 09/14/17 14:37 Ofirmev IVPB 09/16/17 05:43 400 mls/hr Q6H PRN Administration Fever Meropenem 500 mg/ Sodium 50 mls @ 100 mls/hr 09/14/17 22:00 09/15/17 09:46 Chloride IVPB 09/23/17 22:01 100 mls/hr Q12 BOB Administration Protocol Insulin Human Regular 100 100 mls @ 2 mls/hr 09/15/17 07:16 09/15/17 08:44 units/ Sodium Chloride IV 6 units/hr .Q24H PRN 6 mls/hr TITRATE PER MD ORDER Administration Protocol 2 UNITS/HR Sodium Bicarbonate 150 meq/ 1,150 mls @ 125 mls/hr 09/15/17 07:45 09/15/17 08 :44 Dextrose IV 125 mls/hr .Q9H12M BOB Administration Pantoprazole Sodium 40 mg in 100 mls @ 20 mls/hr 09/15/17 08:30 09/15/17 08: 48 Protonix 40mg Ivpb IVPB 20 mls/hr .Q5H BOB Administration Insulin Human Lispro 0 units 09/14/17 18:00 09/15/17 06:32 Humalog Med SC 7 units Q6H BOB Administration Protocol Ondansetron HCl 4 mg 09/13/17 23:59 09/14/17 16:13 Zofran Inj IVP 4 mg Q4H PRN Administration Nausea/Vomiting Vitamin A 1 ea 09/14/17 01:37 Vitamin A & D Oint Ud Foilpak TOP Q2 PRN Dry mouth - Patient Studies Lab Studies: Microbiology Studies 09/14/17 05:22 Urine Culture - Final Urine,Kumar Gram Negative Jose L Lab Studies 09/15/17 09/15/17 09/15/17 Range/Units 10:03 09:29 08:03 WBC (4.5-11.0) 10^3/ul RBC (3.5-6.1) 10^6/uL Hgb (12.0-16.0) g/dL Hct (36.0-48.0) % MCV (80.0-105.0) fl MCH (25.0-35.0) pg MCHC (31.0-37.0) g/dl RDW (11.5-14.5) % Plt Count (120.0-450.0) 10^3/uL MPV (7.0-11.0) fl Gran % (50.0-68.0) % Lymph % (Auto) (22.0-35.0) % Grainger % (Auto) (1.0-6.0) % Eos % (Auto) (1.5-5.0) % Baso % (Auto) (0.0-3.0) % Gran # (1.4-6.5) Lymph # (Auto) (1.2-3.4) Grainger # (Auto) (0.1-0.6) Eos # (Auto) (0.0-0.7) Baso # (Auto) (0.0-2.0) K/mm3 APTT (25.1-36.5) Seconds pCO2 (35-45) mm/Hg pO2 (30-55) mm/Hg HCO3 (21-28) mmol/L ABG pH (7.35-7.45) ABG Total CO2 (22-28) mmol.L ABG O2 Saturation (95-98) % ABG Base Excess (-2.0-3.0) mmol/L ABG Potassium (3.6-5.2) mmol/L VBG pH (7.32-7.43) VBG pCO2 (40-60) VBG HCO3 (21-28) mmol/l VBG Total CO2 (22-28) mmol.L VBG O2 Sat (Calc) (40-65) % VBG Base Excess (0.0-2.0) mmol/L VBG Potassium (3.6-5.2) mmol/L Glucose (65-105) mg/dl Lactate (0.7-2.1) mmol/L FiO2 % Sodium (132-148) mmol/L Potassium (3.6-5.0) mmol/L Chloride (98-107) mmol/L Carbon Dioxide (21-33) mmol/L Anion Gap (10-20) BUN (7-21) mg/dL Creatinine (0.7-1.2) mg/dl Est GFR ( Amer) Est GFR (Non-Af Amer) POC Glucose (mg/dL) 256 H 271 H 272 H (65-110) mg/dL Random Glucose (70-110) mg/dL Hemoglobin A1c (4.2-6.5) % Lactic Acid (0.7-2.1) mmol/L Calcium (8.4-10.5) mg/dL Phosphorus (2.5-4.5) mg/dL Magnesium (1.7-2.2) mg/dL Transferrin (206-381) mg/dL Ferritin ng/mL Total Bilirubin (0.2-1.3) mg/dL AST (14-36) U/L ALT (7-56) U/L Alkaline Phosphatase (38-126) U/L Total Protein (5.8-8.3) g/dL Albumin (3.0-4.8) g/dL Globulin gm/dL Albumin/Globulin Ratio (1.1-1.8) Arterial Blood Potassium (3.6-5.2) mmol/L Venous Blood Potassium (3.6-5.2) mmol/L Ur Random Creatinine mg/dL U Random Total Protein mg/L Ur Random Sodium meq/L Stool Occult Blood (NEGATIVE) Urine Opiates Screen (NEGATIVE) Urine Methadone Screen (NEGATIVE) Ur Barbiturates Screen (NEGATIVE) Ur Phencyclidine Scrn (NEGATIVE) Ur Amphetamines Screen (NEGATIVE) U Benzodiazepines Scrn (NEGATIVE) U Oth Cocaine Metabols (NEGATIVE) U Cannabinoids Screen (NEGATIVE) HIV 1&2 Ag/Ab, 4th Gen (Nonreactive) 09/15/17 09/15/17 09/15/17 Range/Units 06:56 06:29 06:00 WBC (4.5-11.0) 10^3/ul RBC (3.5-6.1) 10^6/uL Hgb (12.0-16.0) g/dL Hct (36.0-48.0) % MCV (80.0-105.0) fl MCH (25.0-35.0) pg MCHC (31.0-37.0) g/dl RDW (11.5-14.5) % Plt Count (120.0-450.0) 10^3/uL MPV (7.0-11.0) fl Gran % (50.0-68.0) % Lymph % (Auto) (22.0-35.0) % Grainger % (Auto) (1.0-6.0) % Eos % (Auto) (1.5-5.0) % Baso % (Auto) (0.0-3.0) % Gran # (1.4-6.5) Lymph # (Auto) (1.2-3.4) Grainger # (Auto) (0.1-0.6) Eos # (Auto) (0.0-0.7) Baso # (Auto) (0.0-2.0) K/mm3 APTT (25.1-36.5) Seconds pCO2 27 L (35-45) mm/Hg pO2 131.0 H (30-55) mm/Hg HCO3 15.3 L (21-28) mmol/L ABG pH 7.36 (7.35-7.45) ABG Total CO2 16.1 L (22-28) mmol.L ABG O2 Saturation 99.3 H (95-98) % ABG Base Excess -8.6 L (-2.0-3.0) mmol/L ABG Potassium 4.6 (3.6-5.2) mmol/L VBG pH (7.32-7.43) VBG pCO2 (40-60) VBG HCO3 (21-28) mmol/l VBG Total CO2 (22-28) mmol.L VBG O2 Sat (Calc) (40-65) % VBG Base Excess (0.0-2.0) mmol/L VBG Potassium (3.6-5.2) mmol/L Glucose 323 H (65-105) mg/dl Lactate 2.2 H (0.7-2.1) mmol/L FiO2 50.0 % Sodium 141 137.0 (132-148) mmol/L Potassium 5.0 (3.6-5.0) mmol/L Chloride 108 H 112.0 H (98-107) mmol/L Carbon Dioxide 16 L (21-33) mmol/L Anion Gap 21 H (10-20) BUN 52 H (7-21) mg/dL Creatinine 3.0 H (0.7-1.2) mg/dl Est GFR ( Amer) 21 Est GFR (Non-Af Amer) 17 POC Glucose (mg/dL) 306 H (65-110) mg/dL Random Glucose 296 H (70-110) mg/dL Hemoglobin A1c (4.2-6.5) % Lactic Acid (0.7-2.1) mmol/L Calcium 7.3 L (8.4-10.5) mg/dL Phosphorus (2.5-4.5) mg/dL Magnesium (1.7-2.2) mg/dL Transferrin (206-381) mg/dL Ferritin ng/mL Total Bilirubin 1.0 (0.2-1.3) mg/dL AST 44 H (14-36) U/L ALT 41 (7-56) U/L Alkaline Phosphatase 133 H (38-126) U/L Total Protein 6.0 (5.8-8.3) g/dL Albumin 2.7 L (3.0-4.8) g/dL Globulin 3.3 gm/dL Albumin/Globulin Ratio 0.8 L (1.1-1.8) Arterial Blood Potassium 4.6 (3.6-5.2) mmol/L Venous Blood Potassium (3.6-5.2) mmol/L Ur Random Creatinine mg/dL U Random Total Protein mg/L Ur Random Sodium meq/L Stool Occult Blood (NEGATIVE) Urine Opiates Screen (NEGATIVE) Urine Methadone Screen (NEGATIVE) Ur Barbiturates Screen (NEGATIVE) Ur Phencyclidine Scrn (NEGATIVE) Ur Amphetamines Screen (NEGATIVE) U Benzodiazepines Scrn (NEGATIVE) U Oth Cocaine Metabols (NEGATIVE) U Cannabinoids Screen (NEGATIVE) HIV 1&2 Ag/Ab, 4th Gen (Nonreactive) 09/15/17 09/15/17 09/15/17 Range/Units 05:30 05:30 05:30 WBC (4.5-11.0) 10^3/ul RBC (3.5-6.1) 10^6/uL Hgb (12.0-16.0) g/dL Hct (36.0-48.0) % MCV (80.0-105.0) fl MCH (25.0-35.0) pg MCHC (31.0-37.0) g/dl RDW (11.5-14.5) % Plt Count (120.0-450.0) 10^3/uL MPV (7.0-11.0) fl Gran % (50.0-68.0) % Lymph % (Auto) (22.0-35.0) % Grainger % (Auto) (1.0-6.0) % Eos % (Auto) (1.5-5.0) % Baso % (Auto) (0.0-3.0) % Gran # (1.4-6.5) Lymph # (Auto) (1.2-3.4) Grainger # (Auto) (0.1-0.6) Eos # (Auto) (0.0-0.7) Baso # (Auto) (0.0-2.0) K/mm3 APTT 29.0 (25.1-36.5) Seconds pCO2 (35-45) mm/Hg pO2 (30-55) mm/Hg HCO3 (21-28) mmol/L ABG pH (7.35-7.45) ABG Total CO2 (22-28) mmol.L ABG O2 Saturation (95-98) % ABG Base Excess (-2.0-3.0) mmol/L ABG Potassium (3.6-5.2) mmol/L VBG pH (7.32-7.43) VBG pCO2 (40-60) VBG HCO3 (21-28) mmol/l VBG Total CO2 (22-28) mmol.L VBG O2 Sat (Calc) (40-65) % VBG Base Excess (0.0-2.0) mmol/L VBG Potassium (3.6-5.2) mmol/L Glucose (65-105) mg/dl Lactate (0.7-2.1) mmol/L FiO2 % Sodium (132-148) mmol/L Potassium (3.6-5.0) mmol/L Chloride (98-107) mmol/L Carbon Dioxide (21-33) mmol/L Anion Gap (10-20) BUN (7-21) mg/dL Creatinine (0.7-1.2) mg/dl Est GFR ( Amer) Est GFR (Non-Af Amer) POC Glucose (mg/dL) (65-110) mg/dL Random Glucose (70-110) mg/dL Hemoglobin A1c (4.2-6.5) % Lactic Acid 3.3 H (0.7-2.1) mmol/L Calcium (8.4-10.5) mg/dL Phosphorus 4.9 H (2.5-4.5) mg/dL Magnesium 2.3 H (1.7-2.2) mg/dL Transferrin (206-381) mg/dL Ferritin ng/mL Total Bilirubin (0.2-1.3) mg/dL AST (14-36) U/L ALT (7-56) U/L Alkaline Phosphatase (38-126) U/L Total Protein (5.8-8.3) g/dL Albumin (3.0-4.8) g/dL Globulin gm/dL Albumin/Globulin Ratio (1.1-1.8) Arterial Blood Potassium (3.6-5.2) mmol/L Venous Blood Potassium (3.6-5.2) mmol/L Ur Random Creatinine mg/dL U Random Total Protein mg/L Ur Random Sodium meq/L Stool Occult Blood (NEGATIVE) Urine Opiates Screen (NEGATIVE) Urine Methadone Screen (NEGATIVE) Ur Barbiturates Screen (NEGATIVE) Ur Phencyclidine Scrn (NEGATIVE) Ur Amphetamines Screen (NEGATIVE) U Benzodiazepines Scrn (NEGATIVE) U Oth Cocaine Metabols (NEGATIVE) U Cannabinoids Screen (NEGATIVE) HIV 1&2 Ag/Ab, 4th Gen (Nonreactive) 09/15/17 09/15/17 09/14/17 Range/Units 05:30 01:30 23:28 WBC 12.8 H (4.5-11.0) 10^3/ul RBC 3.16 L (3.5-6.1) 10^6/uL Hgb 8.4 L (12.0-16.0) g/dL Hct 25.0 L (36.0-48.0) % MCV 79.1 L (80.0-105.0) fl MCH 26.6 (25.0-35.0) pg MCHC 33.6 (31.0-37.0) g/dl RDW 17.4 H (11.5-14.5) % Plt Count 63 L (120.0-450.0) 10^3/uL MPV (7.0-11.0) fl Gran % 88.1 H (50.0-68.0) % Lymph % (Auto) 10.5 L (22.0-35.0) % Grainger % (Auto) 1.3 (1.0-6.0) % Eos % (Auto) 0.0 L (1.5-5.0) % Baso % (Auto) 0.1 (0.0-3.0) % Gran # 11.28 H (1.4-6.5) Lymph # (Auto) 1.4 (1.2-3.4) Grainger # (Auto) 0.2 (0.1-0.6) Eos # (Auto) 0.0 (0.0-0.7) Baso # (Auto) 0.01 (0.0-2.0) K/mm3 APTT (25.1-36.5) Seconds pCO2 27 L 23 L (35-45) mm/Hg pO2 121.0 H 37.0 L* (30-55) mm/Hg HCO3 12.4 L 11.9 L (21-28) mmol/L ABG pH 7.27 L 7.32 L (7.35-7.45) ABG Total CO2 13.2 L 12.6 L (22-28) mmol.L ABG O2 Saturation 99.7 H 80.6 L (95-98) % ABG Base Excess -12.9 L -12.2 L (-2.0-3.0) mmol/L ABG Potassium 4.5 4.9 (3.6-5.2) mmol/L VBG pH (7.32-7.43) VBG pCO2 (40-60) VBG HCO3 (21-28) mmol/l VBG Total CO2 (22-28) mmol.L VBG O2 Sat (Calc) (40-65) % VBG Base Excess (0.0-2.0) mmol/L VBG Potassium (3.6-5.2) mmol/L Glucose 276 H 279 H (65-105) mg/dl Lactate 2.8 H 4.4 H* (0.7-2.1) mmol/L FiO2 50.0 21.0 % Sodium 139.0 135.0 (132-148) mmol/L Potassium (3.6-5.0) mmol/L Chloride 115.0 H 113.0 H (98-107) mmol/L Carbon Dioxide (21-33) mmol/L Anion Gap (10-20) BUN (7-21) mg/dL Creatinine (0.7-1.2) mg/dl Est GFR ( Amer) Est GFR (Non-Af Amer) POC Glucose (mg/dL) (65-110) mg/dL Random Glucose (70-110) mg/dL Hemoglobin A1c (4.2-6.5) % Lactic Acid (0.7-2.1) mmol/L Calcium (8.4-10.5) mg/dL Phosphorus (2.5-4.5) mg/dL Magnesium (1.7-2.2) mg/dL Transferrin (206-381) mg/dL Ferritin ng/mL Total Bilirubin (0.2-1.3) mg/dL AST (14-36) U/L ALT (7-56) U/L Alkaline Phosphatase (38-126) U/L Total Protein (5.8-8.3) g/dL Albumin (3.0-4.8) g/dL Globulin gm/dL Albumin/Globulin Ratio (1.1-1.8) Arterial Blood Potassium 4.5 4.9 (3.6-5.2) mmol/L Venous Blood Potassium (3.6-5.2) mmol/L Ur Random Creatinine mg/dL U Random Total Protein mg/L Ur Random Sodium meq/L Stool Occult Blood (NEGATIVE) Urine Opiates Screen (NEGATIVE) Urine Methadone Screen (NEGATIVE) Ur Barbiturates Screen (NEGATIVE) Ur Phencyclidine Scrn (NEGATIVE) Ur Amphetamines Screen (NEGATIVE) U Benzodiazepines Scrn (NEGATIVE) U Oth Cocaine Metabols (NEGATIVE) U Cannabinoids Screen (NEGATIVE) HIV 1&2 Ag/Ab, 4th Gen (Nonreactive) 09/14/17 09/14/17 09/14/17 Range/Units 21:00 21:00 17:46 WBC 14.2 H D (4.5-11.0) 10^3/ul RBC 3.28 L (3.5-6.1) 10^6/uL Hgb 8.7 L (12.0-16.0) g/dL Hct 25.9 L (36.0-48.0) % MCV 79.0 L (80.0-105.0) fl MCH 26.5 (25.0-35.0) pg MCHC 33.6 (31.0-37.0) g/dl RDW 17.1 H (11.5-14.5) % Plt Count 75 L (120.0-450.0) 10^3/uL MPV 11.7 H (7.0-11.0) fl Gran % 89.6 H (50.0-68.0) % Lymph % (Auto) 8.4 L (22.0-35.0) % Grainger % (Auto) 1.8 (1.0-6.0) % Eos % (Auto) 0.1 L (1.5-5.0) % Baso % (Auto) 0.1 (0.0-3.0) % Gran # 12.76 H (1.4-6.5) Lymph # (Auto) 1.2 (1.2-3.4) Grainger # (Auto) 0.3 (0.1-0.6) Eos # (Auto) 0.0 (0.0-0.7) Baso # (Auto) 0.02 (0.0-2.0) K/mm3 APTT (25.1-36.5) Seconds pCO2 (35-45) mm/Hg pO2 (30-55) mm/Hg HCO3 (21-28) mmol/L ABG pH (7.35-7.45) ABG Total CO2 (22-28) mmol.L ABG O2 Saturation (95-98) % ABG Base Excess (-2.0-3.0) mmol/L ABG Potassium (3.6-5.2) mmol/L VBG pH (7.32-7.43) VBG pCO2 (40-60) VBG HCO3 (21-28) mmol/l VBG Total CO2 (22-28) mmol.L VBG O2 Sat (Calc) (40-65) % VBG Base Excess (0.0-2.0) mmol/L VBG Potassium (3.6-5.2) mmol/L Glucose (65-105) mg/dl Lactate (0.7-2.1) mmol/L FiO2 % Sodium 138 (132-148) mmol/L Potassium 4.9 (3.6-5.0) mmol/L Chloride 107 (98-107) mmol/L Carbon Dioxide 14 L (21-33) mmol/L Anion Gap 22 H (10-20) BUN 47 H (7-21) mg/dL Creatinine 3.0 H (0.7-1.2) mg/dl Est GFR ( Amer) 21 Est GFR (Non-Af Amer) 17 POC Glucose (mg/dL) 251 H (65-110) mg/dL Random Glucose 235 H (70-110) mg/dL Hemoglobin A1c (4.2-6.5) % Lactic Acid (0.7-2.1) mmol/L Calcium 7.3 L (8.4-10.5) mg/dL Phosphorus (2.5-4.5) mg/dL Magnesium (1.7-2.2) mg/dL Transferrin (206-381) mg/dL Ferritin ng/mL Total Bilirubin (0.2-1.3) mg/dL AST (14-36) U/L ALT (7-56) U/L Alkaline Phosphatase (38-126) U/L Total Protein (5.8-8.3) g/dL Albumin (3.0-4.8) g/dL Globulin gm/dL Albumin/Globulin Ratio (1.1-1.8) Arterial Blood Potassium (3.6-5.2) mmol/L Venous Blood Potassium (3.6-5.2) mmol/L Ur Random Creatinine mg/dL U Random Total Protein mg/L Ur Random Sodium meq/L Stool Occult Blood (NEGATIVE) Urine Opiates Screen (NEGATIVE) Urine Methadone Screen (NEGATIVE) Ur Barbiturates Screen (NEGATIVE) Ur Phencyclidine Scrn (NEGATIVE) Ur Amphetamines Screen (NEGATIVE) U Benzodiazepines Scrn (NEGATIVE) U Oth Cocaine Metabols (NEGATIVE) U Cannabinoids Screen (NEGATIVE) HIV 1&2 Ag/Ab, 4th Gen (Nonreactive) 09/14/17 09/14/17 09/14/17 Range/Units 17:00 16:27 15:54 WBC 10.7 D (4.5-11.0) 10^3/ul RBC 3.37 L (3.5-6.1) 10^6/uL Hgb 8.9 L (12.0-16.0) g/dL Hct 26.6 L (36.0-48.0) % MCV 78.9 L (80.0-105.0) fl MCH 26.4 (25.0-35.0) pg MCHC 33.5 (31.0-37.0) g/dl RDW 17.0 H (11.5-14.5) % Plt Count 75 L (120.0-450.0) 10^3/uL MPV 11.3 H (7.0-11.0) fl Gran % (50.0-68.0) % Lymph % (Auto) (22.0-35.0) % Grainger % (Auto) (1.0-6.0) % Eos % (Auto) (1.5-5.0) % Baso % (Auto) (0.0-3.0) % Gran # (1.4-6.5) Lymph # (Auto) (1.2-3.4) Grainger # (Auto) (0.1-0.6) Eos # (Auto) (0.0-0.7) Baso # (Auto) (0.0-2.0) K/mm3 APTT (25.1-36.5) Seconds pCO2 (35-45) mm/Hg pO2 (30-55) mm/Hg HCO3 (21-28) mmol/L ABG pH (7.35-7.45) ABG Total CO2 (22-28) mmol.L ABG O2 Saturation (95-98) % ABG Base Excess (-2.0-3.0) mmol/L ABG Potassium (3.6-5.2) mmol/L VBG pH (7.32-7.43) VBG pCO2 (40-60) VBG HCO3 (21-28) mmol/l VBG Total CO2 (22-28) mmol.L VBG O2 Sat (Calc) (40-65) % VBG Base Excess (0.0-2.0) mmol/L VBG Potassium (3.6-5.2) mmol/L Glucose (65-105) mg/dl Lactate (0.7-2.1) mmol/L FiO2 % Sodium (132-148) mmol/L Potassium (3.6-5.0) mmol/L Chloride (98-107) mmol/L Carbon Dioxide (21-33) mmol/L Anion Gap (10-20) BUN (7-21) mg/dL Creatinine (0.7-1.2) mg/dl Est GFR ( Amer) Est GFR (Non-Af Amer) POC Glucose (mg/dL) 231 H (65-110) mg/dL Random Glucose (70-110) mg/dL Hemoglobin A1c (4.2-6.5) % Lactic Acid (0.7-2.1) mmol/L Calcium (8.4-10.5) mg/dL Phosphorus (2.5-4.5) mg/dL Magnesium (1.7-2.2) mg/dL Transferrin (206-381) mg/dL Ferritin ng/mL Total Bilirubin (0.2-1.3) mg/dL AST (14-36) U/L ALT (7-56) U/L Alkaline Phosphatase (38-126) U/L Total Protein (5.8-8.3) g/dL Albumin (3.0-4.8) g/dL Globulin gm/dL Albumin/Globulin Ratio (1.1-1.8) Arterial Blood Potassium (3.6-5.2) mmol/L Venous Blood Potassium (3.6-5.2) mmol/L Ur Random Creatinine mg/dL U Random Total Protein mg/L Ur Random Sodium meq/L Stool Occult Blood Positive H (NEGATIVE) Urine Opiates Screen (NEGATIVE) Urine Methadone Screen (NEGATIVE) Ur Barbiturates Screen (NEGATIVE) Ur Phencyclidine Scrn (NEGATIVE) Ur Amphetamines Screen (NEGATIVE) U Benzodiazepines Scrn (NEGATIVE) U Oth Cocaine Metabols (NEGATIVE) U Cannabinoids Screen (NEGATIVE) HIV 1&2 Ag/Ab, 4th Gen (Nonreactive) 09/14/17 09/14/17 09/14/17 Range/Units 15:36 15:36 14:54 WBC (4.5-11.0) 10^3/ul RBC (3.5-6.1) 10^6/uL Hgb (12.0-16.0) g/dL Hct (36.0-48.0) % MCV (80.0-105.0) fl MCH (25.0-35.0) pg MCHC (31.0-37.0) g/dl RDW (11.5-14.5) % Plt Count (120.0-450.0) 10^3/uL MPV (7.0-11.0) fl Gran % (50.0-68.0) % Lymph % (Auto) (22.0-35.0) % Grainger % (Auto) (1.0-6.0) % Eos % (Auto) (1.5-5.0) % Baso % (Auto) (0.0-3.0) % Gran # (1.4-6.5) Lymph # (Auto) (1.2-3.4) Grainger # (Auto) (0.1-0.6) Eos # (Auto) (0.0-0.7) Baso # (Auto) (0.0-2.0) K/mm3 APTT (25.1-36.5) Seconds pCO2 (35-45) mm/Hg pO2 (30-55) mm/Hg HCO3 (21-28) mmol/L ABG pH (7.35-7.45) ABG Total CO2 (22-28) mmol.L ABG O2 Saturation (95-98) % ABG Base Excess (-2.0-3.0) mmol/L ABG Potassium (3.6-5.2) mmol/L VBG pH (7.32-7.43) VBG pCO2 (40-60) VBG HCO3 (21-28) mmol/l VBG Total CO2 (22-28) mmol.L VBG O2 Sat (Calc) (40-65) % VBG Base Excess (0.0-2.0) mmol/L VBG Potassium (3.6-5.2) mmol/L Glucose (65-105) mg/dl Lactate (0.7-2.1) mmol/L FiO2 % Sodium 138 (132-148) mmol/L Potassium 5.0 (3.6-5.0) mmol/L Chloride 108 H (98-107) mmol/L Carbon Dioxide 15 L (21-33) mmol/L Anion Gap 20 (10-20) BUN 47 H (7-21) mg/dL Creatinine 2.9 H (0.7-1.2) mg/dl Est GFR ( Amer) 22 Est GFR (Non-Af Amer) 18 POC Glucose (mg/dL) 231 H (65-110) mg/dL Random Glucose 232 H (70-110) mg/dL Hemoglobin A1c (4.2-6.5) % Lactic Acid (0.7-2.1) mmol/L Calcium 7.2 L (8.4-10.5) mg/dL Phosphorus (2.5-4.5) mg/dL Magnesium (1.7-2.2) mg/dL Transferrin (206-381) mg/dL Ferritin ng/mL Total Bilirubin (0.2-1.3) mg/dL AST (14-36) U/L ALT (7-56) U/L Alkaline Phosphatase (38-126) U/L Total Protein (5.8-8.3) g/dL Albumin (3.0-4.8) g/dL Globulin gm/dL Albumin/Globulin Ratio (1.1-1.8) Arterial Blood Potassium (3.6-5.2) mmol/L Venous Blood Potassium (3.6-5.2) mmol/L Ur Random Creatinine mg/dL U Random Total Protein mg/L Ur Random Sodium meq/L Stool Occult Blood (NEGATIVE) Urine Opiates Screen (NEGATIVE) Urine Methadone Screen (NEGATIVE) Ur Barbiturates Screen (NEGATIVE) Ur Phencyclidine Scrn (NEGATIVE) Ur Amphetamines Screen (NEGATIVE) U Benzodiazepines Scrn (NEGATIVE) U Oth Cocaine Metabols (NEGATIVE) U Cannabinoids Screen (NEGATIVE) HIV 1&2 Ag/Ab, 4th Gen Nonreactive (Nonreactive) 09/14/17 09/14/17 09/14/17 Range/Units 13:55 13:48 12:51 WBC (4.5-11.0) 10^3/ul RBC (3.5-6.1) 10^6/uL Hgb (12.0-16.0) g/dL Hct (36.0-48.0) % MCV (80.0-105.0) fl MCH (25.0-35.0) pg MCHC (31.0-37.0) g/dl RDW (11.5-14.5) % Plt Count (120.0-450.0) 10^3/uL MPV (7.0-11.0) fl Gran % (50.0-68.0) % Lymph % (Auto) (22.0-35.0) % Grainger % (Auto) (1.0-6.0) % Eos % (Auto) (1.5-5.0) % Baso % (Auto) (0.0-3.0) % Gran # (1.4-6.5) Lymph # (Auto) (1.2-3.4) Grainger # (Auto) (0.1-0.6) Eos # (Auto) (0.0-0.7) Baso # (Auto) (0.0-2.0) K/mm3 APTT (25.1-36.5) Seconds pCO2 24 L (35-45) mm/Hg pO2 71.0 L (30-55) mm/Hg HCO3 12.4 L (21-28) mmol/L ABG pH 7.32 L (7.35-7.45) ABG Total CO2 13.1 L (22-28) mmol.L ABG O2 Saturation 96.5 (95-98) % ABG Base Excess -11.8 L (-2.0-3.0) mmol/L ABG Potassium 4.4 (3.6-5.2) mmol/L VBG pH (7.32-7.43) VBG pCO2 (40-60) VBG HCO3 (21-28) mmol/l VBG Total CO2 (22-28) mmol.L VBG O2 Sat (Calc) (40-65) % VBG Base Excess (0.0-2.0) mmol/L VBG Potassium (3.6-5.2) mmol/L Glucose 231 H (65-105) mg/dl Lactate 3.8 H (0.7-2.1) mmol/L FiO2 32.0 % Sodium 135.0 (132-148) mmol/L Potassium (3.6-5.0) mmol/L Chloride 110.0 H (98-107) mmol/L Carbon Dioxide (21-33) mmol/L Anion Gap (10-20) BUN (7-21) mg/dL Creatinine (0.7-1.2) mg/dl Est GFR ( Amer) Est GFR (Non-Af Amer) POC Glucose (mg/dL) 224 H 203 H (65-110) mg/dL Random Glucose (70-110) mg/dL Hemoglobin A1c (4.2-6.5) % Lactic Acid (0.7-2.1) mmol/L Calcium (8.4-10.5) mg/dL Phosphorus (2.5-4.5) mg/dL Magnesium (1.7-2.2) mg/dL Transferrin (206-381) mg/dL Ferritin ng/mL Total Bilirubin (0.2-1.3) mg/dL AST (14-36) U/L ALT (7-56) U/L Alkaline Phosphatase (38-126) U/L Total Protein (5.8-8.3) g/dL Albumin (3.0-4.8) g/dL Globulin gm/dL Albumin/Globulin Ratio (1.1-1.8) Arterial Blood Potassium 4.4 (3.6-5.2) mmol/L Venous Blood Potassium (3.6-5.2) mmol/L Ur Random Creatinine mg/dL U Random Total Protein mg/L Ur Random Sodium meq/L Stool Occult Blood (NEGATIVE) Urine Opiates Screen (NEGATIVE) Urine Methadone Screen (NEGATIVE) Ur Barbiturates Screen (NEGATIVE) Ur Phencyclidine Scrn (NEGATIVE) Ur Amphetamines Screen (NEGATIVE) U Benzodiazepines Scrn (NEGATIVE) U Oth Cocaine Metabols (NEGATIVE) U Cannabinoids Screen (NEGATIVE) HIV 1&2 Ag/Ab, 4th Gen (Nonreactive) 09/14/17 09/14/17 09/14/17 Range/Units 12:10 12:10 12:05 WBC (4.5-11.0) 10^3/ul RBC (3.5-6.1) 10^6/uL Hgb (12.0-16.0) g/dL Hct (36.0-48.0) % MCV (80.0-105.0) fl MCH (25.0-35.0) pg MCHC (31.0-37.0) g/dl RDW (11.5-14.5) % Plt Count (120.0-450.0) 10^3/uL MPV (7.0-11.0) fl Gran % (50.0-68.0) % Lymph % (Auto) (22.0-35.0) % Grainger % (Auto) (1.0-6.0) % Eos % (Auto) (1.5-5.0) % Baso % (Auto) (0.0-3.0) % Gran # (1.4-6.5) Lymph # (Auto) (1.2-3.4) Grainger # (Auto) (0.1-0.6) Eos # (Auto) (0.0-0.7) Baso # (Auto) (0.0-2.0) K/mm3 APTT (25.1-36.5) Seconds pCO2 (35-45) mm/Hg pO2 37 (30-55) mm/Hg HCO3 (21-28) mmol/L ABG pH (7.35-7.45) ABG Total CO2 (22-28) mmol.L ABG O2 Saturation (95-98) % ABG Base Excess (-2.0-3.0) mmol/L ABG Potassium (3.6-5.2) mmol/L VBG pH 7.19 L* (7.32-7.43) VBG pCO2 38.0 L (40-60) VBG HCO3 14.5 L (21-28) mmol/l VBG Total CO2 15.7 L (22-28) mmol.L VBG O2 Sat (Calc) 74.2 H (40-65) % VBG Base Excess -13.0 L (0.0-2.0) mmol/L VBG Potassium 4.4 (3.6-5.2) mmol/L Glucose 242 H (65-105) mg/dl Lactate 4.9 H* (0.7-2.1) mmol/L FiO2 21.0 % Sodium 134.0 137 (132-148) mmol/L Potassium 4.5 (3.6-5.0) mmol/L Chloride 109.0 H 107 (98-107) mmol/L Carbon Dioxide 15 L (21-33) mmol/L Anion Gap 20 (10-20) BUN 44 H (7-21) mg/dL Creatinine 3.1 H (0.7-1.2) mg/dl Est GFR ( Amer) 20 Est GFR (Non-Af Amer) 17 POC Glucose (mg/dL) 195 H (65-110) mg/dL Random Glucose 215 H (70-110) mg/dL Hemoglobin A1c (4.2-6.5) % Lactic Acid (0.7-2.1) mmol/L Calcium 7.2 L (8.4-10.5) mg/dL Phosphorus (2.5-4.5) mg/dL Magnesium (1.7-2.2) mg/dL Transferrin (206-381) mg/dL Ferritin ng/mL Total Bilirubin (0.2-1.3) mg/dL AST (14-36) U/L ALT (7-56) U/L Alkaline Phosphatase (38-126) U/L Total Protein (5.8-8.3) g/dL Albumin (3.0-4.8) g/dL Globulin gm/dL Albumin/Globulin Ratio (1.1-1.8) Arterial Blood Potassium (3.6-5.2) mmol/L Venous Blood Potassium 4.4 (3.6-5.2) mmol/L Ur Random Creatinine mg/dL U Random Total Protein mg/L Ur Random Sodium meq/L Stool Occult Blood (NEGATIVE) Urine Opiates Screen (NEGATIVE) Urine Methadone Screen (NEGATIVE) Ur Barbiturates Screen (NEGATIVE) Ur Phencyclidine Scrn (NEGATIVE) Ur Amphetamines Screen (NEGATIVE) U Benzodiazepines Scrn (NEGATIVE) U Oth Cocaine Metabols (NEGATIVE) U Cannabinoids Screen (NEGATIVE) HIV 1&2 Ag/Ab, 4th Gen (Nonreactive) 09/14/17 09/14/17 09/14/17 Range/Units 12:00 12:00 12:00 WBC (4.5-11.0) 10^3/ul RBC (3.5-6.1) 10^6/uL Hgb (12.0-16.0) g/dL Hct (36.0-48.0) % MCV (80.0-105.0) fl MCH (25.0-35.0) pg MCHC (31.0-37.0) g/dl RDW (11.5-14.5) % Plt Count (120.0-450.0) 10^3/uL MPV (7.0-11.0) fl Gran % (50.0-68.0) % Lymph % (Auto) (22.0-35.0) % Grainger % (Auto) (1.0-6.0) % Eos % (Auto) (1.5-5.0) % Baso % (Auto) (0.0-3.0) % Gran # (1.4-6.5) Lymph # (Auto) (1.2-3.4) Grainger # (Auto) (0.1-0.6) Eos # (Auto) (0.0-0.7) Baso # (Auto) (0.0-2.0) K/mm3 APTT (25.1-36.5) Seconds pCO2 (35-45) mm/Hg pO2 (30-55) mm/Hg HCO3 (21-28) mmol/L ABG pH (7.35-7.45) ABG Total CO2 (22-28) mmol.L ABG O2 Saturation (95-98) % ABG Base Excess (-2.0-3.0) mmol/L ABG Potassium (3.6-5.2) mmol/L VBG pH (7.32-7.43) VBG pCO2 (40-60) VBG HCO3 (21-28) mmol/l VBG Total CO2 (22-28) mmol.L VBG O2 Sat (Calc) (40-65) % VBG Base Excess (0.0-2.0) mmol/L VBG Potassium (3.6-5.2) mmol/L Glucose (65-105) mg/dl Lactate (0.7-2.1) mmol/L FiO2 % Sodium (132-148) mmol/L Potassium (3.6-5.0) mmol/L Chloride (98-107) mmol/L Carbon Dioxide (21-33) mmol/L Anion Gap (10-20) BUN (7-21) mg/dL Creatinine (0.7-1.2) mg/dl Est GFR ( Amer) Est GFR (Non-Af Amer) POC Glucose (mg/dL) (65-110) mg/dL Random Glucose (70-110) mg/dL Hemoglobin A1c (4.2-6.5) % Lactic Acid (0.7-2.1) mmol/L Calcium (8.4-10.5) mg/dL Phosphorus (2.5-4.5) mg/dL Magnesium (1.7-2.2) mg/dL Transferrin (206-381) mg/dL Ferritin ng/mL Total Bilirubin (0.2-1.3) mg/dL AST (14-36) U/L ALT (7-56) U/L Alkaline Phosphatase (38-126) U/L Total Protein (5.8-8.3) g/dL Albumin (3.0-4.8) g/dL Globulin gm/dL Albumin/Globulin Ratio (1.1-1.8) Arterial Blood Potassium (3.6-5.2) mmol/L Venous Blood Potassium (3.6-5.2) mmol/L Ur Random Creatinine 87 mg/dL U Random Total Protein 152 mg/L Ur Random Sodium 31 meq/L Stool Occult Blood (NEGATIVE) Urine Opiates Screen Negative (NEGATIVE) Urine Methadone Screen Negative (NEGATIVE) Ur Barbiturates Screen Negative (NEGATIVE) Ur Phencyclidine Scrn Negative (NEGATIVE) Ur Amphetamines Screen Negative (NEGATIVE) U Benzodiazepines Scrn Negative (NEGATIVE) U Oth Cocaine Metabols Negative (NEGATIVE) U Cannabinoids Screen Negative (NEGATIVE) HIV 1&2 Ag/Ab, 4th Gen (Nonreactive) 09/14/17 09/14/17 09/14/17 Range/Units 10:55 10:05 09:58 WBC (4.5-11.0) 10^3/ul RBC (3.5-6.1) 10^6/uL Hgb (12.0-16.0) g/dL Hct (36.0-48.0) % MCV (80.0-105.0) fl MCH (25.0-35.0) pg MCHC (31.0-37.0) g/dl RDW (11.5-14.5) % Plt Count (120.0-450.0) 10^3/uL MPV (7.0-11.0) fl Gran % (50.0-68.0) % Lymph % (Auto) (22.0-35.0) % Grainger % (Auto) (1.0-6.0) % Eos % (Auto) (1.5-5.0) % Baso % (Auto) (0.0-3.0) % Gran # (1.4-6.5) Lymph # (Auto) (1.2-3.4) Grainger # (Auto) (0.1-0.6) Eos # (Auto) (0.0-0.7) Baso # (Auto) (0.0-2.0) K/mm3 APTT (25.1-36.5) Seconds pCO2 (35-45) mm/Hg pO2 (30-55) mm/Hg HCO3 (21-28) mmol/L ABG pH (7.35-7.45) ABG Total CO2 (22-28) mmol.L ABG O2 Saturation (95-98) % ABG Base Excess (-2.0-3.0) mmol/L ABG Potassium (3.6-5.2) mmol/L VBG pH (7.32-7.43) VBG pCO2 (40-60) VBG HCO3 (21-28) mmol/l VBG Total CO2 (22-28) mmol.L VBG O2 Sat (Calc) (40-65) % VBG Base Excess (0.0-2.0) mmol/L VBG Potassium (3.6-5.2) mmol/L Glucose (65-105) mg/dl Lactate (0.7-2.1) mmol/L FiO2 % Sodium 136 (132-148) mmol/L Potassium 3.4 L (3.6-5.0) mmol/L Chloride 107 (98-107) mmol/L Carbon Dioxide 17 L (21-33) mmol/L Anion Gap 15 (10-20) BUN 46 H (7-21) mg/dL Creatinine 3.2 H (0.7-1.2) mg/dl Est GFR ( Amer) 19 Est GFR (Non-Af Amer) 16 POC Glucose (mg/dL) 194 H 185 H (65-110) mg/dL Random Glucose 163 H (70-110) mg/dL Hemoglobin A1c (4.2-6.5) % Lactic Acid (0.7-2.1) mmol/L Calcium 6.8 L* (8.4-10.5) mg/dL Phosphorus 2.7 (2.5-4.5) mg/dL Magnesium 1.5 L (1.7-2.2) mg/dL Transferrin (206-381) mg/dL Ferritin ng/mL Total Bilirubin 0.8 (0.2-1.3) mg/dL AST 49 H D (14-36) U/L ALT 34 (7-56) U/L Alkaline Phosphatase 133 H (38-126) U/L Total Protein 5.2 L (5.8-8.3) g/dL Albumin 2.3 L (3.0-4.8) g/dL Globulin 2.9 gm/dL Albumin/Globulin Ratio 0.8 L (1.1-1.8) Arterial Blood Potassium (3.6-5.2) mmol/L Venous Blood Potassium (3.6-5.2) mmol/L Ur Random Creatinine mg/dL U Random Total Protein mg/L Ur Random Sodium meq/L Stool Occult Blood (NEGATIVE) Urine Opiates Screen (NEGATIVE) Urine Methadone Screen (NEGATIVE) Ur Barbiturates Screen (NEGATIVE) Ur Phencyclidine Scrn (NEGATIVE) Ur Amphetamines Screen (NEGATIVE) U Benzodiazepines Scrn (NEGATIVE) U Oth Cocaine Metabols (NEGATIVE) U Cannabinoids Screen (NEGATIVE) HIV 1&2 Ag/Ab, 4th Gen (Nonreactive) 09/14/17 09/14/17 09/14/17 Range/Units 08:53 08:02 07:00 WBC (4.5-11.0) 10^3/ul RBC (3.5-6.1) 10^6/uL Hgb (12.0-16.0) g/dL Hct (36.0-48.0) % MCV (80.0-105.0) fl MCH (25.0-35.0) pg MCHC (31.0-37.0) g/dl RDW (11.5-14.5) % Plt Count (120.0-450.0) 10^3/uL MPV (7.0-11.0) fl Gran % (50.0-68.0) % Lymph % (Auto) (22.0-35.0) % Grainger % (Auto) (1.0-6.0) % Eos % (Auto) (1.5-5.0) % Baso % (Auto) (0.0-3.0) % Gran # (1.4-6.5) Lymph # (Auto) (1.2-3.4) Grainger # (Auto) (0.1-0.6) Eos # (Auto) (0.0-0.7) Baso # (Auto) (0.0-2.0) K/mm3 APTT (25.1-36.5) Seconds pCO2 (35-45) mm/Hg pO2 (30-55) mm/Hg HCO3 (21-28) mmol/L ABG pH (7.35-7.45) ABG Total CO2 (22-28) mmol.L ABG O2 Saturation (95-98) % ABG Base Excess (-2.0-3.0) mmol/L ABG Potassium (3.6-5.2) mmol/L VBG pH (7.32-7.43) VBG pCO2 (40-60) VBG HCO3 (21-28) mmol/l VBG Total CO2 (22-28) mmol.L VBG O2 Sat (Calc) (40-65) % VBG Base Excess (0.0-2.0) mmol/L VBG Potassium (3.6-5.2) mmol/L Glucose (65-105) mg/dl Lactate (0.7-2.1) mmol/L FiO2 % Sodium (132-148) mmol/L Potassium (3.6-5.0) mmol/L Chloride (98-107) mmol/L Carbon Dioxide (21-33) mmol/L Anion Gap (10-20) BUN (7-21) mg/dL Creatinine (0.7-1.2) mg/dl Est GFR ( Amer) Est GFR (Non-Af Amer) POC Glucose (mg/dL) 185 H 190 H (65-110) mg/dL Random Glucose (70-110) mg/dL Hemoglobin A1c 8.9 H (4.2-6.5) % Lactic Acid (0.7-2.1) mmol/L Calcium (8.4-10.5) mg/dL Phosphorus (2.5-4.5) mg/dL Magnesium (1.7-2.2) mg/dL Transferrin (206-381) mg/dL Ferritin ng/mL Total Bilirubin (0.2-1.3) mg/dL AST (14-36) U/L ALT (7-56) U/L Alkaline Phosphatase (38-126) U/L Total Protein (5.8-8.3) g/dL Albumin (3.0-4.8) g/dL Globulin gm/dL Albumin/Globulin Ratio (1.1-1.8) Arterial Blood Potassium (3.6-5.2) mmol/L Venous Blood Potassium (3.6-5.2) mmol/L Ur Random Creatinine mg/dL U Random Total Protein mg/L Ur Random Sodium meq/L Stool Occult Blood (NEGATIVE) Urine Opiates Screen (NEGATIVE) Urine Methadone Screen (NEGATIVE) Ur Barbiturates Screen (NEGATIVE) Ur Phencyclidine Scrn (NEGATIVE) Ur Amphetamines Screen (NEGATIVE) U Benzodiazepines Scrn (NEGATIVE) U Oth Cocaine Metabols (NEGATIVE) U Cannabinoids Screen (NEGATIVE) HIV 1&2 Ag/Ab, 4th Gen (Nonreactive) 09/14/17 09/14/17 Range/Units 07:00 04:50 WBC (4.5-11.0) 10^3/ul RBC (3.5-6.1) 10^6/uL Hgb (12.0-16.0) g/dL Hct (36.0-48.0) % MCV (80.0-105.0) fl MCH (25.0-35.0) pg MCHC (31.0-37.0) g/dl RDW (11.5-14.5) % Plt Count (120.0-450.0) 10^3/uL MPV (7.0-11.0) fl Gran % (50.0-68.0) % Lymph % (Auto) (22.0-35.0) % Grainger % (Auto) (1.0-6.0) % Eos % (Auto) (1.5-5.0) % Baso % (Auto) (0.0-3.0) % Gran # (1.4-6.5) Lymph # (Auto) (1.2-3.4) Grainger # (Auto) (0.1-0.6) Eos # (Auto) (0.0-0.7) Baso # (Auto) (0.0-2.0) K/mm3 APTT (25.1-36.5) Seconds pCO2 (35-45) mm/Hg pO2 (30-55) mm/Hg HCO3 (21-28) mmol/L ABG pH (7.35-7.45) ABG Total CO2 (22-28) mmol.L ABG O2 Saturation (95-98) % ABG Base Excess (-2.0-3.0) mmol/L ABG Potassium (3.6-5.2) mmol/L VBG pH (7.32-7.43) VBG pCO2 (40-60) VBG HCO3 (21-28) mmol/l VBG Total CO2 (22-28) mmol.L VBG O2 Sat (Calc) (40-65) % VBG Base Excess (0.0-2.0) mmol/L VBG Potassium (3.6-5.2) mmol/L Glucose (65-105) mg/dl Lactate (0.7-2.1) mmol/L FiO2 % Sodium (132-148) mmol/L Potassium (3.6-5.0) mmol/L Chloride (98-107) mmol/L Carbon Dioxide (21-33) mmol/L Anion Gap (10-20) BUN (7-21) mg/dL Creatinine (0.7-1.2) mg/dl Est GFR ( Amer) Est GFR (Non-Af Amer) POC Glucose (mg/dL) (65-110) mg/dL Random Glucose (70-110) mg/dL Hemoglobin A1c (4.2-6.5) % Lactic Acid (0.7-2.1) mmol/L Calcium (8.4-10.5) mg/dL Phosphorus (2.5-4.5) mg/dL Magnesium (1.7-2.2) mg/dL Transferrin 141.74 L (206-381) mg/dL Ferritin 239.0 ng/mL Total Bilirubin (0.2-1.3) mg/dL AST (14-36) U/L ALT (7-56) U/L Alkaline Phosphatase (38-126) U/L Total Protein (5.8-8.3) g/dL Albumin (3.0-4.8) g/dL Globulin gm/dL Albumin/Globulin Ratio (1.1-1.8) Arterial Blood Potassium (3.6-5.2) mmol/L Venous Blood Potassium (3.6-5.2) mmol/L Ur Random Creatinine mg/dL U Random Total Protein mg/L Ur Random Sodium meq/L Stool Occult Blood (NEGATIVE) Urine Opiates Screen (NEGATIVE) Urine Methadone Screen (NEGATIVE) Ur Barbiturates Screen (NEGATIVE) Ur Phencyclidine Scrn (NEGATIVE) Ur Amphetamines Screen (NEGATIVE) U Benzodiazepines Scrn (NEGATIVE) U Oth Cocaine Metabols (NEGATIVE) U Cannabinoids Screen (NEGATIVE) HIV 1&2 Ag/Ab, 4th Gen (Nonreactive) Laboratory Results - last 24 hr 09/14/17 09/14/17 09/14/17 04:50 07:00 07:00 WBC RBC Hgb Hct MCV MCH MCHC RDW Plt Count MPV Gran % Lymph % (Auto) Grainger % (Auto) Eos % (Auto) Baso % (Auto) Gran # Lymph # (Auto) Grainger # (Auto) Eos # (Auto) Baso # (Auto) APTT pCO2 pO2 HCO3 ABG pH ABG Total CO2 ABG O2 Saturation ABG Base Excess ABG Potassium VBG pH VBG pCO2 VBG HCO3 VBG Total CO2 VBG O2 Sat (Calc) VBG Base Excess VBG Potassium Glucose Lactate FiO2 Sodium Potassium Chloride Carbon Dioxide Anion Gap BUN Creatinine Est GFR ( Amer) Est GFR (Non-Af Amer) POC Glucose (mg/dL) Random Glucose Hemoglobin A1c 8.9 H Lactic Acid Calcium Phosphorus Magnesium Transferrin 141.74 L Ferritin 239.0 Total Bilirubin AST ALT Alkaline Phosphatase Total Protein Albumin Globulin Albumin/Globulin Ratio Arterial Blood Potassium Venous Blood Potassium Ur Random Creatinine U Random Total Protein Ur Random Sodium Stool Occult Blood Urine Opiates Screen Urine Methadone Screen Ur Barbiturates Screen Ur Phencyclidine Scrn Ur Amphetamines Screen U Benzodiazepines Scrn U Oth Cocaine Metabols U Cannabinoids Screen HIV 1&2 Ag/Ab, 4th Gen 09/14/17 09/14/17 09/14/17 08:02 08:53 09:58 WBC RBC Hgb Hct MCV MCH MCHC RDW Plt Count MPV Gran % Lymph % (Auto) Grainger % (Auto) Eos % (Auto) Baso % (Auto) Gran # Lymph # (Auto) Grainger # (Auto) Eos # (Auto) Baso # (Auto) APTT pCO2 pO2 HCO3 ABG pH ABG Total CO2 ABG O2 Saturation ABG Base Excess ABG Potassium VBG pH VBG pCO2 VBG HCO3 VBG Total CO2 VBG O2 Sat (Calc) VBG Base Excess VBG Potassium Glucose Lactate FiO2 Sodium Potassium Chloride Carbon Dioxide Anion Gap BUN Creatinine Est GFR ( Amer) Est GFR (Non-Af Amer) POC Glucose (mg/dL) 190 H 185 H 185 H Random Glucose Hemoglobin A1c Lactic Acid Calcium Phosphorus Magnesium Transferrin Ferritin Total Bilirubin AST ALT Alkaline Phosphatase Total Protein Albumin Globulin Albumin/Globulin Ratio Arterial Blood Potassium Venous Blood Potassium Ur Random Creatinine U Random Total Protein Ur Random Sodium Stool Occult Blood Urine Opiates Screen Urine Methadone Screen Ur Barbiturates Screen Ur Phencyclidine Scrn Ur Amphetamines Screen U Benzodiazepines Scrn U Oth Cocaine Metabols U Cannabinoids Screen HIV 1&2 Ag/Ab, 4th Gen 09/14/17 09/14/17 09/14/17 10:05 10:55 12:00 WBC RBC Hgb Hct MCV MCH MCHC RDW Plt Count MPV Gran % Lymph % (Auto) Grainger % (Auto) Eos % (Auto) Baso % (Auto) Gran # Lymph # (Auto) Grainger # (Auto) Eos # (Auto) Baso # (Auto) APTT pCO2 pO2 HCO3 ABG pH ABG Total CO2 ABG O2 Saturation ABG Base Excess ABG Potassium VBG pH VBG pCO2 VBG HCO3 VBG Total CO2 VBG O2 Sat (Calc) VBG Base Excess VBG Potassium Glucose Lactate FiO2 Sodium 136 Potassium 3.4 L Chloride 107 Carbon Dioxide 17 L Anion Gap 15 BUN 46 H Creatinine 3.2 H Est GFR ( Amer) 19 Est GFR (Non-Af Amer) 16 POC Glucose (mg/dL) 194 H Random Glucose 163 H Hemoglobin A1c Lactic Acid Calcium 6.8 L* Phosphorus 2.7 Magnesium 1.5 L Transferrin Ferritin Total Bilirubin 0.8 AST 49 H D ALT 34 Alkaline Phosphatase 133 H Total Protein 5.2 L Albumin 2.3 L Globulin 2.9 Albumin/Globulin Ratio 0.8 L Arterial Blood Potassium Venous Blood Potassium Ur Random Creatinine U Random Total Protein Ur Random Sodium 31 Stool Occult Blood Urine Opiates Screen Urine Methadone Screen Ur Barbiturates Screen Ur Phencyclidine Scrn Ur Amphetamines Screen U Benzodiazepines Scrn U Oth Cocaine Metabols U Cannabinoids Screen HIV 1&2 Ag/Ab, 4th Gen 09/14/17 09/14/17 09/14/17 12:00 12:00 12:05 WBC RBC Hgb Hct MCV MCH MCHC RDW Plt Count MPV Gran % Lymph % (Auto) Grainger % (Auto) Eos % (Auto) Baso % (Auto) Gran # Lymph # (Auto) Grainger # (Auto) Eos # (Auto) Baso # (Auto) APTT pCO2 pO2 HCO3 ABG pH ABG Total CO2 ABG O2 Saturation ABG Base Excess ABG Potassium VBG pH VBG pCO2 VBG HCO3 VBG Total CO2 VBG O2 Sat (Calc) VBG Base Excess VBG Potassium Glucose Lactate FiO2 Sodium Potassium Chloride Carbon Dioxide Anion Gap BUN Creatinine Est GFR ( Amer) Est GFR (Non-Af Amer) POC Glucose (mg/dL) 195 H Random Glucose Hemoglobin A1c Lactic Acid Calcium Phosphorus Magnesium Transferrin Ferritin Total Bilirubin AST ALT Alkaline Phosphatase Total Protein Albumin Globulin Albumin/Globulin Ratio Arterial Blood Potassium Venous Blood Potassium Ur Random Creatinine 87 U Random Total Protein 152 Ur Random Sodium Stool Occult Blood Urine Opiates Screen Negative Urine Methadone Screen Negative Ur Barbiturates Screen Negative Ur Phencyclidine Scrn Negative Ur Amphetamines Screen Negative U Benzodiazepines Scrn Negative U Oth Cocaine Metabols Negative U Cannabinoids Screen Negative HIV 1&2 Ag/Ab, 4th Gen 09/14/17 09/14/17 09/14/17 12:10 12:10 12:51 WBC RBC Hgb Hct MCV MCH MCHC RDW Plt Count MPV Gran % Lymph % (Auto) Grainger % (Auto) Eos % (Auto) Baso % (Auto) Gran # Lymph # (Auto) Grainger # (Auto) Eos # (Auto) Baso # (Auto) APTT pCO2 pO2 37 HCO3 ABG pH ABG Total CO2 ABG O2 Saturation ABG Base Excess ABG Potassium VBG pH 7.19 L* VBG pCO2 38.0 L VBG HCO3 14.5 L VBG Total CO2 15.7 L VBG O2 Sat (Calc) 74.2 H VBG Base Excess -13.0 L VBG Potassium 4.4 Glucose 242 H Lactate 4.9 H* FiO2 21.0 Sodium 137 134.0 Potassium 4.5 Chloride 107 109.0 H Carbon Dioxide 15 L Anion Gap 20 BUN 44 H Creatinine 3.1 H Est GFR ( Amer) 20 Est GFR (Non-Af Amer) 17 POC Glucose (mg/dL) 203 H Random Glucose 215 H Hemoglobin A1c Lactic Acid Calcium 7.2 L Phosphorus Magnesium Transferrin Ferritin Total Bilirubin AST ALT Alkaline Phosphatase Total Protein Albumin Globulin Albumin/Globulin Ratio Arterial Blood Potassium Venous Blood Potassium 4.4 Ur Random Creatinine U Random Total Protein Ur Random Sodium Stool Occult Blood Urine Opiates Screen Urine Methadone Screen Ur Barbiturates Screen Ur Phencyclidine Scrn Ur Amphetamines Screen U Benzodiazepines Scrn U Oth Cocaine Metabols U Cannabinoids Screen HIV 1&2 Ag/Ab, 4th Gen 09/14/17 09/14/17 09/14/17 13:48 13:55 14:54 WBC RBC Hgb Hct MCV MCH MCHC RDW Plt Count MPV Gran % Lymph % (Auto) Grainger % (Auto) Eos % (Auto) Baso % (Auto) Gran # Lymph # (Auto) Grainger # (Auto) Eos # (Auto) Baso # (Auto) APTT pCO2 24 L pO2 71.0 L HCO3 12.4 L ABG pH 7.32 L ABG Total CO2 13.1 L ABG O2 Saturation 96.5 ABG Base Excess -11.8 L ABG Potassium 4.4 VBG pH VBG pCO2 VBG HCO3 VBG Total CO2 VBG O2 Sat (Calc) VBG Base Excess VBG Potassium Glucose 231 H Lactate 3.8 H FiO2 32.0 Sodium 135.0 Potassium Chloride 110.0 H Carbon Dioxide Anion Gap BUN Creatinine Est GFR ( Amer) Est GFR (Non-Af Amer) POC Glucose (mg/dL) 224 H 231 H Random Glucose Hemoglobin A1c Lactic Acid Calcium Phosphorus Magnesium Transferrin Ferritin Total Bilirubin AST ALT Alkaline Phosphatase Total Protein Albumin Globulin Albumin/Globulin Ratio Arterial Blood Potassium 4.4 Venous Blood Potassium Ur Random Creatinine U Random Total Protein Ur Random Sodium Stool Occult Blood Urine Opiates Screen Urine Methadone Screen Ur Barbiturates Screen Ur Phencyclidine Scrn Ur Amphetamines Screen U Benzodiazepines Scrn U Oth Cocaine Metabols U Cannabinoids Screen HIV 1&2 Ag/Ab, 4th Gen 09/14/17 09/14/17 09/14/17 15:36 15:36 15:54 WBC RBC Hgb Hct MCV MCH MCHC RDW Plt Count MPV Gran % Lymph % (Auto) Grainger % (Auto) Eos % (Auto) Baso % (Auto) Gran # Lymph # (Auto) Grainger # (Auto) Eos # (Auto) Baso # (Auto) APTT pCO2 pO2 HCO3 ABG pH ABG Total CO2 ABG O2 Saturation ABG Base Excess ABG Potassium VBG pH VBG pCO2 VBG HCO3 VBG Total CO2 VBG O2 Sat (Calc) VBG Base Excess VBG Potassium Glucose Lactate FiO2 Sodium 138 Potassium 5.0 Chloride 108 H Carbon Dioxide 15 L Anion Gap 20 BUN 47 H Creatinine 2.9 H Est GFR ( Amer) 22 Est GFR (Non-Af Amer) 18 POC Glucose (mg/dL) 231 H Random Glucose 232 H Hemoglobin A1c Lactic Acid Calcium 7.2 L Phosphorus Magnesium Transferrin Ferritin Total Bilirubin AST ALT Alkaline Phosphatase Total Protein Albumin Globulin Albumin/Globulin Ratio Arterial Blood Potassium Venous Blood Potassium Ur Random Creatinine U Random Total Protein Ur Random Sodium Stool Occult Blood Urine Opiates Screen Urine Methadone Screen Ur Barbiturates Screen Ur Phencyclidine Scrn Ur Amphetamines Screen U Benzodiazepines Scrn U Oth Cocaine Metabols U Cannabinoids Screen HIV 1&2 Ag/Ab, 4th Gen Nonreactive 09/14/17 09/14/17 09/14/17 16:27 17:00 17:46 WBC 10.7 D RBC 3.37 L Hgb 8.9 L Hct 26.6 L MCV 78.9 L MCH 26.4 MCHC 33.5 RDW 17.0 H Plt Count 75 L MPV 11.3 H Gran % Lymph % (Auto) Grainger % (Auto) Eos % (Auto) Baso % (Auto) Gran # Lymph # (Auto) Grainger # (Auto) Eos # (Auto) Baso # (Auto) APTT pCO2 pO2 HCO3 ABG pH ABG Total CO2 ABG O2 Saturation ABG Base Excess ABG Potassium VBG pH VBG pCO2 VBG HCO3 VBG Total CO2 VBG O2 Sat (Calc) VBG Base Excess VBG Potassium Glucose Lactate FiO2 Sodium Potassium Chloride Carbon Dioxide Anion Gap BUN Creatinine Est GFR ( Amer) Est GFR (Non-Af Amer) POC Glucose (mg/dL) 251 H Random Glucose Hemoglobin A1c Lactic Acid Calcium Phosphorus Magnesium Transferrin Ferritin Total Bilirubin AST ALT Alkaline Phosphatase Total Protein Albumin Globulin Albumin/Globulin Ratio Arterial Blood Potassium Venous Blood Potassium Ur Random Creatinine U Random Total Protein Ur Random Sodium Stool Occult Blood Positive H Urine Opiates Screen Urine Methadone Screen Ur Barbiturates Screen Ur Phencyclidine Scrn Ur Amphetamines Screen U Benzodiazepines Scrn U Oth Cocaine Metabols U Cannabinoids Screen HIV 1&2 Ag/Ab, 4th Gen 09/14/17 09/14/17 09/14/17 21:00 21:00 23:28 WBC 14.2 H D RBC 3.28 L Hgb 8.7 L Hct 25.9 L MCV 79.0 L MCH 26.5 MCHC 33.6 RDW 17.1 H Plt Count 75 L MPV 11.7 H Gran % 89.6 H Lymph % (Auto) 8.4 L Grainger % (Auto) 1.8 Eos % (Auto) 0.1 L Baso % (Auto) 0.1 Gran # 12.76 H Lymph # (Auto) 1.2 Grainger # (Auto) 0.3 Eos # (Auto) 0.0 Baso # (Auto) 0.02 APTT pCO2 23 L pO2 37.0 L* HCO3 11.9 L ABG pH 7.32 L ABG Total CO2 12.6 L ABG O2 Saturation 80.6 L ABG Base Excess -12.2 L ABG Potassium 4.9 VBG pH VBG pCO2 VBG HCO3 VBG Total CO2 VBG O2 Sat (Calc) VBG Base Excess VBG Potassium Glucose 279 H Lactate 4.4 H* FiO2 21.0 Sodium 138 135.0 Potassium 4.9 Chloride 107 113.0 H Carbon Dioxide 14 L Anion Gap 22 H BUN 47 H Creatinine 3.0 H Est GFR ( Amer) 21 Est GFR (Non-Af Amer) 17 POC Glucose (mg/dL) Random Glucose 235 H Hemoglobin A1c Lactic Acid Calcium 7.3 L Phosphorus Magnesium Transferrin Ferritin Total Bilirubin AST ALT Alkaline Phosphatase Total Protein Albumin Globulin Albumin/Globulin Ratio Arterial Blood Potassium 4.9 Venous Blood Potassium Ur Random Creatinine U Random Total Protein Ur Random Sodium Stool Occult Blood Urine Opiates Screen Urine Methadone Screen Ur Barbiturates Screen Ur Phencyclidine Scrn Ur Amphetamines Screen U Benzodiazepines Scrn U Oth Cocaine Metabols U Cannabinoids Screen HIV 1&2 Ag/Ab, 4th Gen 09/15/17 09/15/17 09/15/17 01:30 05:30 05:30 WBC 12.8 H RBC 3.16 L Hgb 8.4 L Hct 25.0 L MCV 79.1 L MCH 26.6 MCHC 33.6 RDW 17.4 H Plt Count 63 L MPV Gran % 88.1 H Lymph % (Auto) 10.5 L Grainger % (Auto) 1.3 Eos % (Auto) 0.0 L Baso % (Auto) 0.1 Gran # 11.28 H Lymph # (Auto) 1.4 Grainger # (Auto) 0.2 Eos # (Auto) 0.0 Baso # (Auto) 0.01 APTT 29.0 pCO2 27 L pO2 121.0 H HCO3 12.4 L ABG pH 7.27 L ABG Total CO2 13.2 L ABG O2 Saturation 99.7 H ABG Base Excess -12.9 L ABG Potassium 4.5 VBG pH VBG pCO2 VBG HCO3 VBG Total CO2 VBG O2 Sat (Calc) VBG Base Excess VBG Potassium Glucose 276 H Lactate 2.8 H FiO2 50.0 Sodium 139.0 Potassium Chloride 115.0 H Carbon Dioxide Anion Gap BUN Creatinine Est GFR ( Amer) Est GFR (Non-Af Amer) POC Glucose (mg/dL) Random Glucose Hemoglobin A1c Lactic Acid Calcium Phosphorus Magnesium Transferrin Ferritin Total Bilirubin AST ALT Alkaline Phosphatase Total Protein Albumin Globulin Albumin/Globulin Ratio Arterial Blood Potassium 4.5 Venous Blood Potassium Ur Random Creatinine U Random Total Protein Ur Random Sodium Stool Occult Blood Urine Opiates Screen Urine Methadone Screen Ur Barbiturates Screen Ur Phencyclidine Scrn Ur Amphetamines Screen U Benzodiazepines Scrn U Oth Cocaine Metabols U Cannabinoids Screen HIV 1&2 Ag/Ab, 4th Gen 09/15/17 09/15/17 09/15/17 05:30 05:30 06:00 WBC RBC Hgb Hct MCV MCH MCHC RDW Plt Count MPV Gran % Lymph % (Auto) Grainger % (Auto) Eos % (Auto) Baso % (Auto) Gran # Lymph # (Auto) Grainger # (Auto) Eos # (Auto) Baso # (Auto) APTT pCO2 27 L pO2 131.0 H HCO3 15.3 L ABG pH 7.36 ABG Total CO2 16.1 L ABG O2 Saturation 99.3 H ABG Base Excess -8.6 L ABG Potassium 4.6 VBG pH VBG pCO2 VBG HCO3 VBG Total CO2 VBG O2 Sat (Calc) VBG Base Excess VBG Potassium Glucose 323 H Lactate 2.2 H FiO2 50.0 Sodium 137.0 Potassium Chloride 112.0 H Carbon Dioxide Anion Gap BUN Creatinine Est GFR ( Amer) Est GFR (Non-Af Amer) POC Glucose (mg/dL) Random Glucose Hemoglobin A1c Lactic Acid 3.3 H Calcium Phosphorus 4.9 H Magnesium 2.3 H Transferrin Ferritin Total Bilirubin AST ALT Alkaline Phosphatase Total Protein Albumin Globulin Albumin/Globulin Ratio Arterial Blood Potassium 4.6 Venous Blood Potassium Ur Random Creatinine U Random Total Protein Ur Random Sodium Stool Occult Blood Urine Opiates Screen Urine Methadone Screen Ur Barbiturates Screen Ur Phencyclidine Scrn Ur Amphetamines Screen U Benzodiazepines Scrn U Oth Cocaine Metabols U Cannabinoids Screen HIV 1&2 Ag/Ab, 4th Gen 09/15/17 09/15/17 09/15/17 06:29 06:56 08:03 WBC RBC Hgb Hct MCV MCH MCHC RDW Plt Count MPV Gran % Lymph % (Auto) Grainger % (Auto) Eos % (Auto) Baso % (Auto) Gran # Lymph # (Auto) Grainger # (Auto) Eos # (Auto) Baso # (Auto) APTT pCO2 pO2 HCO3 ABG pH ABG Total CO2 ABG O2 Saturation ABG Base Excess ABG Potassium VBG pH VBG pCO2 VBG HCO3 VBG Total CO2 VBG O2 Sat (Calc) VBG Base Excess VBG Potassium Glucose Lactate FiO2 Sodium 141 Potassium 5.0 Chloride 108 H Carbon Dioxide 16 L Anion Gap 21 H BUN 52 H Creatinine 3.0 H Est GFR ( Amer) 21 Est GFR (Non-Af Amer) 17 POC Glucose (mg/dL) 306 H 272 H Random Glucose 296 H Hemoglobin A1c Lactic Acid Calcium 7.3 L Phosphorus Magnesium Transferrin Ferritin Total Bilirubin 1.0 AST 44 H ALT 41 Alkaline Phosphatase 133 H Total Protein 6.0 Albumin 2.7 L Globulin 3.3 Albumin/Globulin Ratio 0.8 L Arterial Blood Potassium Venous Blood Potassium Ur Random Creatinine U Random Total Protein Ur Random Sodium Stool Occult Blood Urine Opiates Screen Urine Methadone Screen Ur Barbiturates Screen Ur Phencyclidine Scrn Ur Amphetamines Screen U Benzodiazepines Scrn U Oth Cocaine Metabols U Cannabinoids Screen HIV 1&2 Ag/Ab, 4th Gen 09/15/17 09/15/17 09:29 10:03 WBC RBC Hgb Hct MCV MCH MCHC RDW Plt Count MPV Gran % Lymph % (Auto) Grainger % (Auto) Eos % (Auto) Baso % (Auto) Gran # Lymph # (Auto) Grainger # (Auto) Eos # (Auto) Baso # (Auto) APTT pCO2 pO2 HCO3 ABG pH ABG Total CO2 ABG O2 Saturation ABG Base Excess ABG Potassium VBG pH VBG pCO2 VBG HCO3 VBG Total CO2 VBG O2 Sat (Calc) VBG Base Excess VBG Potassium Glucose Lactate FiO2 Sodium Potassium Chloride Carbon Dioxide Anion Gap BUN Creatinine Est GFR ( Amer) Est GFR (Non-Af Amer) POC Glucose (mg/dL) 271 H 256 H Random Glucose Hemoglobin A1c Lactic Acid Calcium Phosphorus Magnesium Transferrin Ferritin Total Bilirubin AST ALT Alkaline Phosphatase Total Protein Albumin Globulin Albumin/Globulin Ratio Arterial Blood Potassium Venous Blood Potassium Ur Random Creatinine U Random Total Protein Ur Random Sodium Stool Occult Blood Urine Opiates Screen Urine Methadone Screen Ur Barbiturates Screen Ur Phencyclidine Scrn Ur Amphetamines Screen U Benzodiazepines Scrn U Oth Cocaine Metabols U Cannabinoids Screen HIV 1&2 Ag/Ab, 4th Gen Critical Care Progress Note - Nutrition Nutrition: Nutrition Category Date Time Status NPO Diet [DIET] Diets 09/13/17 Dinner Ordered Assessment/Plan - Assessment and Plan (Free Text) Plan: Patient seen and examined on rounds agree with note with following additions/ exceptions: Patient is 42yo female with PMHX of morbid obesity, DM, presented with mild DKA , 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 Yesterday patient went into septic shock, TLC placed, started on Vasopressor support, IVF boluses given, SoluCortef Stress dose given, with improvement in hemodynamics, EHCO obtained. Currently afebrile, HD stable, MAP 70-80, OFF Vasoppressor support. Patient with on and off periods of SOB, ABG obtained and noted. Will obtain LE dopplers. Seen by urology, no acute surgical intervention at this time, medical mgmt. Overall clinically patient is markedly improved. Blood cultures positive for gram negative bacteremia, on Merropenem. ID following, Urology following. ECHO done EF 65%. On insulin drip Septic Shock Pyelonephritis Dehydration Acute Renal Failure Lactic Acidosis DKA, mild DM Obesity Recommend: - supp o2 as needed - duonebs PRN - obtain LE Dopplers, cannot obtain CT PE protocol 2/2 elevated Cr/renal failure - UCx, BCx follow up, Procal - broad spectrum abx, renally dosed, Vanco, Merrem, Flagyl - follow up ID - decrease Solucortef 50mg Q8hr - check Lipid Panel, TSH, HgbA1C - ID, nephro, Urology follow up - monitor HH - Q12hr BMP - insulin drip - NPO for now, until FS better controlled - IVF, D5W with 3 amps bicarb - GI ppx, PPI - DVT ppx, HSQ - Monitor in MICU Critical care time 40 minutes
--- NOTE | 2017-09-15 11:22 | CP.PCM.PN ---
<Rober Clarke - Last Filed: 09/15/17 11:42> Subjective - Date & Time of Evaluation Date of Evaluation: 09/15/17 Time of Evaluation: 06:00 - Subjective Subjective: Patient seen and evaluated bedside in ICU. Overnight patient was hypoxic with oxygen of 37, placed on ventimask, improved this AM. Patient complaints of shortness of breath. Patient denies any chest pain, fever, chills, abdominal pain, nausea, vomiting, or any other issues. Objective - Vital Signs/Intake and Output Vital Signs (last 24 hours): Temp Pulse Resp BP Pulse Ox 98.2 F 113 H 37 H 100/58 L 98 09/15/17 00:00 09/15/17 10:30 09/15/17 10:30 09/15/17 10:30 09/15/17 10:30 Intake and Output: 09/15/17 09/15/17 06:59 18:59 Intake Total 2073 Output Total 350 Balance 1723 - Medications Medications: Current Medications Hydrocortisone Sodium Succinate (Solu-Cortef) 50 mg IVP Q8 BOB Acetaminophen (Ofirmev) 1,000 mg in 100 mls @ 400 mls/hr IVPB Q6H PRN PRN Reason: Fever Stop: 09/16/17 05:43 Last Admin: 09/14/17 14:37 Dose: 400 mls/hr Meropenem 500 mg/ Sodium (Chloride) 50 mls @ 100 mls/hr IVPB Q12 BOB PRN Reason: Protocol Stop: 09/23/17 22:01 Last Admin: 09/15/17 09:46 Dose: 100 mls/hr Insulin Human Regular 100 (units/ Sodium Chloride) 100 mls @ 2 mls/hr IV .Q24H PRN; Protocol; 2 UNITS/HR PRN Reason: TITRATE PER MD ORDER Last Admin: 09/15/17 08:44 Dose: 6 units/hr, 6 mls/hr Sodium Bicarbonate 150 meq/ (Dextrose) 1,150 mls @ 125 mls/hr IV .Q9H12M BOB Last Admin: 09/15/17 08:44 Dose: 125 mls/hr Pantoprazole Sodium (Protonix 40mg Ivpb) 40 mg in 100 mls @ 20 mls/hr IVPB .Q5H BOB Last Admin: 05/25/18 08:48 Dose: 20 mls/hr Insulin Human Lispro (Humalog Med) 0 units SC Q6H BOB PRN Reason: Protocol Last Admin: 09/15/17 06:32 Dose: 7 units Ondansetron HCl (Zofran Inj) 4 mg IVP Q4H PRN PRN Reason: Nausea/Vomiting Last Admin: 09/14/17 16:13 Dose: 4 mg Vitamin A (Vitamin A & D Oint Ud Foilpak) 1 ea TOP Q2 PRN PRN Reason: Dry mouth - Labs Labs: 09/15/17 05:30 09/15/17 06:56 PT 16.4 SECONDS (9.4-12.5) H 09/14/17 07:49 INR 1.42 (0.93-1.08) H 09/14/17 07:49 APTT 29.0 Seconds (25.1-36.5) 09/15/17 05:30 - Constitutional Appears: Non-toxic, No Acute Distress - Head Exam Head Exam: ATRAUMATIC, NORMAL INSPECTION, NORMOCEPHALIC - Eye Exam Eye Exam: Normal appearance - ENT Exam ENT Exam: Mucous Membranes Moist - Respiratory Exam Respiratory Exam: Clear to Ausculation Bilateral, NORMAL BREATHING PATTERN - Cardiovascular Exam Cardiovascular Exam: Tachycardia, +S1, +S2 - GI/Abdominal Exam GI & Abdominal Exam: Distended, Soft - Neurological Exam Neurological Exam: Alert, Awake, Oriented x3 Additional comments: lethargy Assessment and Plan - Assessment and Plan (Free Text) Assessment: 42 year old female with a past medical history significant for NIDDM2 presents with two days of nausea, vomiting, abdominal pain, fever and fatigue. Patient had hyperglycemia to 430 and an anion gap of 26. She was also found to have a leukocytosis to 20.1, lactic acidosis of 10.4, and hypokalemia to 3.3. She is being treated in for sepsis, JOSE D, GI bleed. Plan: Sepsis -WBC: 12.8 -lacate 2.2 -ABG showing ph: 7.36, p02: 131 pC02: 27 -afebrile -CT Abdomen/Pelvis: 1. Gas is visualized within the left ureter and left renal collecting system. This may be iatrogenically, although infectious etiology/emphysematous pyelonephritis is considered. There is mild left perinephric stranding. 2. Additional stranding is seen within the retroperitoneum which extends into the left side of the pelvis. This is likely infectious or inflammatory. Some of the stranding is seen in the left pericolonic region of the descending colon, which can be associated with colitis. 3. There is hypodense fatty infiltration of the liver. Hepatomegaly. 4. There is a wedge-shaped area of hypodensity within the periphery of the spleen. Differential considerations include splenic infarct or laceration. A splenic mass cannot be excluded. There is mild splenomegaly. This can be further evaluated with a contrast CT abdomen/pelvis. 5. Within the left ovary, there is a 1.8 x 1.6 cm hypodense probable cyst. 6. There is retroperitoneal lymphadenopathy. 7. Cholelithiasis.8. Interstitial and air space disease is identified at the bilateral lung bases. This may be infectious in etiology. -abdominal xray: Normal. No obstruction. No free air -one dose clindamycin give, van given continue meropenem -Procal, stool cultures and C. Diff serology pending -ID consulted, all recommendations appreciated -urine and blood cultures growing gram negative rods -bicarb given -procal pending -peripheral smear showing leukopenia with granulocytosis -currently off pressors -HIV test pending Elevated Blood Sugar -Serum glucose of 306, anion gap 21 -Insulin drip or stress dose steroids -Q4H Serial BMP's -Zofran PRN for N/V -Home PO medications held -Strict I/O's, fall and aspiration precautions -Diabetes Education referral Elevated Creatinine likely JOSE D from infection -Nephrology and Urology consulted, all recommendations appreciated -Cr: 3 -bicarb given -IV hydration GI Bleed -stool occult positive -GI consulted, follow recs, -monitor H/H -protonix drip -peripheral smear showing microcytic normochromic anemia Thrombocytopenia -platelets:63 -Heme, consulted, follow recs -possible splenic infarct on imaging -echo does no show any vegetation Hypoxemia-resolved -oxygen PRN -hypoxemia overnight -O2 on ABG was 37, currently 131 -lower extremity duplex ordered GI Prophylaxis: Protonix drip DVT Prophylaxis: Heparin on hold due to possible bleed Diet: NPO <Alisson Casillas A - Last Filed: 09/15/17 12:09> Objective - Vital Signs/Intake and Output Vital Signs (last 24 hours): Temp Pulse Resp BP Pulse Ox 98.2 F 113 H 37 H 100/58 L 98 09/15/17 00:00 09/15/17 10:30 09/15/17 10:30 09/15/17 10:30 09/15/17 10:30 Intake and Output: 09/15/17 09/15/17 06:59 18:59 Intake Total 2073 Output Total 350 Balance 1723 - Medications Medications: Current Medications Hydrocortisone Sodium Succinate (Solu-Cortef) 50 mg IVP Q8 BOB Acetaminophen (Ofirmev) 1,000 mg in 100 mls @ 400 mls/hr IVPB Q6H PRN PRN Reason: Fever Stop: 09/16/17 05:43 Last Admin: 09/14/17 14:37 Dose: 400 mls/hr Meropenem 500 mg/ Sodium (Chloride) 50 mls @ 100 mls/hr IVPB Q12 BOB PRN Reason: Protocol Stop: 09/23/17 22:01 Last Admin: 09/15/17 09:46 Dose: 100 mls/hr Insulin Human Regular 100 (units/ Sodium Chloride) 100 mls @ 2 mls/hr IV .Q24H PRN; Protocol; 2 UNITS/HR PRN Reason: TITRATE PER MD ORDER Last Admin: 09/15/17 08:44 Dose: 6 units/hr, 6 mls/hr Sodium Bicarbonate 150 meq/ (Dextrose) 1,150 mls @ 125 mls/hr IV .Q9H12M [facility] Last Admin: 09/15/17 08:44 Dose: 125 mls/hr Pantoprazole Sodium (Protonix 40mg Ivpb) 40 mg in 100 mls @ 20 mls/hr IVPB .Q5H [facility] Last Admin: 09/15/17 08:48 Dose: 20 mls/hr Insulin Human Lispro (Humalog Med) 0 units SC Q6H BOB PRN Reason: Protocol Last Admin: 09/15/17 06:32 Dose: 7 units Ondansetron HCl (Zofran Inj) 4 mg IVP Q4H PRN PRN Reason: Nausea/Vomiting Last Admin: 09/14/17 16:13 Dose: 4 mg Vitamin A (Vitamin A & D Oint Ud Foilpak) 1 ea TOP Q2 PRN PRN Reason: Dry mouth - Labs Labs: 09/15/17 05:30 09/15/17 06:56 PT 16.4 SECONDS (9.4-12.5) H 09/14/17 07:49 INR 1.42 (0.93-1.08) H 09/14/17 07:49 APTT 29.0 Seconds (25.1-36.5) 09/15/17 05:30 Attending/Attestation - Attestation I have personally seen and examined this patient.: Yes I have fully participated in the care of the patient.: Yes I have reviewed all pertinent clinical information, including history, physical exam and plan: Yes Notes (Text): 09/15/17 12:00 42 year old female with past medical history of diabetes who presented with DKA , JOSE D and septic shock. She was found to have gram negative irena bacteremia / UTI and emphysematous pyelonephritis. Urology and ID evaluations were appreciated. Continue with iv antibiotics. She is currently on meropenem. She is now off pressors. She is on stress dose steroids which are being tapered. CT abd/pelvis also showed possible colitis, hepatomegaly and wedge shaped area of hypodensity in spleen (?splenic infarct or laceration). Hematology evaluation is requested given anemia, thrombocytopenia and CT spleen findings. Stool occult was also positive and GI evaluation is requested as well. Will follow up with recommendations. Her renal function is improving. JOSE D likely multifactorial secondary to above. Case was discussed with nephrology today. Monitor for fluid overload. CXR showed mild congestion. Echocardiogram was reviewed; no vegetations. Alisson Casillas MD Hospitalist.
--- NOTE | 2017-09-15 13:43 | CON ---
DATE: 09/14/2017 UROLOGY CONSULTATION REASON FOR THE CONSULTATION: Pyelonephritis management recommendation. HISTORY OF PRESENT ILLNESS: This is a pleasant lady. She is currently in the Intensive Care Unit. History is from the patient and from the chart. Results, I have had a chance to review the films with the patient. The patient is a very pleasant lady who presents to the hospital. She has recently been found to have pyelonephritis, which appears to be emphysematous pyelonephritis she has. According to her history, she states she has no history of kidney stone disease. She is currently resting in the Intensive Care Unit. Urology is requested for recommendations. PAST MEDICAL AND SURGICAL HISTORY: As listed on the chart. MEDICATIONS: See the chart. PHYSICAL EXAMINATION: GENERAL: She is a well-nourished well developed female. VITAL SIGNS: Noted within the chart. Her heart rate is about 110 or so. Respiratory rate noted to be slightly elevated. ABDOMEN: Not grossly distended. It is difficult to evaluate secondary to body habitus, but there is no evidence of an acute abdomen. PELVIC: Deferred at this point. LABORATORY DATA: See the chart. The creatinine is about 2.5; it was 3 previously. The raised creatinine is slightly lower. BUN, creatinine, glucose, hemoglobin, and hematocrit all noted. White count, etc. all noted on the chart. CT scan noted. There are no definite stones seen. See the plans as well. DIAGNOSES: Emphysematous pyelonephritis and urosepsis. ASSESSMENT AND PLAN: In summary, very pleasant 42-year-old female who is presenting to the hospital with emphysematous pyelonephritis. At this point, in the absence of any formal definite obstruction, there would be no intervention at this point in terms of putting a stent. We will order a KUB to see if there is any definite stone, but the CT scan seems to not show any. Further plans will follow. But, from Urology standpoint, the resuscitation first and then make further recommendations. So, the plans are as follows: 1. Patient is in the ICU, getting resuscitated with fluids, hydration, oxygen, etc. 2. Antibiotic treatments. 3. Follow up CT scan and follow up renal scan and then we can decide what to do with the kidney and see its recoverability. We will continue to follow along. (The patient seems to be improving clinically). So, therefore, continued close monitoring is appropriate and we will continue following a long period as well. Thank you for the Urology consult. Aly Major MD
--- NOTE | 2017-09-15 14:16 | CP.PCM.PN ---
Subjective - Date & Time of Evaluation Date of Evaluation: 09/15/17 Time of Evaluation: 09:40 - Subjective Subjective: Patient is still weak, ill-appearing, feels sick, no appetite, still with fevers last night but no fevers this morning. Objective - Vital Signs/Intake and Output Vital Signs (last 24 hours): Temp Pulse Resp BP Pulse Ox 98.2 F 113 H 37 H 100/58 L 98 09/15/17 00:00 09/15/17 10:30 09/15/17 10:30 09/15/17 10:30 09/15/17 10:30 Intake and Output: 09/15/17 09/15/17 06:59 18:59 Intake Total 2073 Output Total 350 Balance 1723 - Medications Medications: Current Medications Hydrocortisone Sodium Succinate (Solu-Cortef) 50 mg IVP Q8 BOB Acetaminophen (Ofirmev) 1,000 mg in 100 mls @ 400 mls/hr IVPB Q6H PRN PRN Reason: Fever Stop: 09/16/17 05:43 Last Admin: 09/14/17 14:37 Dose: 400 mls/hr Meropenem 500 mg/ Sodium (Chloride) 50 mls @ 100 mls/hr IVPB Q12 BOB PRN Reason: Protocol Stop: 09/23/17 22:01 Last Admin: 09/15/17 09:46 Dose: 100 mls/hr Insulin Human Regular 100 (units/ Sodium Chloride) 100 mls @ 2 mls/hr IV .Q24H PRN; Protocol; 2 UNITS/HR PRN Reason: TITRATE PER MD ORDER Last Admin: 09/15/17 08:44 Dose: 6 units/hr, 6 mls/hr Sodium Bicarbonate 150 meq/ (Dextrose) 1,150 mls @ 125 mls/hr IV .Q9H12M BOB Last Admin: 09/15/17 08:44 Dose: 125 mls/hr Pantoprazole Sodium (Protonix 40mg Ivpb) 40 mg in 100 mls @ 20 mls/hr IVPB .Q5H BOB Last Admin: 09/15/17 08:48 Dose: 20 mls/hr Insulin Human Lispro (Humalog Med) 0 units SC Q6H BOB PRN Reason: Protocol Last Admin: 09/15/17 06:32 Dose: 7 units Ondansetron HCl (Zofran Inj) 4 mg IVP Q4H PRN PRN Reason: Nausea/Vomiting Last Admin: 09/14/17 16:13 Dose: 4 mg Vitamin A (Vitamin A & D Oint Ud Foilpak) 1 ea TOP Q2 PRN PRN Reason: Dry mouth - Labs Labs: 09/15/17 05:30 09/15/17 06:56 PT 16.4 SECONDS (9.4-12.5) H 09/14/17 07:49 INR 1.42 (0.93-1.08) H 09/14/17 07:49 APTT 29.0 Seconds (25.1-36.5) 09/15/17 05:30 - Constitutional Appears: In Acute Distress, Chronically Ill - Head Exam Head Exam: NORMAL INSPECTION - ENT Exam ENT Exam: Mucous Membranes Moist - Neck Exam Neck Exam: absent: Lymphadenopathy, Meningismus - Respiratory Exam Respiratory Exam: Decreased Breath Sounds - Cardiovascular Exam Cardiovascular Exam: +S1, +S2 - GI/Abdominal Exam GI & Abdominal Exam: Soft. absent: Tenderness - Back Exam Back Exam: CVA tenderness (L) Assessment and Plan - Assessment and Plan (Free Text) Plan: Assessment Severe sepsis/septic shock with acute on chronic renal failure due to gram negative bacilli with emphysematous left sided pyelonephritis DM morbid obesity with BMI 41 history of alcohol and substance abuse chronic anemia Plan Continue Merrem pending identification and sensitivities of the gram negative bacilli in the blood; follow up urine cx follow up HIV test patient continues to be in critical condition; follow up Urology evaluation will monitor clinically
--- NOTE | 2017-09-15 14:27 | CP.PCM.CON ---
<Belkys Callahan - Last Filed: 09/15/17 14:15> History of Present Illness - History of Present Illness History of Present Illness: PGY-[address] Wolfe's service 42 year old female with a past medical history significant for NIDDM2 presents with nausea, vomiting, abdominal pain, fever and fatigue. Per sister at [facility] patient has been ill for past 2 weeks, however over the past 2 days she became lethargic, weak with n/v. She also report unable to tolerate PO intake. In [facility] ED she endorses epigastric abdominal pain, 6/10. At home Patient's mother took her blood sugar and BP and she was hypotensive with elevated sugars. She recently was seen [place] [facility] [place] two weeks ago for similar symptoms and these resolved with supportive interventions. Her PCP is Dr. Willis on [facility], however she is not always compliant with follow up and she sees him less frequently than is recommended. She also reports that follow up with [facility] for her NIDDM2, which was diagnosed at age 30. Per chart she was on insulin at one time but is currently only taking PO medications for glycemic control. In the ED patient was found to be septic, with DKA and admitted to ICU. Patient was then became hypotensive and was treated for septic shock and was given ivf boluses and started on pressors. GI was consulted for anemia and stool occult positive. Nurse reports black stool and diarrhea. She reports that she was recently diagnosed with anemia and started on iron supplements. Patient denies abd pain, chest pain. PMH: NIDDM2 PSH: Denies Family History: Denies Social History: Denies any tobacco, alcohol, or illicit drug use; Lives with her father in [place]; Currently unemployed Allergies: Apples and strawberry's Review of Systems - Review of Systems All systems: reviewed and no additional remarkable complaints except Past Patient History - Infectious Disease Hx of Infectious Diseases: None - Tetanus Immunizations Tetanus Immunization: Unknown - Past Social History Smoking Status: Never Smoked - CARDIAC Hx Pacemaker: No - PULMONARY Hx Respiratory Disorders: No - NEUROLOGICAL Hx Neurological Disorder: No - HEENT Hx HEENT Problems: No - RENAL Hx Chronic Kidney Disease: No - ENDOCRINE/METABOLIC Hx Endocrine Disorders: No - HEMATOLOGICAL/ONCOLOGICAL Hx Cancer: No - INTEGUMENTARY Hx Dermatological Problems: No - MUSCULOSKELETAL/RHEUMATOLOGICAL Hx Musculoskeletal Disorders: No Hx Falls: No - GASTROINTESTINAL Hx Gastrointestinal Disorders: No - GENITOURINARY/GYNECOLOGICAL Hx Genitourinary Disorders: No - PSYCHIATRIC Hx Psychophysiologic Disorder: No - SURGICAL HISTORY Hx Mastectomy: No - ANESTHESIA Hx Anesthesia: No Hx Anesthesia Reactions: No Hx Malignant Hyperthermia: No Meds Allergies/Adverse Reactions: Allergies Allergy/AdvReac Type Severity Reaction Status Date / Time apple Allergy REDNESS Verified 09/13/17 23:09 strawberries Allergy RASH Uncoded 09/13/17 21:53 - Medications Medications: Current Medications Hydrocortisone Sodium Succinate (Solu-Cortef) 50 mg IVP Q8 BOB Acetaminophen (Ofirmev) 1,000 mg in 100 mls @ 400 mls/hr IVPB Q6H PRN PRN Reason: Fever Stop: 09/16/17 05:43 Last Admin: 09/14/17 14:37 Dose: 400 mls/hr Meropenem 500 mg/ Sodium (Chloride) 50 mls @ 100 mls/hr IVPB Q12 BOB PRN Reason: Protocol Stop: 09/23/17 22:01 Last Admin: 09/15/17 09:46 Dose: 100 mls/hr Insulin Human Regular 100 (units/ Sodium Chloride) 100 mls @ 2 mls/hr IV .Q24H PRN; Protocol; 2 UNITS/HR PRN Reason: TITRATE PER MD ORDER Last Admin: 09/15/17 08:44 Dose: 6 units/hr, 6 mls/hr Sodium Bicarbonate 150 meq/ (Dextrose) 1,150 mls @ 125 mls/hr IV .Q9H12M BOB Last Admin: 09/15/17 08:44 Dose: 125 mls/hr Pantoprazole Sodium (Protonix 40mg Ivpb) 40 mg in 100 mls @ 20 mls/hr IVPB .Q5H BOB Last Admin: 09/15/17 08:48 Dose: 20 mls/hr Insulin Human Lispro (Humalog Med) 0 units SC Q6H BOB PRN Reason: Protocol Last Admin: 09/15/17 06:32 Dose: 7 units Ondansetron HCl (Zofran Inj) 4 mg IVP Q4H PRN PRN Reason: Nausea/Vomiting Last Admin: 09/14/17 16:13 Dose: 4 mg Vitamin A (Vitamin A & D Oint Ud Foilpak) 1 ea TOP Q2 PRN PRN Reason: Dry mouth Physical Exam - Constitutional Appears: Toxic, No Acute Distress - Head Exam Head Exam: ATRAUMATIC, NORMAL INSPECTION, NORMOCEPHALIC - Eye Exam Eye Exam: Normal appearance - ENT Exam ENT Exam: Mucous Membranes Dry - Respiratory Exam Respiratory Exam: Clear to Auscultation Bilateral, NORMAL BREATHING PATTERN. absent: Decreased Breath Sounds, Rales, Rhonchi, Wheezes, Respiratory Distress Additional comments: on NC - Cardiovascular Exam Cardiovascular Exam: Tachycardia, REGULAR RHYTHM, +S1, +S2. absent: Diastolic murmur, Systolic Murmur - GI/Abdominal Exam GI & Abdominal Exam: Normal Bowel Sounds, Soft. absent: Distended, Firm, Guarding, Tenderness - Extremities Exam Extremities exam: Positive for: normal inspection. Negative for: pedal edema, tenderness - Neurological Exam Additional comments: lethargic - Skin Skin Exam: Pallor, Warm Results - Vital Signs Recent Vital Signs: Last Vital Signs Temp 98.2 F 09/15/17 00:00 Pulse 113 H 09/15/17 10:30 Resp 37 H 09/15/17 10:30 BP 100/58 L 09/15/17 10:30 Pulse Ox 98 09/15/17 10:30 - Labs Result Diagrams: 09/15/17 05:30 09/15/17 06:56 Labs: Laboratory Results - last 24 hr 09/14/17 09/14/17 09/14/17 08:02 08:53 09:58 WBC RBC Hgb Hct MCV MCH MCHC RDW Plt Count MPV Gran % Lymph % (Auto) [place] % (Auto) Eos % (Auto) Baso % (Auto) Gran # Lymph # (Auto) [place] # (Auto) Eos # (Auto) Baso # (Auto) APTT pCO2 pO2 HCO3 ABG pH ABG Total CO2 ABG O2 Saturation ABG Base Excess ABG Potassium Glucose Lactate FiO2 Sodium Potassium Chloride Carbon Dioxide Anion Gap BUN Creatinine Est GFR ( Amer) Est GFR (Non-Af Amer) POC Glucose (mg/dL) 190 H 185 H 185 H Random Glucose Lactic Acid Calcium Phosphorus Magnesium Total Bilirubin AST ALT Alkaline Phosphatase Total Protein Albumin Globulin Albumin/Globulin Ratio Arterial Blood Potassium Stool Occult Blood HIV 1&2 Ag/Ab, 4th Gen 09/14/17 09/14/17 09/14/17 10:55 12:05 12:51 WBC RBC Hgb Hct MCV MCH MCHC RDW Plt Count MPV Gran % Lymph % (Auto) [place] % (Auto) Eos % (Auto) Baso % (Auto) Gran # Lymph # (Auto) [place] # (Auto) Eos # (Auto) Baso # (Auto) APTT pCO2 pO2 HCO3 ABG pH ABG Total CO2 ABG O2 Saturation ABG Base Excess ABG Potassium Glucose Lactate FiO2 Sodium Potassium Chloride Carbon Dioxide Anion Gap BUN Creatinine Est GFR ( Amer) Est GFR (Non-Af Amer) POC Glucose (mg/dL) 194 H 195 H 203 H Random Glucose Lactic Acid Calcium Phosphorus Magnesium Total Bilirubin AST ALT Alkaline Phosphatase Total Protein Albumin Globulin Albumin/Globulin Ratio Arterial Blood Potassium Stool Occult Blood HIV 1&2 Ag/Ab, 4th Gen 09/14/17 09/14/17 09/14/17 13:48 14:54 15:36 WBC RBC Hgb Hct MCV MCH MCHC RDW Plt Count MPV Gran % Lymph % (Auto) [place] % (Auto) Eos % (Auto) Baso % (Auto) Gran # Lymph # (Auto) [place] # (Auto) Eos # (Auto) Baso # (Auto) APTT pCO2 pO2 HCO3 ABG pH ABG Total CO2 ABG O2 Saturation ABG Base Excess ABG Potassium Glucose Lactate FiO2 Sodium 138 Potassium 5.0 Chloride 108 H Carbon Dioxide 15 L Anion Gap 20 BUN 47 H Creatinine 2.9 H Est GFR ( Amer) 22 Est GFR (Non-Af Amer) 18 POC Glucose (mg/dL) 224 H 231 H Random Glucose 232 H Lactic Acid Calcium 7.2 L Phosphorus Magnesium Total Bilirubin AST ALT Alkaline Phosphatase Total Protein Albumin Globulin Albumin/Globulin Ratio Arterial Blood Potassium Stool Occult Blood HIV 1&2 Ag/Ab, 4th Gen 09/14/17 09/14/17 09/14/17 15:36 15:54 16:27 WBC RBC Hgb Hct MCV MCH MCHC RDW Plt Count MPV Gran % Lymph % (Auto) [place] % (Auto) Eos % (Auto) Baso % (Auto) Gran # Lymph # (Auto) [place] # (Auto) Eos # (Auto) Baso # (Auto) APTT pCO2 pO2 HCO3 ABG pH ABG Total CO2 ABG O2 Saturation ABG Base Excess ABG Potassium Glucose Lactate FiO2 Sodium Potassium Chloride Carbon Dioxide Anion Gap BUN Creatinine Est GFR ( Amer) Est GFR (Non-Af Amer) POC Glucose (mg/dL) 231 H Random Glucose Lactic Acid Calcium Phosphorus Magnesium Total Bilirubin AST ALT Alkaline Phosphatase Total Protein Albumin Globulin Albumin/Globulin Ratio Arterial Blood Potassium Stool Occult Blood Positive H HIV 1&2 Ag/Ab, 4th Gen Nonreactive 09/14/17 09/14/17 09/14/17 17:00 17:46 21:00 WBC 10.7 D RBC 3.37 L Hgb 8.9 L Hct 26.6 L MCV 78.9 L MCH 26.4 MCHC 33.5 RDW 17.0 H Plt Count 75 L MPV 11.3 H Gran % Lymph % (Auto) [place] % (Auto) Eos % (Auto) Baso % (Auto) Gran # Lymph # (Auto) [place] # (Auto) Eos # (Auto) Baso # (Auto) APTT pCO2 pO2 HCO3 ABG pH ABG Total CO2 ABG O2 Saturation ABG Base Excess ABG Potassium Glucose Lactate FiO2 Sodium 138 Potassium 4.9 Chloride 107 Carbon Dioxide 14 L Anion Gap 22 H BUN 47 H Creatinine 3.0 H Est GFR ( Amer) 21 Est GFR (Non-Af Amer) 17 POC Glucose (mg/dL) 251 H Random Glucose 235 H Lactic Acid Calcium 7.3 L Phosphorus Magnesium Total Bilirubin AST ALT Alkaline Phosphatase Total Protein Albumin Globulin Albumin/Globulin Ratio Arterial Blood Potassium Stool Occult Blood HIV 1&2 Ag/Ab, 4th Gen 09/14/17 09/14/17 09/15/17 21:00 23:28 01:30 WBC 14.2 H D RBC 3.28 L Hgb 8.7 L Hct 25.9 L MCV 79.0 L MCH 26.5 MCHC 33.6 RDW 17.1 H Plt Count 75 L MPV 11.7 H Gran % 89.6 H Lymph % (Auto) 8.4 L [place] % (Auto) 1.8 Eos % (Auto) 0.1 L Baso % (Auto) 0.1 Gran # 12.76 H Lymph # (Auto) 1.2 [place] # (Auto) 0.3 Eos # (Auto) 0.0 Baso # (Auto) 0.02 APTT pCO2 23 L 27 L pO2 37.0 L* 121.0 H HCO3 11.9 L 12.4 L ABG pH 7.32 L 7.27 L ABG Total CO2 12.6 L 13.2 L ABG O2 Saturation 80.6 L 99.7 H ABG Base Excess -12.2 L -12.9 L ABG Potassium 4.9 4.5 Glucose 279 H 276 H Lactate 4.4 H* 2.8 H FiO2 21.0 50.0 Sodium 135.0 139.0 Potassium Chloride 113.0 H 115.0 H Carbon Dioxide Anion Gap BUN Creatinine Est GFR ( Amer) Est GFR (Non-Af Amer) POC Glucose (mg/dL) Random Glucose Lactic Acid Calcium Phosphorus Magnesium Total Bilirubin AST ALT Alkaline Phosphatase Total Protein Albumin Globulin Albumin/Globulin Ratio Arterial Blood Potassium 4.9 4.5 Stool Occult Blood HIV 1&2 Ag/Ab, 4th Gen 09/15/17 09/15/17 09/15/17 05:30 05:30 05:30 WBC 12.8 H RBC 3.16 L Hgb 8.4 L Hct 25.0 L MCV 79.1 L MCH 26.6 MCHC 33.6 RDW 17.4 H Plt Count 63 L MPV Gran % 88.1 H Lymph % (Auto) 10.5 L [place] % (Auto) 1.3 Eos % (Auto) 0.0 L Baso % (Auto) 0.1 Gran # 11.28 H Lymph # (Auto) 1.4 [place] # (Auto) 0.2 Eos # (Auto) 0.0 Baso # (Auto) 0.01 APTT 29.0 pCO2 pO2 HCO3 ABG pH ABG Total CO2 ABG O2 Saturation ABG Base Excess ABG Potassium Glucose Lactate FiO2 Sodium Potassium Chloride Carbon Dioxide Anion Gap BUN Creatinine Est GFR ( Amer) Est GFR (Non-Af Amer) POC Glucose (mg/dL) Random Glucose Lactic Acid Calcium Phosphorus 4.9 H Magnesium 2.3 H Total Bilirubin AST ALT Alkaline Phosphatase Total Protein Albumin Globulin Albumin/Globulin Ratio Arterial Blood Potassium Stool Occult Blood HIV 1&2 Ag/Ab, 4th Gen 09/15/17 09/15/17 09/15/17 05:30 06:00 06:29 WBC RBC Hgb Hct MCV MCH MCHC RDW Plt Count MPV Gran % Lymph % (Auto) [place] % (Auto) Eos % (Auto) Baso % (Auto) Gran # Lymph # (Auto) [place] # (Auto) Eos # (Auto) Baso # (Auto) APTT pCO2 27 L pO2 131.0 H HCO3 15.3 L ABG pH 7.36 ABG Total CO2 16.1 L ABG O2 Saturation 99.3 H ABG Base Excess -8.6 L ABG Potassium 4.6 Glucose 323 H Lactate 2.2 H FiO2 50.0 Sodium 137.0 Potassium Chloride 112.0 H Carbon Dioxide Anion Gap BUN Creatinine Est GFR ( Amer) Est GFR (Non-Af Amer) POC Glucose (mg/dL) 306 H Random Glucose Lactic Acid 3.3 H Calcium Phosphorus Magnesium Total Bilirubin AST ALT Alkaline Phosphatase Total Protein Albumin Globulin Albumin/Globulin Ratio Arterial Blood Potassium 4.6 Stool Occult Blood HIV 1&2 Ag/Ab, 4th Gen 09/15/17 09/15/17 09/15/17 06:56 08:03 09:29 WBC RBC Hgb Hct MCV MCH MCHC RDW Plt Count MPV Gran % Lymph % (Auto) [place] % (Auto) Eos % (Auto) Baso % (Auto) Gran # Lymph # (Auto) [place] # (Auto) Eos # (Auto) Baso # (Auto) APTT pCO2 pO2 HCO3 ABG pH ABG Total CO2 ABG O2 Saturation ABG Base Excess ABG Potassium Glucose Lactate FiO2 Sodium 141 Potassium 5.0 Chloride 108 H Carbon Dioxide 16 L Anion Gap 21 H BUN 52 H Creatinine 3.0 H Est GFR ( Amer) 21 Est GFR (Non-Af Amer) 17 POC Glucose (mg/dL) 272 H 271 H Random Glucose 296 H Lactic Acid Calcium 7.3 L Phosphorus Magnesium Total Bilirubin 1.0 AST 44 H ALT 41 Alkaline Phosphatase 133 H Total Protein 6.0 Albumin 2.7 L Globulin 3.3 Albumin/Globulin Ratio 0.8 L Arterial Blood Potassium Stool Occult Blood HIV 1&2 Ag/Ab, 4th Gen 09/15/17 09/15/17 09/15/17 10:03 10:59 12:53 WBC RBC Hgb Hct MCV MCH MCHC RDW Plt Count MPV Gran % Lymph % (Auto) [place] % (Auto) Eos % (Auto) Baso % (Auto) Gran # Lymph # (Auto) [place] # (Auto) Eos # (Auto) Baso # (Auto) APTT pCO2 pO2 HCO3 ABG pH ABG Total CO2 ABG O2 Saturation ABG Base Excess ABG Potassium Glucose Lactate FiO2 Sodium Potassium Chloride Carbon Dioxide Anion Gap BUN Creatinine Est GFR ( Amer) Est GFR (Non-Af Amer) POC Glucose (mg/dL) 256 H 217 H 202 H Random Glucose Lactic Acid Calcium Phosphorus Magnesium Total Bilirubin AST ALT Alkaline Phosphatase Total Protein Albumin Globulin Albumin/Globulin Ratio Arterial Blood Potassium Stool Occult Blood HIV 1&2 Ag/Ab, 4th Gen 09/15/17 14:05 WBC RBC Hgb Hct MCV MCH MCHC RDW Plt Count MPV Gran % Lymph % (Auto) [place] % (Auto) Eos % (Auto) Baso % (Auto) Gran # Lymph # (Auto) [place] # (Auto) Eos # (Auto) Baso # (Auto) APTT pCO2 pO2 HCO3 ABG pH ABG Total CO2 ABG O2 Saturation ABG Base Excess ABG Potassium Glucose Lactate FiO2 Sodium Potassium Chloride Carbon Dioxide Anion Gap BUN Creatinine Est GFR ( Amer) Est GFR (Non-Af Amer) POC Glucose (mg/dL) 205 H Random Glucose Lactic Acid Calcium Phosphorus Magnesium Total Bilirubin AST ALT Alkaline Phosphatase Total Protein Albumin Globulin Albumin/Globulin Ratio Arterial Blood Potassium Stool Occult Blood HIV 1&2 Ag/Ab, 4th Gen Assessment & Plan - Assessment and Plan (Free Text) Assessment: 42 year old female with a past medical history significant for NIDDM2 admitted for sepsis shock. septic shock 2/2 gram negative bactremia, UTI pyelonephritis dehydration anemia with postive stool occult ARF DKA uncontrolled DM lactic acidosis Plan: - CT Abdomen/Pelvis: Gas is visualized within the left ureter and left renal collecting system, emphysematous pyelonephritis, stranding is seen in the left pericolonic region of the descending colon, which can be associated with colitis , hypodense fatty infiltration of the liver, Hepatomegaly. -abdominal xray: Normal. No obstruction. No free air - urine and blood cultures positive for gram negative rods - stool cultures pending. c. diff positive - ID consulted, abx per Id - Elevated Creatinine likely JOSE D from infection - Nephrology and Urology consulted - anemia, peripheral smear showing microcytic normochromic anemia - change in hgb possibly due to vol depletion - stool occult positive, consider endoscopy once stable - continue to monitor H/H, transfuse as needed - protonix drip, monitor for thrombocytopenia case seen and discussed with Dr. Wolfe <Han Wolfe V - Last Filed: 09/16/17 00:42> Meds - Medications Medications: Current Medications Hydrocortisone Sodium Succinate (Solu-Cortef) 50 mg IVP Q8 BOB Last Admin: 09/15/17 22:34 Dose: 50 mg Acetaminophen (Ofirmev) 1,000 mg in 100 mls @ 400 mls/hr IVPB Q6H PRN PRN Reason: Fever Stop: 09/16/17 05:43 Last Admin: 09/14/17 14:37 Dose: 400 mls/hr Meropenem 500 mg/ Sodium (Chloride) 50 mls @ 100 mls/hr IVPB Q12 BOB PRN Reason: Protocol Stop: 09/23/17 22:01 Last Admin: 09/15/17 22:18 Dose: 100 mls/hr Insulin Human Regular 100 (units/ Sodium Chloride) 100 mls @ 2 mls/hr IV .Q24H PRN; Protocol; 2 UNITS/HR PRN Reason: TITRATE PER MD ORDER Last Titration: 09/15/17 23:20 Dose: 3 units/hr, 3 mls/hr Sodium Bicarbonate 150 meq/ (Dextrose) 1,150 mls @ 125 mls/hr IV .Q9H12M [facility] Last Admin: 09/15/17 18:23 Dose: 125 mls/hr Pantoprazole Sodium (Protonix 40mg Ivpb) 40 mg in 100 mls @ 20 mls/hr IVPB .Q5H [facility] Last Admin: 09/15/17 23:30 Dose: 20 mls/hr Insulin Human Lispro (Humalog Med) 0 units SC Q6H BOB PRN Reason: Protocol Last Admin: 09/15/17 06:32 Dose: 7 units Ondansetron HCl (Zofran Inj) 4 mg IVP Q4H PRN PRN Reason: Nausea/Vomiting Last Admin: 09/14/17 16:13 Dose: 4 mg Vancomycin HCl (Vancocin 25 Mg/Ml (Oral Use)) 125 mg PO QID BOB PRN Reason: Protocol Last Admin: 09/15/17 22:19 Dose: 125 mg Vitamin A (Vitamin A & D Oint Ud Foilpak) 1 ea TOP Q2 PRN PRN Reason: Dry mouth Results - Vital Signs Recent Vital Signs: Last Vital Signs Temp 99.7 F H 09/15/17 19:30 Pulse 101 H 09/15/17 19:30 Resp 25 H 09/15/17 19:30 BP 126/100 H 09/15/17 19:00 Pulse Ox 100 09/15/17 19:30 - Labs Result Diagrams: 09/15/17 05:30 09/15/17 22:04 Labs: Laboratory Results - last 24 hr 09/14/17 09/14/17 09/15/17 04:50 15:36 01:30 WBC RBC Hgb Hct MCV MCH MCHC RDW Plt Count Manual Plt Count Gran % Lymph % (Auto) [place] % (Auto) Eos % (Auto) Baso % (Auto) Gran # Lymph # (Auto) [place] # (Auto) Eos # (Auto) Baso # (Auto) APTT pCO2 27 L pO2 121.0 H HCO3 12.4 L ABG pH 7.27 L ABG Total CO2 13.2 L ABG O2 Saturation 99.7 H ABG Base Excess -12.9 L ABG Potassium 4.5 Sodium 139.0 Chloride 115.0 H Glucose 276 H Lactate 2.8 H FiO2 50.0 Potassium Carbon Dioxide Anion Gap BUN Creatinine Est GFR ( Amer) Est GFR (Non-Af Amer) POC Glucose (mg/dL) Random Glucose Lactic Acid Calcium Phosphorus Magnesium Total Bilirubin AST ALT Alkaline Phosphatase Total Protein Albumin Globulin Albumin/Globulin Ratio Arterial Blood Potassium 4.5 Monoscreen Negative HIV 1&2 Ag/Ab, 4th Gen Nonreactive 09/15/17 09/15/17 09/15/17 05:30 05:30 05:30 WBC 12.8 H RBC 3.16 L Hgb 8.4 L Hct 25.0 L MCV 79.1 L MCH 26.6 MCHC 33.6 RDW 17.4 H Plt Count 63 L Manual Plt Count Gran % 88.1 H Lymph % (Auto) 10.5 L [place] % (Auto) 1.3 Eos % (Auto) 0.0 L Baso % (Auto) 0.1 Gran # 11.28 H Lymph # (Auto) 1.4 [place] # (Auto) 0.2 Eos # (Auto) 0.0 Baso # (Auto) 0.01 APTT 29.0 pCO2 pO2 HCO3 ABG pH ABG Total CO2 ABG O2 Saturation ABG Base Excess ABG Potassium Sodium Chloride Glucose Lactate FiO2 Potassium Carbon Dioxide Anion Gap BUN Creatinine Est GFR ( Amer) Est GFR (Non-Af Amer) POC Glucose (mg/dL) Random Glucose Lactic Acid Calcium Phosphorus 4.9 H Magnesium 2.3 H Total Bilirubin AST ALT Alkaline Phosphatase Total Protein Albumin Globulin Albumin/Globulin Ratio Arterial Blood Potassium Monoscreen HIV 1&2 Ag/Ab, 4th Gen 09/15/17 09/15/17 09/15/17 05:30 06:00 06:29 WBC RBC Hgb Hct MCV MCH MCHC RDW Plt Count Manual Plt Count Gran % Lymph % (Auto) [place] % (Auto) Eos % (Auto) Baso % (Auto) Gran # Lymph # (Auto) [place] # (Auto) Eos # (Auto) Baso # (Auto) APTT pCO2 27 L pO2 131.0 H HCO3 15.3 L ABG pH 7.36 ABG Total CO2 16.1 L ABG O2 Saturation 99.3 H ABG Base Excess -8.6 L ABG Potassium 4.6 Sodium 137.0 Chloride 112.0 H Glucose 323 H Lactate 2.2 H FiO2 50.0 Potassium Carbon Dioxide Anion Gap BUN Creatinine Est GFR ( Amer) Est GFR (Non-Af Amer) POC Glucose (mg/dL) 306 H Random Glucose Lactic Acid 3.3 H Calcium Phosphorus Magnesium Total Bilirubin AST ALT Alkaline Phosphatase Total Protein Albumin Globulin Albumin/Globulin Ratio Arterial Blood Potassium 4.6 Monoscreen HIV 1&2 Ag/Ab, 4th Gen 09/15/17 09/15/17 09/15/17 06:56 08:03 09:29 WBC RBC Hgb Hct MCV MCH MCHC RDW Plt Count Manual Plt Count Gran % Lymph % (Auto) [place] % (Auto) Eos % (Auto) Baso % (Auto) Gran # Lymph # (Auto) [place] # (Auto) Eos # (Auto) Baso # (Auto) APTT pCO2 pO2 HCO3 ABG pH ABG Total CO2 ABG O2 Saturation ABG Base Excess ABG Potassium Sodium 141 Chloride 108 H Glucose Lactate FiO2 Potassium 5.0 Carbon Dioxide 16 L Anion Gap 21 H BUN 52 H Creatinine 3.0 H Est GFR ( Amer) 21 Est GFR (Non-Af Amer) 17 POC Glucose (mg/dL) 272 H 271 H Random Glucose 296 H Lactic Acid Calcium 7.3 L Phosphorus Magnesium Total Bilirubin 1.0 AST 44 H ALT 41 Alkaline Phosphatase 133 H Total Protein 6.0 Albumin 2.7 L Globulin 3.3 Albumin/Globulin Ratio 0.8 L Arterial Blood Potassium Monoscreen HIV 1&2 Ag/Ab, 4th Gen 05/25/18 05/25/18 05/25/18 10:03 10:59 12:53 WBC RBC Hgb Hct MCV MCH MCHC RDW Plt Count Manual Plt Count Gran % Lymph % (Auto) [place] % (Auto) Eos % (Auto) Baso % (Auto) Gran # Lymph # (Auto) [place] # (Auto) Eos # (Auto) Baso # (Auto) APTT pCO2 pO2 HCO3 ABG pH ABG Total CO2 ABG O2 Saturation ABG Base Excess ABG Potassium Sodium Chloride Glucose Lactate FiO2 Potassium Carbon Dioxide Anion Gap BUN Creatinine Est GFR ( Amer) Est GFR (Non-Af Amer) POC Glucose (mg/dL) 256 H 217 H 202 H Random Glucose Lactic Acid Calcium Phosphorus Magnesium Total Bilirubin AST ALT Alkaline Phosphatase Total Protein Albumin Globulin Albumin/Globulin Ratio Arterial Blood Potassium Monoscreen HIV 1&2 Ag/Ab, 4th Gen 09/15/17 09/15/17 09/15/17 14:05 15:06 16:40 WBC RBC Hgb Hct MCV MCH MCHC RDW Plt Count Manual Plt Count Gran % Lymph % (Auto) [place] % (Auto) Eos % (Auto) Baso % (Auto) Gran # Lymph # (Auto) [place] # (Auto) Eos # (Auto) Baso # (Auto) APTT pCO2 pO2 HCO3 ABG pH ABG Total CO2 ABG O2 Saturation ABG Base Excess ABG Potassium Sodium Chloride Glucose Lactate FiO2 Potassium Carbon Dioxide Anion Gap BUN Creatinine Est GFR ( Amer) Est GFR (Non-Af Amer) POC Glucose (mg/dL) 205 H 175 H 168 H Random Glucose Lactic Acid Calcium Phosphorus Magnesium Total Bilirubin AST ALT Alkaline Phosphatase Total Protein Albumin Globulin Albumin/Globulin Ratio Arterial Blood Potassium Monoscreen HIV 1&2 Ag/Ab, 4th Gen 09/15/17 09/15/17 09/15/17 17:14 18:10 18:54 WBC RBC Hgb Hct MCV MCH MCHC RDW Plt Count Manual Plt Count Gran % Lymph % (Auto) [place] % (Auto) Eos % (Auto) Baso % (Auto) Gran # Lymph # (Auto) [place] # (Auto) Eos # (Auto) Baso # (Auto) APTT pCO2 pO2 HCO3 ABG pH ABG Total CO2 ABG O2 Saturation ABG Base Excess ABG Potassium Sodium Chloride Glucose Lactate FiO2 Potassium Carbon Dioxide Anion Gap BUN Creatinine Est GFR ( Amer) Est GFR (Non-Af Amer) POC Glucose (mg/dL) 168 H 187 H 201 H Random Glucose Lactic Acid Calcium Phosphorus Magnesium Total Bilirubin AST ALT Alkaline Phosphatase Total Protein Albumin Globulin Albumin/Globulin Ratio Arterial Blood Potassium Monoscreen HIV 1&2 Ag/Ab, 4th Gen 09/15/17 09/15/17 09/15/17 20:07 21:03 22:04 WBC RBC Hgb Hct MCV MCH MCHC RDW Plt Count Manual Plt Count Gran % Lymph % (Auto) [place] % (Auto) Eos % (Auto) Baso % (Auto) Gran # Lymph # (Auto) [place] # (Auto) Eos # (Auto) Baso # (Auto) APTT pCO2 pO2 HCO3 ABG pH ABG Total CO2 ABG O2 Saturation ABG Base Excess ABG Potassium Sodium 143 Chloride 107 Glucose Lactate FiO2 Potassium 3.8 Carbon Dioxide 24 Anion Gap 16 BUN 59 H Creatinine 2.8 H Est GFR ( Amer) 23 Est GFR (Non-Af Amer) 19 POC Glucose (mg/dL) 225 H 227 H Random Glucose 205 H Lactic Acid Calcium 7.1 L Phosphorus Magnesium Total Bilirubin AST ALT Alkaline Phosphatase Total Protein Albumin Globulin Albumin/Globulin Ratio Arterial Blood Potassium Monoscreen HIV 1&2 Ag/Ab, 4th Gen 09/15/17 09/15/17 09/15/17 22:04 22:10 23:18 WBC RBC Hgb Hct MCV MCH MCHC RDW Plt Count Manual Plt Count 87 L Gran % Lymph % (Auto) [place] % (Auto) Eos % (Auto) Baso % (Auto) Gran # Lymph # (Auto) [place] # (Auto) Eos # (Auto) Baso # (Auto) APTT pCO2 pO2 HCO3 ABG pH ABG Total CO2 ABG O2 Saturation ABG Base Excess ABG Potassium Sodium Chloride Glucose Lactate FiO2 Potassium Carbon Dioxide Anion Gap BUN Creatinine Est GFR ( Amer) Est GFR (Non-Af Amer) POC Glucose (mg/dL) 215 H 196 H Random Glucose Lactic Acid Calcium Phosphorus Magnesium Total Bilirubin AST ALT Alkaline Phosphatase Total Protein Albumin Globulin Albumin/Globulin Ratio Arterial Blood Potassium Monoscreen HIV 1&2 Ag/Ab, 4th Gen 09/16/17 00:33 WBC RBC Hgb Hct MCV MCH MCHC RDW Plt Count Manual Plt Count Gran % Lymph % (Auto) [place] % (Auto) Eos % (Auto) Baso % (Auto) Gran # Lymph # (Auto) [place] # (Auto) Eos # (Auto) Baso # (Auto) APTT pCO2 pO2 HCO3 ABG pH ABG Total CO2 ABG O2 Saturation ABG Base Excess ABG Potassium Sodium Chloride Glucose Lactate FiO2 Potassium Carbon Dioxide Anion Gap BUN Creatinine Est GFR ( Amer) Est GFR (Non-Af Amer) POC Glucose (mg/dL) 178 H Random Glucose Lactic Acid Calcium Phosphorus Magnesium Total Bilirubin AST ALT Alkaline Phosphatase Total Protein Albumin Globulin Albumin/Globulin Ratio Arterial Blood Potassium Monoscreen HIV 1&2 Ag/Ab, 4th Gen Attending/Attestation - Attestation I have personally seen and examined this patient.: Yes I have fully participated in the care of the patient.: Yes I have reviewed all pertinent clinical information: Yes Notes (Text): This is an addendum to GI consult report dictated by the Software Program Manager.The patient was seen and examined earlier. Medical records, lab studies, imagings were reviewed. Last 24 hours events reviewed. Agreed with the above treatment plan as outlined in Software Program Manager 's notes the with the addition of the following 09/16/17 00:42
--- NOTE | 2017-09-15 15:21 | CP.PCM.CON ---
History of Present Illness - History of Present Illness History of Present Illness: Hematology/Oncology Consult Note for Dr. Ash 42 F with a PMHx of NIDDM2 presents with nausea, vomiting, abdominal pain, fever and fatigue admitted to ICU for emphysematous pyelonephritis. As per family at the time of admission, patient blood sugar were markedly elevated and upon arrival to ED was found to be hypotensive. She had been previously treated for similar episodes at [facility] roughly two weeks ago. Of note, patient is noncompliant with meds or follow up appointments with PMD. In the ED patient was found to be septic, with DKA and admitted to ICU and subsequently treated for septic shock requiring pressor support, now tapered off. Heme/onc consulted for pancytopenia. As per nursing staff, pt was found to be stool occult positive and c.diff positive. Patient has been prescribed iron supplements in the past. Patient was seen and examined at bedside. No acute complaints at this time. As per nursing staff, patient had episodes of shortness of breath with hypoxia requiring ventimask. Patient denied fever,chills, sob, chest pain, fever, chills, abdominal pain, nausea, vomiting, or any other issues. PMH: NIDDM2 PSH: Denied SHx: Denied tobacco/etoh/illicits, lives in [facility] FamHx: Noncontributory Meds; MAR reviewed Allergies: Food: Apples/strawberries Review of Systems - Review of Systems Review of Systems: as per HPI otherwise negative Past Patient History - Infectious Disease Hx of Infectious Diseases: None - Tetanus Immunizations Tetanus Immunization: Unknown - Past Social History Smoking Status: Never Smoked - CARDIAC Hx Pacemaker: No - PULMONARY Hx Respiratory Disorders: No - NEUROLOGICAL Hx Neurological Disorder: No - HEENT Hx HEENT Problems: No - RENAL Hx Chronic Kidney Disease: No - ENDOCRINE/METABOLIC Hx Endocrine Disorders: No - HEMATOLOGICAL/ONCOLOGICAL Hx Cancer: No - INTEGUMENTARY Hx Dermatological Problems: No - MUSCULOSKELETAL/RHEUMATOLOGICAL Hx Musculoskeletal Disorders: No Hx Falls: No - GASTROINTESTINAL Hx Gastrointestinal Disorders: No - GENITOURINARY/GYNECOLOGICAL Hx Genitourinary Disorders: No - PSYCHIATRIC Hx Psychophysiologic Disorder: No - SURGICAL HISTORY Hx Mastectomy: No - ANESTHESIA Hx Anesthesia: No Hx Anesthesia Reactions: No Hx Malignant Hyperthermia: No Meds Allergies/Adverse Reactions: Allergies Allergy/AdvReac Type Severity Reaction Status Date / Time apple Allergy REDNESS Verified 05/23/18 23:09 strawberries Allergy RASH Uncoded 09/13/17 21:53 - Medications Medications: Current Medications Hydrocortisone Sodium Succinate (Solu-Cortef) 50 mg IVP Q8 [facility] Last Admin: 09/15/17 14:38 Dose: 50 mg Acetaminophen (Ofirmev) 1,000 mg in 100 mls @ 400 mls/hr IVPB Q6H PRN PRN Reason: Fever Stop: 09/16/17 05:43 Last Admin: 09/14/17 14:37 Dose: 400 mls/hr Meropenem 500 mg/ Sodium (Chloride) 50 mls @ 100 mls/hr IVPB Q12 BOB PRN Reason: Protocol Stop: 09/23/17 22:01 Last Admin: 09/15/17 09:46 Dose: 100 mls/hr Insulin Human Regular 100 (units/ Sodium Chloride) 100 mls @ 2 mls/hr IV .Q24H PRN; Protocol; 2 UNITS/HR PRN Reason: TITRATE PER MD ORDER Last Admin: 09/15/17 08:44 Dose: 6 units/hr, 6 mls/hr Sodium Bicarbonate 150 meq/ (Dextrose) 1,150 mls @ 125 mls/hr IV .Q9H12M [facility] Last Admin: 09/15/17 08:44 Dose: 125 mls/hr Pantoprazole Sodium (Protonix 40mg Ivpb) 40 mg in 100 mls @ 20 mls/hr IVPB .Q5H [facility] Last Admin: 09/15/17 08:48 Dose: 20 mls/hr Insulin Human Lispro (Humalog Med) 0 units SC Q6H BOB PRN Reason: Protocol Last Admin: 09/15/17 06:32 Dose: 7 units Ondansetron HCl (Zofran Inj) 4 mg IVP Q4H PRN PRN Reason: Nausea/Vomiting Last Admin: 09/14/17 16:13 Dose: 4 mg Vancomycin HCl (Vancocin 25 Mg/Ml (Oral Use)) 125 mg PO QID [facility] PRN Reason: Protocol Vitamin A (Vitamin A & D Oint Ud Foilpak) 1 ea TOP Q2 PRN PRN Reason: Dry mouth Physical Exam - Constitutional Appears: Chronically Ill - Head Exam Head Exam: ATRAUMATIC, NORMAL INSPECTION, NORMOCEPHALIC - Eye Exam Eye Exam: EOMI, Normal appearance, PERRL Pupil Exam: NORMAL ACCOMODATION, PERRL - ENT Exam ENT Exam: Mucous Membranes Moist, Normal Exam - Respiratory Exam Respiratory Exam: Decreased Breath Sounds, Clear to Auscultation Bilateral, NORMAL BREATHING PATTERN - Cardiovascular Exam Cardiovascular Exam: REGULAR RHYTHM, +S1, +S2 - GI/Abdominal Exam GI & Abdominal Exam: Normal Bowel Sounds, Soft. absent: Tenderness - Neurological Exam Neurological exam: Alert, CN II-XII Intact, Oriented x3, Reflexes Normal - Psychiatric Exam Psychiatric exam: Normal Affect, Normal Mood - Skin Skin Exam: Dry, Intact, Normal Color, Warm Results - Vital Signs Recent Vital Signs: Last Vital Signs Temp 98.2 F 09/15/17 00:00 Pulse 113 H 09/15/17 10:30 Resp 37 H 09/15/17 10:30 BP 100/58 L 09/15/17 10:30 Pulse Ox 98 09/15/17 10:30 - Labs Result Diagrams: 09/15/17 05:30 09/15/17 06:56 Labs: Laboratory Results - last 24 hr 09/14/17 09/14/17 09/14/17 04:50 08:02 08:53 WBC RBC Hgb Hct MCV MCH MCHC RDW Plt Count MPV Gran % Lymph % (Auto) [place] % (Auto) Eos % (Auto) Baso % (Auto) Gran # Lymph # (Auto) [place] # (Auto) Eos # (Auto) Baso # (Auto) APTT pCO2 pO2 HCO3 ABG pH ABG Total CO2 ABG O2 Saturation ABG Base Excess ABG Potassium Glucose Lactate FiO2 Sodium Potassium Chloride Carbon Dioxide Anion Gap BUN Creatinine Est GFR ( Amer) Est GFR (Non-Af Amer) POC Glucose (mg/dL) 190 H 185 H Random Glucose Lactic Acid Calcium Phosphorus Magnesium Total Bilirubin AST ALT Alkaline Phosphatase Total Protein Albumin Globulin Albumin/Globulin Ratio Arterial Blood Potassium Stool Occult Blood Monoscreen Negative HIV 1&2 Ag/Ab, 4th Gen 09/14/17 09/14/17 09/14/17 09:58 10:55 12:05 WBC RBC Hgb Hct MCV MCH MCHC RDW Plt Count MPV Gran % Lymph % (Auto) [place] % (Auto) Eos % (Auto) Baso % (Auto) Gran # Lymph # (Auto) [place] # (Auto) Eos # (Auto) Baso # (Auto) APTT pCO2 pO2 HCO3 ABG pH ABG Total CO2 ABG O2 Saturation ABG Base Excess ABG Potassium Glucose Lactate FiO2 Sodium Potassium Chloride Carbon Dioxide Anion Gap BUN Creatinine Est GFR ( Amer) Est GFR (Non-Af Amer) POC Glucose (mg/dL) 185 H 194 H 195 H Random Glucose Lactic Acid Calcium Phosphorus Magnesium Total Bilirubin AST ALT Alkaline Phosphatase Total Protein Albumin Globulin Albumin/Globulin Ratio Arterial Blood Potassium Stool Occult Blood Monoscreen HIV 1&2 Ag/Ab, 4th Gen 09/14/17 09/14/17 09/14/17 12:51 13:48 14:54 WBC RBC Hgb Hct MCV MCH MCHC RDW Plt Count MPV Gran % Lymph % (Auto) [place] % (Auto) Eos % (Auto) Baso % (Auto) Gran # Lymph # (Auto) [place] # (Auto) Eos # (Auto) Baso # (Auto) APTT pCO2 pO2 HCO3 ABG pH ABG Total CO2 ABG O2 Saturation ABG Base Excess ABG Potassium Glucose Lactate FiO2 Sodium Potassium Chloride Carbon Dioxide Anion Gap BUN Creatinine Est GFR ( Amer) Est GFR (Non-Af Amer) POC Glucose (mg/dL) 203 H 224 H 231 H Random Glucose Lactic Acid Calcium Phosphorus Magnesium Total Bilirubin AST ALT Alkaline Phosphatase Total Protein Albumin Globulin Albumin/Globulin Ratio Arterial Blood Potassium Stool Occult Blood Monoscreen HIV 1&2 Ag/Ab, 4th Gen 09/14/17 09/14/17 09/14/17 15:36 15:36 15:54 WBC RBC Hgb Hct MCV MCH MCHC RDW Plt Count MPV Gran % Lymph % (Auto) [place] % (Auto) Eos % (Auto) Baso % (Auto) Gran # Lymph # (Auto) [place] # (Auto) Eos # (Auto) Baso # (Auto) APTT pCO2 pO2 HCO3 ABG pH ABG Total CO2 ABG O2 Saturation ABG Base Excess ABG Potassium Glucose Lactate FiO2 Sodium 138 Potassium 5.0 Chloride 108 H Carbon Dioxide 15 L Anion Gap 20 BUN 47 H Creatinine 2.9 H Est GFR ( Amer) 22 Est GFR (Non-Af Amer) 18 POC Glucose (mg/dL) 231 H Random Glucose 232 H Lactic Acid Calcium 7.2 L Phosphorus Magnesium Total Bilirubin AST ALT Alkaline Phosphatase Total Protein Albumin Globulin Albumin/Globulin Ratio Arterial Blood Potassium Stool Occult Blood Monoscreen HIV 1&2 Ag/Ab, 4th Gen Nonreactive 09/14/17 09/14/17 09/14/17 16:27 17:00 17:46 WBC 10.7 D RBC 3.37 L Hgb 8.9 L Hct 26.6 L MCV 78.9 L MCH 26.4 MCHC 33.5 RDW 17.0 H Plt Count 75 L MPV 11.3 H Gran % Lymph % (Auto) [place] % (Auto) Eos % (Auto) Baso % (Auto) Gran # Lymph # (Auto) [place] # (Auto) Eos # (Auto) Baso # (Auto) APTT pCO2 pO2 HCO3 ABG pH ABG Total CO2 ABG O2 Saturation ABG Base Excess ABG Potassium Glucose Lactate FiO2 Sodium Potassium Chloride Carbon Dioxide Anion Gap BUN Creatinine Est GFR ( Amer) Est GFR (Non-Af Amer) POC Glucose (mg/dL) 251 H Random Glucose Lactic Acid Calcium Phosphorus Magnesium Total Bilirubin AST ALT Alkaline Phosphatase Total Protein Albumin Globulin Albumin/Globulin Ratio Arterial Blood Potassium Stool Occult Blood Positive H Monoscreen HIV 1&2 Ag/Ab, 4th Gen 09/14/17 09/14/17 09/14/17 21:00 21:00 23:28 WBC 14.2 H D RBC 3.28 L Hgb 8.7 L Hct 25.9 L MCV 79.0 L MCH 26.5 MCHC 33.6 RDW 17.1 H Plt Count 75 L MPV 11.7 H Gran % 89.6 H Lymph % (Auto) 8.4 L [place] % (Auto) 1.8 Eos % (Auto) 0.1 L Baso % (Auto) 0.1 Gran # 12.76 H Lymph # (Auto) 1.2 [place] # (Auto) 0.3 Eos # (Auto) 0.0 Baso # (Auto) 0.02 APTT pCO2 23 L pO2 37.0 L* HCO3 11.9 L ABG pH 7.32 L ABG Total CO2 12.6 L ABG O2 Saturation 80.6 L ABG Base Excess -12.2 L ABG Potassium 4.9 Glucose 279 H Lactate 4.4 H* FiO2 21.0 Sodium 138 135.0 Potassium 4.9 Chloride 107 113.0 H Carbon Dioxide 14 L Anion Gap 22 H BUN 47 H Creatinine 3.0 H Est GFR ( Amer) 21 Est GFR (Non-Af Amer) 17 POC Glucose (mg/dL) Random Glucose 235 H Lactic Acid Calcium 7.3 L Phosphorus Magnesium Total Bilirubin AST ALT Alkaline Phosphatase Total Protein Albumin Globulin Albumin/Globulin Ratio Arterial Blood Potassium 4.9 Stool Occult Blood Monoscreen HIV 1&2 Ag/Ab, 4th Gen 09/15/17 09/15/17 09/15/17 01:30 05:30 05:30 WBC 12.8 H RBC 3.16 L Hgb 8.4 L Hct 25.0 L MCV 79.1 L MCH 26.6 MCHC 33.6 RDW 17.4 H Plt Count 63 L MPV Gran % 88.1 H Lymph % (Auto) 10.5 L [place] % (Auto) 1.3 Eos % (Auto) 0.0 L Baso % (Auto) 0.1 Gran # 11.28 H Lymph # (Auto) 1.4 [place] # (Auto) 0.2 Eos # (Auto) 0.0 Baso # (Auto) 0.01 APTT 29.0 pCO2 27 L pO2 121.0 H HCO3 12.4 L ABG pH 7.27 L ABG Total CO2 13.2 L ABG O2 Saturation 99.7 H ABG Base Excess -12.9 L ABG Potassium 4.5 Glucose 276 H Lactate 2.8 H FiO2 50.0 Sodium 139.0 Potassium Chloride 115.0 H Carbon Dioxide Anion Gap BUN Creatinine Est GFR ( Amer) Est GFR (Non-Af Amer) POC Glucose (mg/dL) Random Glucose Lactic Acid Calcium Phosphorus Magnesium Total Bilirubin AST ALT Alkaline Phosphatase Total Protein Albumin Globulin Albumin/Globulin Ratio Arterial Blood Potassium 4.5 Stool Occult Blood Monoscreen HIV 1&2 Ag/Ab, 4th Gen 09/15/17 09/15/17 09/15/17 05:30 05:30 06:00 WBC RBC Hgb Hct MCV MCH MCHC RDW Plt Count MPV Gran % Lymph % (Auto) [place] % (Auto) Eos % (Auto) Baso % (Auto) Gran # Lymph # (Auto) [place] # (Auto) Eos # (Auto) Baso # (Auto) APTT pCO2 27 L pO2 131.0 H HCO3 15.3 L ABG pH 7.36 ABG Total CO2 16.1 L ABG O2 Saturation 99.3 H ABG Base Excess -8.6 L ABG Potassium 4.6 Glucose 323 H Lactate 2.2 H FiO2 50.0 Sodium 137.0 Potassium Chloride 112.0 H Carbon Dioxide Anion Gap BUN Creatinine Est GFR ( Amer) Est GFR (Non-Af Amer) POC Glucose (mg/dL) Random Glucose Lactic Acid 3.3 H Calcium Phosphorus 4.9 H Magnesium 2.3 H Total Bilirubin AST ALT Alkaline Phosphatase Total Protein Albumin Globulin Albumin/Globulin Ratio Arterial Blood Potassium 4.6 Stool Occult Blood Monoscreen HIV 1&2 Ag/Ab, 4th Gen 09/15/17 09/15/17 09/15/17 06:29 06:56 08:03 WBC RBC Hgb Hct MCV MCH MCHC RDW Plt Count MPV Gran % Lymph % (Auto) [place] % (Auto) Eos % (Auto) Baso % (Auto) Gran # Lymph # (Auto) [place] # (Auto) Eos # (Auto) Baso # (Auto) APTT pCO2 pO2 HCO3 ABG pH ABG Total CO2 ABG O2 Saturation ABG Base Excess ABG Potassium Glucose Lactate FiO2 Sodium 141 Potassium 5.0 Chloride 108 H Carbon Dioxide 16 L Anion Gap 21 H BUN 52 H Creatinine 3.0 H Est GFR ( Amer) 21 Est GFR (Non-Af Amer) 17 POC Glucose (mg/dL) 306 H 272 H Random Glucose 296 H Lactic Acid Calcium 7.3 L Phosphorus Magnesium Total Bilirubin 1.0 AST 44 H ALT 41 Alkaline Phosphatase 133 H Total Protein 6.0 Albumin 2.7 L Globulin 3.3 Albumin/Globulin Ratio 0.8 L Arterial Blood Potassium Stool Occult Blood Monoscreen HIV 1&2 Ag/Ab, 4th Gen 09/15/17 09/15/17 09/15/17 09:29 10:03 10:59 WBC RBC Hgb Hct MCV MCH MCHC RDW Plt Count MPV Gran % Lymph % (Auto) [place] % (Auto) Eos % (Auto) Baso % (Auto) Gran # Lymph # (Auto) [place] # (Auto) Eos # (Auto) Baso # (Auto) APTT pCO2 pO2 HCO3 ABG pH ABG Total CO2 ABG O2 Saturation ABG Base Excess ABG Potassium Glucose Lactate FiO2 Sodium Potassium Chloride Carbon Dioxide Anion Gap BUN Creatinine Est GFR ( Amer) Est GFR (Non-Af Amer) POC Glucose (mg/dL) 271 H 256 H 217 H Random Glucose Lactic Acid Calcium Phosphorus Magnesium Total Bilirubin AST ALT Alkaline Phosphatase Total Protein Albumin Globulin Albumin/Globulin Ratio Arterial Blood Potassium Stool Occult Blood Monoscreen HIV 1&2 Ag/Ab, 4th Gen 09/15/17 09/15/17 12:53 14:05 WBC RBC Hgb Hct MCV MCH MCHC RDW Plt Count MPV Gran % Lymph % (Auto) [place] % (Auto) Eos % (Auto) Baso % (Auto) Gran # Lymph # (Auto) [place] # (Auto) Eos # (Auto) Baso # (Auto) APTT pCO2 pO2 HCO3 ABG pH ABG Total CO2 ABG O2 Saturation ABG Base Excess ABG Potassium Glucose Lactate FiO2 Sodium Potassium Chloride Carbon Dioxide Anion Gap BUN Creatinine Est GFR ( Amer) Est GFR (Non-Af Amer) POC Glucose (mg/dL) 202 H 205 H Random Glucose Lactic Acid Calcium Phosphorus Magnesium Total Bilirubin AST ALT Alkaline Phosphatase Total Protein Albumin Globulin Albumin/Globulin Ratio Arterial Blood Potassium Stool Occult Blood Monoscreen HIV 1&2 Ag/Ab, 4th Gen Assessment & Plan - Assessment and Plan (Free Text) Assessment: 42 year old female with a past medical history significant for NIDDM2 admitted for DKA, sepsis shock 2/2 gram negative bactremia, UTI and found to have emphysematous pyelonephritis as well as symptomatic anemia with positive stool occult. CT Abdomen/Pelvis: 1. Gas is visualized within the left ureter and left renal collecting system. This may be iatrogenically, although infectious etiology/emphysematous pyelonephritis is considered. There is mild left perinephric stranding. 2. Additional stranding is seen within the retroperitoneum which extends into the left side of the pelvis. This is likely infectious or inflammatory. Some of the stranding is seen in the left pericolonic region of the descending colon, which can be associated with colitis. 3. There is hypodense fatty infiltration of the liver. Hepatomegaly. 4. There is a wedge-shaped area of hypodensity within the periphery of the spleen. Differential considerations include splenic infarct or laceration. A splenic mass cannot be excluded. There is mild splenomegaly. This can be further evaluated with a contrast CT abdomen/pelvis. 5. Within the left ovary, there is a 1.8 x 1.6 cm hypodense probable cyst. 6. There is retroperitoneal lymphadenopathy. 7. Cholelithiasis.8. Interstitial and air space disease is identified at the bilateral lung bases. This may be infectious in etiology. For panytopenia workup: plt ab, manual count, peripheral smear, iron, TIBC, transferrin, ferritin, B12, folate, TSH, serum electrophoresis, protein electro , free kappa light chains, b2 microglob, flow cytometry. monitor H/H, protonix drip. peripheral smear showing microcytic normochromic anemia
[2017-09-15] MEDS: Vancomycin 25 MG/ML PO SCH ×2 (17:35→22:19)
--- NOTE | 2017-09-15 19:31 | US ---
HISTORY: Leg pain and swelling. Evaluate for DVT PHYSICIAN(S): Higinio Severino MD. TECHNIQUE: Duplex sonography and color-flow Doppler with graded compression were used to evaluate the deep venous systems of both lower extremities. FINDINGS: The visualized deep venous systems of both lower extremities are sonographically normal and compressible. Normal wave forms and augmentation are seen. There is no sonographic evidence for deep venous thrombosis in the visualized segments of both lower extremities. IMPRESSION: No sonographic evidence for deep venous thrombosis in the visualized segments of both lower extremities.
[2017-09-15 22:49] LABS: BLOOD UREA NITROGEN 59 mg/dL (7-21); CALCIUM 7.1 mg/dL (8.4-10.5); GFR AFRICAN-AMERICAN 23; GFR NON-AFRICAN AMERICAN 19
[2017-09-16] MEDS: Pantoprazole 40mg/100mL NS 40 MG/100 ML BAG IVPB SCH ×2 (05:00→10:17)
[2017-09-16 05:32] LABS: BASO # 0.01 K/mm3 (0.0-2.0); BASO % 0.1 % (0.0-3.0); EOS % 0.1 % (1.5-5.0); GRAN # 8.39 (1.4-6.5); GRAN % 88.8 % (50.0-68.0); LYMPH % 10.7 % (22.0-35.0); MEAN CELL VOLUME 78.7 fl (80.0-105.0); MEAN CORPUSCULAR HEMOGLOBIN 25.8 pg (25.0-35.0); MEAN CORPUSCULAR HGB CONC 32.8 g/dl (31.0-37.0); MEAN PLATELET VOLUME 11.2 fl (7.0-11.0); MONO % 0.3 % (1.0-6.0); RBC 3.1 10^6/uL (3.5-6.1); RED CELL DISTRIBUTION WIDTH 17.8 % (11.5-14.5); WHITE BLOOD COUNT 9.5 10^3/ul (4.5-11.0)
[2017-09-16 05:41] LABS: ALB/GLOB RATIO 0.8 (1.1-1.8); ALBUMIN 2.7 g/dL (3.0-4.8); CALCIUM 7.1 mg/dL (8.4-10.5)
[2017-09-16 06:30] LABS: IRON 11 ug/dL (45-180)
[2017-09-16 06:39] LABS: % IRON SATURATION 5 % (20-55); TOTAL IRON BINDING CAPACITY 208 ug/dL (265-497)
[2017-09-16] MEDS ORDERED: Potassium Chloride 40 mEq/30 ml LIQ UD PO ONE (06:47)
[2017-09-16] MEDS: Sodium Bicarbonate 8.4% 150 MEQ in Dextrose 5% In Water 1,000 ML IV SCH (07:01)
--- NOTE | 2017-09-16 08:45 | PN ---
DATE: 09/16/2017 SUBJECTIVE: The patient is in bed, doing better. PHYSICAL EXAMINATION: VITAL SIGNS: Temperature is 91, blood pressure is 150/90, respiratory rate of 21, heart rate of 98. HEENT: Examination of HEENT is unremarkable. NECK: Supple. LUNGS: Decreased breath sounds. HEART: Normal S1, S2. ABDOMEN: Soft, nontender. LABORATORY DATA: Reveals a white count of 9.5, hemoglobin of 8 and platelets of 66,000. Chemistries reveals a BUN of 29, creatinine of 2.4. Urinalysis is noted. Patient's stool occult blood is positive and serology mono screen is negative and HIV is negative. Microbiology reveals the gram-negative irena in the blood, gram-negative irena in the urine. Further identification and sensitivities of both are pending. ASSESSMENT AND PLAN: This is a 42-year-old female admitted with septic shock and acute on chronic renal failure with gram-negative irena bacteremia secondary to gram-negative irena, left-sided emphysematous pyelonephritis and diabetic with morbid obesity and history of alcohol abuse and history of chronic anemia, currently on meropenem and the patient is also on p.o. vancomycin for pseudomembranous colitis. Awaiting for identification of the gram-negative irena. The patient is much improved, off of pressors, awake and doing better. Brandan Morejon MD
[2017-09-16] MEDS: Meropenem 500 MG in Sodium Chloride 0.9% 50 ML IVPB SCH (09:38)
[2017-09-16] MEDS: Vancomycin 25 MG/ML PO SCH ×4 (09:40→22:16)
[2017-09-16 10:21] LABS: TRANSFERRIN 126.62 mg/dL (206-381)
[2017-09-16 11:20] LABS: FOLATE 6.5 ng/mL
--- NOTE | 2017-09-16 13:03 | CP.PCM.PN ---
<Rober Clarke - Last Filed: 09/16/17 12:54> Subjective - Date & Time of Evaluation Date of Evaluation: 09/16/17 Time of Evaluation: 06:00 - Subjective Subjective: Patient seen and evaluated bedside in ICU. No acute issues overnight. Patient more alert and awake today, complaining of being tired and pain all over. Patient denies chest pain, SOB, fever, chills, nausea, vomiting, or any other complaints. Objective - Vital Signs/Intake and Output Vital Signs (last 24 hours): Temp Pulse Resp BP Pulse Ox 91.0 F L 105 H 21 156/90 H 99 09/16/17 06:00 09/16/17 06:00 09/16/17 06:00 09/16/17 05:00 09/16/17 06:00 Intake and Output: 09/16/17 09/16/17 06:59 18:59 Intake Total 1887 Balance 26 1887 - Medications Medications: Current Medications Hydrocortisone Sodium Succinate (Solu-Cortef) 25 mg IVP Q8 [facility] Meropenem 500 mg/ Sodium (Chloride) 50 mls @ 100 mls/hr IVPB Q12 [facility] PRN Reason: Protocol Stop: 09/23/17 22:01 Last Admin: 09/16/17 09:38 Dose: 100 mls/hr Insulin Human Regular 100 (units/ Sodium Chloride) 100 mls @ 2 mls/hr IV .Q24H PRN; Protocol; 2 UNITS/HR PRN Reason: TITRATE PER MD ORDER Last Titration: 09/16/17 10:10 Dose: 2 units/hr, 2 mls/hr Pantoprazole Sodium (Protonix 40mg Ivpb) 40 mg in 100 mls @ 20 mls/hr IVPB .Q5H [facility] Last Admin: 09/16/17 10:17 Dose: 20 mls/hr Insulin Human Lispro (Humalog Med) 0 units SC Q6H [facility] PRN Reason: Protocol Last Admin: 09/15/17 06:32 Dose: 7 units Ondansetron HCl (Zofran Inj) 4 mg IVP Q4H PRN PRN Reason: Nausea/Vomiting Last Admin: 09/14/17 16:13 Dose: 4 mg Vancomycin HCl (Vancocin 25 Mg/Ml (Oral Use)) 125 mg PO QID [facility] PRN Reason: Protocol Last Admin: 09/16/17 09:40 Dose: 125 mg Vitamin A (Vitamin A & D Oint Ud Foilpak) 1 ea TOP Q2 PRN PRN Reason: Dry mouth - Labs Labs: 09/16/17 05:00 09/16/17 05:00 PT 16.4 SECONDS (9.4-12.5) H 09/14/17 07:49 INR 1.42 (0.93-1.08) H 09/14/17 07:49 APTT 29.0 Seconds (25.1-36.5) 09/15/17 05:30 - Constitutional Appears: Non-toxic, No Acute Distress - Head Exam Head Exam: ATRAUMATIC, NORMAL INSPECTION, NORMOCEPHALIC - Eye Exam Eye Exam: EOMI, Normal appearance - ENT Exam ENT Exam: Mucous Membranes Moist - Respiratory Exam Respiratory Exam: Clear to Ausculation Bilateral, NORMAL BREATHING PATTERN - Cardiovascular Exam Cardiovascular Exam: REGULAR RHYTHM, +S1, +S2 - GI/Abdominal Exam GI & Abdominal Exam: Soft - Neurological Exam Neurological Exam: Alert, Awake, Oriented x3 Assessment and Plan - Assessment and Plan (Free Text) Assessment: 42 year old female with a past medical history significant for NIDDM2 presents with two days of nausea, vomiting, abdominal pain, fever and fatigue. Patient had hyperglycemia to 430 and an anion gap of 26. She was also found to have a leukocytosis to 20.1, lactic acidosis of 10.4, and hypokalemia to 3.3. She is being treated in for sepsis, JOSE D, GI bleed. Plan: Sepsis -WBC: 9.5 -afebrile -CT Abdomen/Pelvis: 1. Gas is visualized within the left ureter and left renal collecting system. This may be iatrogenically, although infectious etiology/emphysematous pyelonephritis is considered. There is mild left perinephric stranding. 2. Additional stranding is seen within the retroperitoneum which extends into the left side of the pelvis. This is likely infectious or inflammatory. Some of the stranding is seen in the left pericolonic region of the descending colon, which can be associated with colitis. 3. There is hypodense fatty infiltration of the liver. Hepatomegaly. 4. There is a wedge-shaped area of hypodensity within the periphery of the spleen. Differential considerations include splenic infarct or laceration. A splenic mass cannot be excluded. There is mild splenomegaly. This can be further evaluated with a contrast CT abdomen/pelvis. 5. Within the left ovary, there is a 1.8 x 1.6 cm hypodense probable cyst. 6. There is retroperitoneal lymphadenopathy. 7. Cholelithiasis.8. Interstitial and air space disease is identified at the bilateral lung bases. This may be infectious in etiology. -abdominal xray: Normal. No obstruction. No free air -one dose clindamycin give, van given continue meropenem -Procal pending -c diff positive for antigen only , PO vancomycin -ID consulted, all recommendations appreciated -urine and blood cultures growing gram negative rods -peripheral smear showing leukopenia with granulocytosis -HIV and Monoscreen negative -stress dose steroids Elevated Blood Sugar -improved, blood sugar 164 -Insulin drip, will DC once patient eating -Q4H Serial BMP's -Zofran PRN for N/V -Home PO medications held -Strict I/O's, fall and aspiration precautions Elevated Creatinine likely JOSE D from infection -Nephrology and Urology consulted, all recommendations appreciated -Cr: 2.4 -IV hydration GI Bleed -Hgb 8 today -stool occult positive -GI consulted, follow recs -endoscopy once stable -monitor H/H -protonix drip -peripheral smear showing microcytic normochromic anemia -transfuse 1 unit PRBC -anemia workup pending Thrombocytopenia -platelets:66 -Heme, consulted, follow recs -autoimmune workup pending -possible splenic infarct on imaging -echo does no show any vegetation Hypoxemia-resolved -oxygen PRN -lower extremity duplex negative for DVT GI Prophylaxis: Protonix drip DVT Prophylaxis: Heparin on hold due to possible bleed Diet: Clear liquid diet <Alisson Casillas - Last Filed: 09/16/17 13:20> Objective - Vital Signs/Intake and Output Vital Signs (last 24 hours): Temp Pulse Resp BP Pulse Ox 91.0 F L 105 H 21 156/90 H 99 09/16/17 06:00 09/16/17 06:00 09/16/17 06:00 09/16/17 05:00 09/16/17 06:00 Intake and Output: 09/16/17 09/16/17 06:59 18:59 Intake Total 1887 Balance 26 1887 - Medications Medications: Current Medications Hydrocortisone Sodium Succinate (Solu-Cortef) 25 mg IVP Q8 [facility] Meropenem 500 mg/ Sodium (Chloride) 50 mls @ 100 mls/hr IVPB Q12 [facility] PRN Reason: Protocol Stop: 09/23/17 22:01 Last Admin: 09/16/17 09:38 Dose: 100 mls/hr Insulin Human Regular 100 (units/ Sodium Chloride) 100 mls @ 2 mls/hr IV .Q24H PRN; Protocol; 2 UNITS/HR PRN Reason: TITRATE PER MD ORDER Last Titration: 09/16/17 10:10 Dose: 2 units/hr, 2 mls/hr Pantoprazole Sodium (Protonix 40mg Ivpb) 40 mg in 100 mls @ 20 mls/hr IVPB .Q5H [facility] Last Admin: 09/16/17 10:17 Dose: 20 mls/hr Insulin Human Lispro (Humalog Med) 0 units SC Q6H [facility] PRN Reason: Protocol Last Admin: 09/15/17 06:32 Dose: 7 units Ondansetron HCl (Zofran Inj) 4 mg IVP Q4H PRN PRN Reason: Nausea/Vomiting Last Admin: 09/14/17 16:13 Dose: 4 mg Vancomycin HCl (Vancocin 25 Mg/Ml (Oral Use)) 125 mg PO QID [facility] PRN Reason: Protocol Last Admin: 09/16/17 09:40 Dose: 125 mg Vitamin A (Vitamin A & D Oint Ud Foilpak) 1 ea TOP Q2 PRN PRN Reason: Dry mouth - Labs Labs: 09/16/17 05:00 09/16/17 05:00 PT 16.4 SECONDS (9.4-12.5) H 09/14/17 07:49 INR 1.42 (0.93-1.08) H 09/14/17 07:49 APTT 29.0 Seconds (25.1-36.5) 09/15/17 05:30 Attending/Attestation - Attestation I have personally seen and examined this patient.: Yes I have fully participated in the care of the patient.: Yes I have reviewed all pertinent clinical information, including history, physical exam and plan: Yes Notes (Text): 09/16/17 13:14 42 year old female with past medical history of diabetes who presented with DKA , JOSE D and septic shock. She was found to have E coli bacteremia / UTI and emphysematous pyelonephritis. Urology and ID evaluations were appreciated. Continue with iv antibiotics. She is currently on meropenem. She is now off pressors. Continue with tapering of stress dose steroids. CT abd/pelvis also showed hepatomegaly and wedge shaped area of hypodensity in spleen (?splenic infarct or laceration). Cdif antigen was possible and CT showed possible colitis for which patient is started on po vanco. Hematology evaluation was requested given anemia, thrombocytopenia and CT spleen findings. Stool occult was also positive with anemia on labs. GI evaluation was requested ; consider endoscopy once stable. Hemoglobin 8.0 today. Will transfuse 1 unit and monitor. GI follow up requested. Her renal function is improving. JOSE D likely multifactorial secondary to above. Case was discussed with nephrology today. Monitor for fluid overload. CXR showed mild congestion. Echocardiogram was reviewed; no vegetations. This morning patient is more alert and reports abdominal pain has improved. Will start on clear liquid diet. Consider d/c insulin drip and starting on levemir if patient tolerating diet. Alisson Casillas MD Hospitalist.
--- NOTE | 2017-09-16 17:27 | PN ---
DATE: 09/16/2017 This is [facility] visit in the Intensive Care Unit. For Dr. Ash. SUBJECTIVE: The patient is a 42-year-old female, seen lying somnolent, but arousable in bed with her mother at the bedside, in no acute distress this visit with the patient now being treated with IV antibiotics as per Dr. Morejon for her acute septic shock with chronic renal failure with gram-negative irena bacteremia with left-sided pyelonephritis. She also has C. difficile positive stool with pancytopenic indices, suspected to be related to her acute sepsis and septic shock. OBJECTIE PHYSICAL EXAMINATION: VITAL SIGNS: Temperature 91 ?, will be repeated; pulse 105; respirations 21, blood pressure 156/90; pulse ox 99%. HEENT: Unremarkable. The patient opens eyes to command, but sluggish responses. NECK: Bull neck. Supple. No nodes. HEART: Regular rate. LUNGS: Clear. ABDOMEN: Obese, soft, nontender. EXTREMITIES: +1 edema. NEUROLOGIC: Lethargic, but arousable. SKIN: Warm and dry. LABORATORY DATA: The patient's labs were done. White blood cell count of 9.5, hemoglobin 8, hematocrit 24.4, platelet count of 66,000. Her INR dated from 2 days ago is 1.42 with a chem metabolic panel showing a nonfasting glucose of 194 with a BUN of 59, creatinine of 2.4, magnesium 2.6, calcium 7.1. Urinalysis showed moderate amount of blood done 2 days prior. Ginger for occult blood was positive. HIV testing was negative with other testing ordered for and as per Dr. Ash's recommendation including a kappa and lambda light chain, beta2-microglobulin with platelet antibodies were also none returned as of yet. ASSESSMENT: The assessment for this patient is that of acute sepsis with septic shock, pancytopenia secondary to sepsis ?, left pyelonephritis with gram-negative bacteremia; diabetes mellitus; obesity; ethyl alcohol abuse; questionable chronic anemia; Clostridium difficile positive stool. Hypothermia ?. PLAN: The patient plan for this patient after conservation with Dr. Ash is to continue present medical regimen. As per the lye treater, we will recommend transfusion of 2 units of packed red blood cells, which was ordered for. We will also recommend oral hygiene for the oral mucosa as this is dry, which the patient to continue present medical regimen with other labs pending for a pancytopenia workup that was sent. Prognosis for this patient is guarded. This is a complex patient with a comprehensive medically necessary and appropriate visit carried out in excess of 30 minutes' [id number] time with the question of mother reviewed to her satisfaction. Discussed also with Dr. Morejon regarding her care, although the nurse in the Intensive Care Unit. Prognosis is guarded. Jordin Morris MD
[2017-09-16] MEDS ORDERED: Insulin Detemir 100 units/ml Vial (Levemir) SC SCH (18:00)
[2017-09-16] MEDS: cefTRIAXone 2 GM IN NS 2 GM/100 ML BAG IVPB SCH (18:17)
[2017-09-16] MEDS: Insulin Lispro (humaLOG) MEDIUM Coverage SC SCH ×2 (18:20→22:00)
--- NOTE | 2017-09-17 00:51 | PN ---
DATE: 09/16/2017 SUBJECTIVE: This patient was seen and evaluated earlier. The patient's mother was at bedside. Appears more comfortable. The patient is on a liquid diet, tolerating. PHYSICAL EXAMINATION: VITAL SIGNS: Temperature 99.1, blood pressure is 167/68 respirations 20, pulse 84. HEENT: Atraumatic, anicteric. NECK: Supple. HEART: S1 and S2 heard. LUNGS: Bilateral air entry present. ABDOMEN: Soft. No tenderness. EXTREMITIES: Edema present. NEUROLOGICAL: Alert, oriented. LABORATORY DATA: Hemoglobin 8, hematocrit 24.4, WBC 9.5, platelets 66. Chemistry is BUN of 59, creatinine 2.4, alkaline phosphatase 136. IMPRESSION: 1. This 42-year-old patient with diabetes mellitus, chronic kidney disease, admitted with severe sepsis, pyelonephritis. The patient has gram-negative rods bacteremia and also urine culture showed also has gram-negative rods. Has emphysematous left pyelonephritis. On IV antibiotics, ceftriaxone, vancomycin and Flagyl. 2. Clostridium difficile colitis. CT showed some pericolonic streaking on the left colon. Stool for Clostridium difficile antigen positive. The patient is on vancomycin p.o. and also Flagyl p.o. 3. Anemia. Drop in blood count. No obvious melena or bright red blood per rectum. The patient has been followed by the Control Inspector. Order an unit of blood transfusion. 4. Thrombocytopenia. The patient is on Protonix. We will reduce the Protonix to daily. The patient's INR is 1.42. Followup of the INR . Thank you very much for allowing us to participate in the care of the patient. Han Wolfe MD [facility]
[2017-09-17 06:30] LABS: ALB/GLOB RATIO 0.8 (1.1-1.8); ALBUMIN 2.6 g/dL (3.0-4.8)
[2017-09-17] MEDS: Insulin Lispro (humaLOG) MEDIUM Coverage SC SCH ×4 (06:30→21:54)
[2017-09-17 06:46] LABS: BASO # 0.01 K/mm3 (0.0-2.0); BASO % 0.1 % (0.0-3.0); GRAN # 5.31 (1.4-6.5); GRAN % 73.3 % (50.0-68.0); HEMOGLOBIN 9.4 g/dL (12.0-16.0); LYMPH # 1.5 (1.2-3.4); LYMPH % 20.7 % (22.0-35.0); MEAN CORPUSCULAR HEMOGLOBIN 26.3 pg (25.0-35.0); MEAN CORPUSCULAR HGB CONC 32.5 g/dl (31.0-37.0); MONO # 0.4 (0.1-0.6); MONO % 5.9 % (1.0-6.0); RBC 3.57 10^6/uL (3.5-6.1); RED CELL DISTRIBUTION WIDTH 17.2 % (11.5-14.5); WHITE BLOOD COUNT 7.3 10^3/ul (4.5-11.0)
[2017-09-17 06:57] LABS: PLATELET COUNT 49 10^3/uL (120.0-450.0)
--- NOTE | 2017-09-17 08:31 | PN ---
DATE: 09/17/2017 CABLE TESTERS HELPER NOTE SUBJECTIVE: The patient is resting in bed, was awake and alert earlier, taking ice chips. The patient seems to be very comfortable. No respiratory distress. No complaints of chest pain. No fever, chills. No nausea or vomiting. The patient is off insulin drip and it is improving. PHYSICAL EXAMINATION: VITAL SIGNS: Note that her temperature is 99.1, her pulse is 86, respirations of 24, BP is 159/89. SKIN: Warm and dry. HEENT: Head atraumatic, normocephalic. Eyes reactive to light. Ears, nose and throat seemed to be within normal limits. NECK: Supple. No JVD. No thyroid enlargement or lymph nodes. HEART: Has regular rate and rhythm. Normal S1, S2. LUNGS: Reveal good breath sounds bilaterally. ABDOMEN: Soft. Decreased bowel sounds, but obese. GENITALIA: Deferred. RECTAL: Deferred. MUSCULOSKELETAL: No joint deformities. EXTREMITIES: Reveal trace lower extremity edema. NEUROLOGIC: She seemed to be grossly intact. DATA: As far as her laboratories are concerned, her white count is 7.3, hemoglobin is 9.4, hematocrit 28.9 with platelets of 49,000. The patient's sodium is 141, potassium 3.8, chloride 104, CO2 of 29 with a BUN of 49, creatinine of 1.5 and a glucose of 230. IMPRESSION: This patient presented with diabetic ketoacidosis and metabolic acidosis. At present, she is off the insulin drip and on insulin coverage. She has pyelonephritis with gram-negative bacteremia. The patient has anemia as well as thrombocytopenia and renal insufficiency. Also, the patient has hypertension. PLAN: As far as our plan, we will continue hydralazine p.r.n., the patient is on insulin coverage. She is on Protonix as well as Rocephin and Solu-Cortef. The patient is getting vancomycin as well as Zofran p.r.n. and vitamin A and D ointment p.r.n. We will continue to treat aggressively along with the other consultants and the primary care doctor. Boogie Hernandez MD [facility] # [id number]
--- NOTE | 2017-09-17 09:45 | CP.PCM.PN ---
<Rober Clarke - Last Filed: 09/17/17 09:37> Subjective - Date & Time of Evaluation Date of Evaluation: 09/17/17 Time of Evaluation: 06:00 - Subjective Subjective: Patient seen and evaluated bedside in ICU. No acute issues overnight. Patient much improved alertness and awake, understands commands. She says she is tolerating her diet well. Patient denies chest pain, SOB, fever, chills, abdominal pain, or any other complaints at this time. Objective - Vital Signs/Intake and Output Vital Signs (last 24 hours): Temp Pulse Resp BP Pulse Ox 99.3 F 91 H 28 H 144/90 98 09/17/17 08:00 09/17/17 08:00 09/17/17 08:00 09/17/17 08:00 09/17/17 08:00 Intake and Output: 09/17/17 09/17/17 06:59 18:59 Intake Total 150 Output Total 1800 Balance -1650 - Medications Medications: Current Medications Hydralazine HCl (Apresoline) 10 mg IVP Q6 PRN PRN Reason: Systolic Blood Pressure Hydrocortisone Sodium Succinate (Solu-Cortef) 25 mg IVP Q12 [facility] Ceftriaxone Sodium (Rocephin 2 Gm Ivpb) 2 gm in 100 mls @ 100 mls/hr IVPB DAILY [facility] PRN Reason: Protocol Stop: 09/25/17 16:39 Last Admin: 09/16/17 18:17 Dose: 100 mls/hr Insulin Detemir (Levemir) 5 unit SC BID [facility] Insulin Human Lispro (Humalog Med) 0 units SC Q6H [facility] PRN Reason: Protocol Last Admin: 09/17/17 06:30 Dose: 3 units Metronidazole (Flagyl) 500 mg PO Q8 [facility] PRN Reason: Protocol Stop: 09/25/17 16:41 Last Admin: 09/17/17 07:51 Dose: Not Given Ondansetron HCl (Zofran Inj) 4 mg IVP Q4H PRN PRN Reason: Nausea/Vomiting Last Admin: 09/14/17 16:13 Dose: 4 mg Vancomycin HCl (Vancocin 25 Mg/Ml (Oral Use)) 125 mg PO QID [facility] PRN Reason: Protocol Last Admin: 09/16/17 22:16 Dose: 125 mg Vitamin A (Vitamin A & D Oint Ud Foilpak) 1 ea TOP Q2 PRN PRN Reason: Dry mouth - Labs Labs: 09/17/17 05:30 09/17/17 05:30 PT 16.4 SECONDS (9.4-12.5) H 09/14/17 07:49 INR 1.42 (0.93-1.08) H 09/14/17 07:49 APTT 29.0 Seconds (25.1-36.5) 09/15/17 05:30 - Constitutional Appears: Non-toxic, No Acute Distress - Head Exam Head Exam: ATRAUMATIC, NORMAL INSPECTION, NORMOCEPHALIC - Eye Exam Eye Exam: Normal appearance - ENT Exam ENT Exam: Mucous Membranes Moist - Respiratory Exam Respiratory Exam: Clear to Ausculation Bilateral, NORMAL BREATHING PATTERN - Cardiovascular Exam Cardiovascular Exam: REGULAR RHYTHM, +S1, +S2 - GI/Abdominal Exam GI & Abdominal Exam: Soft. absent: Tenderness - Extremities Exam Extremities Exam: absent: Joint Swelling, Pedal Edema, Tenderness - Neurological Exam Neurological Exam: Alert, Awake, Oriented x3 Assessment and Plan - Assessment and Plan (Free Text) Assessment: 42 year old female with a past medical history significant for NIDDM2 presents with two days of nausea, vomiting, abdominal pain, fever and fatigue. Patient had hyperglycemia to 430 and an anion gap of 26. She was also found to have a leukocytosis to 20.1, lactic acidosis of 10.4, and hypokalemia to 3.3. She is being treated for sepsis, JOSE D, and possible GI bleed. Plan: Sepsis -WBC: 7.3 -afebrile -CT Abdomen/Pelvis: 1. Gas is visualized within the left ureter and left renal collecting system. This may be iatrogenically, although infectious etiology/emphysematous pyelonephritis is considered. There is mild left perinephric stranding. 2. Additional stranding is seen within the retroperitoneum which extends into the left side of the pelvis. This is likely infectious or inflammatory. Some of the stranding is seen in the left pericolonic region of the descending colon, which can be associated with colitis. 3. There is hypodense fatty infiltration of the liver. Hepatomegaly. 4. There is a wedge-shaped area of hypodensity within the periphery of the spleen. Differential considerations include splenic infarct or laceration. A splenic mass cannot be excluded. There is mild splenomegaly. This can be further evaluated with a contrast CT abdomen/pelvis. 5. Within the left ovary, there is a 1.8 x 1.6 cm hypodense probable cyst. 6. There is retroperitoneal lymphadenopathy. 7. Cholelithiasis.8. Interstitial and air space disease is identified at the bilateral lung bases. This may be infectious in etiology. -flagyl, rocephin, PO vancomycin -abdominal xray: Normal. No obstruction. No free air -Procal >200 -c diff positive for antigen only , PO vancomycin -ID consulted, all recommendations appreciated -urine cultures growing gram negative rods -blood cultures showing E coli -peripheral smear showing leukopenia with granulocytosis -HIV and Monoscreen negative -stress dose steroids tapered to 25Q12 Elevated Blood Sugar with history of Diabetes -glucose 230 -Levemir 5 units BID -Zofran PRN for N/V -Home PO medications held -Insulin sliding scale Elevated Creatinine likely JOSE D from infection -Nephrology and Urology consulted, all recommendations appreciated -Cr: 1.5 -IV hydration Anemia-rule out GI bleed -Hgb 9.4 today -stool occult positive 09/14, no bloody bowel movements since -GI consulted, follow recs -endoscopy once stable -monitor H/H -protonix drip DC -peripheral smear showing microcytic normochromic anemia -Status post 1 unit PRBC transfusion -anemia workup showing iron deficiency anemia Thrombocytopenia -platelets:49 -Heme, consulted, follow recs -autoimmune workup pending -possible splenic infarct on imaging -echo does no show any vegetation -D/C PPI use -manual platelet count ordered Hypoxemia-resolved -oxygen PRN -lower extremity duplex negative for DVT HTN -hydralazine PRN -taper stress dose steroids carafate for GI DVT Prophylaxis: Heparin on hold due to possible bleed Diet: Soft diet <Alisson Casillas - Last Filed: 09/17/17 10:13> Objective - Vital Signs/Intake and Output Vital Signs (last 24 hours): Temp Pulse Resp BP Pulse Ox 99.3 F 91 H 28 H 144/90 98 09/17/17 08:00 09/17/17 08:00 09/17/17 08:00 09/17/17 08:00 09/17/17 08:00 Intake and Output: 09/17/17 09/17/17 06:59 18:59 Intake Total 150 Output Total 1800 Balance -1650 - Medications Medications: Current Medications Hydralazine HCl (Apresoline) 10 mg IVP Q6 PRN PRN Reason: Systolic Blood Pressure Hydrocortisone Sodium Succinate (Solu-Cortef) 25 mg IVP Q12 [facility] Ceftriaxone Sodium (Rocephin 2 Gm Ivpb) 2 gm in 100 mls @ 100 mls/hr IVPB DAILY [facility] PRN Reason: Protocol Stop: 09/25/17 16:39 Last Admin: 09/16/17 18:17 Dose: 100 mls/hr Insulin Detemir (Levemir) 5 unit SC Q12 [facility] Insulin Human Lispro (Humalog Med) 0 units SC Q6H [facility] PRN Reason: Protocol Last Admin: 09/17/17 06:30 Dose: 3 units Metronidazole (Flagyl) 500 mg PO Q8 [facility] PRN Reason: Protocol Stop: 09/25/17 16:41 Last Admin: 09/17/17 07:51 Dose: Not Given Ondansetron HCl (Zofran Inj) 4 mg IVP Q4H PRN PRN Reason: Nausea/Vomiting Last Admin: 09/14/17 16:13 Dose: 4 mg Vancomycin HCl (Vancocin 25 Mg/Ml (Oral Use)) 125 mg PO QID [facility] PRN Reason: Protocol Last Admin: 09/16/17 22:16 Dose: 125 mg Vitamin A (Vitamin A & D Oint Ud Foilpak) 1 ea TOP Q2 PRN PRN Reason: Dry mouth - Labs Labs: 09/17/17 05:30 09/17/17 05:30 PT 16.4 SECONDS (9.4-12.5) H 09/14/17 07:49 INR 1.42 (0.93-1.08) H 09/14/17 07:49 APTT 29.0 Seconds (25.1-36.5) 09/15/17 05:30 Attending/Attestation - Attestation I have personally seen and examined this patient.: Yes I have fully participated in the care of the patient.: Yes I have reviewed all pertinent clinical information, including history, physical exam and plan: Yes Notes (Text): 09/17/17 10:07 42 year old female with past medical history of diabetes who presented with DKA , JOSE D and septic shock. She was found to have E coli bacteremia / UTI and emphysematous pyelonephritis. Urology and ID evaluations were appreciated. Continue with iv antibiotics. She is currently on ceftriaxone. She is now off pressors. Continue with tapering of stress dose steroids. Can discontinue tomorrow. CT abd/pelvis also showed hepatomegaly and wedge shaped area of hypodensity in spleen (?splenic infarct or laceration). Hematology evaluation was requested given anemia, thrombocytopenia and CT spleen findings. Stool occult was also positive with anemia on labs. GI is following; plan for possible scope early this week. Hemoglobin improved today after one unit prbc transfusion yesterday. Continue to monitor cbc closely. Thrombocytopenia noted. Her protonix is switched to carafate. Will follow up with hematology recommendations. Cdif antigen was possible and CT showed possible colitis for which patient is on po vanco. Her renal function continues to improve. JOSE D was likely multifactorial secondary to above. Patient is on insulin ss and levemir for diabetes. Insulin drip was discontinued yesterday. She is tolerating clear liquid diet. Will advance today as tolerated. Patient overall has been improving. Will downgrade from ICU today. Alisson Casillas MD Hospitalist.
[2017-09-17] MEDS: cefTRIAXone 2 GM IN NS 2 GM/100 ML BAG IVPB SCH (10:22)
[2017-09-17] MEDS: Insulin Detemir 100 units/ml Vial (Levemir) SC SCH ×2 (10:25→22:00)
[2017-09-17] MEDS: Vancomycin 25 MG/ML PO SCH ×4 (11:00→22:04)
--- NOTE | 2017-09-17 11:53 | PN ---
DATE: 09/17/2017 SUBJECTIVE: The patient is in bed in no acute distress, nontoxic. No fevers and chills. OBJECTIVE: VITAL SIGNS: On exam, temperature is 98, blood pressure is 140/90, respiratory rate of 19. HEENT: Examination is unremarkable. NECK: Supple. LUNGS: Have decreased breath sounds. HEART: Normal S1, S2. ABDOMEN: Soft. DATA: Laboratory examination reveals a white count of 7.3, hemoglobin of 9, platelets of 50. Chemistry reveals a BUN of 49, creatinine of 1.5. Review of cultures reveals the patient's blood cultures are E. coli that is pansensitive; the urine culture grew gram-negative irena and repeat blood cultures from a 25th grew gram-negative irena. ASSESSMENT AND PLAN: This is a 42-year-old female with past medical history of diabetes and presents with two days of nausea and vomiting, abdominal pain, fever and hyperglycemia. The patient is admitted with septic shock with [id number] renal failure with pansensitive E. coli bacteremia secondary to gram-negative irena, left-sided emphysematous pyelonephritis in a diabetic with morbid obesity with body mass index of 42 and history of alcohol abuse and chronic anemia, currently on ceftriaxone and Flagyl. We will repeat blood cultures since the repeat culture from the is positive for gram-negative irena with repeat blood cultures today and may need a repeat CT scan if the repeat cultures are positive. A femoral line has been removed so that should not be the source for persistent gram-negative irena bacteremia. Brandan Morejon MD
--- NOTE | 2017-09-17 16:48 | PN ---
DATE: 09/17/2017 SUBJECTIVE: This patient was seen and evaluated earlier today. No bleeding. The patient did have a bowel movement with brown stools. The patient . Stool is brown in color. No complaints. No vomiting. Tolerating the diet, diet has now been increased to heart-healthy diet. PHYSICAL EXAMINATION: VITAL SIGNS: On examination, remains afebrile, temperature is 99.3, blood pressure is 154/85, respirations 19, O2 saturation of 97%. HEENT: Atraumatic, anicteric. NECK: Supple. HEART: S1 and S2 heard. LUNGS: Bilateral air entry present. ABDOMEN: Soft. There is no mass palpable. No tenderness. EXTREMITIES: Mild edema present. NEUROLOGIC: Alert, oriented. Moves all extremities. LABORATORY DATA: Hemoglobin 9.4; hematocrit 28.9; WBC 7.3; platelets 49, manual count is 50. The patient did receive 1 unit of transfusion yesterday. Chemistry: BUN 49, creatinine 1.5. IMPRESSION: This is a 42-year-old patient with diabetes mellitus and chronic kidney disease admitted with severe sepsis, pyelonephritis. The patient has gram-negative rods in the urine culture and also, blood culture showed gram negative rods. 1. The patient has left pyelonephritis, on intravenous antibiotics. 2. Clostridium difficile colitis. The patient is on vancomycin and Flagyl. 3. Anemia. Drop in blood count, status post transfusion. Hemoglobin improved. 4. No obvious bleeding per rectum. 5. Thrombocytopenia, significant drop in platelet count again. The patient will discontinue the PPI and the patient is being started on Carafate 1 g four times a day. 6. Acute kidney injury on chronic kidney disease, improving renal function. Other comorbidities include diabetes mellitus, hypertension. Discussed with medical management specialist. We will follow up closely the platelet count and also the hemoglobin and hematocrit. The patient may need a repeat endoscopy after further optimization unless the patient develops active ongoing bleeding for a yearly intervention. Thank you very much for allowing us to participate in the care of the patient. Han Wolfe MD
--- NOTE | 2017-09-17 17:54 | PN ---
DATE: 09/17/2017 LOCATION: This is in the Intensive Care Unit. For Dr. Ash. SUBJECTIVE: The patient is a 42-year-old female, seen sitting up in a chair with her mother at the bedside. More alert this visit. Denying any pain. In no acute distress. The patient was admitted and treated with IV antibiotics for acute septic shock with left pyelonephritis with gram-negative bacteremia. She also has pancytopenic indices secondary to this event with transfusion of 1 unit of packed red blood cells yesterday with good effect. The patient's kidney function remains compromised, but is slowly improving. With the patient otherwise resting comfortably with IV antibiotics continuing. She also has C. difficile positive stools. OBJECTIVE PHYSICAL EXAMINATION: VITAL SIGNS: Temperature 99.3, pulse 75, respirations 19, blood pressure 154/85, pulse ox 97%. Weight is 240 pounds. HEENT: Unremarkable. Tongue is moist and midline. NECK: Supple. HEART: Tachy rate. Regular rhythm. LUNGS: Clear. ABDOMEN: Obese, soft, nontender. EXTREMITIES: No edema. SKIN: Warm and dry. NEUROLOGIC: Awake and alert this visit. LABORATORY DATA: The patient's labs were done. White blood cell count of 7.3; hemoglobin of 9.4, up from 8 yesterday with 1 unit of blood; hematocrit of 28.9; platelet count of 49,000 with a manual count of 50,000. Her chem metabolic panel shows a BUN of 49, creatinine of 1.5. Yesterday's was 59 with a 2.8 creatinine. Her other testing showed an iron saturation of 5% done on 09/16/2017. The patient's Doppler ultrasound done 2 days prior was read as no evidence of DVT in both lower extremities. ASSESSMENT: The assessment for this patient is that of septic shock with acute renal failure, now improving; Escherichia coli bacteremia with gram-negative irena sepsis; left emphysematous pyelonephritis; diabetes mellitus; obesity; pancytopenia; ethyl alcohol abuse; iron-deficiency anemia. Clostridium difficile positive stool. PLAN: The plan for this patient after conversation with Dr. Ash is to continue present medical regimen. We will begin by the iron Venofer tomorrow for her percent saturation of 5% with anemic indices. We will monitor for her thrombocytopenia, probably secondary to her sepsis with no obvious bleeding and no petechiae in the oropharynx to inspection. We asked for manual platelet count tomorrow and monitor the patient clinically and with labs. This is a complex patient with a comprehensive medically necessary visit carried out in excess of 30 minutes [id number] time with discussion held with the patient's daughters and family member at the bedside with questions answered to their satisfaction in excess of 30 minutes. Prognosis for this patient is guarded. With other blood tests pending as above. Jordin Morris MD
--- NOTE | 2017-09-17 19:03 | PN ---
DATE: 09/17/2017 SUBJECTIVE: The patient has no complaints of any chest pain. No shortness of breath. No headaches or dizziness. PHYSICAL EXAMINATION: VITAL SIGNS: Temperature is 99.3, pulse of 75, blood pressure is 175/85, respirations 19. GENERAL: The patient is lying in bed, flat, comfortable. HEENT: No oral lesion. Anicteric sclerae. Moist mucosa. NECK: No JVD, adenopathy, or thyromegaly. CARDIOVASCULAR: S1 and S2, regular. No murmurs, rubs, or gallops. LUNGS: Clear to auscultation bilaterally. No wheeze, rales, or rhonchi. ABDOMEN: Bowel sounds are positive, soft, nontender and nondistended. EXTREMITIES: No cyanosis, clubbing or edema. LABORATORY DATA: Creatinine is 1.5. ASSESSMENT: 1. Sepsis, secondary to Escherichia coli. 2. Acute kidney injury, improving. 3. Diabetic ketoacidosis, improved. 4. Anion gap metabolic acidosis, resolved. 5. Thrombocytopenia. PLAN: The patient is currently comfortable. She is improving. Her creatinine has improved significantly. I did speak to the family at the bedside yesterday to give them an update on the patient's diagnosis and plan of care regarding her kidney function. She is currently on Flagyl. She is on insulin for her diabetes. She is on Rocephin for antibiotics. She is receiving vancomycin. She is on a heart-healthy diet. At this point, her kidney function has improved significantly. I will sign off. Please re-consult if necessary. Leo Marie MD
[2017-09-18 06:29] LABS: BASO # 0.01 K/mm3 (0.0-2.0); BASO % 0.1 % (0.0-3.0); EOS % 0.1 % (1.5-5.0); GRAN # 6.13 (1.4-6.5); GRAN % 73.3 % (50.0-68.0); HEMOGLOBIN 10.1 g/dL (12.0-16.0); LYMPH # 1.4 (1.2-3.4); LYMPH % 16.2 % (22.0-35.0); MEAN CELL VOLUME 80.1 fl (80.0-105.0); MEAN CORPUSCULAR HEMOGLOBIN 26.1 pg (25.0-35.0); MEAN CORPUSCULAR HGB CONC 32.6 g/dl (31.0-37.0); MONO # 0.9 (0.1-0.6); MONO % 10.3 % (1.0-6.0); PLATELET COUNT 58 10^3/uL (120.0-450.0); RBC 3.87 10^6/uL (3.5-6.1); RED CELL DISTRIBUTION WIDTH 16.1 % (11.5-14.5); WHITE BLOOD COUNT 8.4 10^3/ul (4.5-11.0)
[2017-09-18 07:12] LABS: ALB/GLOB RATIO 0.8 (1.1-1.8); ALBUMIN 2.4 g/dL (3.0-4.8); ALT/SGPT 30 U/L (7-56); AST/SGOT 18 U/L (14-36); BLOOD UREA NITROGEN 38 mg/dL (7-21); CALCIUM 6.8 mg/dL (8.4-10.5); GFR AFRICAN-AMERICAN > 60; GFR NON-AFRICAN AMERICAN > 60
[2017-09-18 07:55] LABS: PLATELET COUNT MANUAL 63 K/mm3 (120-450)
--- NOTE | 2017-09-18 07:55 | PN ---
DATE: 09/18/2017 SUBJECTIVE: The patient is seen in the ICU. She is doing much better. She is awake and alert and no fevers and no chills, overall greatly improved. PHYSICAL EXAMINATION VITAL SIGNS: Temperature is 98, blood pressure is 143/80, respiratory rate of 18, heart rate of 72. HEENT: Unremarkable. NECK: Supple. LUNGS: Have decreased breath sounds. HEART: Normal S1 and S2. ABDOMEN: Soft, nontender. No rebound or guarding. No masses. LABORATORY DATA: Reveals the patient's white count is down to 7.3, hemoglobin of 9, platelets of 49,000. Chemistries revealed a BUN of 49, creatinine is 1.5 and urinalysis is noted and HIV is negative. Phelps screen is negative and microbiology reveals gram-negative rods in the blood, identified it is pansensitive E. coli. The repeat blood culture from the still has a gram-negative irena. Repeat blood cultures from yesterday are pending and urine culture has a gram-negative irena, it has not been identified. Stool for C. diff antigen is positive and Dr. Marie's note from yesterday is reviewed. CURRENT MEDICATIONS: Include the patient to be on p.o. Flagyl and IV ceftriaxone. The patient is also on Solu-Cortef and p.o. vancomycin. ASSESSMENT AND PLAN: A 42-year-old female with past medical history of diabetes mellitus, nausea, vomiting, abdominal pain, fever and hyperglycemia, admitted with septic shock with [id number] renal failure with a pansensitive Escherichia coli bacteremia with secondary to have left-sided emphysematous pyelonephritis, diabetic ketoacidosis with morbid obesity with body mass index of 42, with metabolic acidosis and thrombocytopenia, currently on Rocephin and Flagyl. The patient is also on p.o. vancomycin for her pseudomembranous colitis, all resolving slowly. We will check on the repeat blood cultures since the blood cultures from the has still grown gram-negative irena. We will check on identification and sensitivity of that and we will check on the repeat blood cultures from 09/17/2017, which was yesterday. Brandan Morejon MD
--- NOTE | 2017-09-18 07:58 | CP.CCUPN ---
CCU Objective - Vital Signs / Intake & Output Vital Signs (Last 4 hours): Vital Signs Temp Pulse Resp 09/18/17 06:00 98.6 F 78 15 09/18/17 05:49 87 09/18/17 05:30 98.8 F 67 23 09/18/17 05:00 99.0 F 72 21 09/18/17 04:30 99.3 F 09/18/17 04:00 99.0 F 81 29 H Intake and Output (Last 8hrs): Intake & Output 09/17/17 09/18/17 09/18/17 22:59 06:59 14:59 Intake Total 1400 Output Total 2301 1800 Balance -901 -1800 Weight 113.455 kg Intake: IV 200 Right Upper arm 200 Oral 1200 Output: Urine 2300 1800 Urethral (Kumar) 2300 1800 Stool 1 Other: # Bowel Movements 1 - Physical Exam Head: Positive for: Atraumatic, Normocephalic Pupils: Positive for: PERRL Extroacular Muscles: Positive for: EOMI Conjunctiva: Positive for: Normal Mouth: Positive for: Moist Mucous Membranes Nose (Internal): Positive for: Normal Inspection, No Active Bleeding. Negative for: Rhinorrhea Neck: Positive for: Normal Range of Motion Respiratory/Chest: Positive for: Clear to Auscultation, Good Air Exchange. Negative for: Respiratory Distress, Accessory Muscle Use Cardiovascular: Positive for: Regular Rate and Rhythm, Normal S1, S2. Negative for: Murmurs Abdomen: Negative for: Tenderness, Distention, Peritoneal Signs, Rebound, Guarding Back: Positive for: Normal Inspection Upper Extremity: Positive for: Normal Inspection. Negative for: Cyanosis, Edema Lower Extremity: Positive for: Normal Inspection. Negative for: Edema Neurological: Positive for: GCS=15, CN II-XII Intact, Motor Func Grossly Intact , Memory Normal Skin: Positive for: Warm, Dry, Normal Color. Negative for: Rashes Psychiatric: Positive for: Alert, Oriented x 3, Normal Insight, Normal Concentration - Medications Active Medications: Active Medications Generic Name Dose Route Start Last Admin Trade Name Freq PRN Reason Stop Dose Admin Hydralazine HCl 10 mg 09/16/17 21:25 09/17/17 15:48 Apresoline IVP 10 mg Q6 PRN Administration Systolic Blood Pressure Hydrocortisone Sodium Succinate 25 mg 09/17/17 10:00 09/17/17 22:01 Solu-Cortef IVP 25 mg Q12 BOB Administration Ceftriaxone Sodium 2 gm in 100 mls @ 100 mls/hr 09/16/17 16:38 09/17/17 10:22 Rocephin 2 Gm Ivpb IVPB 09/25/17 16:39 100 mls/hr DAILY BOB Administration Protocol Iron Sucrose 100 mg/ Sodium 105 mls @ 210 mls/hr 09/18/17 09:00 Chloride IVPB 09/18/17 09:29 ONCE ONE Insulin Detemir 10 unit 09/18/17 07:41 Levemir SC Q12 [facility] Insulin Human Lispro 0 units 09/17/17 22:00 09/17/17 21:54 Humalog Med SC Not Given ACHS [facility] Protocol Metronidazole 500 mg 09/16/17 16:40 09/18/17 05:54 Flagyl PO 09/25/17 16:41 500 mg Q8 BOB Administration Protocol Ondansetron HCl 4 mg 09/13/17 23:59 09/14/17 16:13 Zofran Inj IVP 4 mg Q4H PRN Administration Nausea/Vomiting Sucralfate 1 gm 09/17/17 11:30 09/18/17 05:54 Carafate Tab PO 1 gm 0630,1130,1630,2200 BOB Administration Vancomycin HCl 125 mg 09/15/17 18:00 09/17/17 22:04 Vancocin 25 Mg/Ml (Oral Use) PO 125 mg QID BOB Administration Protocol Vitamin A 1 ea 09/14/17 01:37 Vitamin A & D Oint Ud Foilpak TOP Q2 PRN Dry mouth - Patient Studies Lab Studies: Microbiology Studies 09/15/17 22:18 Blood Culture - Preliminary Blood Gram Negative Jose L Gram Stain - Preliminary 09/14/17 21:41 Stool Culture - Final Stool NO SALMONELLA, SHIGELLA OR CAMPYLOBACTER ISOLATED. C. difficile Antigen & Toxin A,B (M - Final Lab Studies 09/18/17 09/18/17 09/17/17 Range/Units 06:00 06:00 21:42 WBC 8.4 (4.5-11.0) 10^3/ul RBC 3.87 (3.5-6.1) 10^6/uL Hgb 10.1 L (12.0-16.0) g/dL Hct 31.0 L (36.0-48.0) % MCV 80.1 (80.0-105.0) fl MCH 26.1 (25.0-35.0) pg MCHC 32.6 (31.0-37.0) g/dl RDW 16.1 H (11.5-14.5) % Plt Count 58 L (120.0-450.0) 10^3/uL Manual Plt Count 63 L (120-450) K/mm3 Gran % 73.3 H (50.0-68.0) % Lymph % (Auto) 16.2 L (22.0-35.0) % [place] % (Auto) 10.3 H (1.0-6.0) % Eos % (Auto) 0.1 L (1.5-5.0) % Baso % (Auto) 0.1 (0.0-3.0) % Gran # 6.13 (1.4-6.5) Lymph # (Auto) 1.4 (1.2-3.4) [place] # (Auto) 0.9 H (0.1-0.6) Eos # (Auto) 0.0 (0.0-0.7) Baso # (Auto) 0.01 (0.0-2.0) K/mm3 Sodium 137 (132-148) mmol/L Potassium 3.5 L (3.6-5.0) mmol/L Chloride 101 (98-107) mmol/L Carbon Dioxide 28 (21-33) mmol/L Anion Gap 12 (10-20) BUN 38 H (7-21) mg/dL Creatinine 1.0 (0.7-1.2) mg/dl Est GFR ( Amer) > 60 Est GFR (Non-Af Amer) > 60 POC Glucose (mg/dL) 268 H (65-110) mg/dL Random Glucose 288 H (70-110) mg/dL Calcium 6.8 L* (8.4-10.5) mg/dL Total Bilirubin 0.9 (0.2-1.3) mg/dL AST 18 (14-36) U/L ALT 30 (7-56) U/L Alkaline Phosphatase 107 (38-126) U/L Total Protein 5.6 L (5.8-8.3) g/dL Albumin 2.4 L (3.0-4.8) g/dL Globulin 3.2 gm/dL Albumin/Globulin Ratio 0.8 L (1.1-1.8) 09/17/17 09/17/17 09/17/17 Range/Units 17:49 11:40 06:00 WBC (4.5-11.0) 10^3/ul RBC (3.5-6.1) 10^6/uL Hgb (12.0-16.0) g/dL Hct (36.0-48.0) % MCV (80.0-105.0) fl MCH (25.0-35.0) pg MCHC (31.0-37.0) g/dl RDW (11.5-14.5) % Plt Count (120.0-450.0) 10^3/uL Manual Plt Count 50 L (120-450) K/mm3 Gran % (50.0-68.0) % Lymph % (Auto) (22.0-35.0) % [place] % (Auto) (1.0-6.0) % Eos % (Auto) (1.5-5.0) % Baso % (Auto) (0.0-3.0) % Gran # (1.4-6.5) Lymph # (Auto) (1.2-3.4) [place] # (Auto) (0.1-0.6) Eos # (Auto) (0.0-0.7) Baso # (Auto) (0.0-2.0) K/mm3 Sodium (132-148) mmol/L Potassium (3.6-5.0) mmol/L Chloride (98-107) mmol/L Carbon Dioxide (21-33) mmol/L Anion Gap (10-20) BUN (7-21) mg/dL Creatinine (0.7-1.2) mg/dl Est GFR ( Amer) Est GFR (Non-Af Amer) POC Glucose (mg/dL) 323 H 280 H (65-110) mg/dL Random Glucose (70-110) mg/dL Calcium (8.4-10.5) mg/dL Total Bilirubin (0.2-1.3) mg/dL AST (14-36) U/L ALT (7-56) U/L Alkaline Phosphatase (38-126) U/L Total Protein (5.8-8.3) g/dL Albumin (3.0-4.8) g/dL Globulin gm/dL Albumin/Globulin Ratio (1.1-1.8) Laboratory Results - last 24 hr 09/17/17 09/17/17 09/17/17 06:00 11:40 17:49 WBC RBC Hgb Hct MCV MCH MCHC RDW Plt Count Manual Plt Count 50 L Gran % Lymph % (Auto) [place] % (Auto) Eos % (Auto) Baso % (Auto) Gran # Lymph # (Auto) [place] # (Auto) Eos # (Auto) Baso # (Auto) Sodium Potassium Chloride Carbon Dioxide Anion Gap BUN Creatinine Est GFR ( Amer) Est GFR (Non-Af Amer) POC Glucose (mg/dL) 280 H 323 H Random Glucose Calcium Total Bilirubin AST ALT Alkaline Phosphatase Total Protein Albumin Globulin Albumin/Globulin Ratio 09/17/17 09/18/17 09/18/17 21:42 06:00 06:00 WBC 8.4 RBC 3.87 Hgb 10.1 L Hct 31.0 L MCV 80.1 MCH 26.1 MCHC 32.6 RDW 16.1 H Plt Count 58 L Manual Plt Count 63 L Gran % 73.3 H Lymph % (Auto) 16.2 L [place] % (Auto) 10.3 H Eos % (Auto) 0.1 L Baso % (Auto) 0.1 Gran # 6.13 Lymph # (Auto) 1.4 [place] # (Auto) 0.9 H Eos # (Auto) 0.0 Baso # (Auto) 0.01 Sodium 137 Potassium 3.5 L Chloride 101 Carbon Dioxide 28 Anion Gap 12 BUN 38 H Creatinine 1.0 Est GFR ( Amer) > 60 Est GFR (Non-Af Amer) > 60 POC Glucose (mg/dL) 268 H Random Glucose 288 H Calcium 6.8 L* Total Bilirubin 0.9 AST 18 ALT 30 Alkaline Phosphatase 107 Total Protein 5.6 L Albumin 2.4 L Globulin 3.2 Albumin/Globulin Ratio 0.8 L Fingerstick Blood Sugar Results: 268 Critical Care Progress Note - Nutrition Nutrition: Nutrition Category Date Time Status Heart Healthy Diet [DIET] Diets 09/17/17 Lunch Active
[2017-09-18] MEDS ORDERED: Potassium Chloride 40 mEq/30 ml LIQ UD PO ONE (08:31)
[2017-09-18] MEDS: Insulin Lispro (humaLOG) MEDIUM Coverage SC SCH ×4 (08:47→22:50)
[2017-09-18] MEDS: cefTRIAXone 2 GM IN NS 2 GM/100 ML BAG IVPB SCH (10:00)
[2017-09-18] MEDS: Vancomycin 25 MG/ML PO SCH ×4 (10:00→22:45)
[2017-09-18] MEDS: Insulin Detemir 100 units/ml Vial (Levemir) SC SCH ×2 (10:01→22:54)
--- NOTE | 2017-09-18 11:41 | CP.PCM.PN ---
<Noel Ybarra - Last Filed: 09/18/17 11:36> Subjective - Date & Time of Evaluation Date of Evaluation: 09/18/17 Time of Evaluation: 07:40 - Subjective Subjective: PGY1 Medicine Note for Dr. Young Patient seen and examined at bedside in ICU this morning. No acute events overnight. Patient is much more awake and alert with family at bedside. She is tolerating her diet and currently has no pain. She has some soreness in her flanks b/l, but believes that she just started her period for the first time in 5 months yesterday. Patient has been able to move around on her own and currently has no complaints. Denies fevers, chills, nausea, vomiting, diarrhea, constipation, chest pain, shortness of breath or abdominal pain. Objective - Vital Signs/Intake and Output Vital Signs (last 24 hours): Temp Pulse Resp BP Pulse Ox 99.0 F 89 29 H 154/75 H 93 L 09/18/17 09:00 09/18/17 10:00 09/18/17 10:00 09/18/17 08:00 09/18/17 08:30 Intake and Output: 09/18/17 09/18/17 06:59 18:59 Output Total 1800 Balance -1800 - Medications Medications: Current Medications Hydralazine HCl (Apresoline) 10 mg IVP Q6 PRN PRN Reason: Systolic Blood Pressure Last Admin: 09/17/17 15:48 Dose: 10 mg Hydrocortisone Sodium Succinate (Solu-Cortef) 25 mg IVP Q12 [facility] Last Admin: 09/18/17 10:10 Dose: 25 mg Ceftriaxone Sodium (Rocephin 2 Gm Ivpb) 2 gm in 100 mls @ 100 mls/hr IVPB DAILY [facility] PRN Reason: Protocol Stop: 09/25/17 16:39 Last Admin: 09/18/17 10:00 Dose: 100 mls/hr Insulin Detemir (Levemir) 10 unit SC Q12 [facility] Last Admin: 09/18/17 10:01 Dose: 10 unit Insulin Human Lispro (Humalog Med) 0 units SC ACHS [facility] PRN Reason: Protocol Last Admin: 09/18/17 08:47 Dose: 3 units Metronidazole (Flagyl) 500 mg PO Q8 [facility] PRN Reason: Protocol Stop: 09/25/17 16:41 Last Admin: 09/18/17 05:54 Dose: 500 mg Ondansetron HCl (Zofran Inj) 4 mg IVP Q4H PRN PRN Reason: Nausea/Vomiting Last Admin: 09/14/17 16:13 Dose: 4 mg Sucralfate (Carafate Tab) 1 gm PO 0630,1130,1630,2200 [facility] Last Admin: 09/18/17 05:54 Dose: 1 gm Vancomycin HCl (Vancocin 25 Mg/Ml (Oral Use)) 125 mg PO QID [facility] PRN Reason: Protocol Last Admin: 09/18/17 10:00 Dose: 125 mg Vitamin A (Vitamin A & D Oint Ud Foilpak) 1 ea TOP Q2 PRN PRN Reason: Dry mouth - Labs Labs: 09/18/17 06:00 09/18/17 06:00 PT 16.4 SECONDS (9.4-12.5) H 09/14/17 07:49 INR 1.42 (0.93-1.08) H 09/14/17 07:49 APTT 29.0 Seconds (25.1-36.5) 09/15/17 05:30 - Constitutional Appears: Non-toxic, No Acute Distress - Head Exam Head Exam: ATRAUMATIC, NORMOCEPHALIC - Eye Exam Eye Exam: Normal appearance - ENT Exam ENT Exam: Mucous Membranes Moist - Respiratory Exam Respiratory Exam: Clear to Ausculation Bilateral, NORMAL BREATHING PATTERN. absent: Accessory Muscle Use, Rales, Rhonchi, Wheezes, Respiratory Distress - Cardiovascular Exam Cardiovascular Exam: REGULAR RHYTHM, +S1, +S2 - GI/Abdominal Exam GI & Abdominal Exam: Soft. absent: Distended, Firm, Guarding, Rigid, Tenderness - Extremities Exam Extremities Exam: absent: Calf Tenderness, Pedal Edema - Back Exam Additional comments: Denies CVA tenderness but reports soreness without palpation. - Neurological Exam Neurological Exam: Alert, Awake, CN II-XII Intact, Oriented x3 - Psychiatric Exam Psychiatric exam: Normal Affect, Normal Mood - Skin Skin Exam: Intact, Warm Assessment and Plan - Assessment and Plan (Free Text) Assessment: 42 year old female with a past medical history significant for NIDDM2 presents with two days of nausea, vomiting, abdominal pain, fever and fatigue. Patient had hyperglycemia to 430 and an anion gap of 26. She was also found to have a leukocytosis to 20.1, lactic acidosis of 10.4, and hypokalemia to 3.3. She is being treated for sepsis, JOSE D, and possible GI bleed. Plan: Sepsis -WBC: 8.4 -afebrile -CT Abdomen/Pelvis: 1. Gas is visualized within the left ureter and left renal collecting system. This may be iatrogenically, although infectious etiology/emphysematous pyelonephritis is considered. There is mild left perinephric stranding. 2. Additional stranding is seen within the retroperitoneum which extends into the left side of the pelvis. This is likely infectious or inflammatory. Some of the stranding is seen in the left pericolonic region of the descending colon, which can be associated with colitis. 3. There is hypodense fatty infiltration of the liver. Hepatomegaly. 4. There is a wedge-shaped area of hypodensity within the periphery of the spleen. Differential considerations include splenic infarct or laceration. A splenic mass cannot be excluded. There is mild splenomegaly. This can be further evaluated with a contrast CT abdomen/pelvis. 5. Within the left ovary, there is a 1.8 x 1.6 cm hypodense probable cyst. 6. There is retroperitoneal lymphadenopathy. 7. Cholelithiasis.8. Interstitial and air space disease is identified at the bilateral lung bases. This may be infectious in etiology. -flagyl, rocephin, PO vancomycin -abdominal xray: Normal. No obstruction. No free air -Procal >200 -c diff positive for antigen only , PO vancomycin -ID consulted, all recommendations appreciated -urine cultures 09/14 - gram negative rods -blood cultures 09/13 - E coli -repeat blood culture 09/15 - gram neg rods -peripheral smear showing leukopenia with granulocytosis -HIV and Monoscreen negative -stress dose steroids tapered to Hydrocortisone 25mg IVP Q12 Elevated Blood Sugar with history of Diabetes -glucose consistently >200 -Levemir 5 units BID - increased to 10 units SC BID -Zofran PRN for N/V -Home PO medications held -Insulin sliding scale Elevated Creatinine likely JOSE D from infection - resolved -Nephrology and Urology consulted, all recommendations appreciated -Cr: 1.0 -IV hydration Anemia-rule out GI bleed -Hgb 10.1 today -stool occult positive 09/14, no bloody bowel movements since -GI consulted, follow recs -endoscopy once stable -monitor H/H -protonix drip DC -peripheral smear showing microcytic normochromic anemia -Status post 1 unit PRBC transfusion -anemia workup showing iron deficiency anemia Thrombocytopenia -platelets: 63 (manual count) -Heme, consulted, follow recs -autoimmune workup pending -possible splenic infarct on imaging -echo does no show any vegetation -D/C PPI use -manual platelet count ordered Hypoxemia-resolved -oxygen PRN -lower extremity duplex negative for DVT HTN -hydralazine PRN -taper stress dose steroids Prophylactic Care carafate for GI DVT Prophylaxis: Heparin on hold due to possible bleed Diet: Soft diet PT eval and treat OOB d/c eldon Case discussed with Dr. Hannah Ybarra PGY1 <Radu Young - Last Filed: 09/18/17 14:24> Objective - Vital Signs/Intake and Output Vital Signs (last 24 hours): Temp Pulse Resp BP Pulse Ox 99.0 F 86 25 H 154/75 H 93 L 09/18/17 09:00 09/18/17 13:00 09/18/17 13:00 09/18/17 08:00 09/18/17 08:30 Intake and Output: 09/18/17 09/18/17 06:59 18:59 Output Total 1800 Balance -1800 - Medications Medications: Current Medications Hydralazine HCl (Apresoline) 10 mg IVP Q6 PRN PRN Reason: Systolic Blood Pressure Last Admin: 09/17/17 15:48 Dose: 10 mg Hydrocortisone Sodium Succinate (Solu-Cortef) 25 mg IVP Q12 [facility] Last Admin: 09/18/17 10:10 Dose: 25 mg Ceftriaxone Sodium (Rocephin 2 Gm Ivpb) 2 gm in 100 mls @ 100 mls/hr IVPB DAILY [facility] PRN Reason: Protocol Stop: 09/25/17 16:39 Last Admin: 09/18/17 10:00 Dose: 100 mls/hr Insulin Detemir (Levemir) 10 unit SC Q12 [facility] Last Admin: 09/18/17 10:01 Dose: 10 unit Insulin Human Lispro (Humalog Med) 0 units SC ACHS [facility] PRN Reason: Protocol Last Admin: 09/18/17 12:30 Dose: 7 units Metronidazole (Flagyl) 500 mg PO Q8 [facility] PRN Reason: Protocol Stop: 09/25/17 16:41 Last Admin: 09/18/17 05:54 Dose: 500 mg Ondansetron HCl (Zofran Inj) 4 mg IVP Q4H PRN PRN Reason: Nausea/Vomiting Last Admin: 09/14/17 16:13 Dose: 4 mg Sucralfate (Carafate Tab) 1 gm PO 0630,1130,1630,2200 [facility] Last Admin: 09/18/17 05:54 Dose: 1 gm Vancomycin HCl (Vancocin 25 Mg/Ml (Oral Use)) 125 mg PO QID [facility] PRN Reason: Protocol Last Admin: 09/18/17 10:00 Dose: 125 mg Vitamin A (Vitamin A & D Oint Ud Foilpak) 1 ea TOP Q2 PRN PRN Reason: Dry mouth - Labs Labs: 09/18/17 06:00 09/18/17 06:00 PT 16.4 SECONDS (9.4-12.5) H 09/14/17 07:49 INR 1.42 (0.93-1.08) H 09/14/17 07:49 APTT 29.0 Seconds (25.1-36.5) 09/15/17 05:30 Attending/Attestation - Attestation I have personally seen and examined this patient.: Yes I have fully participated in the care of the patient.: Yes I have reviewed all pertinent clinical information, including history, physical exam and plan: Yes Notes (Text): 09/18/17 14:17 Attending note; Patient seen and examined with resident in ICU. Patient's fianc by the bedside. Patient is a 42 year old female with past medical history of diabetes who presented with DKA, JOSE D and septic shock. E coli bacteremia / UTI and emphysematous pyelonephritis. Urology and ID evaluations were appreciated. Repeat blood cultures done yesterday. Results pending. Patient is afebrile and nontoxic. WBC count is normal. Currently on IV ceftriaxone and po Flagyl. Continue with tapering of stress dose steroids. CT abd/pelvis also showed hepatomegaly and wedge shaped area of hypodensity in spleen (?splenic infarct or laceration). Hematology evaluation was requested given anemia, thrombocytopenia and CT spleen findings. Stool occult was also positive with anemia; currently hemoglobin is stable. GI evaluation appreciated. Case discussed with Dr. Gupta in detail. Patient will need outpatient workup. Thrombocytopenia noted. Platelet count is improving slowly. May be secondary to sepsis. Needs close outpatient follow-up. Her protonix is switched to carafate. Hematology evaluation appreciated. C. difficile colitis; dietary is improving. Continue po vancomycin. Acute kidney injury; resolved. Creatinine back to normal. Monitor closely. Diabetes; started on levemir. Dosage increased. Needs diabetic education. The patient needs close follow-up of lab work upon discharge. Needs follow-up with PMD /hematology and GI.
--- NOTE | 2017-09-18 15:31 | PN ---
DATE: 09/18/2017 This is [facility] visit in the Intensive Care Unit. For Dr. Ash. SUBJECTIVE: The patient is a 42-year-old female, seen sitting up in chair with her mother at the bedside, participating in activities as per ICU protocols with the patient reporting no pain except for aches in her back, in her arms with diet tolerated well. She is being treated for acute septic shock, pyelonephritis, gram-negative bacteremia with pancytopenic indices with transfusion of packed red blood cells 1 unit with good effect. She also has C. difficile positive stools, which is also being treated by Dr. Morejon, Infectious Disease rn lactation consultant. She also will be given IV iron as her percent saturation of her iron was very low at 5%. She has been transferred out of the Intensive Care into telemetry today as per the situation. OBJECTIVE PHYSICAL EXAMINATION: VITAL SIGNS: Temperature 99, pulse 86, respirations 25, blood pressure 154/75 with a pulse ox of 93%. HEENT: Unremarkable. Tongue is moist and midline. NECK: Supple. HEART: Regular rate. LUNGS: Scattered rhonchi. ABDOMEN: Obese, soft, nontender. EXTREMITIES: Faint +1 edema of the feet. NEUROLOGIC: Awake and alert. SKIN: Warm and dry. LABORATORY DATA: The patient's labs were done. White blood cell count of 8.4, hemoglobin of 10.1, hematocrit of 31, platelet count of 58,000, manual count of 63,000, up from 49,000 yesterday. Her chem metabolic panel showed a potassium of 3.5, which is being corrected, nonfasting glucose of 313, calcium 6.8 with an otherwise normal chem metabolic panel. The patient's repeat blood cultures showed gram-negative rods on 09/15/2017 with a followup on 09/17/2017 showed no growth. On 09/14/2017, her C. difficile antigen was positive, toxin negative. ASSESSMENT: The assessment for this patient is that of acute septic shock, acute renal failure slowly improving, Escherichia coli bacteremia, left-sided emphysematous pyelonephritis, diabetic ketoacidosis, diabetes mellitus, obesity, anemia, thrombocytopenia, history of ethyl alcohol abuse?, Clostridium difficile positive stool, iron deficiency. PLAN: Plan for this patient after conversation with Dr. Ash is to continue present medical regimen, transfer out of the Intensive Care into telemetry as per consultants' recommendations. We will continue IV iron for 2 more days. We will watch her thrombocytopenia as there is no active bleeding and inspection of the oropharynx shows no petechiae with monitoring clinically with labs. Prognosis for this patient is guarded. This is a complex patient with a comprehensive medically necessary and appropriate visit carried out in excess of 20 minutes' [id number] time with the patient's t testing reviewed. The patient was also discussed with the consultants as above, also with nursing staff and the patient's family at the bedside and question of were answered to their satisfaction. Jordin Morris MD
[2017-09-19 02:24] LABS: FREE KAPPA SERUM 49.7 mg/L (3.3-19.4)
[2017-09-19 06:50] LABS: BASO # 0.01 K/mm3 (0.0-2.0); BASO % 0.1 % (0.0-3.0); EOS # 0.1 (0.0-0.7); EOS % 0.9 % (1.5-5.0); GRAN # 6.03 (1.4-6.5); GRAN % 68.5 % (50.0-68.0); HEMOGLOBIN 10.4 g/dL (12.0-16.0); LYMPH # 1.9 (1.2-3.4); MEAN CELL VOLUME 80.2 fl (80.0-105.0); MEAN CORPUSCULAR HEMOGLOBIN 26.1 pg (25.0-35.0); MEAN CORPUSCULAR HGB CONC 32.6 g/dl (31.0-37.0); MONO # 0.8 (0.1-0.6); MONO % 9.5 % (1.0-6.0); PLATELET COUNT 86 10^3/uL (120.0-450.0); RBC 3.98 10^6/uL (3.5-6.1); RED CELL DISTRIBUTION WIDTH 15.7 % (11.5-14.5); WHITE BLOOD COUNT 8.8 10^3/ul (4.5-11.0)
[2017-09-19 06:57] LABS: ALB/GLOB RATIO 0.8 (1.1-1.8); ALBUMIN 2.6 g/dL (3.0-4.8); ALT/SGPT 29 U/L (7-56); AST/SGOT 21 U/L (14-36); BLOOD UREA NITROGEN 26 mg/dL (7-21); CALCIUM 7.3 mg/dL (8.4-10.5); GFR AFRICAN-AMERICAN > 60; GFR NON-AFRICAN AMERICAN > 60
[2017-09-19] MEDS: Insulin Lispro (humaLOG) MEDIUM Coverage SC SCH ×4 (07:55→21:52)
[2017-09-19] MEDS ORDERED: Potassium & Sodium Phosphate PO ONE (08:48)
[2017-09-19] MEDS ORDERED: Magnesium Sulfate 1 gm in D5W 1 GM/100 ML BAG IVPB ONE (08:49)
--- NOTE | 2017-09-19 09:41 | PN ---
DATE: 09/16/2017 SUBJECTIVE: The patient is resting in bed, fairly comfortable. No complaints of pain at this time. The patient continues to require insulin drip and is on D5 water and blood sugars are being followed closely. PHYSICAL EXAMINATION: VITAL SIGNS: The temperature is 98.8, her pulse is 105, respirations of 21 and BP is 156/90, O2 sat is 99. HEENT: Head is atraumatic, normocephalic. Eyes: Reactive to light. Ear, nose and throat seemed to be within normal limits. NECK: Supple. No JVD. No thyroid enlargement. No lymph nodes. HEART: Has regular rate and rhythm. Normal S1, S2. LUNGS: Reveal good breath sounds bilaterally. ABDOMEN: Soft, decreased bowel sounds. No tenderness. GENITALIA: Deferred. RECTAL: Deferred. MUSCULOSKELETAL: No joint deformities. EXTREMITIES: Reveal trace lower extremity edema. NEUROLOGICAL: She seemed to be grossly intact. LABORATORY DATA: As far as her laboratories are concerned, the patient's white count is 9.5, hemoglobin is 8, hematocrit 24.4 with platelets of 66,000. Blood sugars is 169 and rest of the chemistries are pending. IMPRESSION: As far as my impression, this patient has diabetic ketoacidosis and presented with septic shock secondary to emphysematous pyelonephritis. The patient has gram-negative bacteremia and pancytopenia with anemia as well as thrombocytopenia and decreased white count. The patient has renal insufficiency as well as metabolic acidosis and is noted to be obese. PLAN: As far as our plan, we will continue with the insulin drip and D5W and frequently check her blood sugars. Monitor her chemistries and anion gap. The patient is on meropenem as well as vancomycin as far as antibiotics. She is on bicarb drip as well. The patient is getting Protonix and we will continue to follow closely and treat aggressively along with the other consultants and the primary care doctor. Boogie Hernandez MD
[2017-09-19] MEDS: cefTRIAXone 2 GM IN NS 2 GM/100 ML BAG IVPB SCH (10:18)
[2017-09-19] MEDS: Vancomycin 25 MG/ML PO SCH ×4 (10:19→21:47)
[2017-09-19] MEDS: Insulin Detemir 100 units/ml Vial (Levemir) SC SCH ×2 (10:22→21:52)
--- NOTE | 2017-09-19 12:52 | CP.PCM.PN ---
Subjective - Date & Time of Evaluation Date of Evaluation: 09/19/17 Time of Evaluation: 07:00 - Subjective Subjective: Heme Onc Progress Note for Dr. Ash Patient was seen and examined at bedside. No acute complaints at this time. As per nursing staff, no acute or adverse events overnight. Patient states she is continuing to feel better. Patient is tolerating oral intake and is voiding regularly. Pt is OOB, states he feels weak at times however is stronger than before. Patient denied fever, chills, shortness of breath, chest pains, abdominal pains, nausea, vomiting, diarrhea, constipation, or dysuria. Objective - Vital Signs/Intake and Output Vital Signs (last 24 hours): Temp Pulse Resp BP Pulse Ox 98.3 F 101 H 45 H 170/96 H 96 09/19/17 05:00 09/19/17 12:00 09/19/17 12:00 09/19/17 12:00 09/19/17 12:00 Intake and Output: 09/19/17 09/19/17 06:59 18:59 Intake Total 1000 Output Total 1900 Balance -900 - Medications Medications: Current Medications Hydralazine HCl (Apresoline) 10 mg IVP Q6 PRN PRN Reason: Systolic Blood Pressure Last Admin: 09/19/17 08:09 Dose: 10 mg Hydrocortisone Sodium Succinate (Solu-Cortef) 25 mg IVP Q12 [facility] Last Admin: 09/19/17 10:20 Dose: 25 mg Ceftriaxone Sodium (Rocephin 2 Gm Ivpb) 2 gm in 100 mls @ 100 mls/hr IVPB DAILY [facility] PRN Reason: Protocol Stop: 09/25/17 16:39 Last Admin: 09/19/17 10:18 Dose: 100 mls/hr Iron Sucrose 100 mg/ Sodium (Chloride) 105 mls @ 210 mls/hr IVPB DAILY [facility] Stop: 09/20/17 10:00 Last Admin: 09/19/17 09:56 Dose: 210 mls/hr Insulin Detemir (Levemir) 10 unit SC Q12 [facility] Last Admin: 09/19/17 10:22 Dose: 10 unit Insulin Human Lispro (Humalog Med) 0 units SC ACHS [facility] PRN Reason: Protocol Last Admin: 09/19/17 11:04 Dose: 3 units Metronidazole (Flagyl) 500 mg PO Q8 [facility] PRN Reason: Protocol Stop: 09/25/17 16:41 Last Admin: 09/19/17 06:38 Dose: 500 mg Ondansetron HCl (Zofran Inj) 4 mg IVP Q4H PRN PRN Reason: Nausea/Vomiting Last Admin: 09/19/17 05:20 Dose: 4 mg Sucralfate (Carafate Tab) 1 gm PO 0630,1130,1630,2200 [facility] Last Admin: 09/19/17 10:41 Dose: 1 gm Vancomycin HCl (Vancocin 25 Mg/Ml (Oral Use)) 125 mg PO QID [facility] PRN Reason: Protocol Last Admin: 09/19/17 10:19 Dose: 125 mg Vitamin A (Vitamin A & D Oint Ud Foilpak) 1 ea TOP Q2 PRN PRN Reason: Dry mouth - Labs Labs: 09/19/17 05:00 09/19/17 05:00 PT 16.4 SECONDS (9.4-12.5) H 09/14/17 07:49 INR 1.42 (0.93-1.08) H 09/14/17 07:49 APTT 29.0 Seconds (25.1-36.5) 09/15/17 05:30 - Constitutional Appears: No Acute Distress - Head Exam Head Exam: ATRAUMATIC, NORMAL INSPECTION, NORMOCEPHALIC - Eye Exam Eye Exam: EOMI, Normal appearance, PERRL Pupil Exam: NORMAL ACCOMODATION, PERRL - ENT Exam ENT Exam: Mucous Membranes Moist, Normal Exam - Cardiovascular Exam Cardiovascular Exam: REGULAR RHYTHM, +S1, +S2. absent: Murmur - GI/Abdominal Exam GI & Abdominal Exam: Soft, Normal Bowel Sounds. absent: Tenderness - Neurological Exam Neurological Exam: Alert, Awake, CN II-XII Intact, Oriented x3 - Psychiatric Exam Psychiatric exam: Normal Affect, Normal Mood - Skin Skin Exam: Dry, Intact, Normal Color, Warm Assessment and Plan - Assessment and Plan (Free Text) Assessment: 42 year old female with a past medical history significant for NIDDM2 admitted for DKA, sepsis shock 2/2 gram negative bactremia, UTI and found to have emphysematous pyelonephritis as well as symptomatic anemia with positive stool occult. For panytopenia workup: plt ab, manual count, peripheral smear, iron, TIBC, transferrin, ferritin, B12, folate, TSH, serum electrophoresis, protein electro, free kappa light chains, b2 microglob, flow cytometry. monitor H/H, protonix drip. peripheral smear showing microcytic normochromic anemia, will repeat smear today on account of thrombocytopenia. Recommend BERNADETTE to further assess etiology of splenic infarct. IV iron as ordered. Pt is to fu with Dr. Ash in the clinic once DC.
--- NOTE | 2017-09-19 13:51 | CP.PCM.PN ---
<Noel Ybarra - Last Filed: 09/19/17 17:06> Subjective - Date & Time of Evaluation Date of Evaluation: 09/19/17 Time of Evaluation: 06:50 - Subjective Subjective: PGY1 Medicine Note for Dr. Young Patient seen and examined this morning at bedside. Patient is sitting up at bedside stating that she has been able to get up and walk to the commode with little to no assistance. She reports mild nausea this morning but has not vomited. She was able to tolerate her diet without any episodes of vomiting. She no longer is experiencing dysuria or any pain in her flanks. Denies fevers, chills, diarrhea, constipation, chest pain, shortness of breath, palpitations or abdominal pain. Objective - Vital Signs/Intake and Output Vital Signs (last 24 hours): Temp Pulse Resp BP Pulse Ox 98.3 F 101 H 45 H 170/96 H 96 09/19/17 05:00 09/19/17 12:00 09/19/17 12:00 09/19/17 12:00 09/19/17 12:00 Intake and Output: 09/19/17 09/19/17 06:59 18:59 Intake Total 1000 Output Total 1900 Balance -900 - Medications Medications: Current Medications Hydralazine HCl (Apresoline) 10 mg IVP Q6 PRN PRN Reason: Systolic Blood Pressure Last Admin: 09/19/17 08:09 Dose: 10 mg Hydrocortisone Sodium Succinate (Solu-Cortef) 25 mg IVP Q12 [facility] Last Admin: 09/19/17 10:20 Dose: 25 mg Ceftriaxone Sodium (Rocephin 2 Gm Ivpb) 2 gm in 100 mls @ 100 mls/hr IVPB DAILY [facility] PRN Reason: Protocol Stop: 09/25/17 16:39 Last Admin: 09/19/17 10:18 Dose: 100 mls/hr Iron Sucrose 100 mg/ Sodium (Chloride) 105 mls @ 210 mls/hr IVPB DAILY [facility] Stop: 09/20/17 10:00 Last Admin: 09/19/17 09:56 Dose: 210 mls/hr Insulin Detemir (Levemir) 15 unit SC Q12 [facility] Insulin Human Lispro (Humalog Med) 0 units SC ACHS [facility] PRN Reason: Protocol Last Admin: 09/19/17 11:04 Dose: 3 units Metronidazole (Flagyl) 500 mg PO Q8 [facility] PRN Reason: Protocol Stop: 09/25/17 16:41 Last Admin: 09/19/17 06:38 Dose: 500 mg Ondansetron HCl (Zofran Inj) 4 mg IVP Q4H PRN PRN Reason: Nausea/Vomiting Last Admin: 09/19/17 05:20 Dose: 4 mg Sucralfate (Carafate Tab) 1 gm PO 0630,1130,1630,2200 [facility] Last Admin: 09/19/17 10:41 Dose: 1 gm Vancomycin HCl (Vancocin 25 Mg/Ml (Oral Use)) 125 mg PO QID [facility] PRN Reason: Protocol Last Admin: 09/19/17 10:19 Dose: 125 mg Vitamin A (Vitamin A & D Oint Ud Foilpak) 1 ea TOP Q2 PRN PRN Reason: Dry mouth - Labs Labs: 09/19/17 05:00 09/19/17 05:00 PT 16.4 SECONDS (9.4-12.5) H 09/14/17 07:49 INR 1.42 (0.93-1.08) H 09/14/17 07:49 APTT 29.0 Seconds (25.1-36.5) 09/15/17 05:30 - Constitutional Appears: Non-toxic, No Acute Distress - Head Exam Head Exam: ATRAUMATIC, NORMOCEPHALIC - Eye Exam Eye Exam: EOMI, Normal appearance - ENT Exam ENT Exam: Mucous Membranes Moist - Neck Exam Neck Exam: absent: Lymphadenopathy - Respiratory Exam Respiratory Exam: Clear to Ausculation Bilateral, NORMAL BREATHING PATTERN. absent: Accessory Muscle Use, Rales, Rhonchi, Wheezes, Respiratory Distress - Cardiovascular Exam Cardiovascular Exam: REGULAR RHYTHM, +S1, +S2 - GI/Abdominal Exam GI & Abdominal Exam: Soft. absent: Distended, Firm, Guarding, Rigid, Tenderness - Extremities Exam Extremities Exam: absent: Calf Tenderness, Pedal Edema - Back Exam Back Exam: absent: CVA tenderness (L), CVA tenderness (R) - Neurological Exam Neurological Exam: Alert, Awake, CN II-XII Intact, Oriented x3 - Psychiatric Exam Psychiatric exam: Normal Affect, Normal Mood - Skin Skin Exam: Dry, Warm Assessment and Plan - Assessment and Plan (Free Text) Assessment: 42 year old female with a past medical history significant for NIDDM2 presents with two days of nausea, vomiting, abdominal pain, fever and fatigue. Patient had hyperglycemia to 430 and an anion gap of 26. She was also found to have a leukocytosis to 20.1, lactic acidosis of 10.4, and hypokalemia to 3.3. She is being treated for sepsis, JOSE D, and possible GI bleed. 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 Gas is visualized within the left ureter and left renal collecting system. This may be iatrogenically, although infectious etiology/emphysematous pyelonephritis is considered. There is mild left perinephric stranding. 2. Additional stranding is seen within the retroperitoneum which extends into the left side of the pelvis. This is likely infectious or inflammatory. Some of the stranding is seen in the left pericolonic region of the descending colon, which can be associated with colitis. 3. There is hypodense fatty infiltration of the liver. Hepatomegaly. 4. There is a wedge-shaped area of hypodensity within the periphery of the spleen. Differential considerations include splenic infarct or laceration. A splenic mass cannot be excluded. There is mild splenomegaly. This can be further evaluated with a contrast CT abdomen/pelvis. 5. Within the left ovary, there is a 1.8 x 1.6 cm hypodense probable cyst. 6. There is retroperitoneal lymphadenopathy. 7. Cholelithiasis.8. Interstitial and air space disease is identified at the bilateral lung bases. This may be infectious in etiology. -Flagyl 500mg PO q8h (started 09/16, last dose 09/25) -Rocephin 2gm IVPB daily (started 09/16, last dose 09/25) -abdominal xray: Normal. No obstruction. No free air -Procal >200 -c diff positive for antigen only -Vancomycin 125mg PO QID (started 09/15) -ID consulted, all recommendations appreciated -urine cultures 09/14 - gram negative rods -blood cultures 09/13 - E. Coli -repeat blood culture 09/15 - E. Coli -repeat blood culture 09/17 - negative at 48 hours -peripheral smear showing leukopenia with granulocytosis -HIV and Monoscreen negative -Stress dose steroids tapered to Hydrocortisone 25mg IVP Q12 Elevated Blood Sugar with history of Diabetes -HgbA1c 8.9 -glucose consistently >200 -Levemir 10 units BID - increased to 15 units SC BID -Zofran PRN for N/V -Home PO medications held -Insulin sliding scale Elevated Creatinine likely JOSE D from infection - resolved -Nephrology and Urology consulted, all recommendations appreciated -Cr: .9 -IV hydration Anemia -Hgb 10.4 today -stool occult positive 09/14, no bloody bowel movements since -GI consulted, follow recs -endoscopy once stable -monitor H/H -protonix drip DC -peripheral smear showing microcytic normochromic anemia -Status post 1 unit PRBC transfusion -anemia workup showing iron deficiency anemia Thrombocytopenia -platelets: 86 -Heme, consulted, follow recs -autoimmune workup pending -possible splenic infarct on imaging - per heme, no need to treat possible splenic infarct. -TTE echo does not show any vegetation - per heme, Patient will need BERNADETTE once stable to r/o vegetations -manual platelet count ordered Hypoxemia-resolved -oxygen PRN -lower extremity duplex negative for DVT HTN -started on Cozaar 25mg PO daily -hydralazine PRN -taper stress dose steroids Hypokalemia K 3.4 repleted Hypomagnesemia Mag 1.6 repleted Hypophosphatemia Phos 2.2 repleted Prophylactic Care carafate for GI DVT Prophylaxis: Heparin on hold due to possible bleed Diet: Soft diet PT eval and treat OOB Case discussed with Dr. Hannah Ybarra PGY1 <Radu Young - Last Filed: 09/20/17 14:31> Objective - Vital Signs/Intake and Output Vital Signs (last 24 hours): Temp Pulse Resp BP Pulse Ox 98.3 F 76 18 152/78 H 96 09/20/17 06:00 09/20/17 09:23 09/20/17 06:00 09/20/17 09:23 09/20/17 06:00 - Medications Medications: Current Medications Hydralazine HCl (Apresoline) 10 mg IVP Q6 PRN PRN Reason: Systolic Blood Pressure Last Admin: 09/19/17 08:09 Dose: 10 mg Ceftriaxone Sodium (Rocephin 2 Gm Ivpb) 2 gm in 100 mls @ 100 mls/hr IVPB DAILY [facility] PRN Reason: Protocol Stop: 09/25/17 16:39 Last Admin: 09/20/17 09:26 Dose: 100 mls/hr Magnesium Sulfate/Dextrose (Magnesium Sulfate 1 Gm/100 Ml D5w) 1 gm in 100 mls @ 100 mls/hr IVPB Q1H [facility] Stop: 09/20/17 16:29 Insulin Detemir (Levemir) 15 unit SC Q12 [facility] Last Admin: 09/20/17 09:25 Dose: 15 unit Insulin Human Lispro (Humalog Med) 0 units SC ACHS [facility] PRN Reason: Protocol Last Admin: 09/20/17 12:33 Dose: 1 units Losartan Potassium (Cozaar) 25 mg PO DAILY [facility] Last Admin: 09/20/17 09:23 Dose: 25 mg Metronidazole (Flagyl) 500 mg PO Q8 [facility] PRN Reason: Protocol Stop: 09/25/17 16:41 Last Admin: 09/20/17 13:17 Dose: 500 mg Ondansetron HCl (Zofran Inj) 4 mg IVP Q4H PRN PRN Reason: Nausea/Vomiting Last Admin: 09/20/17 09:35 Dose: 4 mg Potassium Phos/Sodium Phos (Neutra-Phos) 1 pkt PO ONCE ONE Stop: 09/20/17 14:31 Sucralfate (Carafate Tab) 1 gm PO 0630,1130,1630,2200 [facility] Last Admin: 09/20/17 12:33 Dose: 1 gm Vancomycin HCl (Vancocin 25 Mg/Ml (Oral Use)) 125 mg PO QID [facility] PRN Reason: Protocol Last Admin: 09/20/17 13:15 Dose: 125 mg Vitamin A (Vitamin A & D Oint Ud Foilpak) 1 ea TOP Q2 PRN PRN Reason: Dry mouth - Labs Labs: 09/20/17 07:30 09/20/17 07:30 PT 16.4 SECONDS (9.4-12.5) H 09/14/17 07:49 INR 1.42 (0.93-1.08) H 09/14/17 07:49 APTT 29.0 Seconds (25.1-36.5) 09/15/17 05:30 Attending/Attestation - Attestation I have personally seen and examined this patient.: Yes I have fully participated in the care of the patient.: Yes I have reviewed all pertinent clinical information, including history, physical exam and plan: Yes Notes (Text): 09/20/17 14:26 Attending note; Patient seen and examined with resident. Patient is a 42 year old female with past medical history of diabetes who presented with DKA, JOSE D and septic shock. E coli bacteremia / UTI and emphysematous pyelonephritis. Currently clinically improved significantly. Vitals stable. Repeat blood culture is negative. Patient is afebrile and nontoxic. WBC count is normal. Currently on IV ceftriaxone and po Flagyl and po vancomycin. ID evaluation appreciated. CT abd/pelvis also showed hepatomegaly and wedge shaped area of hypodensity in spleen (?splenic infarct or laceration). Hematology evaluation appreciated. Anemia; patient got IV Venofer. Thrombocytopenia; secondary to sepsis. Improved significantly. Stool occult was also positive with anemia; currently hemoglobin is stable. GI evaluation appreciated. Case discussed with Dr. Wolfe in detail. Patient will need outpatient workup C. difficile colitis; no diarrhea. Continue po vancomycin. Acute kidney injury; resolved. Creatinine back to normal. Monitor closely. Diabetes; started on levemir. Dosage increased. Diabetic education given. Dietary education given. The patient needs close follow-up of lab work upon discharge. Needs follow-up with PMD /hematology and GI.
--- NOTE | 2017-09-19 14:25 | CP.PCM.PN ---
<Simona Chamberlain - Last Filed: 09/19/17 14:23> Subjective - Date & Time of Evaluation Date of Evaluation: 09/19/17 Time of Evaluation: 10:10 - Subjective Subjective: Seen and examined at the bedside earlier today, chart review. Patient to have bowel movement yesterday, no melena or bright red blood per rectum. Patient had milk this morning did complain of nausea but no vomiting. No acute overnight events reports. Objective - Vital Signs/Intake and Output Vital Signs (last 24 hours): Temp Pulse Resp BP Pulse Ox 98.3 F 101 H 45 H 170/96 H 96 09/19/17 05:00 09/19/17 12:00 09/19/17 12:00 09/19/17 12:00 09/19/17 12:00 Intake and Output: 09/19/17 09/19/17 06:59 18:59 Intake Total 1000 Output Total 1900 Balance -900 - Medications Medications: Current Medications Hydralazine HCl (Apresoline) 10 mg IVP Q6 PRN PRN Reason: Systolic Blood Pressure Last Admin: 09/19/17 08:09 Dose: 10 mg Hydrocortisone Sodium Succinate (Solu-Cortef) 25 mg IVP Q12 [facility] Last Admin: 09/19/17 10:20 Dose: 25 mg Ceftriaxone Sodium (Rocephin 2 Gm Ivpb) 2 gm in 100 mls @ 100 mls/hr IVPB DAILY [facility] PRN Reason: Protocol Stop: 09/25/17 16:39 Last Admin: 09/19/17 10:18 Dose: 100 mls/hr Iron Sucrose 100 mg/ Sodium (Chloride) 105 mls @ 210 mls/hr IVPB DAILY [facility] Stop: 09/20/17 10:00 Last Admin: 09/19/17 09:56 Dose: 210 mls/hr Insulin Detemir (Levemir) 15 unit SC Q12 [facility] Insulin Human Lispro (Humalog Med) 0 units SC ACHS [facility] PRN Reason: Protocol Last Admin: 09/19/17 11:04 Dose: 3 units Metronidazole (Flagyl) 500 mg PO Q8 [facility] PRN Reason: Protocol Stop: 09/25/17 16:41 Last Admin: 09/19/17 06:38 Dose: 500 mg Ondansetron HCl (Zofran Inj) 4 mg IVP Q4H PRN PRN Reason: Nausea/Vomiting Last Admin: 09/19/17 05:20 Dose: 4 mg Sucralfate (Carafate Tab) 1 gm PO 0630,1130,1630,2200 [facility] Last Admin: 09/19/17 10:41 Dose: 1 gm Vancomycin HCl (Vancocin 25 Mg/Ml (Oral Use)) 125 mg PO QID [facility] PRN Reason: Protocol Last Admin: 09/19/17 10:19 Dose: 125 mg Vitamin A (Vitamin A & D Oint Ud Foilpak) 1 ea TOP Q2 PRN PRN Reason: Dry mouth - Labs Labs: 09/19/17 05:00 09/19/17 05:00 PT 16.4 SECONDS (9.4-12.5) H 09/14/17 07:49 INR 1.42 (0.93-1.08) H 09/14/17 07:49 APTT 29.0 Seconds (25.1-36.5) 09/15/17 05:30 - Constitutional Appears: No Acute Distress - Head Exam Head Exam: NORMOCEPHALIC - Eye Exam Eye Exam: Normal appearance. absent: Scleral icterus - ENT Exam ENT Exam: Mucous Membranes Moist - Neck Exam Neck Exam: Normal Inspection - Respiratory Exam Respiratory Exam: NORMAL BREATHING PATTERN. absent: Respiratory Distress - Cardiovascular Exam Cardiovascular Exam: +S1, +S2 - GI/Abdominal Exam GI & Abdominal Exam: Soft, Tenderness, Normal Bowel Sounds. absent: Guarding, Organomegaly, Rebound - Extremities Exam Extremities Exam: absent: Calf Tenderness, Pedal Edema - Neurological Exam Neurological Exam: Alert, Awake, Oriented x3 - Skin Skin Exam: Dry, Warm Assessment and Plan - Assessment and Plan (Free Text) Assessment: Assessment: Anemia status post blood transfusion, no obvious bleeding per rectum C. difficile colitis Thrombocytopenia Sepsis, pyelonephritis Obesity Diabetes mellitus Chronic kidney disease Plan: Continue to trend H&H Patient is on Carafate, PPI was DC'd secondary to thrombocytopenia Diet as tolerated On IV iron On IV antibiotics On oral vancomycin Patient may benefit from endoscopy when stable unless patient has active bleeding. Seen and discussed with Dr. Brandt. <Han Wolfe V - Last Filed: 09/19/17 22:07> Objective - Vital Signs/Intake and Output Vital Signs (last 24 hours): Temp Pulse Resp BP Pulse Ox 98.3 F 81 25 H 146/88 98 09/19/17 05:00 09/19/17 19:30 09/19/17 19:30 09/19/17 18:38 09/19/17 19:30 Intake and Output: 09/19/17 09/20/17 18:59 06:59 Intake Total 940 Balance 940 - Medications Medications: Current Medications Hydralazine HCl (Apresoline) 10 mg IVP Q6 PRN PRN Reason: Systolic Blood Pressure Last Admin: 09/19/17 08:09 Dose: 10 mg Hydrocortisone Sodium Succinate (Solu-Cortef) 25 mg IVP Q12 [facility] Last Admin: 09/19/17 10:20 Dose: 25 mg Ceftriaxone Sodium (Rocephin 2 Gm Ivpb) 2 gm in 100 mls @ 100 mls/hr IVPB DAILY [facility] PRN Reason: Protocol Stop: 09/25/17 16:39 Last Admin: 09/19/17 10:18 Dose: 100 mls/hr Iron Sucrose 100 mg/ Sodium (Chloride) 105 mls @ 210 mls/hr IVPB DAILY [facility] Stop: 09/20/17 10:00 Last Admin: 09/19/17 09:56 Dose: 210 mls/hr Insulin Detemir (Levemir) 15 unit SC Q12 [facility] Last Admin: 09/19/17 21:52 Dose: 15 unit Insulin Human Lispro (Humalog Med) 0 units SC ACHS [facility] PRN Reason: Protocol Last Admin: 09/19/17 21:52 Dose: Not Given Losartan Potassium (Cozaar) 25 mg PO DAILY [facility] Last Admin: 09/19/17 18:38 Dose: 25 mg Metronidazole (Flagyl) 500 mg PO Q8 [facility] PRN Reason: Protocol Stop: 09/25/17 16:41 Last Admin: 09/19/17 21:47 Dose: 500 mg Ondansetron HCl (Zofran Inj) 4 mg IVP Q4H PRN PRN Reason: Nausea/Vomiting Last Admin: 09/19/17 05:20 Dose: 4 mg Sucralfate (Carafate Tab) 1 gm PO 0630,1130,1630,2200 [facility] Last Admin: 09/19/17 21:47 Dose: 1 gm Vancomycin HCl (Vancocin 25 Mg/Ml (Oral Use)) 125 mg PO QID [facility] PRN Reason: Protocol Last Admin: 09/19/17 21:47 Dose: 125 mg Vitamin A (Vitamin A & D Oint Ud Foilpak) 1 ea TOP Q2 PRN PRN Reason: Dry mouth - Labs Labs: 09/19/17 05:00 09/19/17 05:00 PT 16.4 SECONDS (9.4-12.5) H 09/14/17 07:49 INR 1.42 (0.93-1.08) H 09/14/17 07:49 APTT 29.0 Seconds (25.1-36.5) 09/15/17 05:30 Attending/Attestation - Attestation I have personally seen and examined this patient.: Yes I have fully participated in the care of the patient.: Yes I have reviewed all pertinent clinical information, including history, physical exam and plan: Yes Notes (Text): This is an addendum to GI progress report dictated by Simona Chamberlain APN.The patient was seen and examined earlier. Medical records, lab studies, imagings were reviewed. Last 24 hours events reviewed. Agreed with the above treatment plan as outlined in Simona Chamberlain APN's notes with the addition of the following looks much better Abdomen soft no tenderness Crit stable Platelet count improving off PPI on carafate Elective endoscopy to evaluation 09/19/17 22:05
--- NOTE | 2017-09-19 21:49 | PN ---
DATE: 09/19/2017 SUBJECTIVE: Patient seen earlier this morning in the CCU 129, bed 4. Patient is in bed, in no acute distress, nontoxic. No fevers or chills. PHYSICAL EXAMINATION: VITAL SIGNS: Temperature is 98, blood pressure is 150/80, respiratory rate of 21, heart rate of 91. HEENT: Unremarkable. NECK: Supple. LUNGS: Decreased breath sounds. HEART: Normal S1 and S2. ABDOMEN: Soft, nontender. No organomegaly. No rebound or guarding. No masses. LABORATORY EXAMINATION: Reveals the repeat blood cultures are negative. Initial blood cultures sensitive E. coli in the blood and the urine. White count is down to 8.8, hemoglobin of 10, platelets of 86. Chemistries reveal the patient's BUN is 26 and creatinine of 0.8. The urinalysis is noted. Serologies, HIV is negative. ASSESSMENT AND PLAN: This is a 42-year-old female with marked obesity with body mass index of 42 and diabetes mellitus, who was admitted with septic shock with [id number] renal failure and pansensitive Escherichia coli bacteremia secondary to left-sided emphysematous pyelonephritis and diabetic ketoacidosis with metabolic acidosis and thrombocytopenia. Currently on intravenous ceftriaxone and p.o. Flagyl and p.o. vancomycin. Patient appears to be much improved. Patient did have positive Clostridium difficile, may be able to change to p.o. antibiotics. Patient is much improved once the patient is ready for discharge. continue intravenous antibiotics for now for emphysematous pyelonephritis in a diabetic. Brandan Morejon MD
[2017-09-20 07:55] LABS: BASO # 0.01 K/mm3 (0.0-2.0); BASO % 0.1 % (0.0-3.0); EOS # 0.2 (0.0-0.7); GRAN # 5.28 (1.4-6.5); GRAN % 63.4 % (50.0-68.0); LYMPH # 2.3 (1.2-3.4); LYMPH % 27.9 % (22.0-35.0); MEAN CELL VOLUME 79.5 fl (80.0-105.0); MEAN CORPUSCULAR HEMOGLOBIN 26.2 pg (25.0-35.0); MEAN PLATELET VOLUME 11.1 fl (7.0-11.0); MONO # 0.6 (0.1-0.6); MONO % 6.6 % (1.0-6.0); RBC 3.81 10^6/uL (3.5-6.1); RED CELL DISTRIBUTION WIDTH 15.5 % (11.5-14.5); WHITE BLOOD COUNT 8.3 10^3/ul (4.5-11.0)
[2017-09-20 08:08] LABS: ALB/GLOB RATIO 0.7 (1.1-1.8); ALBUMIN 2.5 g/dL (3.0-4.8); ALT/SGPT 28 U/L (7-56); AST/SGOT 19 U/L (14-36); BLOOD UREA NITROGEN 18 mg/dL (7-21); CALCIUM 7.6 mg/dL (8.4-10.5); GFR AFRICAN-AMERICAN > 60; GFR NON-AFRICAN AMERICAN > 60
[2017-09-20] MEDS: Insulin Lispro (humaLOG) MEDIUM Coverage SC SCH ×4 (08:35→22:11)
[2017-09-20] MEDS ORDERED: Potassium Chloride 20 mEq ER Tab PO ONE (09:08)
[2017-09-20] MEDS: Insulin Detemir 100 units/ml Vial (Levemir) SC SCH ×2 (09:25→21:31)
--- NOTE | 2017-09-20 09:25 | PCM.URO ---
Urology Progress Note - Objective Lab Studies: Reviewed (gu plans : new ct scan and continue current plans) Lab Results Last 24 Hours: Laboratory Results - last 24 hr 09/16/17 09/19/17 09/19/17 11:30 06:00 11:01 WBC RBC Hgb Hct MCV MCH MCHC RDW Plt Count MPV Gran % Lymph % (Auto) [place] % (Auto) Eos % (Auto) Baso % (Auto) Gran # Lymph # (Auto) [place] # (Auto) Eos # (Auto) Baso # (Auto) Differential Comment See pathology report Sodium Potassium Chloride Carbon Dioxide Anion Gap BUN Creatinine Est GFR ( Amer) Est GFR (Non-Af Amer) POC Glucose (mg/dL) 223 H Random Glucose Calcium Phosphorus Magnesium Total Bilirubin AST ALT Alkaline Phosphatase Total Protein Albumin Globulin Albumin/Globulin Ratio Crossmatch See Detail 09/19/17 09/19/17 09/20/17 16:12 21:49 07:30 WBC 8.3 RBC 3.81 Hgb 10.0 L Hct 30.3 L MCV 79.5 L MCH 26.2 MCHC 33.0 RDW 15.5 H Plt Count 134 MPV 11.1 H Gran % 63.4 Lymph % (Auto) 27.9 [place] % (Auto) 6.6 H Eos % (Auto) 2.0 Baso % (Auto) 0.1 Gran # 5.28 Lymph # (Auto) 2.3 [place] # (Auto) 0.6 Eos # (Auto) 0.2 Baso # (Auto) 0.01 Differential Comment Sodium Potassium Chloride Carbon Dioxide Anion Gap BUN Creatinine Est GFR ( Amer) Est GFR (Non-Af Amer) POC Glucose (mg/dL) 305 H 189 H Random Glucose Calcium Phosphorus Magnesium Total Bilirubin AST ALT Alkaline Phosphatase Total Protein Albumin Globulin Albumin/Globulin Ratio Crossmatch 09/20/17 09/20/17 07:30 07:37 WBC RBC Hgb Hct MCV MCH MCHC RDW Plt Count MPV Gran % Lymph % (Auto) [place] % (Auto) Eos % (Auto) Baso % (Auto) Gran # Lymph # (Auto) [place] # (Auto) Eos # (Auto) Baso # (Auto) Differential Comment Sodium 140 Potassium 3.2 L Chloride 103 Carbon Dioxide 29 Anion Gap 11 BUN 18 Creatinine 0.8 Est GFR ( Amer) > 60 Est GFR (Non-Af Amer) > 60 POC Glucose (mg/dL) 179 H Random Glucose 180 H Calcium 7.6 L Phosphorus 2.4 L Magnesium 1.5 L Total Bilirubin 0.7 AST 19 ALT 28 Alkaline Phosphatase 100 Total Protein 6.0 Albumin 2.5 L Globulin 3.5 Albumin/Globulin Ratio 0.7 L Crossmatch Intake & Output: Intake & Output 09/19/17 09/20/17 09/20/17 18:59 06:59 18:59 Intake Total 940 Balance 940 Intake: IV 200 k rider 100 mag sul 100 Oral 740 Other: # Voids Urethral (Kumar) 3 1 # Bowel Movements 1 Vital Signs: Vital Signs - 24 hr 09/19/17 09/19/17 09/19/17 09:30 10:00 10:30 Temperature Pulse Rate 84 85 85 Respiratory 27 H 20 Rate Blood Pressure O2 Sat by Pulse 99 96 99 Oximetry 09/19/17 09/19/17 09/19/17 10:44 10:45 11:00 Temperature Pulse Rate 106 H 99 H 95 H Respiratory 16 17 24 Rate Blood Pressure 176/78 H 164/84 H O2 Sat by Pulse 97 98 99 Oximetry 09/19/17 09/19/17 09/19/17 11:30 12:00 12:30 Temperature Pulse Rate 93 H 101 H 97 H Respiratory 17 45 H 26 H Rate Blood Pressure 170/96 H O2 Sat by Pulse 97 96 97 Oximetry 09/19/17 09/19/17 09/19/17 13:00 13:30 13:40 Temperature Pulse Rate 97 H 88 91 H Respiratory 21 27 H 21 Rate Blood Pressure 151/85 H O2 Sat by Pulse 98 94 L 96 Oximetry 09/19/17 09/19/17 09/19/17 13:44 14:00 14:30 Temperature Pulse Rate 87 84 Respiratory 23 22 Rate Blood Pressure 154/75 H O2 Sat by Pulse 96 97 Oximetry 09/19/17 09/19/17 09/19/17 15:00 15:45 16:00 Temperature Pulse Rate 82 93 H 78 Respiratory 24 35 H Rate Blood Pressure 163/86 H O2 Sat by Pulse 94 L 98 Oximetry 09/19/17 09/19/17 09/19/17 16:30 17:00 17:30 Temperature Pulse Rate 84 97 H 84 Respiratory 27 H 18 Rate Blood Pressure O2 Sat by Pulse 100 99 100 Oximetry 09/19/17 09/19/17 09/19/17 18:00 18:30 18:32 Temperature Pulse Rate 94 H 102 H Respiratory 23 14 Rate Blood Pressure 146/88 O2 Sat by Pulse 99 99 Oximetry 09/19/17 09/19/17 09/19/17 18:38 19:00 19:30 Temperature Pulse Rate 93 H 87 81 Respiratory 19 25 H Rate Blood Pressure 146/88 O2 Sat by Pulse 99 98 Oximetry 09/20/17 06:00 Temperature 98.3 F Pulse Rate 76 Respiratory 18 Rate Blood Pressure 152/98 H O2 Sat by Pulse 96 Oximetry
[2017-09-20] MEDS: cefTRIAXone 2 GM IN NS 2 GM/100 ML BAG IVPB SCH (09:26)
--- NOTE | 2017-09-20 10:17 | CT ---
PROCEDURE: CT Abdomen and Pelvis without intravenous contrast HISTORY: follow up COMPARISON: 09/14/2017 TECHNIQUE: Without contrast.. Contrast dose: Radiation dose: Total exam DLP = 1073 mGy-cm. This CT exam was performed using one or more of the following dose reduction techniques: Automated exposure control, adjustment of the mA and/or kV according to patient size, and/or use of iterative reconstruction technique. FINDINGS: LOWER THORAX: There is a small focal area of consolidation at the left lung base. This could represent atelectasis. There are small pleural effusions. LIVER: Unremarkable. No gross lesion or ductal dilatation. GALLBLADDER AND BILE DUCTS: Unremarkable. PANCREAS: Unremarkable. No gross lesion or ductal dilatation. SPLEEN: Unremarkable. ADRENALS: Unremarkable. No mass. KIDNEYS AND URETERS: The previous study showed air in the left ureter and renal collecting system. This finding has resolved. There is no evidence of hydronephrosis VASCULATURE: Unremarkable. No aortic aneurysm. BOWEL: Unremarkable. No obstruction. No gross mural thickening. APPENDIX: Unremarkable. Normal appendix. PERITONEUM: Unremarkable. No free fluid. No free air. LYMPH NODES: Unremarkable. No enlarged lymph nodes. BLADDER: Unremarkable. REPRODUCTIVE: Unremarkable. BONES: No acute fracture. OTHER FINDINGS: None. IMPRESSION: Small focal area of consolidation at the left lung base, probable atelectasis. Resolution of previous finding of air in the left renal collecting system
[2017-09-20] MEDS: Vancomycin 25 MG/ML PO SCH ×4 (10:35→21:31)
--- NOTE | 2017-09-20 11:36 | CP.PCM.PN ---
<Belkys Callahan - Last Filed: 09/20/17 18:06> Subjective - Date & Time of Evaluation Date of Evaluation: 09/20/17 Time of Evaluation: 10:00 - Subjective Subjective: PGY-[address] Wolfe's service Patient was seen and examined at bedside. No acute distress. Patient reports nausea and 1 episode of vomiting, she states that she felt mildly better after medciation. Patient denies melena or bright red blood per rectum. No acute overnight events reports.chart review. Objective - Vital Signs/Intake and Output Vital Signs (last 24 hours): Temp Pulse Resp BP Pulse Ox 98.3 F 76 18 152/78 H 96 09/20/17 06:00 09/20/17 09:23 09/20/17 06:00 09/20/17 09:23 09/20/17 06:00 - Medications Medications: Current Medications Hydralazine HCl (Apresoline) 10 mg IVP Q6 PRN PRN Reason: Systolic Blood Pressure Last Admin: 09/19/17 08:09 Dose: 10 mg Hydrocortisone Sodium Succinate (Solu-Cortef) 25 mg IVP Q12 [facility] Last Admin: 09/20/17 09:21 Dose: 25 mg Ceftriaxone Sodium (Rocephin 2 Gm Ivpb) 2 gm in 100 mls @ 100 mls/hr IVPB DAILY [facility] PRN Reason: Protocol Stop: 09/25/17 16:39 Last Admin: 09/20/17 09:26 Dose: 100 mls/hr Insulin Detemir (Levemir) 15 unit SC Q12 [facility] Last Admin: 09/20/17 09:25 Dose: 15 unit Insulin Human Lispro (Humalog Med) 0 units SC ACHS [facility] PRN Reason: Protocol Last Admin: 09/20/17 08:35 Dose: 1 units Losartan Potassium (Cozaar) 25 mg PO DAILY [facility] Last Admin: 09/20/17 09:23 Dose: 25 mg Metronidazole (Flagyl) 500 mg PO Q8 [facility] PRN Reason: Protocol Stop: 09/25/17 16:41 Last Admin: 09/20/17 05:32 Dose: 500 mg Ondansetron HCl (Zofran Inj) 4 mg IVP Q4H PRN PRN Reason: Nausea/Vomiting Last Admin: 09/20/17 09:35 Dose: 4 mg Sucralfate (Carafate Tab) 1 gm PO 0630,1130,1630,2200 [facility] Last Admin: 09/20/17 05:31 Dose: 1 gm Vancomycin HCl (Vancocin 25 Mg/Ml (Oral Use)) 125 mg PO QID [facility] PRN Reason: Protocol Last Admin: 09/20/17 10:35 Dose: 125 mg Vitamin A (Vitamin A & D Oint Ud Foilpak) 1 ea TOP Q2 PRN PRN Reason: Dry mouth - Labs Labs: 09/20/17 07:30 09/20/17 07:30 PT 16.4 SECONDS (9.4-12.5) H 09/14/17 07:49 INR 1.42 (0.93-1.08) H 09/14/17 07:49 APTT 29.0 Seconds (25.1-36.5) 09/15/17 05:30 - Constitutional Appears: Well, No Acute Distress - Head Exam Head Exam: ATRAUMATIC, NORMOCEPHALIC - Eye Exam Eye Exam: EOMI, Normal appearance - ENT Exam ENT Exam: Mucous Membranes Moist - Respiratory Exam Respiratory Exam: Clear to Ausculation Bilateral, NORMAL BREATHING PATTERN. absent: Decreased Breath Sounds, Rales, Rhonchi, Wheezes, Respiratory Distress - GI/Abdominal Exam GI & Abdominal Exam: Soft, Tenderness, Normal Bowel Sounds. absent: Distended, Firm, Guarding, Hyperactive Bowel Sounds - Extremities Exam Extremities Exam: Normal Inspection. absent: Pedal Edema, Tenderness - Neurological Exam Neurological Exam: Alert, Awake, Oriented x3 - Skin Skin Exam: Dry, Intact, Normal Color, Warm Assessment and Plan - Assessment and Plan (Free Text) Assessment: Anemia status post blood transfusion, no obvious bleeding per rectum C. difficile colitis Thrombocytopenia- improving Sepsis, pyelonephritis Obesity Diabetes mellitus Chronic kidney disease Plan: Continue to trend H&H, hgb is stable continue Carafate PPI was discontinued secondary to thrombocytopenia thrombocytopenia improving Diet as tolerated, currently on heart health diet completed IV iron, continue iron supplementation cont IV antibiotics per ID, currently on flagyl and oral vancomycin Patient may benefit from Elective endoscopy to evaluation case reviewed and discussed with Dr. Brandt. <Han Wolfe V - Last Filed: 09/20/17 23:26> Objective - Vital Signs/Intake and Output Vital Signs (last 24 hours): Temp Pulse Resp BP Pulse Ox 98.4 F 90 18 183/92 H 95 09/20/17 17:54 09/20/17 18:16 09/20/17 17:54 09/20/17 18:16 09/20/17 17:54 Intake and Output: 09/20/17 09/21/17 18:59 06:59 Intake Total 720 480 Balance 720 480 - Medications Medications: Current Medications Hydralazine HCl (Apresoline) 10 mg IVP Q6 PRN PRN Reason: Systolic Blood Pressure Last Admin: 09/20/17 18:16 Dose: 10 mg Ceftriaxone Sodium (Rocephin 2 Gm Ivpb) 2 gm in 100 mls @ 100 mls/hr IVPB DAILY [facility] PRN Reason: Protocol Stop: 09/25/17 16:39 Last Admin: 09/20/17 09:26 Dose: 100 mls/hr Insulin Detemir (Levemir) 15 unit SC Q12 [facility] Last Admin: 09/20/17 21:31 Dose: 15 unit Insulin Human Lispro (Humalog Med) 0 units SC ACHS [facility] PRN Reason: Protocol Last Admin: 09/20/17 22:11 Dose: Not Given Losartan Potassium (Cozaar) 50 mg PO DAILY [facility] Metronidazole (Flagyl) 500 mg PO Q8 [facility] PRN Reason: Protocol Stop: 09/25/17 16:41 Last Admin: 09/20/17 21:31 Dose: 500 mg Ondansetron HCl (Zofran Inj) 4 mg IVP Q4H PRN PRN Reason: Nausea/Vomiting Last Admin: 09/20/17 09:35 Dose: 4 mg Sucralfate (Carafate Tab) 1 gm PO 0630,1130,1630,2200 [facility] Last Admin: 09/20/17 21:31 Dose: 1 gm Vancomycin HCl (Vancocin 25 Mg/Ml (Oral Use)) 125 mg PO QID [facility] PRN Reason: Protocol Last Admin: 09/20/17 21:31 Dose: 125 mg Vitamin A (Vitamin A & D Oint Ud Foilpak) 1 ea TOP Q2 PRN PRN Reason: Dry mouth Last Admin: 09/20/17 21:57 Dose: 1 ea - Labs Labs: 09/20/17 07:30 09/20/17 07:30 PT 16.4 SECONDS (9.4-12.5) H 09/14/17 07:49 INR 1.42 (0.93-1.08) H 09/14/17 07:49 APTT 29.0 Seconds (25.1-36.5) 09/15/17 05:30 Attending/Attestation - Attestation I have personally seen and examined this patient.: Yes I have fully participated in the care of the patient.: Yes I have reviewed all pertinent clinical information, including history, physical exam and plan: Yes Notes (Text): This is an addendum to GI progress report dictated by Contract Manager.The patient was seen and examined earlier. Medical records, lab studies, imagings were reviewed. Last 24 hours events reviewed. Agreed with the above treatment plan as outlined in Resident's notes the with the addition of the following 09/20/17 23:25
--- NOTE | 2017-09-20 14:11 | CP.PCM.PN ---
<Noel Ybarra - Last Filed: 09/20/17 14:34> Subjective - Date & Time of Evaluation Date of Evaluation: 09/20/17 Time of Evaluation: 07:20 - Subjective Subjective: PGY1 Medicine Note for Dr. Young Patient seen and examined at bedside this morning. No acute events overnight. Patient states she had mild nausea this morning with one episode of vomiting. Her nausea has since resolved. She reports feeling much better and is getting stronger day by day. She experienced 2 episodes of soft stools today, as well as 2 episodes of soft stools yesterday. She is feels well otherwise and has no complaints at this time. Denies fevers, chills, chest pain, shortness of breath , palpitations, abdominal pain, flank pain, vision changes, headaches or vision changes. Objective - Vital Signs/Intake and Output Vital Signs (last 24 hours): Temp Pulse Resp BP Pulse Ox 98.3 F 76 18 152/78 H 96 09/20/17 06:00 09/20/17 09:23 09/20/17 06:00 09/20/17 09:23 09/20/17 06:00 - Medications Medications: Current Medications Hydralazine HCl (Apresoline) 10 mg IVP Q6 PRN PRN Reason: Systolic Blood Pressure Last Admin: 09/19/17 08:09 Dose: 10 mg Ceftriaxone Sodium (Rocephin 2 Gm Ivpb) 2 gm in 100 mls @ 100 mls/hr IVPB DAILY [facility] PRN Reason: Protocol Stop: 09/25/17 16:39 Last Admin: 09/20/17 09:26 Dose: 100 mls/hr Insulin Detemir (Levemir) 15 unit SC Q12 [facility] Last Admin: 09/20/17 09:25 Dose: 15 unit Insulin Human Lispro (Humalog Med) 0 units SC ACHS [facility] PRN Reason: Protocol Last Admin: 09/20/17 12:33 Dose: 1 units Losartan Potassium (Cozaar) 25 mg PO DAILY [facility] Last Admin: 09/20/17 09:23 Dose: 25 mg Metronidazole (Flagyl) 500 mg PO Q8 [facility] PRN Reason: Protocol Stop: 09/25/17 16:41 Last Admin: 09/20/17 13:17 Dose: 500 mg Ondansetron HCl (Zofran Inj) 4 mg IVP Q4H PRN PRN Reason: Nausea/Vomiting Last Admin: 09/20/17 09:35 Dose: 4 mg Sucralfate (Carafate Tab) 1 gm PO 0630,1130,1630,2200 [facility] Last Admin: 09/20/17 12:33 Dose: 1 gm Vancomycin HCl (Vancocin 25 Mg/Ml (Oral Use)) 125 mg PO QID [facility] PRN Reason: Protocol Last Admin: 09/20/17 13:15 Dose: 125 mg Vitamin A (Vitamin A & D Oint Ud Foilpak) 1 ea TOP Q2 [facility] PRN Reason: Dry mouth - Labs Labs: 09/20/17 07:30 09/20/17 07:30 PT 16.4 SECONDS (9.4-12.5) H 09/14/17 07:49 INR 1.42 (0.93-1.08) H 09/14/17 07:49 APTT 29.0 Seconds (25.1-36.5) 09/15/17 05:30 - Constitutional Appears: Non-toxic, No Acute Distress - Head Exam Head Exam: ATRAUMATIC, NORMOCEPHALIC - Eye Exam Eye Exam: Normal appearance - ENT Exam ENT Exam: Mucous Membranes Moist - Neck Exam Neck Exam: absent: Lymphadenopathy - Respiratory Exam Respiratory Exam: Clear to Ausculation Bilateral, Rales, NORMAL BREATHING PATTERN. absent: Accessory Muscle Use, Rhonchi, Wheezes, Respiratory Distress - Cardiovascular Exam Cardiovascular Exam: REGULAR RHYTHM, +S1, +S2 - GI/Abdominal Exam GI & Abdominal Exam: Soft. absent: Distended, Firm, Guarding, Rigid, Tenderness Additional comments: ecchymosis on left portion of abdomen. not tender to palpation. Patient did not notice until this morning. Will continue to monitor. - Extremities Exam Extremities Exam: Pedal Edema (improving). absent: Calf Tenderness - Back Exam Back Exam: absent: CVA tenderness (L), CVA tenderness (R) - Neurological Exam Neurological Exam: Alert, Awake, CN II-XII Intact, Oriented x3 - Psychiatric Exam Psychiatric exam: Normal Affect, Normal Mood - Skin Skin Exam: Dry, Warm Assessment and Plan - Assessment and Plan (Free Text) Assessment: 42 year old female with a past medical history significant for NIDDM2 presents with two days of nausea, vomiting, abdominal pain, fever and fatigue. Patient had hyperglycemia to 430 and an anion gap of 26. She was also found to have a leukocytosis to 20.1, lactic acidosis of 10.4, and hypokalemia to 3.3. She is being treated for sepsis, JOSE D, GI bleed and C. Diff. 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 Gas is visualized within the left ureter and left renal collecting system. This may be iatrogenically, although infectious etiology/emphysematous pyelonephritis is considered. There is mild left perinephric stranding. 2. Additional stranding is seen within the retroperitoneum which extends into the left side of the pelvis. This is likely infectious or inflammatory. Some of the stranding is seen in the left pericolonic region of the descending colon, which can be associated with colitis. 3. There is hypodense fatty infiltration of the liver. Hepatomegaly. 4. There is a wedge-shaped area of hypodensity within the periphery of the spleen. Differential considerations include splenic infarct or laceration. A splenic mass cannot be excluded. There is mild splenomegaly. This can be further evaluated with a contrast CT abdomen/pelvis. 5. Within the left ovary, there is a 1.8 x 1.6 cm hypodense probable cyst. 6. There is retroperitoneal lymphadenopathy. 7. Cholelithiasis.8. Interstitial and air space disease is identified at the bilateral lung bases. This may be infectious in etiology. -Flagyl 500mg PO q8h (started 09/16, last dose 09/25) -Rocephin 2gm IVPB daily (started 09/16, last dose 09/25) -abdominal xray: Normal. No obstruction. No free air -Procal >200 -c diff positive for antigen only -Vancomycin 125mg PO QID (started 09/15) -ID consulted, all recommendations appreciated -urine cultures 09/14 - gram negative rods -blood cultures 09/13 - E. Coli -repeat blood culture 09/15 - E. Coli -repeat blood culture 09/17 - negative at 3 days -peripheral smear showing leukopenia with granulocytosis -HIV and Monoscreen negative -Stress dose steroids tapered to Hydrocortisone 25mg IVP Q12 - discontinued Elevated Blood Sugar with history of Diabetes -HgbA1c 8.9 -glucose improved 189 -179 -Zofran PRN for N/V -Home PO medications held -Levemir 15 units SC BID -Insulin sliding scale Elevated Creatinine likely JOSE D from infection - resolved -Nephrology and Urology consulted, all recommendations appreciated -Cr: .8 -IV hydration - discontinued Anemia -Hgb 10.0 today -stool occult positive 09/14, no bloody bowel movements since -GI consulted, follow recs -endoscopy once stable -monitor H/H -protonix drip DC -peripheral smear showing microcytic normochromic anemia -Status post 1 unit PRBC transfusion -anemia workup showing iron deficiency anemia Thrombocytopenia -platelets: 134 -Heme, consulted, follow recs -autoimmune workup pending -possible splenic infarct on imaging - per heme, no need to treat possible splenic infarct. -TTE echo does not show any vegetation - per heme, Patient will need BERNADETTE once stable to r/o vegetations - per cardio, will perform BERNADETTE tomorrow morning. -manual platelet count ordered Hypoxemia-resolved -oxygen PRN -lower extremity duplex negative for DVT HTN -Cozaar 25mg PO daily -hydralazine PRN -taper stress dose steroids - discontinued -continue to monitor Hypokalemia K 3.2 repleted Hypomagnesemia Mag 1.2 repleted Hypophosphatemia Phos 2.4 repleted Prophylactic Care carafate for GI DVT Prophylaxis: Heparin on hold due to possible bleed Diet: Soft diet PT eval and treat OOB Case discussed with Dr. Hannah Ybarra PGY1 <Radu Young - Last Filed: 09/21/17 15:44> Objective - Vital Signs/Intake and Output Vital Signs (last 24 hours): Temp Pulse Resp BP Pulse Ox 98.2 F 68 18 156/78 H 100 09/21/17 11:00 09/21/17 11:00 09/21/17 11:00 09/21/17 12:19 09/21/17 11:00 Intake and Output: 09/21/17 09/21/17 06:59 18:59 Intake Total 480 150 Output Total 0 Balance 480 150 - Medications Medications: Current Medications Amlodipine Besylate (Norvasc) 10 mg PO DAILY [facility] Last Admin: 09/21/17 12:19 Dose: 10 mg Hydralazine HCl (Apresoline) 10 mg IVP Q6 PRN PRN Reason: Systolic Blood Pressure Last Admin: 09/20/17 18:16 Dose: 10 mg Ceftriaxone Sodium (Rocephin 2 Gm Ivpb) 2 gm in 100 mls @ 100 mls/hr IVPB DAILY [facility] PRN Reason: Protocol Stop: 09/25/17 16:39 Last Admin: 09/21/17 12:12 Dose: 100 mls/hr Sodium Chloride (Sodium Chloride 0.9%) 1,000 mls @ 100 mls/hr IV .Q10H [facility] Last Admin: 09/21/17 12:21 Dose: 100 mls/hr Insulin Detemir (Levemir) 15 unit SC Q12 [facility] Last Admin: 09/21/17 09:55 Dose: Not Given Insulin Human Lispro (Humalog Med) 0 units SC ACHS [facility] PRN Reason: Protocol Last Admin: 09/21/17 12:00 Dose: 3 units Losartan Potassium (Cozaar) 100 mg PO DAILY [facility] Metronidazole (Flagyl) 500 mg PO Q8 [facility] PRN Reason: Protocol Stop: 09/25/17 16:41 Last Admin: 09/21/17 13:07 Dose: 500 mg Ondansetron HCl (Zofran Inj) 4 mg IVP Q4H PRN PRN Reason: Nausea/Vomiting Last Admin: 09/20/17 09:35 Dose: 4 mg Sucralfate (Carafate Tab) 1 gm PO 0630,1130,1630,2200 [facility] Last Admin: 09/21/17 12:22 Dose: 1 gm Vancomycin HCl (Vancocin 25 Mg/Ml (Oral Use)) 125 mg PO QID [facility] PRN Reason: Protocol Last Admin: 09/21/17 13:07 Dose: 125 mg Vitamin A (Vitamin A & D Oint Ud Foilpak) 1 ea TOP Q2 PRN PRN Reason: Dry mouth Last Admin: 09/20/17 21:57 Dose: 1 ea - Labs Labs: 09/21/17 06:20 09/21/17 06:20 PT 16.4 SECONDS (9.4-12.5) H 09/14/17 07:49 INR 1.42 (0.93-1.08) H 09/14/17 07:49 APTT 29.0 Seconds (25.1-36.5) 09/15/17 05:30 Attending/Attestation - Attestation I have personally seen and examined this patient.: Yes I have fully participated in the care of the patient.: Yes I have reviewed all pertinent clinical information, including history, physical exam and plan: Yes Notes (Text): 09/21/17 15:43 Attending note; Patient seen and examined with resident. Patient is a 42 year old female with past medical history of diabetes who presented with DKA, JOSE D and septic shock. E coli bacteremia / UTI and emphysematous pyelonephritis. Currently clinically improved significantly. Vitals stable. Repeat blood culture is negative. Patient is afebrile and nontoxic. WBC count is normal. Currently on IV ceftriaxone and po Flagyl and po vancomycin. ID evaluation appreciated. CT abd/pelvis also showed hepatomegaly and wedge shaped area of hypodensity in spleen (?splenic infarct or laceration). Hematology evaluation appreciated. Anemia; patient got IV Venofer. Thrombocytopenia; secondary to sepsis. Resolved. Stool occult was also positive with anemia; currently hemoglobin is stable. GI evaluation appreciated. Case discussed with Dr. Wolfe in detail. Patient will need outpatient workup. C. difficile colitis; no diarrhea. Continue po vancomycin. Acute kidney injury; resolved. Creatinine back to normal. Monitor closely. Diabetes; started on levemir. Dosage increased. Diabetic education given. Dietary education given. Case discussed with cardiology in detail. BERNADETTE requested to rule out endocarditis. Needs follow-up with PMD /hematology and GI.
[2017-09-20] MEDS ORDERED: Potassium & Sodium Phosphate PO ONE (14:30)
[2017-09-20] MEDS: Magnesium Sulfate 1 gm in D5W 1 GM/100 ML BAG IVPB SCH ×2 (14:48→16:16)
--- NOTE | 2017-09-20 20:55 | CP.PCM.PN ---
Subjective - Date & Time of Evaluation Date of Evaluation: 09/20/17 Time of Evaluation: 10:35 - Subjective Subjective: Comfortable, no fevers, no abdominal pain, no nausea. Objective - Vital Signs/Intake and Output Vital Signs (last 24 hours): Temp Pulse Resp BP Pulse Ox 98.3 F 76 18 152/78 H 96 09/20/17 06:00 09/20/17 09:23 09/20/17 06:00 09/20/17 09:23 09/20/17 06:00 - Medications Medications: Current Medications Hydralazine HCl (Apresoline) 10 mg IVP Q6 PRN PRN Reason: Systolic Blood Pressure Last Admin: 09/19/17 08:09 Dose: 10 mg Hydrocortisone Sodium Succinate (Solu-Cortef) 25 mg IVP Q12 [facility] Last Admin: 09/20/17 09:21 Dose: 25 mg Ceftriaxone Sodium (Rocephin 2 Gm Ivpb) 2 gm in 100 mls @ 100 mls/hr IVPB DAILY [facility] PRN Reason: Protocol Stop: 09/25/17 16:39 Last Admin: 09/20/17 09:26 Dose: 100 mls/hr Iron Sucrose 100 mg/ Sodium (Chloride) 105 mls @ 210 mls/hr IVPB DAILY [facility] Stop: 09/20/17 10:00 Last Admin: 09/19/17 09:56 Dose: 210 mls/hr Potassium Chloride (Potassium Chloride 20 Meq/100 Ml) 20 meq in 100 mls @ 50 mls/hr IVPB ONCE ONE Stop: 09/20/17 11:08 Last Admin: 09/20/17 09:25 Dose: 50 mls/hr Insulin Detemir (Levemir) 15 unit SC Q12 [facility] Last Admin: 09/20/17 09:25 Dose: 15 unit Insulin Human Lispro (Humalog Med) 0 units SC ACHS [facility] PRN Reason: Protocol Last Admin: 09/20/17 08:35 Dose: 1 units Losartan Potassium (Cozaar) 25 mg PO DAILY [facility] Last Admin: 09/20/17 09:23 Dose: 25 mg Metronidazole (Flagyl) 500 mg PO Q8 [facility] PRN Reason: Protocol Stop: 09/25/17 16:41 Last Admin: 09/20/17 05:32 Dose: 500 mg Ondansetron HCl (Zofran Inj) 4 mg IVP Q4H PRN PRN Reason: Nausea/Vomiting Last Admin: 09/20/17 09:35 Dose: 4 mg Sucralfate (Carafate Tab) 1 gm PO 0630,1130,1630,2200 [facility] Last Admin: 09/20/17 05:31 Dose: 1 gm Vancomycin HCl (Vancocin 25 Mg/Ml (Oral Use)) 125 mg PO QID [facility] PRN Reason: Protocol Last Admin: 09/19/17 21:47 Dose: 125 mg Vitamin A (Vitamin A & D Oint Ud Foilpak) 1 ea TOP Q2 PRN PRN Reason: Dry mouth - Labs Labs: 09/20/17 07:30 09/20/17 07:30 PT 16.4 SECONDS (9.4-12.5) H 09/14/17 07:49 INR 1.42 (0.93-1.08) H 09/14/17 07:49 APTT 29.0 Seconds (25.1-36.5) 09/15/17 05:30 - Constitutional Appears: Chronically Ill - Head Exam Head Exam: NORMAL INSPECTION - ENT Exam ENT Exam: Mucous Membranes Moist - Neck Exam Neck Exam: absent: Meningismus - Respiratory Exam Respiratory Exam: Decreased Breath Sounds - Cardiovascular Exam Cardiovascular Exam: +S1, +S2 - GI/Abdominal Exam GI & Abdominal Exam: Soft. absent: Tenderness Assessment and Plan - Assessment and Plan (Free Text) Plan: Assessment Severe sepsis S/P septic shock with acute on chronic renal failure due to E. coli with emphysematous left sided pyelonephritis, clinically improving DM morbid obesity with BMI 41 history of alcohol and substance abuse chronic anemia Plan Continue Rocephin and Flagyl to complete 10-14 days total will monitor clinically
--- NOTE | 2017-09-20 23:28 | PN ---
DATE: 09/20/2017 This is [facility] visit on the medical floor. For Dr. Ash. SUBJECTIVE: Patient is a 42-year-old female, admitted by the emergency room to the intensive care unit for urosepsis with significant thrombocytopenia. Patient also had significant anemia for which she was transfused one pack of red blood cells and is doing quite well now. Family is at the bedside. Patient is ambulatory and in no acute distress. She continues IV antibiotics as per Dr. Morejon. Her pancytopenic indices have improved. OBJECTIVE: VITAL SIGNS: Temperature 98.4, pulse 90, respirations 18, blood pressure 183/92, pulse ox 95%. HEENT: Unremarkable. NECK: Supple. HEART: Regular rate. LUNGS: Clear on the right, occasional rhonchi on the left. ABDOMEN: Obese, soft, nontender. EXTREMITIES: No edema. SKIN: Warm and dry. NEUROLOGIC: Awake and alert. LABORATORY DATA: Were done. White blood cell count of 8.3, hemoglobin of 10, hematocrit 30.3, platelet count of 134,000, improved from 49,000 three days prior. Her INR was 1.42 on 09/14/2017. Chem metabolic panel showed a potassium of 3.2 today. Non-fasting glucose of 180 with a magnesium of 1.5. Patient has CT scan of her abdomen and pelvis done earlier today, was read as small focal area of consolidation in the left lung base, probable atelectasis, resolution of previous finding of air in the left renal collecting system. ASSESSMENT: For this patient is that of acute septic shock; acute renal failure, improving; Escherichia coli bacteremia; pyelonephritis; diabetes mellitus; diabetic ketoacidosis; anemia; thrombocytopenia; history of ethyl alcohol use; Clostridium difficile positive stool; iron deficiency. PLAN: After conversation with Dr. Ash is to continue present medical regimen to correct her electrolytes as per her attending doctor. Considerations for transesophageal echocardiogram as indicated. We will monitor clinically and with labs. Jordin Morris MD
--- NOTE | 2017-09-21 06:13 | CON ---
DATE: REASON FOR CONSULTATION: To rule out endocarditis. HISTORY OF PRESENT ILLNESS: Patient is a 42-year-old female, who was initially admitted because of Gram-negative sepsis. The patient was in the ICU, hypotensive, and initial abdomen and pelvis CT scan was consistent with emphysematous left pyelonephritis at hypertensive within the spleen, with possibility of splenic infarcts. Admitting blood culture was positive for E. coli as well as urine culture. Repeat abdomen and pelvis CT scan today, it was noted to be unremarkable. BERNADETTE was requested to rule out infective endocarditis as a possible source of embolization. The patient denies any prior cardiac history, and she never used intravenous drugs, and had no indwelling catheter prior to her presentation to the hospital. SOCIAL HISTORY: Patient is nonsmoker, nondrinker. MEDICATIONS: Hydralazine 10 mg every 6 hours p.r.n., Carafate 1 g p.o. four times a day, Cozaar 25 mg once a day, Flagyl 500 mg p.o. every 8 hours, Rocephin 2 g intravenously daily, Solu-Cortef 25 mg intravenously twice a day, vancomycin 125 mg p.o. four times a day. REVIEW OF SYSTEMS: No dizziness or syncope. No retrosternal chest pain. PHYSICAL EXAMINATION: GENERAL: Patient is a middle-aged female, who does not appear to be in acute distress. VITAL SIGNS: Blood pressure 152/78, heart rate 76, temperature 98.3, respirations 18. HEENT: Normocephalic. CHEST: Clear. HEART: S1 and S2 regular. EXTREMITIES: 1+ pitting edema. LABORATORY DATA: Hemoglobin and hematocrit 10 and 30.3, white count and platelet count are within normal limits. SMA-7 is within normal limits except for glucose of 180 and . Urine drug screen is negative. Stool occult blood is positive. HIV 1 and 2 antigen antibody are nonreactive. Echocardiography study performed 6 days ago revealed normal ventricular size and ejection fraction, trace mitral insufficiency and mild tricuspid regurgitation. EKG revealed sinus tachycardia at rate of 117 on 09/13/2017. ASSESSMENT: 1. Questionable splenic infarct. 2. Emphysematous right pyelonephritis. 3. Escherichia coli bacteremia. 4. Hypertension. RECOMMENDATIONS: Patient did receive intravenous potassium chloride preparation today, and was started on Cozaar 25 mg daily today. Continue p.o. Flagyl, p.o. vancomycin and IV Rocephin. The patient will be booked for transesophageal echocardiographic study for tomorrow. The procedure and its risks were fully explained to the patient, who understood and agreed for the procedure. Pavan Clay MD
[2017-09-21 06:40] LABS: BASO # 0.01 K/mm3 (0.0-2.0); BASO % 0.1 % (0.0-3.0); EOS # 0.3 (0.0-0.7); EOS % 2.8 % (1.5-5.0); GRAN # 5.68 (1.4-6.5); GRAN % 64.1 % (50.0-68.0); HEMOGLOBIN 9.7 g/dL (12.0-16.0); LYMPH # 2.4 (1.2-3.4); LYMPH % 26.9 % (22.0-35.0); MEAN CELL VOLUME 80.9 fl (80.0-105.0); MEAN CORPUSCULAR HEMOGLOBIN 26.1 pg (25.0-35.0); MEAN CORPUSCULAR HGB CONC 32.3 g/dl (31.0-37.0); MONO # 0.5 (0.1-0.6); MONO % 6.1 % (1.0-6.0); RBC 3.71 10^6/uL (3.5-6.1); RED CELL DISTRIBUTION WIDTH 15.9 % (11.5-14.5); WHITE BLOOD COUNT 8.9 10^3/ul (4.5-11.0)
[2017-09-21 07:34] LABS: ALB/GLOB RATIO 0.7 (1.1-1.8); ALBUMIN 2.5 g/dL (3.0-4.8); ALT/SGPT 22 U/L (7-56); AST/SGOT 18 U/L (14-36); BLOOD UREA NITROGEN 16 mg/dL (7-21); CALCIUM 7.8 mg/dL (8.4-10.5); GFR AFRICAN-AMERICAN > 60; GFR NON-AFRICAN AMERICAN > 60
[2017-09-21] MEDS: Insulin Lispro (humaLOG) MEDIUM Coverage SC SCH ×4 (08:43→22:40)
--- NOTE | 2017-09-21 09:08 | CP.PCM.PN ---
<Noel Ybarra - Last Filed: 09/21/17 13:16> Subjective - Date & Time of Evaluation Date of Evaluation: 09/21/17 Time of Evaluation: 09:08 - Subjective Subjective: PGY1 Medicine Note for Dr. Young Patient seen and examined at bedside this morning. No acute events overnight. Patient is sitting up resting comfortably on the side of her bed. She is scheduled for a BERNADETTE later this morning and is currently NPO. She reports mild nausea but no episodes of vomiting. Patient is still experiencing soft but formed stools. Patient experienced some facial tingling on the right side of her face/lips yesterday and some tingling in her arm periodically yesterday while receiving IV magnesium but both resolved soon after completion. Denies fevers, chills, chest pain, shortness of breath, palpitations, abdominal pain, flank pain, vision changes, headaches or vision changes. Objective - Vital Signs/Intake and Output Vital Signs (last 24 hours): Temp Pulse Resp BP Pulse Ox 98.4 F 90 18 183/92 H 95 09/20/17 17:54 09/20/17 18:16 09/20/17 17:54 09/20/17 18:16 09/20/17 17:54 Intake and Output: 09/21/17 09/21/17 06:59 18:59 Intake Total 480 Output Total 0 Balance 480 - Medications Medications: Current Medications Hydralazine HCl (Apresoline) 10 mg IVP Q6 PRN PRN Reason: Systolic Blood Pressure Last Admin: 09/20/17 18:16 Dose: 10 mg Ceftriaxone Sodium (Rocephin 2 Gm Ivpb) 2 gm in 100 mls @ 100 mls/hr IVPB DAILY [facility] PRN Reason: Protocol Stop: 09/25/17 16:39 Last Admin: 09/20/17 09:26 Dose: 100 mls/hr Magnesium Sulfate/Dextrose (Magnesium Sulfate 1 Gm/100 Ml D5w) 1 gm in 100 mls @ 100 mls/hr IVPB Q1H [facility] Stop: 09/21/17 11:14 Insulin Detemir (Levemir) 15 unit SC Q12 [facility] Last Admin: 09/20/17 21:31 Dose: 15 unit Insulin Human Lispro (Humalog Med) 0 units SC ACHS [facility] PRN Reason: Protocol Last Admin: 09/21/17 08:43 Dose: Not Given Losartan Potassium (Cozaar) 50 mg PO DAILY [facility] Metronidazole (Flagyl) 500 mg PO Q8 [facility] PRN Reason: Protocol Stop: 09/25/17 16:41 Last Admin: 09/21/17 05:49 Dose: Not Given Ondansetron HCl (Zofran Inj) 4 mg IVP Q4H PRN PRN Reason: Nausea/Vomiting Last Admin: 09/20/17 09:35 Dose: 4 mg Sucralfate (Carafate Tab) 1 gm PO 0630,1130,1630,2200 [facility] Last Admin: 09/21/17 05:49 Dose: Not Given Vancomycin HCl (Vancocin 25 Mg/Ml (Oral Use)) 125 mg PO QID [facility] PRN Reason: Protocol Last Admin: 09/20/17 21:31 Dose: 125 mg Vitamin A (Vitamin A & D Oint Ud Foilpak) 1 ea TOP Q2 PRN PRN Reason: Dry mouth Last Admin: 09/20/17 21:57 Dose: 1 ea - Labs Labs: 09/21/17 06:20 09/21/17 06:20 PT 16.4 SECONDS (9.4-12.5) H 09/14/17 07:49 INR 1.42 (0.93-1.08) H 09/14/17 07:49 APTT 29.0 Seconds (25.1-36.5) 09/15/17 05:30 - Constitutional Appears: Non-toxic, No Acute Distress - Head Exam Head Exam: ATRAUMATIC, NORMOCEPHALIC - Eye Exam Eye Exam: Normal appearance - ENT Exam ENT Exam: Mucous Membranes Moist - Neck Exam Neck Exam: absent: Lymphadenopathy - Respiratory Exam Respiratory Exam: Clear to Ausculation Bilateral, NORMAL BREATHING PATTERN. absent: Accessory Muscle Use, Rales, Rhonchi, Wheezes, Respiratory Distress - Cardiovascular Exam Cardiovascular Exam: REGULAR RHYTHM, +S1 - GI/Abdominal Exam GI & Abdominal Exam: Soft. absent: Distended, Firm, Guarding, Rigid, Tenderness Additional comments: Ecchymosis on the left side of abdomen, stable. - Extremities Exam Extremities Exam: Pedal Edema. absent: Calf Tenderness - Neurological Exam Neurological Exam: Alert, Awake, CN II-XII Intact, Oriented x3 - Psychiatric Exam Psychiatric exam: Normal Affect, Normal Mood - Skin Skin Exam: Dry, Warm Assessment and Plan - Assessment and Plan (Free Text) Assessment: 42 year old female with a past medical history significant for NIDDM2 presents with two days of nausea, vomiting, abdominal pain, fever and fatigue. Patient had hyperglycemia to 430 and an anion gap of 26. She was also found to have a leukocytosis to 20.1, lactic acidosis of 10.4, and hypokalemia to 3.3. She is being treated for sepsis, JOSE D, GI bleed and C. Diff. 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 Gas is visualized within the left ureter and left renal collecting system. This may be iatrogenically, although infectious etiology/emphysematous pyelonephritis is considered. There is mild left perinephric stranding. 2. Additional stranding is seen within the retroperitoneum which extends into the left side of the pelvis. This is likely infectious or inflammatory. Some of the stranding is seen in the left pericolonic region of the descending colon, which can be associated with colitis. 3. There is hypodense fatty infiltration of the liver. Hepatomegaly. 4. There is a wedge-shaped area of hypodensity within the periphery of the spleen. Differential considerations include splenic infarct or laceration. A splenic mass cannot be excluded. There is mild splenomegaly. This can be further evaluated with a contrast CT abdomen/pelvis. 5. Within the left ovary, there is a 1.8 x 1.6 cm hypodense probable cyst. 6. There is retroperitoneal lymphadenopathy. 7. Cholelithiasis.8. Interstitial and air space disease is identified at the bilateral lung bases. This may be infectious in etiology. -Flagyl 500mg PO q8h (started 09/16, last dose 09/25 - day 5) -Rocephin 2gm IVPB daily (started 09/16, last dose 09/25 - day 5) -abdominal xray: Normal. No obstruction. No free air -Procal >200 -c diff positive for antigen only -Vancomycin 125mg PO QID (started 09/15 - day 6) -repeat c. diff (09/20) negative - dc contact precautions -ID consulted, all recommendations appreciated -urine cultures 09/14 - gram negative rods -blood cultures 09/13 - E. Coli -repeat blood culture 09/15 - E. Coli -repeat blood culture 09/17 - negative at 4 days -peripheral smear showing leukopenia with granulocytosis -HIV and Monoscreen negative Elevated Blood Sugar with history of Diabetes -HgbA1c 8.9 -Zofran PRN for N/V -Home PO medications held -Levemir 15 units SC BID -Insulin sliding scale Elevated Creatinine likely JOSE D from infection - resolved -Nephrology and Urology consulted, all recommendations appreciated -Cr: .8 Anemia -Hgb 9.7 today -stool occult positive 09/14, no bloody bowel movements since -GI consulted, follow recs -endoscopy once stable -monitor H/H -protonix drip DC -peripheral smear showing microcytic normochromic anemia -Status post 1 unit PRBC transfusion -anemia workup showing iron deficiency anemia Thrombocytopenia -platelets: 172 -Heme, consulted, follow recs -autoimmune workup pending -possible splenic infarct on imaging - per heme, no need to treat possible splenic infarct. -TTE echo does not show any vegetation - per heme, Patient will need BERNADETTE once stable to r/o vegetations - per cardio, BERNADETTE negative for vegetations -manual platelet count ordered Hypoxemia-resolved -oxygen PRN -lower extremity duplex negative for DVT HTN uncontrolled -increased Cozaar to 100mg PO daily -start Norvasc 10mg PO daily -hydralazine PRN -continue to monitor Hypokalemia K 3.6 continue to monitor Hypomagnesemia Mag 1.5 repleted with 2 gm Hypophosphatemia Phos 3.0 continue to monitor Prophylactic Care carafate for GI DVT Prophylaxis: Heparin on hold due to possible bleed Diet: Soft diet PT eval and treat OOB DISPO: Will plan to discharge patient home tomorrow. Patient currently on Rocephin IV, Vanco PO and Flagyl PO. ID recommends to complete course of 10-14 days but will need to confirm all oral abx prior to discharge. Case discussed with Dr. Hannah Cohen Tate PGY1 <Radu Young - Last Filed: 09/22/17 14:00> Objective - Vital Signs/Intake and Output Vital Signs (last 24 hours): Temp Pulse Resp BP Pulse Ox 98.6 F 103 H 20 138/78 97 09/22/17 06:00 09/22/17 09:21 09/22/17 06:00 09/22/17 09:21 09/22/17 06:00 Intake and Output: 09/22/17 09/22/17 06:59 18:59 Intake Total 1300 Output Total 0 Balance 1300 - Medications Medications: Current Medications Amlodipine Besylate (Norvasc) 10 mg PO DAILY [facility] Last Admin: 09/22/17 09:21 Dose: 10 mg Hydralazine HCl (Apresoline) 10 mg IVP Q6 PRN PRN Reason: Systolic Blood Pressure Last Admin: 09/20/17 18:16 Dose: 10 mg Ceftriaxone Sodium (Rocephin 2 Gm Ivpb) 2 gm in 100 mls @ 100 mls/hr IVPB DAILY [facility] PRN Reason: Protocol Stop: 09/25/17 16:39 Last Admin: 09/22/17 09:20 Dose: 100 mls/hr Sodium Chloride (Sodium Chloride 0.9%) 1,000 mls @ 100 mls/hr IV .Q10H [facility] Last Admin: 09/22/17 09:24 Dose: 100 mls/hr Insulin Detemir (Levemir) 15 unit SC Q12 [facility] Last Admin: 09/22/17 09:21 Dose: 15 unit Insulin Human Lispro (Humalog Med) 0 units SC ACHS [facility] PRN Reason: Protocol Last Admin: 09/22/17 12:29 Dose: 3 units Losartan Potassium (Cozaar) 100 mg PO DAILY [facility] Last Admin: 09/22/17 09:21 Dose: 100 mg Metronidazole (Flagyl) 500 mg PO Q8 [facility] PRN Reason: Protocol Stop: 09/25/17 16:41 Last Admin: 09/22/17 05:14 Dose: 500 mg Ondansetron HCl (Zofran Inj) 4 mg IVP Q4H PRN PRN Reason: Nausea/Vomiting Last Admin: 09/20/17 09:35 Dose: 4 mg Sucralfate (Carafate Tab) 1 gm PO 0630,1130,1630,2200 [facility] Last Admin: 09/22/17 12:30 Dose: 1 gm Vitamin A (Vitamin A & D Oint Ud Foilpak) 1 ea TOP Q2 PRN PRN Reason: Dry mouth Last Admin: 09/20/17 21:57 Dose: 1 ea - Labs Labs: 09/22/17 05:15 09/22/17 05:15 PT 16.4 SECONDS (9.4-12.5) H 09/14/17 07:49 INR 1.42 (0.93-1.08) H 09/14/17 07:49 APTT 29.0 Seconds (25.1-36.5) 09/15/17 05:30 Attending/Attestation - Attestation I have personally seen and examined this patient.: Yes I have fully participated in the care of the patient.: Yes I have reviewed all pertinent clinical information, including history, physical exam and plan: Yes Notes (Text): 09/22/17 13:58 Attending note; Patient seen and examined with resident. Patient is a 42 year old female with past medical history of diabetes who presented with DKA, JOSE D and septic shock. E coli bacteremia / UTI and emphysematous pyelonephritis. Currently clinically improved significantly. Vitals stable. Repeat blood culture is negative. Patient is afebrile and nontoxic. WBC count is normal. Currently on IV ceftriaxone and po Flagyl. ID evaluation appreciated. CT abd/pelvis also showed hepatomegaly and wedge shaped area of hypodensity in spleen (?splenic infarct or laceration). Hematology evaluation appreciated. Anemia; stable. Hemoglobin is 9.5. Thrombocytopenia; secondary to sepsis. Resolved. Stool occult was also positive with anemia; currently hemoglobin is stable. GI evaluation appreciated. Case discussed with Dr. Wolfe in detail. Patient will need outpatient workup. C. difficile colitis; no diarrhea. repeat C. difis negative. On by mouth Flagyl. Acute kidney injury; resolved. Creatinine back to normal. Monitor closely. status post BERNADETTE; negative for any vegetations. Cardiology evaluation with Dr. Clay appreciated. Needs follow-up with PMD /hematology and GI. will follow up with ID for duration of antibiotics. Upon discharge the patient will follow-up with PMD Dr. Milton. 09/22/17 14:00
[2017-09-21] MEDS: Insulin Detemir 100 units/ml Vial (Levemir) SC SCH ×2 (09:55→22:24)
[2017-09-21] MEDS ORDERED: Etomidate 20 mg/10ml Inj IV ONE (10:06)
[2017-09-21] MEDS ORDERED: Propofol 10 mg/ml Inj (20 ML) ONE (10:06)
[2017-09-21] MEDS: Magnesium Sulfate 1 gm in D5W 1 GM/100 ML BAG IVPB SCH ×2 (11:41→13:07)
[2017-09-21] MEDS: Vancomycin 25 MG/ML PO SCH ×4 (11:42→22:25)
[2017-09-21] MEDS: cefTRIAXone 2 GM IN NS 2 GM/100 ML BAG IVPB SCH (12:12)
[2017-09-21] MEDS: Sodium Chloride 0.9% 1,000 ML IV SCH (12:21)
--- NOTE | 2017-09-21 13:34 | CARD ---
APPROVED REPORT EXAM: Two-dimensional and M-mode echocardiogram with Doppler and color Doppler. INDICATION ENDOCARDITIS Reason For Test : Rule out endocarditis. PROCEDURE After obtaining informed consent, patient underwent transesophageal echo in the Echo Lab. Type of Sedation : Sedation was provided by anesthesiologist. Sedation was achieved with intravenously. Transesophageal probe was inserted and advanced into esophagus without difficulty. The BERNADETTE was performed without complications. Throughout the procedure, the blood pressure, pulse oximetry, cardiac rhythm, and rate were monitored. The patient tolerated the procedure without adverse effects. Recovery from conscious sedation was uneventful and vital signs were stable. LEFT VENTRICLE The left ventricle is normal size. There is normal left ventricular wall thickness. The left ventricular function is normal. The left ventricular ejection fraction is within the normal range. There is normal LV segmental wall motion. No left ventricle thrombus noted on this study. RIGHT VENTRICLE The right ventricle is normal size. There is normal right ventricular wall thickness. The right ventricular systolic function is normal. ATRIA The left atrium size is normal. The right atrium size is normal. AORTIC VALVE The aortic valve is mildly thickened. No aortic regurgitation is present. There is no aortic valvular stenosis. There is no aortic valvular vegetation. MITRAL VALVE The mitral valve is normal in structure. Mitral regurgitation is trace to mild. TRICUSPID VALVE The tricuspid valve is normal in structure. There is no tricuspid valve regurgitation noted. There is no tricuspid valve stenosis. PULMONIC VALVE The pulmonary valve is normal in structure. GREAT VESSELS The aortic root is normal in size. <Conclusion> No valvular vegetation seen
--- NOTE | 2017-09-21 14:09 | CP.PCM.PCO ---
Physician Communication Note - Physician Communication Note Physician Communication Note: patient at BERNADETTE during rounds
--- NOTE | 2017-09-21 16:46 | CP.PCM.PN ---
Subjective - Date & Time of Evaluation Date of Evaluation: 09/21/17 Time of Evaluation: 10:35 - Subjective Subjective: No fevers, feeling better. Objective - Vital Signs/Intake and Output Vital Signs (last 24 hours): Temp Pulse Resp BP Pulse Ox 98.4 F 90 18 183/92 H 95 09/20/17 17:54 09/20/17 18:16 09/20/17 17:54 09/20/17 18:16 09/20/17 17:54 Intake and Output: 09/21/17 09/21/17 06:59 18:59 Intake Total 480 Output Total 0 Balance 480 - Medications Medications: Current Medications Hydralazine HCl (Apresoline) 10 mg IVP Q6 PRN PRN Reason: Systolic Blood Pressure Last Admin: 09/20/17 18:16 Dose: 10 mg Ceftriaxone Sodium (Rocephin 2 Gm Ivpb) 2 gm in 100 mls @ 100 mls/hr IVPB DAILY [facility] PRN Reason: Protocol Stop: 09/25/17 16:39 Last Admin: 09/20/17 09:26 Dose: 100 mls/hr Magnesium Sulfate/Dextrose (Magnesium Sulfate 1 Gm/100 Ml D5w) 1 gm in 100 mls @ 100 mls/hr IVPB Q1H [facility] Stop: 09/21/17 11:14 Insulin Detemir (Levemir) 15 unit SC Q12 [facility] Last Admin: 09/20/17 21:31 Dose: 15 unit Insulin Human Lispro (Humalog Med) 0 units SC ACHS [facility] PRN Reason: Protocol Last Admin: 09/21/17 08:43 Dose: Not Given Losartan Potassium (Cozaar) 50 mg PO DAILY [facility] Metronidazole (Flagyl) 500 mg PO Q8 [facility] PRN Reason: Protocol Stop: 09/25/17 16:41 Last Admin: 09/21/17 05:49 Dose: Not Given Ondansetron HCl (Zofran Inj) 4 mg IVP Q4H [facility] PRN Reason: Nausea/Vomiting Last Admin: 09/20/17 09:35 Dose: 4 mg Sucralfate (Carafate Tab) 1 gm PO 0630,1130,1630,2200 [facility] Last Admin: 09/21/17 05:49 Dose: Not Given Vancomycin HCl (Vancocin 25 Mg/Ml (Oral Use)) 125 mg PO QID [facility] PRN Reason: Protocol Last Admin: 09/20/17 21:31 Dose: 125 mg Vitamin A (Vitamin A & D Oint Ud Foilpak) 1 ea TOP Q2 PRN PRN Reason: Dry mouth Last Admin: 09/20/17 21:57 Dose: 1 ea - Labs Labs: 09/21/17 06:20 09/21/17 06:20 PT 16.4 SECONDS (9.4-12.5) H 09/14/17 07:49 INR 1.42 (0.93-1.08) H 09/14/17 07:49 APTT 29.0 Seconds (25.1-36.5) 09/15/17 05:30 - Constitutional Appears: Chronically Ill - Head Exam Head Exam: NORMAL INSPECTION - Neck Exam Neck Exam: absent: Meningismus - Respiratory Exam Respiratory Exam: Decreased Breath Sounds - Cardiovascular Exam Cardiovascular Exam: +S1, +S2 - GI/Abdominal Exam GI & Abdominal Exam: Soft. absent: Tenderness Assessment and Plan - Assessment and Plan (Free Text) Plan: Assessment Severe sepsis S/P septic shock with acute on chronic renal failure due to E. coli with emphysematous left sided pyelonephritis, clinically improving DM morbid obesity with BMI 41 history of alcohol and substance abuse chronic anemia Plan Continue Rocephin and Flagyl to complete 10-14 days total (day 5 today) will monitor clinically
[2017-09-21 17:14] VITALS: RESP 20
--- NOTE | 2017-09-21 20:01 | CP.PCM.PN ---
Subjective - Date & Time of Evaluation Date of Evaluation: 09/21/17 Time of Evaluation: 09:00 - Subjective Subjective: Heme Onc Progress Note for Dr. Ash Patient was seen and examined at bedside. No acute complaints at this time. As per nursing staff, no acute or adverse events overnight. Patient states she is continuing to feel better. Patient is tolerating oral intake and is voiding regularly. Pt is OOB, states he feels weak at times however is stronger than before. Patient denied fever, chills, shortness of breath, chest pains, abdominal pains, nausea, vomiting, diarrhea, constipation, or dysuria. Pt is for BERNADETTE today. Objective - Vital Signs/Intake and Output Vital Signs (last 24 hours): Temp Pulse Resp BP Pulse Ox 97.8 F 94 H 20 132/74 98 09/21/17 17:13 09/21/17 17:13 09/21/17 17:13 09/21/17 17:13 09/21/17 17:13 Intake and Output: 09/21/17 09/22/17 18:59 06:59 Intake Total 150 Balance 150 - Medications Medications: Current Medications Amlodipine Besylate (Norvasc) 10 mg PO DAILY [facility] Last Admin: 09/21/17 12:19 Dose: 10 mg Hydralazine HCl (Apresoline) 10 mg IVP Q6 PRN PRN Reason: Systolic Blood Pressure Last Admin: 09/20/17 18:16 Dose: 10 mg Ceftriaxone Sodium (Rocephin 2 Gm Ivpb) 2 gm in 100 mls @ 100 mls/hr IVPB DAILY [facility] PRN Reason: Protocol Stop: 09/25/17 16:39 Last Admin: 09/21/17 12:12 Dose: 100 mls/hr Sodium Chloride (Sodium Chloride 0.9%) 1,000 mls @ 100 mls/hr IV .Q10H [facility] Last Admin: 09/21/17 12:21 Dose: 100 mls/hr Insulin Detemir (Levemir) 15 unit SC Q12 [facility] Last Admin: 09/21/17 09:55 Dose: Not Given Insulin Human Lispro (Humalog Med) 0 units SC ACHS [facility] PRN Reason: Protocol Last Admin: 09/21/17 17:20 Dose: 5 units Losartan Potassium (Cozaar) 100 mg PO DAILY [facility] Metronidazole (Flagyl) 500 mg PO Q8 [facility] PRN Reason: Protocol Stop: 09/25/17 16:41 Last Admin: 09/21/17 13:07 Dose: 500 mg Ondansetron HCl (Zofran Inj) 4 mg IVP Q4H [facility] PRN Reason: Nausea/Vomiting Last Admin: 09/20/17 09:35 Dose: 4 mg Sucralfate (Carafate Tab) 1 gm PO 0630,1130,1630,2200 [facility] Last Admin: 09/21/17 17:19 Dose: 1 gm Vancomycin HCl (Vancocin 25 Mg/Ml (Oral Use)) 125 mg PO QID [facility] PRN Reason: Protocol Last Admin: 09/21/17 17:45 Dose: 125 mg Vitamin A (Vitamin A & D Oint Ud Foilpak) 1 ea TOP Q2 PRN PRN Reason: Dry mouth Last Admin: 09/20/17 21:57 Dose: 1 ea - Labs Labs: 09/21/17 06:20 09/21/17 06:20 PT 16.4 SECONDS (9.4-12.5) H 09/14/17 07:49 INR 1.42 (0.93-1.08) H 09/14/17 07:49 APTT 29.0 Seconds (25.1-36.5) 09/15/17 05:30 - Constitutional Appears: No Acute Distress - Head Exam Head Exam: ATRAUMATIC, NORMAL INSPECTION, NORMOCEPHALIC - Eye Exam Eye Exam: EOMI, Normal appearance, PERRL Pupil Exam: NORMAL ACCOMODATION, PERRL - ENT Exam ENT Exam: Mucous Membranes Moist, Normal Exam - Respiratory Exam Respiratory Exam: Clear to Ausculation Bilateral, NORMAL BREATHING PATTERN - Cardiovascular Exam Cardiovascular Exam: REGULAR RHYTHM, +S1, +S2. absent: Murmur - GI/Abdominal Exam GI & Abdominal Exam: Soft, Normal Bowel Sounds. absent: Tenderness - Neurological Exam Neurological Exam: Alert, Awake, CN II-XII Intact, Normal Gait, Oriented x3 - Psychiatric Exam Psychiatric exam: Normal Affect, Normal Mood - Skin Skin Exam: Dry, Intact, Normal Color, Warm Assessment and Plan - Assessment and Plan (Free Text) Assessment: 42 year old female with a past medical history significant for NIDDM2 admitted for DKA, sepsis shock 2/2 gram negative bactremia, UTI and found to have emphysematous pyelonephritis as well as symptomatic anemia with positive stool occult. For panytopenia workup: plt ab, manual count, peripheral smear, iron, TIBC, transferrin, ferritin, B12, folate, TSH, serum electrophoresis, protein electro, free kappa light chains, b2 microglob, flow cytometry. monitor H/H, protonix drip. peripheral smear showing microcytic normochromic anemia, IV iron as ordered. Pt is to fu with Dr. Ash in the clinic once DC. BERNADETTE negative. No oral AC
--- NOTE | 2017-09-21 23:36 | CARD ---
APPROVED REPORT EKG Measurement Heart [id number] CO [id number] <Conclusion> Normal sinus rhythm Normal ECG
[2017-09-22 06:35] LABS: EOS # 0.2 (0.0-0.7); EOS % 2.1 % (1.5-5.0); GRAN # 5.66 (1.4-6.5); GRAN % 66.7 % (50.0-68.0); HEMOGLOBIN 9.5 g/dL (12.0-16.0); LYMPH # 2.2 (1.2-3.4); LYMPH % 26.4 % (22.0-35.0); MEAN CELL VOLUME 80.5 fl (80.0-105.0); MEAN CORPUSCULAR HEMOGLOBIN 26.1 pg (25.0-35.0); MEAN CORPUSCULAR HGB CONC 32.4 g/dl (31.0-37.0); MEAN PLATELET VOLUME 10.7 fl (7.0-11.0); MONO # 0.4 (0.1-0.6); MONO % 4.8 % (1.0-6.0); RBC 3.64 10^6/uL (3.5-6.1); WHITE BLOOD COUNT 8.5 10^3/ul (4.5-11.0)
[2017-09-22 07:37] LABS: BLOOD UREA NITROGEN 11 mg/dL (7-21); GFR AFRICAN-AMERICAN > 60; GFR NON-AFRICAN AMERICAN > 60
[2017-09-22 07:38] LABS: ALB/GLOB RATIO 0.8 (1.1-1.8); ALBUMIN 2.6 g/dL (3.0-4.8); ALT/SGPT 24 U/L (7-56); AST/SGOT 18 U/L (14-36); CALCIUM 7.9 mg/dL (8.4-10.5)
[2017-09-22] MEDS: Insulin Lispro (humaLOG) MEDIUM Coverage SC SCH ×3 (08:41→17:28)
[2017-09-22 08:55] VITALS: BP 138/78; PULSE 103; TEMP 98.6; O2SAT 97
[2017-09-22] MEDS: cefTRIAXone 2 GM IN NS 2 GM/100 ML BAG IVPB SCH (09:20)
[2017-09-22] MEDS: Insulin Detemir 100 units/ml Vial (Levemir) SC SCH (09:21)
[2017-09-22] MEDS: Sodium Chloride 0.9% 1,000 ML IV SCH (09:24)
[2017-09-22] MEDS ORDERED: Magnesium Sulfate 1 gm in D5W 1 GM/100 ML BAG IVPB ONE (09:37)
--- NOTE | 2017-09-22 10:14 | CP.PCM.PN ---
Subjective - Date & Time of Evaluation Date of Evaluation: 09/22/17 Time of Evaluation: 09:30 - Subjective Subjective: PGY-[address] Wolfe's service Patient was seen and examined at bedside. No acute distress. Patient reports mild nausea, no epeisodes of vomiting, she states improvement with medication. Patient denies melena or bright red blood per rectum. Nurese reports no acute events. chart review. Patient states that she does feel over all weak and is participating in PT. Objective - Vital Signs/Intake and Output Vital Signs (last 24 hours): Temp Pulse Resp BP Pulse Ox 98.6 F 103 H 20 138/78 97 09/22/17 06:00 09/22/17 09:21 09/22/17 06:00 09/22/17 09:21 09/22/17 06:00 Intake and Output: 09/22/17 09/22/17 06:59 18:59 Intake Total 1300 Output Total 0 Balance 1300 - Medications Medications: Current Medications Amlodipine Besylate (Norvasc) 10 mg PO DAILY [facility] Last Admin: 09/22/17 09:21 Dose: 10 mg Hydralazine HCl (Apresoline) 10 mg IVP Q6 PRN PRN Reason: Systolic Blood Pressure Last Admin: 09/20/17 18:16 Dose: 10 mg Ceftriaxone Sodium (Rocephin 2 Gm Ivpb) 2 gm in 100 mls @ 100 mls/hr IVPB DAILY [facility] PRN Reason: Protocol Stop: 09/25/17 16:39 Last Admin: 09/22/17 09:20 Dose: 100 mls/hr Sodium Chloride (Sodium Chloride 0.9%) 1,000 mls @ 100 mls/hr IV .Q10H [facility] Last Admin: 09/22/17 09:24 Dose: 100 mls/hr Magnesium Sulfate/Dextrose (Magnesium Sulfate 1 Gm/100 Ml D5w) 1 gm in 100 mls @ 100 mls/hr IVPB ONCE ONE Stop: 09/22/17 10:36 Insulin Detemir (Levemir) 15 unit SC Q12 [facility] Last Admin: 09/22/17 09:21 Dose: 15 unit Insulin Human Lispro (Humalog Med) 0 units SC ACHS [facility] PRN Reason: Protocol Last Admin: 09/22/17 08:41 Dose: 3 units Losartan Potassium (Cozaar) 100 mg PO DAILY [facility] Last Admin: 09/22/17 09:21 Dose: 100 mg Metronidazole (Flagyl) 500 mg PO Q8 [facility] PRN Reason: Protocol Stop: 09/25/17 16:41 Last Admin: 09/22/17 05:14 Dose: 500 mg Ondansetron HCl (Zofran Inj) 4 mg IVP Q4H PRN PRN Reason: Nausea/Vomiting Last Admin: 09/20/17 09:35 Dose: 4 mg Sucralfate (Carafate Tab) 1 gm PO 0630,1130,1630,2200 [facility] Last Admin: 09/22/17 05:46 Dose: Not Given Vancomycin HCl (Vancocin 25 Mg/Ml (Oral Use)) 125 mg PO QID [facility] PRN Reason: Protocol Last Admin: 09/21/17 22:25 Dose: 125 mg Vitamin A (Vitamin A & D Oint Ud Foilpak) 1 ea TOP Q2 PRN PRN Reason: Dry mouth Last Admin: 09/20/17 21:57 Dose: 1 ea - Labs Labs: 09/22/17 05:15 09/22/17 05:15 PT 16.4 SECONDS (9.4-12.5) H 09/14/17 07:49 INR 1.42 (0.93-1.08) H 09/14/17 07:49 APTT 29.0 Seconds (25.1-36.5) 09/15/17 05:30 - Constitutional Appears: No Acute Distress - Head Exam Head Exam: ATRAUMATIC, NORMAL INSPECTION, NORMOCEPHALIC - Eye Exam Eye Exam: EOMI, Normal appearance - ENT Exam ENT Exam: Mucous Membranes Moist - Respiratory Exam Respiratory Exam: Clear to Ausculation Bilateral, NORMAL BREATHING PATTERN. absent: Decreased Breath Sounds, Rales, Rhonchi, Wheezes, Respiratory Distress - Cardiovascular Exam Cardiovascular Exam: REGULAR RHYTHM. absent: Bradycardia, Tachycardia, Murmur - GI/Abdominal Exam GI & Abdominal Exam: Soft, Normal Bowel Sounds. absent: Distended, Firm, Guarding, Tenderness - Extremities Exam Extremities Exam: Normal Inspection. absent: Pedal Edema, Tenderness - Neurological Exam Neurological Exam: Alert, Awake, Oriented x3 - Skin Skin Exam: Dry, Intact, Warm Additional comments: improving ecchymosis Assessment and Plan - Assessment and Plan (Free Text) Assessment: Anemia status post blood transfusion, no obvious bleeding per rectum C. difficile colitis Thrombocytopenia- improving s/p Septic shock due to pyelonephritis Obesity Diabetes mellitus Chronic kidney disease Plan: Continue to trend H&H, hgb is stable continue Carafate PPI was discontinued secondary to thrombocytopenia thrombocytopenia continues to improve Diet as tolerated, currently on heart health diet s/p IV iron repeat c. diff studies are negative cont IV antibiotics per ID, currently on flagyl, ceftrixone, and oral vancomycin BERNADETTE negative for vegetation, repeat blood cultures negative Patient may benefit from Elective endoscopy case reviewed and discussed with Dr. Brandt.
[2017-09-22] MEDS: Vancomycin 25 MG/ML PO SCH (10:50)
--- NOTE | 2017-09-22 12:36 | CP.PCM.PN ---
Subjective - Date & Time of Evaluation Date of Evaluation: 09/22/17 Time of Evaluation: 10:55 - Subjective Subjective: Comfortable in bed, no fevers, flank pain and abdominal pain are better, no nausea, eating better. Objective - Vital Signs/Intake and Output Vital Signs (last 24 hours): Temp Pulse Resp BP Pulse Ox 98.6 F 103 H 20 138/78 97 09/22/17 06:00 09/22/17 09:21 09/22/17 06:00 09/22/17 09:21 09/22/17 06:00 Intake and Output: 09/22/17 09/22/17 06:59 18:59 Intake Total 1300 Output Total 0 Balance 1300 - Medications Medications: Current Medications Amlodipine Besylate (Norvasc) 10 mg PO DAILY [facility] Last Admin: 09/22/17 09:21 Dose: 10 mg Hydralazine HCl (Apresoline) 10 mg IVP Q6 PRN PRN Reason: Systolic Blood Pressure Last Admin: 09/20/17 18:16 Dose: 10 mg Ceftriaxone Sodium (Rocephin 2 Gm Ivpb) 2 gm in 100 mls @ 100 mls/hr IVPB DAILY [facility] PRN Reason: Protocol Stop: 09/25/17 16:39 Last Admin: 09/22/17 09:20 Dose: 100 mls/hr Sodium Chloride (Sodium Chloride 0.9%) 1,000 mls @ 100 mls/hr IV .Q10H [facility] Last Admin: 09/22/17 09:24 Dose: 100 mls/hr Magnesium Sulfate/Dextrose (Magnesium Sulfate 1 Gm/100 Ml D5w) 1 gm in 100 mls @ 100 mls/hr IVPB ONCE ONE Stop: 09/22/17 10:36 Insulin Detemir (Levemir) 15 unit SC Q12 [facility] Last Admin: 09/22/17 09:21 Dose: 15 unit Insulin Human Lispro (Humalog Med) 0 units SC ACHS [facility] PRN Reason: Protocol Last Admin: 09/22/17 08:41 Dose: 3 units Losartan Potassium (Cozaar) 100 mg PO DAILY [facility] Last Admin: 09/22/17 09:21 Dose: 100 mg Metronidazole (Flagyl) 500 mg PO Q8 [facility] PRN Reason: Protocol Stop: 09/25/17 16:41 Last Admin: 09/22/17 05:14 Dose: 500 mg Ondansetron HCl (Zofran Inj) 4 mg IVP Q4H PRN PRN Reason: Nausea/Vomiting Last Admin: 09/20/17 09:35 Dose: 4 mg Sucralfate (Carafate Tab) 1 gm PO 0630,1130,1630,2200 [facility] Last Admin: 09/22/17 05:46 Dose: Not Given Vitamin A (Vitamin A & D Oint Ud Foilpak) 1 ea TOP Q2 PRN PRN Reason: Dry mouth Last Admin: 09/20/17 21:57 Dose: 1 ea - Labs Labs: 09/22/17 05:15 09/22/17 05:15 PT 16.4 SECONDS (9.4-12.5) H 09/14/17 07:49 INR 1.42 (0.93-1.08) H 09/14/17 07:49 APTT 29.0 Seconds (25.1-36.5) 09/15/17 05:30 - Constitutional Appears: Chronically Ill - Head Exam Head Exam: NORMAL INSPECTION - ENT Exam ENT Exam: Mucous Membranes Moist - Neck Exam Neck Exam: absent: Lymphadenopathy, Meningismus - Respiratory Exam Respiratory Exam: Decreased Breath Sounds - Cardiovascular Exam Cardiovascular Exam: +S1, +S2 - GI/Abdominal Exam GI & Abdominal Exam: Soft. absent: Tenderness Assessment and Plan - Assessment and Plan (Free Text) Plan: Assessment Severe sepsis S/P septic shock with acute on chronic renal failure due to E. coli with emphysematous left sided pyelonephritis, clinically improving DM morbid obesity with BMI 41 history of alcohol and substance abuse chronic anemia Plan Continue Rocephin and Flagyl to complete 10-14 days total (day 6 today) - will re-assess tomorrow to see if we can switch patient to PO antibiotics will continue to monitor clinically
--- NOTE | 2017-09-22 15:01 | PN ---
DATE: 09/22/2017 SUBJECTIVE: The patient denies any chest pain. She is experiencing nauseous feeling but no vomiting. PHYSICAL EXAMINATION: VITAL SIGNS: Blood pressure 138/78, heart rate 103, temperature 98.6, respirations 20. HEENT: Pale conjunctivae. CHEST: Clear. HEART: S1, S2 regular. EXTREMITIES: Nonpitting edema. LABORATORY DATA: Today's hemoglobin and hematocrit 9.5 and 29.3, white count and platelet count are within normal limit. Today's SMA-7 is within normal limits except for glucose of 215. BERNADETTE performed yesterday revealed no valvular vegetation. ASSESSMENT: 1. Right pyelonephritis. 2. Escherichia coli bacteremia. 3. Hypertension. 4. No evidence of valvular vegetation by the echocardiogram. RECOMMENDATIONS: Continue current hydralazine, Cozaar, oral Flagyl, Norvasc, IV Rocephin, and p.r.n. IV Zofran. Pavan Clay MD
--- NOTE | 2017-09-22 15:46 | CP.PCM.PN ---
Subjective - Date & Time of Evaluation Date of Evaluation: 09/22/17 Time of Evaluation: 10:00 - Subjective Subjective: Heme Onc Progress Note for Dr. Ash Patient was seen and examined at bedside. No acute complaints at this time. As per nursing staff, no acute or adverse events overnight. Patient states she is continuing to feel better. Patient is tolerating oral intake and is voiding regularly. Pt is OOB. Patient denied fever, chills, shortness of breath, chest pains, abdominal pains, nausea, vomiting, diarrhea, constipation, or dysuria. Patient tolerated BERNADETTE without incident. Objective - Vital Signs/Intake and Output Vital Signs (last 24 hours): Temp Pulse Resp BP Pulse Ox 98.6 F 103 H 20 138/78 97 09/22/17 06:00 09/22/17 09:21 09/22/17 06:00 09/22/17 09:21 09/22/17 06:00 Intake and Output: 09/22/17 09/22/17 06:59 18:59 Intake Total 1300 960 Output Total 0 Balance 1300 960 - Medications Medications: Current Medications Amlodipine Besylate (Norvasc) 10 mg PO DAILY [facility] Last Admin: 09/22/17 09:21 Dose: 10 mg Hydralazine HCl (Apresoline) 10 mg IVP Q6 PRN PRN Reason: Systolic Blood Pressure Last Admin: 09/20/17 18:16 Dose: 10 mg Ceftriaxone Sodium (Rocephin 2 Gm Ivpb) 2 gm in 100 mls @ 100 mls/hr IVPB DAILY [facility] PRN Reason: Protocol Stop: 09/25/17 16:39 Last Admin: 09/22/17 09:20 Dose: 100 mls/hr Insulin Detemir (Levemir) 15 unit SC Q12 [facility] Last Admin: 09/22/17 09:21 Dose: 15 unit Insulin Human Lispro (Humalog Med) 0 units SC ACHS [facility] PRN Reason: Protocol Last Admin: 09/22/17 12:29 Dose: 3 units Losartan Potassium (Cozaar) 100 mg PO DAILY [facility] Last Admin: 09/22/17 09:21 Dose: 100 mg Metronidazole (Flagyl) 500 mg PO Q8 [facility] PRN Reason: Protocol Stop: 09/25/17 16:41 Last Admin: 09/22/17 14:32 Dose: 500 mg Ondansetron HCl (Zofran Inj) 4 mg IVP Q4H PRN PRN Reason: Nausea/Vomiting Last Admin: 09/20/17 09:35 Dose: 4 mg Sucralfate (Carafate Tab) 1 gm PO 0630,1130,1630,2200 [facility] Last Admin: 09/22/17 12:30 Dose: 1 gm Vitamin A (Vitamin A & D Oint Ud Foilpak) 1 ea TOP Q2 PRN PRN Reason: Dry mouth Last Admin: 09/20/17 21:57 Dose: 1 ea - Labs Labs: 09/22/17 05:15 09/22/17 05:15 PT 16.4 SECONDS (9.4-12.5) H 09/14/17 07:49 INR 1.42 (0.93-1.08) H 09/14/17 07:49 APTT 29.0 Seconds (25.1-36.5) 09/15/17 05:30 - Constitutional Appears: No Acute Distress - Head Exam Head Exam: ATRAUMATIC, NORMAL INSPECTION, NORMOCEPHALIC - Eye Exam Eye Exam: EOMI, Normal appearance, PERRL - ENT Exam ENT Exam: Mucous Membranes Moist, Normal Exam - Respiratory Exam Respiratory Exam: Clear to Ausculation Bilateral, NORMAL BREATHING PATTERN - Cardiovascular Exam Cardiovascular Exam: REGULAR RHYTHM, +S1, +S2. absent: Murmur - GI/Abdominal Exam GI & Abdominal Exam: Soft, Normal Bowel Sounds. absent: Tenderness - Neurological Exam Neurological Exam: Alert, Awake, CN II-XII Intact, Normal Gait, Oriented x3 - Psychiatric Exam Psychiatric exam: Normal Affect, Normal Mood - Skin Skin Exam: Dry, Intact, Normal Color, Warm Assessment and Plan - Assessment and Plan (Free Text) Assessment: 42 year old female with a past medical history significant for NIDDM2 admitted for DKA, sepsis shock 2/2 gram negative bactremia, UTI and found to have emphysematous pyelonephritis as well as symptomatic anemia with positive stool occult. For panytopenia workup: plt ab, manual count, peripheral smear, iron, TIBC, transferrin, ferritin, B12, folate, TSH, serum electrophoresis, protein electro, free kappa light chains, b2 microglob, flow cytometry. monitor H/H, protonix drip. peripheral smear showing microcytic normochromic anemia, IV iron as ordered. Pt is to fu with Dr. Ash in the clinic once DC. BERNADETTE negative. No oral AC at this time. Pt likely for elective EGD as outpt. 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
--- NOTE | 2017-09-23 17:31 | CP.PCM.DIS ---
<Noel Ybarra - Last Filed: 09/24/17 15:37> Provider - Provider Date of Admission: 09/13/17 23:55 Attending physician: Radu Young MD Primary care physician: Aurelia Milton MD Consults: GI - Yaneth Hem/Onc - Nilsa ID - Lulu Nephro - Frank Uro - [facility] Time Spent in preparation of Discharge (in minutes): 75 Diagnosis - Discharge Diagnosis (1) C. difficile colitis Status: Resolved (2) GI bleed Status: Resolved (3) Dehydration Status: Resolved (4) Renal failure Status: Resolved (5) Sepsis Status: Resolved Hospital Course - Lab Results Lab Results: Micro Results 09/17/17 13:00 Blood Blood Culture - Final NO GROWTH AFTER 5 DAYS 09/17/17 12:45 Blood Blood Culture - Final NO GROWTH AFTER 5 DAYS 09/17/17 12:45 Blood Gram Stain - Final TEST NOT PERFORMED 09/20/17 11:13 Stool C. difficile Antigen & Toxin A,B (M - Final 09/15/17 22:18 Blood Blood Culture - Final Escherichia Coli 09/15/17 22:18 Blood Gram Stain - Final 09/14/17 21:41 Stool Stool Culture - Final NO SALMONELLA, SHIGELLA OR CAMPYLOBACTER ISOLATED. 09/14/17 21:41 Stool C. difficile Antigen & Toxin A,B (M - Final 09/14/17 02:20 Nose MRSA Culture (Admit) - Final MRSA NOT DETECTED 09/14/17 05:22 Urine,Kumar Urine Culture - Final Gram Negative Jose L Most Recent Lab Values WBC 8.5 10^3/ul (4.5-11.0) 09/22/17 05:15 RBC 3.64 10^6/uL (3.5-6.1) 09/22/17 05:15 Hgb 9.5 g/dL (12.0-16.0) L 09/22/17 05:15 Hct 29.3 % (36.0-48.0) L 09/22/17 05:15 MCV 80.5 fl (80.0-105.0) 09/22/17 05:15 MCH 26.1 pg (25.0-35.0) 09/22/17 05:15 MCHC 32.4 g/dl (31.0-37.0) 09/22/17 05:15 RDW 16.0 % (11.5-14.5) H 09/22/17 05:15 Plt Count 198 10^3/uL (120.0-450.0) 09/22/17 05:15 Manual Plt Count 63 K/mm3 (120-450) L 09/18/17 06:00 MPV 10.7 fl (7.0-11.0) 09/22/17 05:15 Gran % 66.7 % (50.0-68.0) 09/22/17 05:15 Lymph % (Auto) 26.4 % (22.0-35.0) 09/22/17 05:15 Bucks % (Auto) 4.8 % (1.0-6.0) 09/22/17 05:15 Eos % (Auto) 2.1 % (1.5-5.0) 09/22/17 05:15 Baso % (Auto) 0.0 % (0.0-3.0) 09/22/17 05:15 Gran # 5.66 (1.4-6.5) 09/22/17 05:15 Lymph # (Auto) 2.2 (1.2-3.4) 09/22/17 05:15 Bucks # (Auto) 0.4 (0.1-0.6) 09/22/17 05:15 Eos # (Auto) 0.2 (0.0-0.7) 09/22/17 05:15 Baso # (Auto) 0.00 K/mm3 (0.0-2.0) 09/22/17 05:15 Neutrophils % (Manual) 80 % (50.0-70.0) H 09/13/17 22:15 Band Neutrophils % 9 % (0-2) H 09/13/17 22:15 Lymphocytes % (Manual) 6 % (22.0-35.0) L 09/13/17 22:15 Monocytes % (Manual) 5 % (1.0-6.0) 09/13/17 22:15 Differential Comment See pathology report 09/19/17 06:00 Large Platelets Present 09/13/17 22:15 PT 16.4 SECONDS (9.4-12.5) H 09/14/17 07:49 INR 1.42 (0.93-1.08) H 09/14/17 07:49 APTT 29.0 Seconds (25.1-36.5) 09/15/17 05:30 pCO2 27 mm/Hg (35-45) L 09/15/17 06:00 pO2 131.0 mm/Hg (80-100) H 09/15/17 06:00 HCO3 15.3 mmol/L (21-28) L 09/15/17 06:00 ABG pH 7.36 (7.35-7.45) 09/15/17 06:00 ABG Total CO2 16.1 mmol.L (22-28) L 09/15/17 06:00 ABG O2 Saturation 99.3 % (95-98) H 09/15/17 06:00 ABG Base Excess -8.6 mmol/L (-2.0-3.0) L 09/15/17 06:00 ABG Potassium 4.6 mmol/L (3.6-5.2) 09/15/17 06:00 VBG pH 7.19 (7.32-7.43) L* 09/14/17 12:10 VBG pCO2 38.0 (40-60) L 09/14/17 12:10 VBG HCO3 14.5 mmol/l (21-28) L 09/14/17 12:10 VBG Total CO2 15.7 mmol.L (22-28) L 09/14/17 12:10 VBG O2 Sat (Calc) 74.2 % (40-65) H 09/14/17 12:10 VBG Base Excess -13.0 mmol/L (0.0-2.0) L 09/14/17 12:10 VBG Potassium 4.4 mmol/L (3.6-5.2) 09/14/17 12:10 Sodium 137.0 mmol/L (132-148) 09/15/17 06:00 Chloride 112.0 mmol/L (98-107) H 09/15/17 06:00 Glucose 323 mg/dl (65-105) H 09/15/17 06:00 Lactate 2.2 mmol/L (0.7-2.1) H 09/15/17 06:00 FiO2 50.0 % 09/15/17 06:00 Sodium 139 mmol/L (132-148) 09/22/17 05:15 Potassium 3.7 mmol/L (3.6-5.0) 09/22/17 05:15 Chloride 104 mmol/L (98-107) 09/22/17 05:15 Carbon Dioxide 26 mmol/L (21-33) 09/22/17 05:15 Anion Gap 13 (10-20) 09/22/17 05:15 BUN 11 mg/dL (7-21) 09/22/17 05:15 Creatinine 0.7 mg/dl (0.7-1.2) 09/22/17 05:15 Est GFR ( Amer) > 60 09/22/17 05:15 Est GFR (Non-Af Amer) > 60 09/22/17 05:15 POC Glucose (mg/dL) 153 mg/dL (65-110) H 09/22/17 16:17 Random Glucose 215 mg/dL (70-110) H 09/22/17 05:15 Hemoglobin A1c 8.9 % (4.2-6.5) H 09/14/17 07:00 Lactic Acid 3.3 mmol/L (0.7-2.1) H 09/15/17 05:30 Calcium 7.9 mg/dL (8.4-10.5) L 09/22/17 05:15 Phosphorus 2.9 mg/dL (2.5-4.5) 09/22/17 05:15 Magnesium 1.4 mg/dL (1.7-2.2) L 09/22/17 05:15 Iron 11 ug/dL (45-180) L 09/16/17 05:00 TIBC 208 ug/dL (265-497) L 09/16/17 05:00 % Saturation 5 % (20-55) L 09/16/17 05:00 Transferrin 126.62 mg/dL (206-381) L 09/16/17 05:00 Ferritin 321.0 ng/mL 09/15/17 22:04 Total Bilirubin 0.6 mg/dL (0.2-1.3) 09/22/17 05:15 AST 18 U/L (14-36) 09/22/17 05:15 ALT 24 U/L (7-56) 09/22/17 05:15 Alkaline Phosphatase 95 U/L (38-126) 09/22/17 05:15 Total Protein 6.0 g/dL (5.8-8.3) 09/22/17 05:15 Albumin 2.6 g/dL (3.0-4.8) L 09/22/17 05:15 Globulin 3.4 gm/dL 09/22/17 05:15 Albumin/Globulin Ratio 0.8 (1.1-1.8) L 09/22/17 05:15 Triglycerides 166 mg/dL (35-160) H 09/14/17 07:00 Cholesterol 99 mg/dL (130-200) L 09/14/17 07:00 LDL Cholesterol Direct < 30 mg/dL (0-129) 09/14/17 07:00 HDL Cholesterol 28 mg/dL (29-60) L 09/14/17 07:00 Lipase 26 U/L (23-300) 09/13/17 22:15 Vitamin B12 > 1000 pg/mL (239-931) H 09/15/17 22:04 Folate 6.5 ng/mL 09/15/17 22:04 Procalcitonin > 200.00 NG/ML (0.19-0.49) H 09/13/17 22:15 TSH 3rd Generation 0.97 mIU/mL (0.46-4.68) 09/16/17 05:00 Beta HCG, Quant < 2.39 mIU/mL (0-6.15) 09/13/17 22:15 Arterial Blood Potassium 4.6 mmol/L (3.6-5.2) 09/15/17 06:00 Venous Blood Potassium 4.4 mmol/L (3.6-5.2) 09/14/17 12:10 Urine Color Yellow (YELLOW) 09/14/17 05:22 Urine Appearance Sl cloudy (CLEAR) 09/14/17 05:22 Urine pH 6.0 (4.7-8.0) 09/14/17 05:22 Ur Specific [place] 1.025 (1.005-1.035) 09/14/17 05:22 Urine Protein 100 mg/dL (<30 mg/dL) H 09/14/17 05:22 Urine Glucose (UA) 100 mg/dL (NEGATIVE) H 09/14/17 05:22 Urine Ketones Trace mg/dL (NEGATIVE) H 09/14/17 05:22 Urine Blood Moderate (NEGATIVE) H 09/14/17 05:22 Urine Nitrate Negative (NEGATIVE) 09/14/17 05:22 Urine Bilirubin Negative (NEGATIVE) 09/14/17 05:22 Urine Urobilinogen 0.2 E.U./dL (<1 E.U./dL) 09/14/17 05:22 Ur Leukocyte Esterase Negative Juan/uL (NEGATIVE) 09/14/17 05:22 Urine RBC 1 - 3 /hpf (0-2) 09/14/17 05:22 Urine WBC 0 - 2 /hpf (0-6) 09/14/17 05:22 Ur Epithelial Cells 0 - 2 /hpf (0-5) 09/14/17 05:22 Amorphous Sediment Few 09/14/17 05:22 Urine Eosinophils Negative 09/14/17 05:22 Ur Random Creatinine 87 mg/dL 09/14/17 12:00 U Random Total Protein 152 mg/L 09/14/17 12:00 Ur Random Sodium 31 meq/L 09/14/17 12:00 Urine HCG, Qual Negative (NEGATIVE) 09/14/17 05:22 Stool Occult Blood Positive (NEGATIVE) H 09/14/17 16:27 Salicylates < 1 mg/dL (2.0-20.0) L 09/14/17 07:00 Urine Opiates Screen Negative (NEGATIVE) 09/14/17 12:00 Urine Methadone Screen Negative (NEGATIVE) 09/14/17 12:00 Acetaminophen < 10.0 ug/ml (10.0-20.0) L 09/14/17 07:00 Ur Barbiturates Screen Negative (NEGATIVE) 09/14/17 12:00 Ur Phencyclidine Scrn Negative (NEGATIVE) 09/14/17 12:00 Ur Amphetamines Screen Negative (NEGATIVE) 09/14/17 12:00 U Benzodiazepines Scrn Negative (NEGATIVE) 09/14/17 12:00 U Oth Cocaine Metabols Negative (NEGATIVE) 09/14/17 12:00 U Cannabinoids Screen Negative (NEGATIVE) 09/14/17 12:00 Indir Plt-Bound IgM Ab Negative (NEGATIVE) 09/16/17 05:00 Free [place] Light Chains 49.7 mg/L (3.3-19.4) H 09/16/17 05:00 Monoscreen Negative (Negative) 09/14/17 04:50 HIV 1&2 Ag/Ab, 4th Gen Nonreactive (Nonreactive) 09/14/17 15:36 WB Flow Cytometry Reference test 09/16/17 05:00 Blood Type A POSITIVE 09/16/17 11:30 Blood Type Confirm A POSITIVE 09/14/17 01:35 Antibody Screen Negative 09/16/17 11:30 Crossmatch See Detail 09/16/17 11:30 BBK History Checked Patient has bt 09/16/17 11:30 - Hospital Course Hospital Course: As per admission documentation Ms. Cordero is 42 year old female with a past medical history significant for NIDDM2 presents with two days of nausea, vomiting, abdominal pain, fever and fatigue. Patient reports that two days ago she began to experience nausea and vomiting after eating at a local restaurant. Since that time she has been feeling significant fatigue and has been unable to tolerate PO intake. She endorses epigastric abdominal pain, 6/10, that is associated with the N/V. Patients mother took her blood pressure and BG today and these were, 75/40 and 350, respectively. She endorses that she was seen at [facility] for similar symptoms two weeks ago for similar symptoms and these resolved with supportive interventions. She reports that she sees Dr. Willis on [facility] for her primary care needs but that she sees him less frequently than is required for routine health maintenance. She also reports that she has seen an [employer] for her NIDDM2, which was diagnosed at age 30. She reports that she was on insulin at one time but is currently only taking PO medications for glycemic control. She denies headache, rhinorrhea, changes in her vision, chest pain, palpitations, leg swelling, SOB, cough, hemoptysis, diarrhea, constipation , dysuria, hematuria, skin changes, or any numbness/tingling/weakness of any extremity. Hospital Course Patient had a very complicated hospitalization secondary to Emphysema pyelonephritis and E. Coli Bacteremia. Presented with two days of nausea, vomiting, abdominal pain, fever and fatigue. Patient had hyperglycemia to 430 and an anion gap of 26. She was also found to have a leukocytosis to 20.1, lactic acidosis of 10.4, and hypokalemia to 3.3. Stool Occult positive. Creatinine 4.4 on admission. No hx of CKD. Patient was recently seen 2 weeks ago in [facility] with complaints of n/v and was sent home with abx. Patient was admitted to the ICU for Sepsis, JOSE D, GI bleed. 09/14: BP tanked to 70s despite IVF. On pressor. Gap decreases, still on Insulin gtt. Not DKA. It is septic shock on hydrocortisol. Levo 10 and off vassopressin. Insulin q6 now. NPO. stool occult is positive. GI consult. PPI drip. Still NPO because of poss GI bleed. Trend U/O. 09/15: Tmax 102.9. Off pressor. No more GI bleed. Iygengar is on for splenic infarct 09/16: tolerated diet, transufse 1 unit PRBC because hgb is 8, stop bicarb , insulin drip stopped, added 5mg levemir at night, cdiff positive for antigen only and started on Rocephen and Flagyl 09/17: diet advanced, DC PPI due to platelet count, decreases stress dose steroids, carafet started by GI. transferred to remote tele 09/19: Increase levemir from 10 q12 to 15q12. Add Cozaar 25 qd. 09/21: Patient had BERNADETTE to r/o vegetation, none noted. CT Abdomen/Pelvis 09/13: 1. Gas is visualized within the left ureter and left renal collecting system. This may be iatrogenically, although infectious etiology/emphysematous pyelonephritis is considered. There is mild left perinephric stranding. 2. Additional stranding is seen within the retroperitoneum which extends into the left side of the pelvis. This is likely infectious or inflammatory. Some of the stranding is seen in the left pericolonic region of the descending colon, which can be associated with colitis. 3. There is hypodense fatty infiltration of the liver. Hepatomegaly. 4. There is a wedge-shaped area of hypodensity within the periphery of the spleen. Differential considerations include splenic infarct or laceration. A splenic mass cannot be excluded. There is mild splenomegaly. This can be further evaluated with a contrast CT abdomen/pelvis. 5. Within the left ovary, there is a 1.8 x 1.6 cm hypodense probable cyst. 6. There is retroperitoneal lymphadenopathy. 7. Cholelithiasis.8. Interstitial and air space disease is identified at the bilateral lung bases. This may be infectious in etiology. CT Abdomen/Pelvis 09/20: Small focal area of consolidation at the left lung base , probable atelectasis. Resolution of previous finding of air in the left renal collecting system. Patient had blood cultures positive for E. Coli on 09/13 x2 and 09/15 x1. Urine Culture on 09/14 was positive for gram neg jose l. C. diff positive for antigen only on 09/14. Blood cultures on 09/17 showed no growth after 5 days x2. Stool on 09/20 for C. diff was negative. BERNADETTE on 09/21 was negative for vegetations. Patient 's plates dropped to 31 on 09/14 but resolved and was 198 on 09/22. Patient was feeling better with no complaints on 09/22. She was set up for out patient IV antibiotics to complete her course. Patient had no complaints on the date of discharge and stated she felt great. She was counseled on the importance of diabetic control. She was discharged home on September 22, 2017 with the follow instructions. Discharge Instructions Patient is to be discharged home. Patient is to follow up with primary care doctor, Dr Milton, within 1 week of discharge Patient is to follow up with Dr. Wolfe, GI doctor, within 4 weeks for outpatient endoscopy due to GI bleed during this hospital stay. Patient is to follow up with Dr. Ash, blood doctor, within 4 weeks of discharge. Patient is to continue her medications as directed. - Come to [facility] infusion outpatient center for IV antibiotics for 8 days. Rocephin 2gm IV daily. - Take Metronidazole 500mg by mouth every 8 hours for the next 8 days. Make sure to avoid alcohol intake while on this medication. Continue current diabetes regiment, make sure to take daily logs three times a day and bring them with you to your primary care physician appointment. If patient experiences any new or worsening symptoms, please go to the nearest emergency facility. Take care and be well. This is a very brief summary of the patient's complicated hospital course. For full detail, please see EMR. Discharge Exam - Head Exam Head Exam: ATRAUMATIC, NORMAL INSPECTION, NORMOCEPHALIC - Eye Exam Eye Exam: EOMI, Normal appearance - ENT Exam ENT Exam: Mucous Membranes Moist - Neck Exam Neck exam: Normal Inspection - Respiratory Exam Respiratory Exam: Clear to PA & Lateral, NORMAL BREATHING PATTERN. absent: Accessory Muscle Use, Rales, Rhonchi, Wheezes, Respiratory Distress - Cardiovascular Exam Cardiovascular Exam: REGULAR RHYTHM, +S1, +S2 - GI/Abdominal Exam GI & Abdominal Exam: Soft. absent: Distended, Firm, Guarding, Rebound, Rigid, Tenderness Additional comments: ecchymosis on left side of abdomen stable. - Extremities Exam Extremities exam: pedal edema, pedal pulses present - Back Exam Back exam: absent: CVA tenderness (L), CVA tenderness (R) - Neurological Exam Neurological exam: Alert, CN II-XII Intact, Oriented x3 - Psychiatric Exam Psychiatric exam: Normal Affect, Normal Mood - Skin Skin Exam: Dry, Warm Discharge Plan - Discharge Medications Prescriptions: amLODIPine [Norvasc] 10 mg PO DAILY #30 tab cefTRIAXone [Rocephin] 2 gm IVPB DAILY #8 vial GlipiZIDE [Glucotrol] 10 mg PO BID #1 tab Losartan [Cozaar] 100 mg PO DAILY #60 tab MetFORMIN [glucoPHAGE] 1,000 mg PO BID #1 tab metroNIDAZOLE [Flagyl] 500 mg PO Q8 #24 tab Sucralfate [Carafate Tab] 1 gm PO BID #60 tab - Follow Up Plan Condition: STABLE Disposition: HOME/ ROUTINE Instructions: Dehydration, Adult (DC), Fatigue (DC), Hyperglycemia, Adult (DC) , Sepsis, Adult (DC), Diabetic Ketoacidosis (DC), Diabetes and Infections, Low Magnesium Level (DC), Diabetes and Diet, Dehydration (DC), Dehydration (GEN), Renal Failure Diet (DC), Diabetic Ketoacidosis (DC), Diabetic Ketoacidosis (GEN) Additional Instructions: Patient is to be discharged home. Patient is to follow up with primary care doctor, Dr Milton, within 1 week of discharge Patient is to follow up with Dr. Wolfe, GI doctor, within 4 weeks for outpatient endoscopy due to GI bleed during this hospital stay. Patient is to follow up with Dr. Ash, blood doctor, within 4 weeks of discharge. Patient is to continue her medications as directed. - Come to [facility] infusion outpatient center for IV antibiotics for 8 days - Take Metronidazole 500mg by mouth every 8 hours for the next 8 days. Make sure to avoid alcohol intake while on this medication. Continue current diabetes regiment, make sure to take daily logs three times a day and bring them with you to your primary care physician appointment. If patient experiences any new or worsening symptoms, please go to the nearest emergency facility. Take care and be well. Referrals: Ajay Ash MD [Staff Provider] - Aurelia Milton MD [Primary Care Provider] - Han Wolfe MD [Medical Doctor] - 4 Week <Radu Young - Last Filed: 09/25/17 07:41> Provider - Provider Date of Admission: 09/13/17 23:55 Attending physician: Radu Young MD Primary care physician: Aurelia Milton MD Hospital Course - Lab Results Lab Results: Micro Results 09/17/17 13:00 Blood Blood Culture - Final NO GROWTH AFTER 5 DAYS 09/17/17 12:45 Blood Blood Culture - Final NO GROWTH AFTER 5 DAYS 09/17/17 12:45 Blood Gram Stain - Final TEST NOT PERFORMED 09/20/17 11:13 Stool C. difficile Antigen & Toxin A,B (M - Final 09/15/17 22:18 Blood Blood Culture - Final Escherichia Coli 09/15/17 22:18 Blood Gram Stain - Final 09/14/17 21:41 Stool Stool Culture - Final NO SALMONELLA, SHIGELLA OR CAMPYLOBACTER ISOLATED. 09/14/17 21:41 Stool C. difficile Antigen & Toxin A,B (M - Final 09/14/17 02:20 Nose MRSA Culture (Admit) - Final MRSA NOT DETECTED 09/14/17 05:22 Urine,Kumar Urine Culture - Final Gram Negative Jose L Most Recent Lab Values WBC 8.5 10^3/ul (4.5-11.0) 09/22/17 05:15 RBC 3.64 10^6/uL (3.5-6.1) 09/22/17 05:15 Hgb 9.5 g/dL (12.0-16.0) L 09/22/17 05:15 Hct 29.3 % (36.0-48.0) L 09/22/17 05:15 MCV 80.5 fl (80.0-105.0) 09/22/17 05:15 MCH 26.1 pg (25.0-35.0) 09/22/17 05:15 MCHC 32.4 g/dl (31.0-37.0) 09/22/17 05:15 RDW 16.0 % (11.5-14.5) H 09/22/17 05:15 Plt Count 198 10^3/uL (120.0-450.0) 09/22/17 05:15 Manual Plt Count 63 K/mm3 (120-450) L 09/18/17 06:00 MPV 10.7 fl (7.0-11.0) 09/22/17 05:15 Gran % 66.7 % (50.0-68.0) 09/22/17 05:15 Lymph % (Auto) 26.4 % (22.0-35.0) 09/22/17 05:15 [place] % (Auto) 4.8 % (1.0-6.0) 09/22/17 05:15 Eos % (Auto) 2.1 % (1.5-5.0) 09/22/17 05:15 Baso % (Auto) 0.0 % (0.0-3.0) 09/22/17 05:15 Gran # 5.66 (1.4-6.5) 09/22/17 05:15 Lymph # (Auto) 2.2 (1.2-3.4) 09/22/17 05:15 [place] # (Auto) 0.4 (0.1-0.6) 09/22/17 05:15 Eos # (Auto) 0.2 (0.0-0.7) 09/22/17 05:15 Baso # (Auto) 0.00 K/mm3 (0.0-2.0) 09/22/17 05:15 Neutrophils % (Manual) 80 % (50.0-70.0) H 09/13/17 22:15 Band Neutrophils % 9 % (0-2) H 09/13/17 22:15 Lymphocytes % (Manual) 6 % (22.0-35.0) L 09/13/17 22:15 Monocytes % (Manual) 5 % (1.0-6.0) 09/13/17 22:15 Differential Comment See pathology report 09/19/17 06:00 Large Platelets Present 09/13/17 22:15 PT 16.4 SECONDS (9.4-12.5) H 09/14/17 07:49 INR 1.42 (0.93-1.08) H 09/14/17 07:49 APTT 29.0 Seconds (25.1-36.5) 09/15/17 05:30 pCO2 27 mm/Hg (35-45) L 09/15/17 06:00 pO2 131.0 mm/Hg (80-100) H 09/15/17 06:00 HCO3 15.3 mmol/L (21-28) L 09/15/17 06:00 ABG pH 7.36 (7.35-7.45) 09/15/17 06:00 ABG Total CO2 16.1 mmol.L (22-28) L 09/15/17 06:00 ABG O2 Saturation 99.3 % (95-98) H 09/15/17 06:00 ABG Base Excess -8.6 mmol/L (-2.0-3.0) L 09/15/17 06:00 ABG Potassium 4.6 mmol/L (3.6-5.2) 09/15/17 06:00 VBG pH 7.19 (7.32-7.43) L* 09/14/17 12:10 VBG pCO2 38.0 (40-60) L 09/14/17 12:10 VBG HCO3 14.5 mmol/l (21-28) L 09/14/17 12:10 VBG Total CO2 15.7 mmol.L (22-28) L 09/14/17 12:10 VBG O2 Sat (Calc) 74.2 % (40-65) H 09/14/17 12:10 VBG Base Excess -13.0 mmol/L (0.0-2.0) L 09/14/17 12:10 VBG Potassium 4.4 mmol/L (3.6-5.2) 09/14/17 12:10 Sodium 137.0 mmol/L (132-148) 09/15/17 06:00 Chloride 112.0 mmol/L (98-107) H 09/15/17 06:00 Glucose 323 mg/dl (65-105) H 09/15/17 06:00 Lactate 2.2 mmol/L (0.7-2.1) H 09/15/17 06:00 FiO2 50.0 % 09/15/17 06:00 Sodium 139 mmol/L (132-148) 09/22/17 05:15 Potassium 3.7 mmol/L (3.6-5.0) 09/22/17 05:15 Chloride 104 mmol/L (98-107) 09/22/17 05:15 Carbon Dioxide 26 mmol/L (21-33) 09/22/17 05:15 Anion Gap 13 (10-20) 09/22/17 05:15 BUN 11 mg/dL (7-21) 09/22/17 05:15 Creatinine 0.7 mg/dl (0.7-1.2) 09/22/17 05:15 Est GFR ( Amer) > 60 09/22/17 05:15 Est GFR (Non-Af Amer) > 60 09/22/17 05:15 POC Glucose (mg/dL) 153 mg/dL (65-110) H 09/22/17 16:17 Random Glucose 215 mg/dL (70-110) H 09/22/17 05:15 Hemoglobin A1c 8.9 % (4.2-6.5) H 09/14/17 07:00 Lactic Acid 3.3 mmol/L (0.7-2.1) H 09/15/17 05:30 Calcium 7.9 mg/dL (8.4-10.5) L 09/22/17 05:15 Phosphorus 2.9 mg/dL (2.5-4.5) 09/22/17 05:15 Magnesium 1.4 mg/dL (1.7-2.2) L 09/22/17 05:15 Iron 11 ug/dL (45-180) L 09/16/17 05:00 TIBC 208 ug/dL (265-497) L 09/16/17 05:00 % Saturation 5 % (20-55) L 09/16/17 05:00 Transferrin 126.62 mg/dL (206-381) L 09/16/17 05:00 Ferritin 321.0 ng/mL 09/15/17 22:04 Total Bilirubin 0.6 mg/dL (0.2-1.3) 09/22/17 05:15 AST 18 U/L (14-36) 09/22/17 05:15 ALT 24 U/L (7-56) 09/22/17 05:15 Alkaline Phosphatase 95 U/L (38-126) 09/22/17 05:15 Total Protein 6.0 g/dL (5.8-8.3) 09/22/17 05:15 Albumin 2.6 g/dL (3.0-4.8) L 09/22/17 05:15 Globulin 3.4 gm/dL 09/22/17 05:15 Albumin/Globulin Ratio 0.8 (1.1-1.8) L 09/22/17 05:15 Triglycerides 166 mg/dL (35-160) H 09/14/17 07:00 Cholesterol 99 mg/dL (130-200) L 09/14/17 07:00 LDL Cholesterol Direct < 30 mg/dL (0-129) 09/14/17 07:00 HDL Cholesterol 28 mg/dL (29-60) L 09/14/17 07:00 Lipase 26 U/L (23-300) 09/13/17 22:15 Vitamin B12 > 1000 pg/mL (239-931) H 09/15/17 22:04 Folate 6.5 ng/mL 09/15/17 22:04 Procalcitonin > 200.00 NG/ML (0.19-0.49) H 09/13/17 22:15 TSH 3rd Generation 0.97 mIU/mL (0.46-4.68) 09/16/17 05:00 Beta HCG, Quant < 2.39 mIU/mL (0-6.15) 09/13/17 22:15 Arterial Blood Potassium 4.6 mmol/L (3.6-5.2) 09/15/17 06:00 Venous Blood Potassium 4.4 mmol/L (3.6-5.2) 09/14/17 12:10 Urine Color Yellow (YELLOW) 09/14/17 05:22 Urine Appearance Sl cloudy (CLEAR) 09/14/17 05:22 Urine pH 6.0 (4.7-8.0) 09/14/17 05:22 Ur Specific [place] 1.025 (1.005-1.035) 09/14/17 05:22 Urine Protein 100 mg/dL (<30 mg/dL) H 09/14/17 05:22 Urine Glucose (UA) 100 mg/dL (NEGATIVE) H 09/14/17 05:22 Urine Ketones Trace mg/dL (NEGATIVE) H 09/14/17 05:22 Urine Blood Moderate (NEGATIVE) H 09/14/17 05:22 Urine Nitrate Negative (NEGATIVE) 09/14/17 05:22 Urine Bilirubin Negative (NEGATIVE) 09/14/17 05:22 Urine Urobilinogen 0.2 E.U./dL (<1 E.U./dL) 09/14/17 05:22 Ur Leukocyte Esterase Negative Juan/uL (NEGATIVE) 09/14/17 05:22 Urine RBC 1 - 3 /hpf (0-2) 09/14/17 05:22 Urine WBC 0 - 2 /hpf (0-6) 09/14/17 05:22 Ur Epithelial Cells 0 - 2 /hpf (0-5) 09/14/17 05:22 Amorphous Sediment Few 09/14/17 05:22 Urine Eosinophils Negative 09/14/17 05:22 Ur Random Creatinine 87 mg/dL 09/14/17 12:00 U Random Total Protein 152 mg/L 09/14/17 12:00 Ur Random Sodium 31 meq/L 09/14/17 12:00 Urine HCG, Qual Negative (NEGATIVE) 09/14/17 05:22 Stool Occult Blood Positive (NEGATIVE) H 09/14/17 16:27 Salicylates < 1 mg/dL (2.0-20.0) L 09/14/17 07:00 Urine Opiates Screen Negative (NEGATIVE) 09/14/17 12:00 Urine Methadone Screen Negative (NEGATIVE) 09/14/17 12:00 Acetaminophen < 10.0 ug/ml (10.0-20.0) L 09/14/17 07:00 Ur Barbiturates Screen Negative (NEGATIVE) 09/14/17 12:00 Ur Phencyclidine Scrn Negative (NEGATIVE) 09/14/17 12:00 Ur Amphetamines Screen Negative (NEGATIVE) 09/14/17 12:00 U Benzodiazepines Scrn Negative (NEGATIVE) 09/14/17 12:00 U Oth Cocaine Metabols Negative (NEGATIVE) 09/14/17 12:00 U Cannabinoids Screen Negative (NEGATIVE) 09/14/17 12:00 Indir Plt-Bound IgM Ab Negative (NEGATIVE) 09/16/17 05:00 Free [place] Light Chains 49.7 mg/L (3.3-19.4) H 09/16/17 05:00 Monoscreen Negative (Negative) 09/14/17 04:50 HIV 1&2 Ag/Ab, 4th Gen Nonreactive (Nonreactive) 09/14/17 15:36 WB Flow Cytometry Reference test 09/16/17 05:00 Blood Type A POSITIVE 09/16/17 11:30 Blood Type Confirm A POSITIVE 09/14/17 01:35 Antibody Screen Negative 09/16/17 11:30 Crossmatch See Detail 09/16/17 11:30 BBK History Checked Patient has bt 09/16/17 11:30 Attending/Attestation - Attestation I have personally seen and examined this patient.: Yes I have fully participated in the care of the patient.: Yes I have reviewed all pertinent clinical information, including history, physical exam and plan: Yes Notes (Text): 09/25/17 07:36 Attending note; Patient seen and examined with resident. Patient is a 42 year old female with past medical history of diabetes who presented with DKA, JOSE D and septic shock. E coli bacteremia / UTI and emphysematous pyelonephritis. Currently clinically improved significantly. Vitals stable. Repeat blood culture is negative. Patient is afebrile and nontoxic. WBC count is normal. Currently on IV ceftriaxone and po Flagyl. ID evaluation appreciated. CT abd/pelvis also showed hepatomegaly and wedge shaped area of hypodensity in spleen (?splenic infarct or laceration). Hematology evaluation appreciated. Anemia; stable. Hemoglobin is 9.5. Thrombocytopenia; secondary to sepsis. Resolved. Stool occult was also positive with anemia; currently hemoglobin is stable. GI evaluation appreciated. Case discussed with Dr. Wolfe in detail. Patient will need outpatient workup. C. difficile colitis; no diarrhea. repeat C. difis negative. On Flagyl. Acute kidney injury; resolved. Creatinine back to normal. Monitor closely. status post BERNADETTE; negative for any vegetations. Cardiology evaluation with Dr. Clay appreciated. Needs follow-up with PMD /hematology and GI. Patient will get Rocephin for 7 more days to complete 14 days of antibiotics therapy. PICC line in place. Outpatient antibiotics arranged by medical case worker. Patient aware of the plan. Upon discharge the patient will follow-up with PMD Dr. Milton. Diagnosis; Escherichia coli bacteremia Pyelonephritis Diabetes Hypertension C. difficile colitis Anemia
== END 2017-09-22 20:06 | disposition home or self-care (01) | DRG 584 ==
LOC: ED 21:45 → ERH 23:55 → CCU 09-14 01:58 → 3RSO 09-19 19:52
PROVIDERS: ADMIT Internal Medicine; ATTEND Internal Medicine
PROC: 3E043XZ Introduction of Vasopressor into Central Vein, Percutaneous Approach (ICD-10-PCS; 2017-09-14)
PROC: 02HV33Z Insertion of Infusion Device into Superior Vena Cava, Percutaneous Approach (ICD-10-PCS; principal; 2017-09-15)
PROC: 06HN33Z Insertion of Infusion Device into Left Femoral Vein, Percutaneous Approach (ICD-10-PCS; 2017-09-15)
PROC: B54CZZA Ultrasonography of Left Lower Extremity Veins, Guidance (ICD-10-PCS; 2017-09-15)
PROC: 30233N1 Transfusion of Nonautologous Red Blood Cells into Peripheral Vein, Percutaneous Approach (ICD-10-PCS; 2017-09-16)
PROC: B246ZZ4 Ultrasonography of Right and Left Heart, Transesophageal (ICD-10-PCS; 2017-09-21)
DX: A41.51 Sepsis due to Escherichia coli [E. coli] (principal); R65.21 Severe sepsis with septic shock; N17.9 Acute kidney failure, unspecified; E11.10 Type 2 diabetes mellitus with ketoacidosis without coma; N12 Tubulo-interstitial nephritis, not specified as acute or chronic; A04.72 Enterocolitis due to Clostridium difficile, not specified as recurrent; D61.818 Other pancytopenia; E11.22 Type 2 diabetes mellitus with diabetic chronic kidney disease; N18.9 Chronic kidney disease, unspecified; E87.6 Hypokalemia; R09.02 Hypoxemia; I12.9 Hypertensive chronic kidney disease with stage 1 through stage 4 chronic kidney disease, or unspecified chronic kidney disease; D73.5 Infarction of spleen; E86.0 Dehydration; E83.42 Hypomagnesemia; K80.20 Calculus of gallbladder without cholecystitis without obstruction; K76.0 Fatty (change of) liver, not elsewhere classified; E83.39 Other disorders of phosphorus metabolism; E66.01 Morbid (severe) obesity due to excess calories; Z68.41 Body mass index [BMI] 40.0-44.9, adult; Z79.84 Long term (current) use of oral hypoglycemic drugs